=== PATIENT | male | born 1970 | race Caucasian/White ===

== ENCOUNTER 2016-10-23 21:23 | Inpatient (IN) | payer OTHER ==
[2016-10-23] MEDS ORDERED: ACETAMINOPHEN TAB 500 MG TAB PO STA (23:09)
[2016-10-23] MEDS ORDERED: ONDANSETRON 4 MG/2 ML VIAL IVP STA (23:09)
[2016-10-23] MEDS ORDERED: HYDROmorphone 1 MG/ML 1 ML SYRINGE IVP STA (23:10)
--- NOTE | 2016-10-23 23:15 | ED ---
General Adult HPI - General Chief complaint: GI Bleed Stated complaint: Abd Pain/Bleeding Time Seen by Provider: 10/23/16 22:51 Source: patient, RN notes reviewed Mode of arrival: wheelchair Limitations: no limitations - History of Present Illness Initial comments: Patient is a 45-year-old male presents to the emergency room for evaluation. Patient states he has a history of ulcerative colitis. Patient states he has been experiencing rectal bleeding for the past 6 weeks since his last colonoscopy. Patient states about 2 weeks ago he was at [facility] experiencing shortness of breath. Patient states his d-dimer was positive and they performed a CT. Patient states he was told it was pneumonia. Patient states he has been taking Augmentin. Patient states been having increased rectal bleeding so his physician switched him from Augmentin to azithromycin today. Patient states he has not taken his azithromycin yet. Patient states he went to take a nap after his doctor's appointment and woke up this evening feeling even worse. Patient states he is having increasing shortness of breath. Patient is having increasing abdominal pain on his left upper quadrant and left lower quadrant. Patient states he feels weak and does not feel himself. Patient states he's been feeling feverish but denies taking any Tylenol or Motrin for his symptoms. Patient states he's been very nauseous. - Related Data Home Medications Medication Instructions Recorded Confirmed Dicyclomine [Bentyl] 10 mg PO BID 03/30/14 10/24/16 Mesalamine [Delzicol] 800 mg PO TID 03/30/14 10/24/16 Pregabalin [Lyrica] 150 mg PO BID 03/30/14 10/24/16 Prochlorperazine [Compazine] 10 mg PO BID 03/30/14 10/24/16 hydrOXYzine HCL 25 mg PO BID 03/30/14 10/24/16 buPROPion [Wellbutrin] 150 mg PO BID 06/21/16 10/24/16 Humira (Unknown Dose) 1 dose SQ DIRECTED 07/17/16 10/24/16 Multivitamins, Thera [Multivitamin] 1 tab PO DAILY 07/17/16 10/24/16 Ondansetron [Zofran] 4 mg PO Q12HR PRN 07/17/16 10/24/16 Allergies Allergy/AdvReac Type Severity Reaction Status Date / Time No Known Allergies Allergy Verified 07/17/16 14:15 Review of Systems ROS Statement: Those systems with pertinent positive or pertinent negative responses have been documented in the HPI. ROS Other: All systems not noted in ROS Statement are negative. Past Medical History Past Medical History: Asthma, Chest Pain / Angina, GERD/Reflux, Liver Disease Additional Past Medical History / Comment(s): Hx ulcerative colitis. Hx of "fatty liver". Hx of pleurisy and pneumonia. Chest pain related to "stress". Denies prior hx of MRSA. History of Any Multi-Drug Resistant Organisms: MRSA Date of last positivie culture/infection: 05/19/2007 MDRO Source:: wound on torso, No further reported issues on 06/21/16. Past Surgical History: Back Surgery, Heart Catheterization Additional Past Surgical History / Comment(s): Hx recent "clear heart cath", back surgery x2;multiple colonoscopies. Past Anesthesia/Blood Transfusion Reactions: No Reported Reaction Past Psychological History: Anxiety, Depression Additional Psychological History / Comment(s): Told "stress" was cause of chest pain last month. Smoking Status: Former smoker Past Alcohol Use History: None Reported Additional Past Alcohol Use History / Comment(s): Smoked 1 ppd, started smoking 1995.Quit 2004. Past Drug Use History: None Reported - Past Family History Mother Family Medical History: No Reported History Father Family Medical History: Cancer General Exam - General Exam Comments Initial Comments: laying in exam room Limitations: no limitations General appearance: alert Head exam: Present: atraumatic, normocephalic, normal inspection Eye exam: Present: normal appearance ENT exam: Present: normal exam Neck exam: Present: normal inspection Respiratory exam: Present: decreased breath sounds Cardiovascular Exam: Present: normal rhythm, tachycardia, normal heart sounds GI/Abdominal exam: Present: soft, tenderness (left upper quadrant, left lower quadrant). Absent: distended Rectal exam: Present: normal rectal tone, heme (+) stool Extremities exam: Present: normal inspection Back exam: Present: normal inspection Neurological exam: Present: alert, oriented X3, CN II-XII intact, normal gait Psychiatric exam: Present: normal affect, normal mood Skin exam: Present: warm, dry, intact, normal color. Absent: rash Course Vital Signs 10/23/16 10/23/16 10/23/16 21:49 22:35 23:33 Temperature 101.7 F H 98.9 F Pulse Rate 102 H 102 H Respiratory 18 14 20 Rate Blood Pressure 137/82 111/73 O2 Sat by Pulse 93 L 94 L Oximetry 10/24/16 10/24/16 01:09 02:43 Temperature 98.4 F 98.2 F Pulse Rate 89 78 Respiratory 20 20 Rate Blood Pressure 120/80 116/72 O2 Sat by Pulse 96 98 Oximetry Medical Decision Making - Medical Decision Making patient is a 45-year-old male presents emergency room for evaluation shortness of breath, abdominal pain and rectal bleeding. Patient has had a history of ulcerative colitis. Fecal occult was positive. D-dimer was elevated. Chest CTA : Confluent areas of opacity in the right lung which may present masses along with spiculated superior segment left lower lobe mass with central cavitation. Neoplastic etiology is not excluded. CT abdomen/pelvis: Findings compatible with colitis. He "felt cold mural thickening of some small bowel segments versus incomplete distention. Correlate for enteritis. Patient started on Rocephin and Flagyl. Results discussed with patient. Patient will be admitted for further evaluation. Patient to consult with pulmonology and GI. Case discussed with Dr. Meade who will discuss case with Dr. Newman. - Lab Data Result diagrams: 10/23/16 23:30 10/23/16 23:30 Lab Results 10/23/16 10/23/16 10/23/16 Range/Units 23:10 23:30 23:30 WBC 9.1 (3.8-10.6) k/uL RBC 4.71 (4.30-5.90) m/uL Hgb 12.9 L (13.0-17.5) gm/dL Hct 39.2 (39.0-53.0) % MCV 83.2 (80.0-100.0) fL MCH 27.5 (25.0-35.0) pg MCHC 33.0 (31.0-37.0) g/dL RDW 13.5 (11.5-15.5) % Plt Count 452 H (150-450) k/uL Neutrophils % 77 % Lymphocytes % 11 % Monocytes % 6 % Eosinophils % 3 % Basophils % 1 % Neutrophils # 7.0 (1.3-7.7) k/uL Lymphocytes # 1.0 (1.0-4.8) k/uL Monocytes # 0.6 (0-1.0) k/uL Eosinophils # 0.3 (0-0.7) k/uL Basophils # 0.1 (0-0.2) k/uL PT (9.0-12.0) sec INR (<1.1) APTT (22.0-30.0) sec D-Dimer (<0.60) mg/L FEU Sodium (137-145) mmol/L Potassium (3.5-5.1) mmol/L Chloride (98-107) mmol/L Carbon Dioxide (22-30) mmol/L Anion Gap mmol/L BUN (9-20) mg/dL Creatinine (0.66-1.25) mg/dL Est GFR (MDRD) Af Amer (>60 ml/min/1.73 sqM) Est GFR (MDRD) Non-Af (>60 ml/min/1.73 sqM) Glucose (74-99) mg/dL Plasma Lactic Acid Tl (0.7-2.0) mmol/L Calcium (8.4-10.2) mg/dL Total Bilirubin (0.2-1.3) mg/dL AST (17-59) U/L ALT (21-72) U/L Alkaline Phosphatase (38-126) U/L Total Creatine Kinase 23 L (55-170) U/L CK-MB (CK-2) <0.2 (0.0-2.4) ng/mL CK-MB (CK-2) Rel Index Troponin I <0.012 (0.000-0.034) ng/mL Total Protein (6.3-8.2) g/dL Albumin (3.5-5.0) g/dL Urine Color Urine Appearance (Clear) Urine pH (5.0-8.0) Ur Specific [place] (1.001-1.035) Urine Protein (Negative) Urine Glucose (UA) (Negative) Urine Ketones (Negative) Urine Blood (Negative) Urine Nitrite (Negative) Urine Bilirubin (Negative) Urine Urobilinogen (<2.0) mg/dL Ur Leukocyte Esterase (Negative) Urine RBC (0-5) /hpf Urine Mucus (None) /hpf Stool Occult Blood Positive (Negative) 06/07/17 06/07/17 06/07/17 Range/Units 23:30 23:30 23:30 WBC (3.8-10.6) k/uL RBC (4.30-5.90) m/uL Hgb (13.0-17.5) gm/dL Hct (39.0-53.0) % MCV (80.0-100.0) fL MCH (25.0-35.0) pg MCHC (31.0-37.0) g/dL RDW (11.5-15.5) % Plt Count (150-450) k/uL Neutrophils % % Lymphocytes % % Monocytes % % Eosinophils % % Basophils % % Neutrophils # (1.3-7.7) k/uL Lymphocytes # (1.0-4.8) k/uL Monocytes # (0-1.0) k/uL Eosinophils # (0-0.7) k/uL Basophils # (0-0.2) k/uL PT 11.2 (9.0-12.0) sec INR 1.1 (<1.1) APTT 26.0 (22.0-30.0) sec D-Dimer 1.59 H (<0.60) mg/L FEU Sodium 137 (137-145) mmol/L Potassium 4.0 (3.5-5.1) mmol/L Chloride 102 (98-107) mmol/L Carbon Dioxide 24 (22-30) mmol/L Anion Gap 11 mmol/L BUN 12 (9-20) mg/dL Creatinine 0.78 (0.66-1.25) mg/dL Est GFR (MDRD) Af Amer >60 (>60 ml/min/1.73 sqM) Est GFR (MDRD) Non-Af >60 (>60 ml/min/1.73 sqM) Glucose 135 H (74-99) mg/dL Plasma Lactic Acid Tl 0.8 (0.7-2.0) mmol/L Calcium 9.3 (8.4-10.2) mg/dL Total Bilirubin 0.9 (0.2-1.3) mg/dL AST 13 L (17-59) U/L ALT 26 (21-72) U/L Alkaline Phosphatase 149 H (38-126) U/L Total Creatine Kinase (55-170) U/L CK-MB (CK-2) (0.0-2.4) ng/mL CK-MB (CK-2) Rel Index Troponin I (0.000-0.034) ng/mL Total Protein 7.9 (6.3-8.2) g/dL Albumin 3.9 (3.5-5.0) g/dL Urine Color Urine Appearance (Clear) Urine pH (5.0-8.0) Ur Specific [place] (1.001-1.035) Urine Protein (Negative) Urine Glucose (UA) (Negative) Urine Ketones (Negative) Urine Blood (Negative) Urine Nitrite (Negative) Urine Bilirubin (Negative) Urine Urobilinogen (<2.0) mg/dL Ur Leukocyte Esterase (Negative) Urine RBC (0-5) /hpf Urine Mucus (None) /hpf Stool Occult Blood (Negative) 10/24/16 Range/Units 01:05 WBC (3.8-10.6) k/uL RBC (4.30-5.90) m/uL Hgb (13.0-17.5) gm/dL Hct (39.0-53.0) % MCV (80.0-100.0) fL MCH (25.0-35.0) pg MCHC (31.0-37.0) g/dL RDW (11.5-15.5) % Plt Count (150-450) k/uL Neutrophils % % Lymphocytes % % Monocytes % % Eosinophils % % Basophils % % Neutrophils # (1.3-7.7) k/uL Lymphocytes # (1.0-4.8) k/uL Monocytes # (0-1.0) k/uL Eosinophils # (0-0.7) k/uL Basophils # (0-0.2) k/uL PT (9.0-12.0) sec INR (<1.1) APTT (22.0-30.0) sec D-Dimer (<0.60) mg/L FEU Sodium (137-145) mmol/L Potassium (3.5-5.1) mmol/L Chloride (98-107) mmol/L Carbon Dioxide (22-30) mmol/L Anion Gap mmol/L BUN (9-20) mg/dL Creatinine (0.66-1.25) mg/dL Est GFR (MDRD) Af Amer (>60 ml/min/1.73 sqM) Est GFR (MDRD) Non-Af (>60 ml/min/1.73 sqM) Glucose (74-99) mg/dL Plasma Lactic Acid Tl (0.7-2.0) mmol/L Calcium (8.4-10.2) mg/dL Total Bilirubin (0.2-1.3) mg/dL AST (17-59) U/L ALT (21-72) U/L Alkaline Phosphatase (38-126) U/L Total Creatine Kinase (55-170) U/L CK-MB (CK-2) (0.0-2.4) ng/mL CK-MB (CK-2) Rel Index Troponin I (0.000-0.034) ng/mL Total Protein (6.3-8.2) g/dL Albumin (3.5-5.0) g/dL Urine Color Yellow Urine Appearance Clear (Clear) Urine pH 5.5 (5.0-8.0) Ur Specific [place] 1.029 (1.001-1.035) Urine Protein 1+ H (Negative) Urine Glucose (UA) Negative (Negative) Urine Ketones Negative (Negative) Urine Blood Negative (Negative) Urine Nitrite Negative (Negative) Urine Bilirubin Negative (Negative) Urine Urobilinogen <2.0 (<2.0) mg/dL Ur Leukocyte Esterase Negative (Negative) Urine RBC 1 (0-5) /hpf Urine Mucus Many H (None) /hpf Stool Occult Blood (Negative) - Radiology Data Radiology results: report reviewed, image reviewed Disposition Clinical Impression: Lung mass, Ulcerative colitis Disposition: ADMITTED IP TO THIS [facility] Condition: Stable Referrals: Shanthi Sloan MD [Primary Care Provider] - 1-2 days Decision Date: 10/24/16
[2016-10-23] MEDS: SODIUM CHLORIDE 0.9% 500 ML IV SCH ×2 (23:39→23:40)
[2016-10-23 23:48] LABS: Basophils # (A) 0.1 k/uL (0-0.2); Basophils % (A) 1 %; CH 28.1; CHCM 33.9; Eosinophils # (A) 0.3 k/uL (0-0.7); Eosinophils % (A) 3 %; HCT 39.2 % (39.0-53.0); HDW 3.29; HGB 12.9 gm/dL (13.0-17.5); Luc % (Auto) 2; Lymphocytes % (A) 11 %; MCH 27.5 pg (25.0-35.0); MCV 83.2 fL (80.0-100.0); Mean Platelet Volume 6.2; Monocytes # (A) 0.6 k/uL (0-1.0); Monocytes % (A) 6 %; Neutrophils % (A) 77 %; RBC 4.71 m/uL (4.30-5.90); RDW 13.5 % (11.5-15.5); WBC 9.1 k/uL (3.8-10.6); WBC (Perox) 8.81
[2016-10-24 00:06] LABS: ALT 26 U/L (21-72); AST 13 U/L (17-59); Alkaline Phosphatase 149 U/L (38-126); Anion Gap 11 mmol/L; Blood Urea Nitrogen 12 mg/dL (9-20); Calcium 9.3 mg/dL (8.4-10.2); Carbon Dioxide 24 mmol/L (22-30); Chloride 102 mmol/L (98-107); Glucose 135 mg/dL (74-99); Non-African American GFR(MDRD) >60 (>60 ml/min/1.73 sqM); Sodium 137 mmol/L (137-145); Total Bilirubin 0.9 mg/dL (0.2-1.3); Total Protein 7.9 g/dL (6.3-8.2)
[2016-10-24 00:08] LABS: Creatine Kinase 23 U/L (55-170)
[2016-10-24 00:12] LABS: INR 1.1 (<1.1); Prothrombin Time 11.2 sec (9.0-12.0)
[2016-10-24 00:20] LABS: Creatine Kinase MB <0.2 ng/mL (0.0-2.4); Troponin I <0.012 ng/mL (0.000-0.034)
--- NOTE | 2016-10-24 00:31 | XR ---
EXAM: XR Acute Abdomen Series W/ Cxr CLINICAL HISTORY: Reason: Pain TECHNIQUE: X-ray acute abdomen series w/ cxr. COMPARISON: No relevant prior studies available. FINDINGS: Flanks clipped. There are some dilated small bowel loops. There is still colonic gas and stool seen predominantly on the right. There is a paucity of small bowel gas overall. Dilated fluid-filled small bowel segments not excluded. No subdiaphragmatic free air is seen. Small portion of the left hemidiaphragm is clipped on the upright view. Pleural and parenchymal opacities at the right lung base with lung opacities extending to the right midlung zone. Some of this may represent scarring though right pleural effusion is not excluded. Lung opacity may represent atelectasis and/or scar with a component of infiltrate at the right lung base not excluded. Suspect atelectatic changes at the left lung base. IMPRESSION: Nonspecific bowel gas pattern with paucity of small bowel gas overall. There are dilated small bowel segments measuring slightly over 5 cm, for example left abdomen. May represent ileus with obstructive process not excluded. Pleural parenchymal disease on the right. See above discussion.
[2016-10-24] MEDS ORDERED: RX INFO: IV CONTRAST WAS GIVEN 1 EACH MISC MISCELLANE PRN (00:55)
[2016-10-24] MEDS: metroNIDAZOLE-NS PMX 500 MG in SALINE 1 100ML.BAG IVPB STA ×2 (01:43→02:41)
[2016-10-24 01:58] LABS: Appearance,Urine Clear (Clear); Bilirubin,Urine Negative (Negative); Glucose,Urine (UA) Negative (Negative); Ketones,Urine Negative (Negative); Leukocyte Esterase,Urine Negative (Negative); Mucus,Urine Many /hpf; Nitrite,Urine Negative (Negative); PH, Urine 5.5 (5.0-8.0); Particle Count 6190; Protein,Urine 1+ (Negative); RBC,Urine 1 /hpf (0-5); Specific Gravity,Urine 1.029 (1.001-1.035); UA Billing (MACRO vs. MICRO) MICRO; Urobilinogen,Urine <2.0 mg/dL (<2.0)
--- NOTE | 2016-10-24 02:18 | CT ---
EXAM: CT Angiography Chest With Intravenous Contrast CLINICAL HISTORY: Reason: Pain TECHNIQUE: TOTAL DLP: 6596.00 mGy-cm for both CTA chest and CT abdomen and pelvis. This CT exam was performed using one or more of the following dose reduction techniques: automated exposure control, adjustment of the mA and/or kV according to patient size, and/or use of iterative reconstruction technique. MIP reconstructed images were created and reviewed. Coronal and sagittal reformatted images were created and reviewed. COMPARISON: No prior CT FINDINGS: Contrast bolus within the pulmonary arteries is suboptimal. Do not feel this exam is sufficient to exclude PE. No large central/ saddle embolus. No aortic dissection. Suspect combination of small pleural effusion and pleural thickening on the right. Adenopathy, example mediastinal stations. Books Binder example, subcarinal node measuring about 14 mm short axis. Small hiatal hernia. Airspace opacities on the right. Some of this is atelectasis with volume loss on the right with elevation of the right hemidiaphragm. A component of infiltrate is not excluded. There is a confluent area of the lung opacity in the right middle lobe without air bronchograms. Indeterminate. May represent mass. Additional areas of possible mass in the right lower lobe. There are small calcified and nodules, for example left lower lobe. Irregular mass in the superior segment of left lower lobe with central cavitation measuring about 2.4 cm on axials. Osseous degenerative changes. IMPRESSION: Contrast bolus within the pulmonary arteries is suboptimal. Do not feel this exam is sufficient to exclude PE. Suspect combination of small pleural effusion and pleural thickening on the right. Atelectasis and/or infiltrate on the right. Confluent areas of opacity in the right lung which may represent masses along with spiculated superior segment left lower lobe mass with central cavitation. Neoplastic etiology is not excluded. Recommend follow-up. Adenopathy and other findings, as above.
--- NOTE | 2016-10-24 02:26 | CT ---
EXAM: CT Abdomen and Pelvis With Intravenous Contrast CLINICAL HISTORY: Reason: Pain TECHNIQUE: Axial computed tomography images of the abdomen and pelvis with intravenous contrast. TOTAL DLP: 6596.[address] chest and CT abdomen and pelvis. This CT exam was performed using one or more of the following dose reduction techniques: automated exposure control, adjustment of the mA and/or kV according to patient size, and/or use of iterative reconstruction technique. COMPARISON: No prior CT. FINDINGS: CT chest findings reported separately. There is mural thickening of the colon with pericolonic infiltration compatible with colitis. Colon is underdistended limiting evaluation for wall thickening. Suspect long segment of colitis with involvement of at least portions of ascending colon through portions of the descending colon. More extensive colonic involvement is not excluded. There is also fatty infiltration of the colon wall suggesting remote episodes of inflammation. Small pericolonic nodes. Nodes do not appear enlarged though are more numerous than normally expected. No evidence for appendicitis. Splenomegaly. Liver also prominent in size with possible steatosis. Low- density renal lesions too small to characterize. Equivocal mural thickening of some small bowel segments versus incomplete distention. Correlate for enteritis. Osseous degenerative changes. Transitional lumbosacral vertebra. IMPRESSION: Findings compatible with colitis. Equivocal mural thickening of some small bowel segments versus incomplete distention. Correlate for enteritis. Additional findings, as discussed above.
[2016-10-24] MEDS ORDERED: ACETAMINOPHEN TAB 325 MG TAB PO PRN (02:39)
[2016-10-24] MEDS ORDERED: NALOXONE 0.4 MG/ML 1 ML VIAL IV PRN (02:39)
[2016-10-24] MEDS: SODIUM CHLORIDE 0.9% 1,000 ML IV SCH ×2 (02:46→13:54)
[2016-10-24] MEDS: HYDROmorphone 1 MG/ML 1 ML SYRINGE IV PRN ×5 (03:10→21:19)
[2016-10-24] MEDS: ONDANSETRON 4 MG/2 ML VIAL IVP PRN ×2 (05:36→13:41)
[2016-10-24 06:57] LABS: Glucose,Whole Blood 121 mg/dL (75-99)
[2016-10-24 07:40] LABS: Basophils % (A) 0 %; CH 27.7; CHCM 32.8; Eosinophils # (A) 0.2 k/uL (0-0.7); Eosinophils % (A) 3 %; HCT 36.1 % (39.0-53.0); HDW 3.24; HGB 11.7 gm/dL (13.0-17.5); Luc # (Auto) 0.16; Luc % (Auto) 2; Lymphocytes # (A) 0.7 k/uL (1.0-4.8); Lymphocytes % (A) 8 %; MCH 27.5 pg (25.0-35.0); MCHC 32.4 g/dL (31.0-37.0); Mean Platelet Volume 6.1; Monocytes # (A) 0.5 k/uL (0-1.0); Monocytes % (A) 5 %; Neutrophils # (A) 7.6 k/uL (1.3-7.7); Neutrophils % (A) 83 %; RBC 4.25 m/uL (4.30-5.90); RDW 13.4 % (11.5-15.5); WBC 9.2 k/uL (3.8-10.6); WBC (Perox) 9.64
[2016-10-24 07:55] LABS: ALT 29 U/L (21-72); AST 9 U/L (17-59); Alkaline Phosphatase 136 U/L (38-126); Anion Gap 9 mmol/L; Blood Urea Nitrogen 12 mg/dL (9-20); Calcium 8.6 mg/dL (8.4-10.2); Carbon Dioxide 28 mmol/L (22-30); Chloride 102 mmol/L (98-107); Glucose 137 mg/dL (74-99); Non-African American GFR(MDRD) >60 (>60 ml/min/1.73 sqM); Potassium 4.1 mmol/L (3.5-5.1); Sodium 139 mmol/L (137-145); Total Bilirubin 0.8 mg/dL (0.2-1.3)
[2016-10-24] MEDS: IPRATROPIUM-ALBUTEROL 3 ML NEB INHALATION PRN (09:09)
[2016-10-24] MEDS: IPRATROPIUM-ALBUTEROL 3 ML NEB INHALATION SCH ×3 (12:05→19:52)
[2016-10-24] MEDS ORDERED: IV VANCOMYCIN PER PHARMACY 1 EACH MISC MISCELLANE PRN (12:05)
[2016-10-24 12:06] LABS: Glucose,Whole Blood 139 mg/dL (75-99)
[2016-10-24] MEDS ORDERED: HUMIRA SQ SCH (12:15)
[2016-10-24] MEDS ORDERED: VANCOMYCIN 2,500 MG in SODIUM CHLORIDE 0.9% 500 ML IVPB ONE (13:00)
--- NOTE | 2016-10-24 13:21 | P.CONS ---
History of Present Illness - Reason for Consult Consult date: 10/24/16 Ulcerative colitis Requesting physician: Nicolas Newman - History of Present Illness 45-year-old male with a history of ulcerative colitis diagnosed around 13 years ago presents with rectal bleeding for the last 3 months since his last colonoscopy July in [place]. Recent admission at [facility] 2 weeks ago for shortness of breath with elevated d-dimer. Patient was told he had pneumonia. Receiving Augmentin prior to admission. White count 9.1. Hemoglobin 12.9. Platelet 452. INR 1.1. D-dimer 1.5. Stool Hemoccult positive. T-max 101.7. Medications include Asacol 800 mg 3 times a day, Bentyl, and Humira. CT chest abdomen and pelvis reported confluent areas of opacity in the right lung which may represent masses along with spiculated superior segment and the left lower lobe mass with central cavitation. Adenopathy present. Neoplastic etiology cannot be excluded. Mural thickening of the colon with pericolonic infiltration compatible with colitis. Long segment of colitis involving at least portions of ascending colon through portions of the descending colon. Equivocal mural thickening of small bowel segments versus incomplete distention possible enteritis. In addition to the above mentioned symptoms he has dveloped left foot swelling with a quarter sized nondraining circular red sore just below the 5th metatarsal dorsal aspect of foot. Review of Systems Constitutional: Denies fever, chills, sweats, weight gain, or loss. HEENT: Negative for migraines, blurred vision or loss, earaches, drainage, tinnitus, oral mucosal lesions, dysphagia, or odynophagia. Cardiac: Negative for chest pain, arrhythmias, or palpitation. Respiratory: History of pleurisy. Recent pneumonia. History of asthma. Gastrointestinal: See HPI for pertinent findings. Genitourinary: Negative for hematuria, urgency, frequency, polyuria, dysuria, or penile discharge. Musculoskeletal: Fibromyalgia. Negative for muscle aches, swelling, arthritis, and arthralgias. Neurologic: Negative for stroke or TIA. Endocrine: Diabetes mellitus. Negative for thyroid problems. Skin: Negative for rash or itching. Psychiatric: Anxiety. Depression. 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 History of Any Multi-Drug Resistant Organisms: MRSA Year Discovered:: 05/19/2007 MDRO Source:: wound on torso Past Surgical History: Back Surgery, Heart Catheterization Additional Past Surgical History / Comment(s): Hx recent "clear heart cath", back surgery x2;multiple colonoscopies, EGD, deviated septum repair. Past Anesthesia/Blood Transfusion Reactions: No Reported Reaction Past Psychological History: Anxiety, Depression Additional Psychological History / Comment(s): Pt states he takes wellbutrin which helps with his depression. Pt lives with his mother and sister and his 2 children ages 16 and 17. He is independent. Smoking Status: Former smoker Past Alcohol Use History: None Reported Additional Past Alcohol Use History / Comment(s): Smoked 1 ppd, started smoking 1995.Quit 2004. Past Drug Use History: None Reported - Past Family History Mother Family Medical History: Diabetes Mellitus Additional Family Medical History / Comment(s): Mother is blind due to diabetic retinopathy. She is 78yrs old. Father Family Medical History: Cancer Additional Family Medical History / Comment(s): Father of prostate cancer with mets to liver at the age of 81 yrs. Medications and Allergies Home Medications Medication Instructions Recorded Confirmed Type Mesalamine [Delzicol] 800 mg PO TID 03/30/14 10/24/16 History Pregabalin [Lyrica] 150 mg PO BID 03/30/14 10/24/16 History Prochlorperazine [Compazine] 10 mg PO BID PRN 03/30/14 10/24/16 History hydrOXYzine HCL 25 mg PO BID 03/30/14 10/24/16 History buPROPion [Wellbutrin] 150 mg PO BID 06/21/16 10/24/16 History Humira (Unknown Dose) 1 dose SQ DIRECTED 07/17/16 10/24/16 History Azithromycin [Zithromax Z-pack] See Taper PO DIRECTED 10/24/16 10/24/16 History Cholecalciferol [Vitamin D3] 5,000 unit PO DAILY 10/24/16 10/24/16 History Dicyclomine [Bentyl] 20 mg PO QID 10/24/16 10/24/16 History L.acidoph,Paracasei, B.lactis 1 cap PO DAILY 10/24/16 10/24/16 History [Probiotic] Milk Thistle 150 mg PO HS 10/24/16 10/24/16 History Ondansetron HCl [Zofran] 8 mg PO BID PRN 10/24/16 10/24/16 History Ranitidine HCl [Zantac] 150 mg PO BID 10/24/16 10/24/16 History metFORMIN HCL [Glucophage] 500 mg PO BID 10/24/16 10/24/16 History Allergies Allergy/AdvReac Type Severity Reaction Status Date / Time No Known Allergies Allergy Verified 10/24/16 09:00 Physical Exam Vitals: Vital Signs Temp Pulse Pulse Resp BP BP Pulse Ox 10/24/16 09:10 82 10/24/16 06:28 98.7 F 95 18 133/77 94 L 10/24/16 06:15 98.7 F 72 20 120/81 96 10/24/16 04:48 97.8 F 85 20 117/60 97 10/24/16 02:43 98.2 F 78 20 116/72 98 10/24/16 01:09 98.4 F 89 20 120/80 96 10/23/16 23:33 98.9 F 102 H 20 111/73 94 L 10/23/16 22:35 14 10/23/16 21:49 101.7 F H 102 H 18 137/82 93 L Intake and Output 10/23/16 10/24/16 10/24/16 22:59 06:59 14:59 Other: Weight 140.614 kg General appearance: The patient is alert, oriented, in no acute distress. HET: Head is normocephalic and atraumatic. Pupils are equal and reactive. Oropharynx is clear without lesions. Neck: Supple without lymphadenopathy. Trachea midline. Heart: S1 S2. Regular rate and rhythm. Lungs: No crackles or wheezes are heard. Abdomen: Soft, mild tenderness left side of abdomen, nondistended with bowel sounds. No peritoneal signs. No palpable organomegaly or masses. Extremities: Left foot erythema warmth with quarter size unopened area dorsal aspect of left foot below fifth metatarsal. Neurological: No focal deficits. Strength and sensation are grossly intact. Results CBC & Chem 7: 10/24/16 07:10 10/24/16 07:10 Labs: Abnormal Lab Results - Last 24 Hours (Table) 10/23/16 10/23/16 10/23/16 Range/Units 23:30 23:30 23:30 RBC (4.30-5.90) m/uL Hgb 12.9 L (13.0-17.5) gm/dL Hct (39.0-53.0) % Plt Count 452 H (150-450) k/uL Lymphocytes # (1.0-4.8) k/uL D-Dimer (<0.60) mg/L FEU Glucose 135 H (74-99) mg/dL POC Glucose (mg/dL) (75-99) mg/dL AST 13 L (17-59) U/L Alkaline Phosphatase 149 H (38-126) U/L Total Creatine Kinase 23 L (55-170) U/L Albumin (3.5-5.0) g/dL Urine Protein (Negative) Urine Mucus (None) /hpf 10/23/16 10/24/16 10/24/16 Range/Units 23:30 01:05 06:44 RBC (4.30-5.90) m/uL Hgb (13.0-17.5) gm/dL Hct (39.0-53.0) % Plt Count (150-450) k/uL Lymphocytes # (1.0-4.8) k/uL D-Dimer 1.59 H (<0.60) mg/L FEU Glucose (74-99) mg/dL POC Glucose (mg/dL) 121 H (75-99) mg/dL AST (17-59) U/L Alkaline Phosphatase (38-126) U/L Total Creatine Kinase (55-170) U/L Albumin (3.5-5.0) g/dL Urine Protein 1+ H (Negative) Urine Mucus Many H (None) /hpf 10/24/16 10/24/16 Range/Units 07:10 07:10 RBC 4.25 L (4.30-5.90) m/uL Hgb 11.7 L (13.0-17.5) gm/dL Hct 36.1 L (39.0-53.0) % Plt Count (150-450) k/uL Lymphocytes # 0.7 L (1.0-4.8) k/uL D-Dimer (<0.60) mg/L FEU Glucose 137 H (74-99) mg/dL POC Glucose (mg/dL) (75-99) mg/dL AST 9 L (17-59) U/L Alkaline Phosphatase 136 H (38-126) U/L Total Creatine Kinase (55-170) U/L Albumin 3.4 L (3.5-5.0) g/dL Urine Protein (Negative) Urine Mucus (None) /hpf Assessment and Plan (1) Ulcerative colitis Narrative/Plan: exacerbation of moderate to severe ulcerative colitis Status: Acute (2) Cellulitis of left foot Narrative/Plan: Suspect erythema nodosum with erythema warmth and swelling. Status: Acute (3) GI bleed Narrative/Plan: Component of acute blood loss anemia Status: Acute Plan: 1. Sed rate CRP. 2. IV Solu-Medrol 60 mg every 6 hours. 3. Delzicol formulary equivalent balsalazide 2.25 g 3 times a day. Hold Humira. 4. Recommend infectious disease consultation for left foot evaluation. 5. Stool studies including Clostridium difficile testing. 6. Monitor CBC. Thank you for this kind referral and the opportunity to participate in the care of your patient. This consultation was discussed with Dr. Brandt. The impression and plan of care have been directed as dictated.
[2016-10-24] MEDS: INSULIN LISPRO (humaLOG) 300 UNIT/3 ML VIAL SQ SCH ×3 (13:38→21:45)
[2016-10-24] MEDS: methylPREDNISolone SOD SUCCI 125 MG/2 ML VIAL IV SCH ×3 (13:44→21:21)
[2016-10-24] MEDS: LACTOBACILLUS ACIDOPH & BULGAR 1 EACH PACKET PO SCH (13:45)
[2016-10-24] MEDS: DICYCLOMINE 20 MG TAB PO SCH ×3 (13:45→21:23)
[2016-10-24 15:14] VITALS: BMI 42.0
[2016-10-24] MEDS ORDERED: MESALAMINE 800 MG PO SCH (16:00)
[2016-10-24] MEDS: BALSALAZIDE DISODIUM 750 MG CAPSULE PO SCH ×2 (16:40→21:22)
[2016-10-24 16:47] LABS: Glucose,Whole Blood 213 mg/dL (75-99)
[2016-10-24] MEDS: PIPERACILLIN-TAZOBACTAM 3.375 GM in DEXTROSE/WATER 1 50ML.BAG IVPB SCH (17:02)
--- NOTE | 2016-10-24 20:19 | CONS ---
DATE OF CONSULTATION: 10/24/2016. REASON FOR CONSULTATION: Lung mass pneumonia, shortness of breath, chest pain and tightness. HISTORY OF PRESENT ILLNESS: Mr. Gennaro Downing is a 45-year-old morbidly obese male. He is very well known to me. This patient in fact seen, off in the office about 10 days ago for an abnormal CT scan which was performed at [facility]. He does have a history of ulcerative colitis with prior history of dense consolidation in the lung back in 2013 or 15. At that time, patient was monitored and observe on steroids and antibiotics with resolution of the densities. This patient came back into the office, later part of last month with pleuritic chest pain bilaterally. CT scan performed in [facility] reveals dense bilateral densities with a masslike appearance. Patient was treated with antibiotics and recommended to follow up due to severe chest pain as well as development of foot pain, patient came into the hospital. He had nodular lesion in the foot which is extremely tender. However, skin is intact though. Past medical history is significant for: Chronic persistent asthma, history of gastroesophageal reflux disease, ulcerative colitis, fatty liver, history of prior pneumonia, and chest pain. PAST SURGICAL HISTORY: Significant for spine surgery, cardiac cath and angiogram. ALLERGIES: No known drug allergy. Medications at home include: 1. Bentyl 10 mg p.o. 2 times a day. 2. Also on Mesalamine 800 mg 3 times a day. 3. ( ) 150 mg 2 times a day. 4. Compazine 10 mg p.o. 2 times a day. 5. Hydroxyzine 25 mg b.i.d. 6. Wellbutrin is 150 mg p.o. 2 times a day. 7. Humira one dose subcu. 8. Multivitamins. 9. Zofran. ALLERGIES: No known drug allergies. Of note that during office visit, the patient was recommended tapering steroids and antibiotics. Of note that he did not take steroids. As he was concerned about the hyperglycemia. Review of the data also revealed that patient has a history of ulcerative colitis diagnosed about 13 years ago, history of intermittent bleeding with the last colonoscopy performed earlier this in July. The patient has received Augmentin. Current medications while in the hospital include: 1. DuoNeb unit dose 4 times a day call. 2. ( ) 2.25-3 times a day. 3. Wellbutrin 150, 2 times a day. 4. Vitamin D. 5. Bentyl. 6. Pepcid. 7. Dilaudid. 8. Sliding scale insulin. 9. Humalog. 10. Levaquin 750 mg daily. 11. Solu-Medrol 60 mg q.6 hourly. 12. Zosyn 3.375 q.6 hourly. 13. Vancomycin 2 grams. FAMILY HISTORY AND SOCIAL HISTORY: Otherwise unremarkable and noncontributory. On examination, blood pressure 155/82, respiratory rate 18, pulse 98, temperature 98, saturation 97%. HEENT: Atraumatic, normocephalic. Pharynx is clear. Narrow pharyngeal opening is present. NECK: Supple without lymphadenopathy, jugular venous distention or carotid bruit. LUNGS: Bilateral good air entry is present without any significant rales, rhonchi, or rub. HEART: Regular rate and rhythm. S1 and S2 audible. ABDOMEN: Soft. No rebound or rigidity. EXTREMITIES: +1 peripheral pulses. NEUROLOGICAL EXAMINATION: Otherwise, awake and alert. No focal neurological deficits. LABS: Reviewed. Medications reviewed. White cell count 9200. EXTREMITIES: Revealed left dorsal foot has quarter size erythematous tender lesion with surrounding swelling and edema. Pulses are intact though. Laboratory data white cell count 9200, hemoglobin and hematocrit 11 and 36, platelet count 403,000. Chemistry within normal limits. Glucose is 137. C-reactive protein 156. Alkaline phosphatase is 136. Urinalysis is unremarkable. C. difficile is negative. The CT scan of the abdomen and pelvis and chest was reviewed. There is no filling defect is present. No large segmental embolism was seen, a small pleural effusion and pleural thickening on the right side is seen, mediastinal lymph nodes in the subcarinal area has been seen, right upper lobe opacity with elevated hemidiaphragm is seen. Additional masslike lesion in the right lower lobe is noted. Irregular mass in the left upper lobe with central cavitation is seen. CT scan of the abdomen and pelvis, reviewed as well, revealed colitis-like changes. IMPRESSION: 1. Bilateral dense infiltrates and masses given the history of ulcerative colitis, some nodular lesion in the left foot, likely organizing pneumonia and necrotizing pneumonia. 2. Nodular lesion in the left foot on the dorsal aspect, likely related to inflammatory process neoplasm is less likely. 3. Advanced ulcerative colitis. Plan and recommendation: Continue steroids, antibiotics and breathing treatments. Will monitor and observe clinical course closely. Will compared CT scan with the prior CT scan done at [facility]. For now we will observe on steroids and antibiotics. The patient will probably require bronchoscopy and lung biopsy, we will tentatively schedule for early next week after 3 or 4 days once inflammatory response is better under control. Further recommendations pending. Plan of care as per clinical response of the patient.
--- NOTE | 2016-10-24 20:42 | HP ---
DATE OF ADMISSION: 10/24/2016 CHIEF COMPLAINT: Abdominal pain, diarrhea, GI bleed as well as lung mass and reddish lesions on the left dorsum of the foot. HISTORY OF PRESENT ILLNESS: This 45-year-old gentleman with a past history of ulcerative colitis, history of chest pain, angina, history of diabetes mellitus, fibromyalgia, GERD, GI bleed, pneumonia, back surgery, cardiac catheterization, anxiety, depression, being followed by Dr. Sloan in the outpatient setting, was also seeing Dr. Brandt. The patient also saw Dr. Hayes regarding a right lung mass, initially thought to be malignancy but subsequently turned out to be a BOOP-like reaction, which resolved completely. It was thought to be related to ulcerative colitis. Currently the patient is complaining of flareup of the ulcerative colitis with complaints of abdominal pain, diarrhea and rectal bleeding. Patient went to [facility] and subsequently referred to [facility]. Patient was admitted for further evaluation and treatment. While in the ER, the patient underwent CT of the abdomen and pelvis, which showed features of long segment of colitis and equivocal mural thickening in the small bowels. The patient also had right lung opacity, and the possibility of mass lesion versus pleural effusion was also noted. Patient admitted for further evaluation and treatment. There is no history of any fever, rigor, or chills. No history of any headache, loss of consciousness, seizures at this time. PAST MEDICAL HISTORY: 1. History of ulcerative colitis. 2. History of diabetes mellitus. 3. History of fibromyalgia. 4. GERD. 5. GI bleed. 6. Asthma. 7. History of anxiety, depression. HOME MEDICATIONS: 1. Compazine 10 mg b.i.d. p.r.n. 2. Zofran 8 mg b.i.d. p.r.n. 3. Zithromax taper. 4. Glucophage 500 mg p.o. b.i.d. 5. Hydroxyzine 25 mg p.o. b.i.d. 6. Wellbutrin 150 mg p.o. b.i.d. 7. Zantac 150 mg p.o. b.i.d. 8. Lyrica 150 mg b.i.d. 9. Milk thistle 150 mg at bedtime. 10. Delzicol 800 mg p.o. t.i.d. 11. Probiotic 1 p.o. daily. 12. Humira 1 dose subcutaneously p.r.n. 13. Bentyl 20 mg p.o. q.i.d. 14. Vitamin D3 5000 daily. ALLERGIES: NONE. FAMILY HISTORY: History of cancer and prostate cancer in the family. SOCIAL HISTORY: Previous history of smoking. No currently smoking or alcohol intake. REVIEW OF SYSTEMS: ENT: No diminishing hearing. No diminished vision. CARDIOVASCULAR SYSTEM: No angina, palpitations. RESPIRATORY SYSTEM: No cough, hemoptysis. As mentioned earlier. GI: As mentioned earlier. : No dysuria, retention. NERVOUS SYSTEM: No numbness or weakness. ALLERGY/IMMUNOLOGY: No asthma, hayfever. MUSCULOSKELETAL: As mentioned earlier. HEMATOLOGY/ONCOLOGY: As mentioned earlier. ENDOCRINE: As mentioned earlier. CONSTITUTIONAL: As mentioned earlier. DERMATOLOGY: Negative. RHEUMATOLOGY: Negative. PSYCHIATRY: As mentioned earlier. PHYSICAL EXAMINATION: Alert and oriented x3. Pulse 98, blood pressure 151/82, respiration 18, temperature 97.5, pulse ox 96% on 2 L. HEENT: Conjunctivae normal. Oral mucosa moist. NECK: No jugular venous distention. No carotid bruit. No lymph node enlargement. CARDIOVASCULAR SYSTEM: S1, S2 muffled. No S3. No S4. RESPIRATORY: Breath sounds diminished at the bases. A few scattered rhonchi and crackles. ABDOMEN: Soft, obese. Mild diffuse tenderness in the left lower quadrant present. No guarding. No rigidity. No mass palpable. LEGS: Minimal edema. Significant erythema and tenderness on the dorsum of the foot also present. NERVOUS SYSTEM: Higher functions as mentioned earlier. Moves all 4 limbs. No focal motor or sensory deficit. LYMPHATICS: No lymph node palpable in neck, axillae or groin. SKIN: No ulcer, rash, bleeding. LABS: WBC 9.3, hemoglobin 11.7. C-reactive protein 156.4. ASSESSMENT: 1. Acute ulcerative colitis, acute exacerbation. 2. Left leg swelling and pain, possible erythema noted, some acute. 3. Right lung mass and possible pneumonia. Rule out BOOP-like reaction. May be related to ulcerative colitis. 4. Anemia, normocytic; anemia of chronic disease. 5. Obesity with body mass index of 42. 6. Diabetes mellitus, type 2. 7. History of asthma, chronic, intermittent. 8. History of fibromyalgia. 9. History of gastroesophageal reflux disease. 10. History of gastrointestinal bleed. 11. History of pneumonia and previous BOOP-like reaction, which subsided completely. 12. History of degenerative joint disease. 13. History of methicillin-resistant Staphylococcus aureus. 14. History of cardiac catheterization with normal coronaries. 15. Anxiety, depression not otherwise specified. 16. Remote history of nicotine dependence. 17. FULL CODE. RECOMMENDATIONS AND DISCUSSION: In this 45-year-old gentleman who presented with multiple complex medical issues, we will monitor the patient closely, continue the current medications, continue symptomatic treatment. As mentioned earlier, the patient had multiple complex issues, including ulcerative colitis exacerbation associated with lung lesions as well as skin lesion. I would recommend high-dose IV steroid, which has also been recommended by Gastroenterology. Discussed with Dr. Hayes. Previously Dr. Hayes has evaluated the previous mass and thought it to be non-malignant in nature. I would recommend empiric antibiotics at this time. Continue to monitor. Continue the rest of the medications, bronchodilators, DVT prophylaxis. Symptomatic treatment. Prognosis guarded because of multiple complex medical issues. Further recommendations to follow. See orders for further details. A copy of this dictation is being forwarded to Dr. Sloan, who is the primary physician.
[2016-10-24 20:47] LABS: Hemoglobin A1C 6.2 % (4.2-6.1)
[2016-10-24] MEDS: LEVOFLOXACIN 750MG-D5W PMX 750 MG in DEXTROSE/WATER 1 150ML.BAG IVPB SCH (21:21)
[2016-10-24] MEDS: VANCOMYCIN 2,000 MG in SODIUM CHLORIDE 0.9% 500 ML IVPB SCH (21:21)
[2016-10-24] MEDS: FAMOTIDINE 20 MG TAB PO SCH (21:22)
[2016-10-24] MEDS: buPROPion 75 MG TAB PO SCH (21:22)
[2016-10-24] MEDS: metFORMIN 500 MG TAB PO SCH (21:22)
[2016-10-24] MEDS: HEPARIN SODIUM,PORCINE 5,000 UNIT/ML 1 ML VIAL SQ SCH (21:23)
[2016-10-24] MEDS: PREGABALIN 75 MG CAP PO SCH (21:37)
[2016-10-24 21:53] LABS: Glucose,Whole Blood 317 mg/dL (75-99)
[2016-10-25] MEDS: SODIUM CHLORIDE 0.9% 1,000 ML IV SCH ×3 (01:13→21:37)
[2016-10-25] MEDS: PIPERACILLIN-TAZOBACTAM 3.375 GM in DEXTROSE/WATER 1 50ML.BAG IVPB SCH ×3 (02:36→17:39)
[2016-10-25] MEDS: HYDROmorphone 1 MG/ML 1 ML SYRINGE IV PRN ×4 (02:37→21:58)
[2016-10-25] MEDS: methylPREDNISolone SOD SUCCI 125 MG/2 ML VIAL IV SCH (05:55)
[2016-10-25] MEDS: VANCOMYCIN 2,000 MG in SODIUM CHLORIDE 0.9% 500 ML IVPB SCH ×3 (05:55→22:00)
[2016-10-25 07:13] LABS: Glucose,Whole Blood 167 mg/dL (75-99)
[2016-10-25] MEDS: IPRATROPIUM-ALBUTEROL 3 ML NEB INHALATION SCH ×4 (07:23→19:16)
[2016-10-25] MEDS: INSULIN LISPRO (humaLOG) 300 UNIT/3 ML VIAL SQ SCH ×4 (07:52→21:55)
[2016-10-25] MEDS: ONDANSETRON 4 MG/2 ML VIAL IVP PRN (09:19)
[2016-10-25] MEDS: HEPARIN SODIUM,PORCINE 5,000 UNIT/ML 1 ML VIAL SQ SCH ×2 (09:19→21:38)
[2016-10-25] MEDS: BALSALAZIDE DISODIUM 750 MG CAPSULE PO SCH ×3 (09:53→21:38)
[2016-10-25] MEDS: DICYCLOMINE 20 MG TAB PO SCH ×4 (09:53→21:38)
[2016-10-25] MEDS: buPROPion 75 MG TAB PO SCH ×2 (09:53→21:38)
[2016-10-25] MEDS: FAMOTIDINE 20 MG TAB PO SCH ×2 (09:53→21:38)
[2016-10-25] MEDS: metFORMIN 500 MG TAB PO SCH ×2 (09:53→21:38)
[2016-10-25] MEDS: PREGABALIN 75 MG CAP PO SCH ×2 (09:54→21:38)
--- NOTE | 2016-10-25 10:48 | P.PN ---
Subjective Principal diagnosis: Ulcerative colitis GI bleed 45-year-old male with a history of ulcerative colitis colonoscopy July 2016 presents with shortness of breath with recent diagnosis of pneumonia, left foot swelling with new wound development, and rectal bleeding. Patient started on IV steroids yesterday with good response. One bowel movement in 24 hours nonbloody. C. diff negative. Afebrile. Wound to left foot suspected to be erythema nodosum is improving. Sed rate CRP were elevated. Evaluated by pulmonology possible bronchoscopy in the next 3-4 days. Objective - Vital Signs Vital signs: Vital Signs Temp 97.9 F 10/25/16 07:12 Pulse 82 10/25/16 07:34 Resp 16 10/25/16 07:12 BP 129/75 10/25/16 07:12 Pulse Ox 92 L 10/25/16 07:12 Intake & Output 10/24/16 10/25/16 10/25/16 18:59 06:59 18:59 Intake Total 2200 Balance 2200 Weight 140.614 kg Intake: Intake, IV Titration 2200 Amount Levofloxacin 750Mg-D5w 150 Pmx 750 mg In Dextrose/ Water 1 150ml.bag @ 100 mls/hr IVPB Q24H [facility] Rx#: [id number] Piperacillin-Tazobactam 3 550 .375 gm In Dextrose/Water 1 50ml.bag @ 12.5 mls/hr IVPB Q8HR [facility] Rx#: [id number] Sodium Chloride 0.9% 1, 500 000 ml @ 100 mls/hr IV . Q10H [facility] Rx#:[id number] Vancomycin 2,000 mg In 1000 Sodium Chloride 0.9% 500 ml @ 167 mls/hr IVPB Q8H [facility] Rx#:[id number] Oral 0 Other: Voiding Method Toilet # Voids 3 3 - Exam General appearance: The patient is alert, oriented, in no acute distress. HET: Head is normocephalic and atraumatic. Pupils are equal and reactive. Oropharynx is clear without lesions. Neck: Supple without lymphadenopathy. Trachea midline. Heart: S1 S2. Regular rate and rhythm. Lungs: No crackles or wheezes are heard. Abdomen: Soft, mild tenderness left side of abdomen, nondistended with bowel sounds. No peritoneal signs. No palpable organomegaly or masses. Extremities: Left foot with less noticeable erythema warmth with quarter size unopened area dorsal aspect of left foot below fifth metatarsal. Neurological: No focal deficits. Strength and sensation are grossly intact. - Labs CBC & Chem 7: 10/24/16 07:10 10/24/16 07:10 Labs: Abnormal Lab Results - Last 24 Hours (Table) 10/24/16 10/24/16 10/24/16 Range/Units 07:10 07:10 07:10 ESR 93 H (0-15) mm/hr POC Glucose (mg/dL) (75-99) mg/dL Hemoglobin A1c 6.2 H (4.2-6.1) % C-Reactive Protein 156.4 H (<10.0) mg/L 10/24/16 10/24/16 10/24/16 Range/Units 12:04 16:43 21:43 ESR (0-15) mm/hr POC Glucose (mg/dL) 139 H 213 H 317 H (75-99) mg/dL Hemoglobin A1c (4.2-6.1) % C-Reactive Protein (<10.0) mg/L 10/25/16 Range/Units 07:08 ESR (0-15) mm/hr POC Glucose (mg/dL) 167 H (75-99) mg/dL Hemoglobin A1c (4.2-6.1) % C-Reactive Protein (<10.0) mg/L Microbiology - Last 24 Hours (Table) 10/24/16 12:20 Stool for WBCs - Final Stool 10/23/16 23:30 Blood Culture - Preliminary Blood No Growth after 24 hours 10/24/16 12:20 Stool Culture - Preliminary Stool 10/24/16 01:05 Urine Culture - Preliminary Urine,Voided Assessment and Plan (1) Ulcerative colitis Narrative/Plan: exacerbation of moderate to severe ulcerative colitis Status: Acute (2) Cellulitis of left foot Narrative/Plan: Suspect erythema nodosum with erythema warmth and swelling. Status: Acute (3) GI bleed Narrative/Plan: Component of acute blood loss anemia Status: Acute Plan: 1. Continue with IV steroids/balsalazide will taper steroids over the weekend. ID and pulmonology consultation appreciated. 2. Continue GI prophylaxis. Supportive measures. Diet as tolerated. 3. Hold Humira for now. Continue the IV antibiotics. Assessment and plan of care discussed with Dr. Brandt
[2016-10-25 11:27] LABS: Glucose,Whole Blood 196 mg/dL (75-99)
[2016-10-25] MEDS: LACTOBACILLUS ACIDOPH & BULGAR 1 EACH PACKET PO SCH (11:51)
[2016-10-25] MEDS: CHOLECALCIFEROL 1,000 UNIT TAB PO SCH (11:51)
[2016-10-25] MEDS ORDERED: GLYCOPYRROLATE 0.2 MG/ML 2 ML VIAL ONE (13:51)
[2016-10-25] MEDS ORDERED: MIDAZOLAM 2 MG/2 ML VIAL ONE (13:51)
[2016-10-25] MEDS ORDERED: PROPOFOL 10 MG/ML 20 ML VIAL IV ONE (13:51)
[2016-10-25] MEDS ORDERED: LIDOCAINE 1% INJ 10MG/ML (20 ML MDV) ONE (13:51)
[2016-10-25] MEDS ORDERED: IV FLUID CONTINUATION 1,000 ML IV ONE (13:54)
[2016-10-25] MEDS ORDERED: LIDOCAINE 2% INJ 20 MG/ML INTRATRACH ONE (14:03)
[2016-10-25] MEDS ORDERED: LIDOCAINE 2%-EPI 1:100,000 20 ML VIAL SQ ONE (14:05)
--- NOTE | 2016-10-25 14:42 | XR ---
EXAMINATION TYPE: XR chest 1V portable DATE OF EXAM: 10/25/2016 COMPARISON: CT chest 10/24/2016 HISTORY: Status post bronchoscopy TECHNIQUE: Single frontal view of the chest is obtained. FINDINGS: Pleural parenchymal changes are again noted within the lungs. There is no evident pneumoth orax. Cardiomediastinal silhouette is not significantly changed, there is elevation of the right selvin diaphragm. Basilar atelectatic changes are again noted. Cavitary lesion in the left lower lobe in the retrocardiac location not well seen. IMPRESSION: No evident complication status post bronchoscopy.
--- NOTE | 2016-10-25 14:44 | FL ---
EXAMINATION TYPE: FL bronchoscopy DATE OF EXAM: 10/25/2016 COMPARISON: CT angiogram chest 10/24/2016 HISTORY: Right lower lobe lung biopsy Fluoroscopy support supplied to the referring clinician. See dictated report from pulmonary, Myron dorman es 57 seconds fluoroscopy time supplied, intraoperative C-arm image documents the procedure
[2016-10-25 16:22] LABS: Glucose,Whole Blood 190 mg/dL (75-99)
--- NOTE | 2016-10-25 16:30 | PN ---
DATE OF SERVICE: 10/25/2016 Mr. Gennaro Downing is a 45-year-old male who is seen, evaluated and examined on the third floor. This patient is still has shortness of breath, cough and congestion. He is undergoing breathing treatments. Pain in the foot is slightly better. Because of ulcerative colitis with a component of exacerbation, does feel bloating and discomfort. Right-sided and left-sided thoracic wall pain and pleuritic pain are still present; however, better under control with medications now. His last set of vitals includes blood pressure 129/75, respiratory rate 16, pulse 81, temperature 97.9, saturation 92% on 3 L oxygen. HEENT EXAMINATION: Otherwise unremarkable. Narrow pharyngeal opening. NECK: Supple without lymphadenopathy. Neck veins are prominent. No bruit is present. No significant jugular venous distention. LUNGS: Bilateral inspiratory and expiratory coarse bronchial breath sounds are present, more so on the right side compared to the left side. HEART: Regular rate, rhythm, S1, S2 audible. ABDOMEN: Distended but soft. Hypoactive bowel sounds. No rebound or rigidity. EXTREMITIES: Plus one peripheral pulses. Left dorsum of the foot erythematous lesion and nodular lesion slightly more ( ) now; the intensity of redness has improved and relatively less tender now. The laboratory data from today are reviewed. Glucose is 167. Culture results and reports are reviewed. The blood culture is no growth. Urine culture and stool culture both are pending. Stool for WBC is negative. C difficile is negative as well. Current medications are reviewed and include: 1. Tylenol as needed. 2. Unit-dose DuoNeb 4 times a day and as needed. 3. Colazal 2.25 three times a day. 4. Bupropion 150 b.i.d. 5. Dicyclomine. 6. Pepcid. 7. Heparin. 8. Dilaudid. 9. Humalog. 10. Levaquin. 11. Metformin. 12. Solu-Medrol 60 q.6 hourly. 13. Zofran. 14. Lyrica. 15. Tazobactam. 16. Vancomycin. IMPRESSION: 1. Severe degree of pleuritic chest pain and painful respiration related to bilateral pneumonia, which is infectious versus non-infectious; may very well need long-term steroid therapy. Would plan to proceed with bronchoscopy and transbronchial lung biopsy, as discussed with the patient, later on today. 2. Pneumonia with necrotizing lesion on the left side with dense consolidation on the right side; may very well be associated with ulcerative colitis. Plan as above. Continue empiric antibiotics for now. 3. Painful lesion in the dorsum of the foot with a differential diagnosis of erythema nodosum versus methicillin-resistant Staphylococcus aureus infection. ID Service on consult. Patient empirically on antibiotics. Also on steroids. Plan is to continue. 4. Ulcerative colitis with component of exacerbation. PLAN AND RECOMMENDATIONS: As above. Continue supportive care. Would lower the Solu-Medrol to 40 q.8. Will follow.
[2016-10-25 20:23] LABS: Glucose,Whole Blood 248 mg/dL (75-99)
[2016-10-25] MEDS: methylPREDNISolone SOD SUCCI 40 MG/ML 1 ML VIAL IV SCH (21:54)
--- NOTE | 2016-10-25 22:16 | PN ---
DATE OF SERVICE: 10/25/2016 This 45-year-old gentleman who was admitted with acute ulcerative colitis, acute exacerbation, also had erythema nodosum on the left foot as well as significant lung lesions. Patient previously had BOOP-like lesions also. The patient is followed by Dr. Hayes as well as Gastroenterology. The patient is being closely monitored. He has intravenous steroids. No chest pain. No palpitation. Past medical history reviewed. REVIEW OF SYSTEMS: CARDIOVASCULAR SYSTEM: No angina, palpitations. RESPIRATORY SYSTEM: No cough, hemoptysis. GI: No nausea, vomiting. : No dysuria, retention. NERVOUS SYSTEM: No numbness or weakness. ALLERGY/IMMUNOLOGY: No asthma, hayfever. MUSCULOSKELETAL: As mentioned earlier. HEMATOLOGY/ONCOLOGY: No history of anemia. ENDOCRINE: As mentioned earlier. PHYSICAL EXAMINATION: Patient is alert and oriented x3. Pulse is 81, blood pressure 120/75, respiration 16, temperature 97.8, pulse ox 93% on 3 L. HEENT: Conjunctivae normal. NECK: No jugular venous distention. CARDIOVASCULAR SYSTEM: S1, S2 muffled. RESPIRATORY SYSTEM: Breath sounds diminished at the bases. Scattered rhonchi. No crackles. ABDOMEN: Soft, non-tender. No mass palpable. LEGS: No edema. No swelling. NERVOUS SYSTEM: No focal deficit. LABS: WBC 9.8, hemoglobin 11.7. Glucose 317 and 190. CRP is 156. Albumin 3.4. C difficile negative. ASSESSMENT: 1. Acute ulcerative colitis, acute exacerbation. 2. Left leg swelling and pain, possibly acute erythema nodosum. 3. 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 4. Anemia, normocytic; anemia of chronic disease. 5. Obesity with a body mass index of 42. 6. Diabetes mellitus, type 2. 7. History of asthma, chronic, intermittent. 8. History of fibromyalgia. 9. History of gastroesophageal reflux disease. 10. History of gastrointestinal bleed. 11. 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 12. History of degenerative joint disease. 13. History of methicillin-resistant Staphylococcus aureus. 14. History of cardiac catheterization and normal coronaries. 15. History of anxiety, depression not otherwise specified. 16. Remote history of nicotine dependence. 17. FULL CODE. RECOMMENDATIONS AND DISCUSSION: I recommend to continue with the current medications, continue with symptomatic treatment, bronchodilators. Continue with empiric antibiotics. Also continue with steroids. Monitor blood sugars closely. Dr. Hayes's notes appreciated. Guarded prognosis. Further recommendations to follow.
--- NOTE | 2016-10-25 23:21 | PCN ---
DATE OF PROCEDURE: 10/25/2016 PROCEDURE PERFORMED : 1. Bronchoscopy. 2. BAL of the left upper lobe and left lower lobe and right lower lobe. 3. Transbronchial biopsy under fluoroscopy of the right lower lobe mass. INDICATIONS: Necrotizing pneumonia versus neoplasm versus cryptogenic organizing pneumonia. OPERATIVE DETAIL: Patient was prepared and draped in the usual fashion. Tip of the scope was passed through the right nares. The vocal cords were normal structure and function. The tip of the scope was passed beyond the vocal cords into the trachea. Diffuse right femur edema was noted bilaterally. Left upper lobe, lingula, left lower lobe were inspected and BAL was performed from the left upper and lower lobe followed by BAL on the right side. Right upper lobe, middle lobe and lower lobe subsegments were inspected. Tip of the scope was wedged on the right lower lobe after lavage. Then multiple transbronchial lung biopsies were performed under fluoroscopic guidance. Prior to the biopsy, epi with lidocaine was given as well. After obtaining multiple biopsy, patient tolerated the procedure well. No complication noted except transient intermittent desaturation. Patient's chest x-ray is pending. The patient tolerated the procedure very well. No complication noted.
[2016-10-26] MEDS: LEVOFLOXACIN 750MG-D5W PMX 750 MG in DEXTROSE/WATER 1 150ML.BAG IVPB SCH (01:03)
[2016-10-26] MEDS: PIPERACILLIN-TAZOBACTAM 3.375 GM in DEXTROSE/WATER 1 50ML.BAG IVPB SCH ×3 (02:34→17:22)
[2016-10-26] MEDS ORDERED: VANCOMYCIN TROUGH DUE 1 EACH MISC MISCELLANE ONE (03:00)
[2016-10-26 03:14] LABS: Anion Gap 7 mmol/L; Blood Urea Nitrogen 12 mg/dL (9-20); Calcium 8.7 mg/dL (8.4-10.2); Carbon Dioxide 26 mmol/L (22-30); Chloride 106 mmol/L (98-107); Glucose 151 mg/dL (74-99); Non-African American GFR(MDRD) >60 (>60 ml/min/1.73 sqM); Potassium 3.9 mmol/L (3.5-5.1); Sodium 139 mmol/L (137-145)
[2016-10-26] MEDS: SODIUM CHLORIDE 0.9% 1,000 ML IV SCH ×3 (06:30→20:48)
[2016-10-26] MEDS: VANCOMYCIN 2,000 MG in SODIUM CHLORIDE 0.9% 500 ML IVPB SCH (06:45)
[2016-10-26] MEDS: ONDANSETRON 4 MG/2 ML VIAL IVP PRN (06:51)
[2016-10-26] MEDS: HYDROmorphone 1 MG/ML 1 ML SYRINGE IV PRN ×3 (06:52→20:46)
[2016-10-26 06:55] LABS: Glucose,Whole Blood 156 mg/dL (75-99)
--- NOTE | 2016-10-26 08:10 | CONS ---
DATE OF CONSULTATION: 10/25/2016 REASON FOR CONSULTATION: Fever and ( ) his left foot. HISTORY OF PRESENT ILLNESS: The patient is a 45-year-old male with a past medical history significant for ulcerative colitis presenting to the ER at [facility] on 10/25/16 with chief complaints of persistent rectal bleeding after his last colonoscopy was done about 6 weeks ago. Apparently, the patient has been complaining right-sided pleuritic chest pain and did have a cough but not bringing up any significant amount of sputum and no hemoptysis. The patient has been complaining of pain on the right side is mostly sharp, 5 to 6 out of 10 and no radiation. Patient also has been complaining of left-sided abdominal pain with more bleeding per rectum, but denied significant diarrhea though. The patient has some nausea but no vomiting. The patient said that a few weeks ago, the patient twisted his at left foot while he was trying to hold his balance and has developed painful swelling and minimal redness there. ( ) the pain to be dull, 3 to 4 out of 10, and no radiation. There is no skin breakdown. No drainage. With these symptoms, the patient presented to [facility] ER and has been evaluated by multiple consultants. The patient did have a CT abdomen and pelvis suggestive of colitis and possible enteritis. CT of the chest was suboptimal for PE however does show evidence of right sided pleural effusion with some atelectasis and possible pneumonia. Patient subsequently has been treated with broad spectrum antibiotic therapy and has been evaluated by pulmonary with a plan for bronchoscopy. ID was consulted for further recommendations regarding antibiotic therapy and evaluation of his left foot. REVIEW OF SYSTEMS: CONSTITUTIONAL: Positive for weakness and a fever that ( ) resolved. EYES: No complaint. ENT: No complaint. RESPIRATORY: As per HPI. CARDIOVASCULAR: No complaint. GENITOURINARY: No complaint. GASTROINTESTINAL: Per HPI. MUSCULOSKELETAL: As per HPI. INTEGUMENT: As per HPI. PSYCHOLOGIC: No complaint. ENDOCRINE: No complaint. NEUROLOGIC: No complaint. Past medical history significant for ulcerative colitis and asthma, gastroesophageal reflux disease, MRSA infection on the wound of the ( ). Past surgical history significant for heart catheterization, back surgery, colonoscopy. SOCIAL HISTORY: Quit smoking back in 1995, denies any drinking or drug use. FAMILY HISTORY: No pertinent findings were noticed. ALLERGIES: No known drug allergies. MEDICATIONS: Include the patient is currently on: 1. Tylenol. 2. DuoNeb. 3. ( ). 4. Wellbutrin. 5. Vitamin D3. 6. Bentyl. 7. Pepcid. 8. Heparin. 9. Dilaudid. 10. Humalog. 11. Lactinex. 12. Levofloxacin. 13. Narcan. 14. Piptazobactam. 15. Lyrica. 16. Vancomycin. On examination, blood pressure is 120/75, the pulse of 81, temperature 97.9, he is 92% on 3 L nasal cannula. He did have a fever of 101.7 on presentation that has resolved. General description is a middle-aged male up in the chair in no distress. No tachypnea or accessory muscles of respiration use. HEENT shows slight pallor. There is no scleral icterus. Oral mucous membranes moist. NECK: Trachea central. There is no thyromegaly. LUNGS: Unlabored breathing with decreased breath sounds at the right base. No wheeze. CARDIOVASCULAR: HEART: S1, S2. Regular rate and rhythm. ABDOMEN: Soft, slightly distended, minimally tender on the left side. No guarding or rigidity. No organomegaly. EXTREMITIES: No edema of feet. Examination of left foot on the dorsal aspect did have a slight erythematous lesion, which is ( ) significantly warm to touch or any fluctuation or induration. NEUROLOGICAL: The patient is awake, alert and oriented times three. Mood and affect normal. LABS: Hemoglobin 11.7, white count 9.2. BUN of 12 with creatinine 0.95. Electrolytes have been normal. Liver enzymes are normal. Stool for C. difficile was negative. Blood cultures so far negative. DIAGNOSTIC IMPRESSION AND PLAN: Patient admitted to hospital with a fever. The patient did have significant gastrointestinal symptoms with bleeding per rectum ( ) underlying ulcerative colitis. Also ( ) on the right side with question of pneumonia and ulcerative colitis in patient with likely ( ) of his fever. Patient did have some pain to the left foot over the dorsum that did show erythematous rash with a question of possible erythema ( ) to be likely differential ( ) or an abscess. ( ) bronchoscopy ( ) cultures that should guide therapy. We will continue patient on current broad spectrum antibiotics in the form of Vanco and Zosyn while waiting for the cultures to finalize. Depending upon the clinical response and cultures will determine the discharge antibiotic. Thank you for this consultation, we will follow this patient along with you.
[2016-10-26] MEDS: IPRATROPIUM-ALBUTEROL 3 ML NEB INHALATION SCH ×4 (08:28→20:16)
[2016-10-26] MEDS: BALSALAZIDE DISODIUM 750 MG CAPSULE PO SCH ×3 (10:23→20:46)
[2016-10-26] MEDS: DICYCLOMINE 20 MG TAB PO SCH ×4 (10:23→20:47)
[2016-10-26] MEDS: methylPREDNISolone SOD SUCCI 40 MG/ML 1 ML VIAL IV SCH ×2 (10:23→20:48)
[2016-10-26] MEDS: metFORMIN 500 MG TAB PO SCH ×2 (10:23→20:48)
[2016-10-26] MEDS: buPROPion 75 MG TAB PO SCH ×2 (10:23→20:47)
[2016-10-26] MEDS: FAMOTIDINE 20 MG TAB PO SCH ×2 (10:23→20:48)
[2016-10-26] MEDS: INSULIN LISPRO (humaLOG) 300 UNIT/3 ML VIAL SQ SCH ×4 (10:24→20:49)
[2016-10-26] MEDS: HEPARIN SODIUM,PORCINE 5,000 UNIT/ML 1 ML VIAL SQ SCH ×2 (10:24→20:48)
[2016-10-26] MEDS: PREGABALIN 75 MG CAP PO SCH ×2 (10:35→20:51)
[2016-10-26 11:37] LABS: Glucose,Whole Blood 145 mg/dL (75-99)
--- NOTE | 2016-10-26 16:22 | PN ---
DATE OF SERVICE: 10/26/2016 Mr. Downing is seen, evaluated, examined. He is still short of breath, has soreness in the chest. His loose stool/diarrhea has improved, though. He had one liquid bowel movement earlier today; none yesterday. But of note that patient has been n.p.o. He is status post bronchoscopy and transbronchial lung biopsy of right lower lobe lung mass and washing and lavage of the right lower lobe as well as the left upper and lower lobes. Patient still has cough and congestion. Sputum is minimized now. Last set of vitals includes blood pressure 100/60, respiratory rate 16, pulse 83, temperature 98, saturation of 95% to 96% on 4 L oxygen. HEENT EXAMINATION: Otherwise unremarkable. NECK: Supple. LUNGS: Good air entry bilaterally. HEART: Regular rate, rhythm. ABDOMEN: Soft. No rebound or rigidity. EXTREMITIES: Plus one peripheral pulses. NEUROLOGICAL EXAMINATION: Otherwise awake and alert. Left foot infection appears to be stable ( ) area of erythema, edema is more ( ) now on dorsum of the foot. The surrounding erythema has improved. Some tenderness is still present, though. Culture results and reports are reviewed. IMPRESSION: 1. Bilateral pneumonia with necrotizing pneumonia in the left upper lobe and dense consolidation in the right lower lobe, status post bronchoscopy and transbronchial lung biopsy. 2. Advanced ulcerative colitis. 3. Chest pain, shortness of breath. 4. Nodular infiltrate on the dorsum of the left foot, likely erythema nodosum related to ulcerative colitis. Will monitor and observe. Will continue broad-spectrum antibiotics along with IV steroids. Continue supportive care. Will follow.
[2016-10-26] MEDS: CHOLECALCIFEROL 1,000 UNIT TAB PO SCH (17:12)
[2016-10-26] MEDS: LACTOBACILLUS ACIDOPH & BULGAR 1 EACH PACKET PO SCH (17:12)
[2016-10-26 17:30] LABS: Glucose,Whole Blood 160 mg/dL (75-99)
[2016-10-26] MEDS ORDERED: VANCOMYCIN 2,250 MG in SODIUM CHLORIDE 0.9% 500 ML IVPB SCH (18:00)
--- NOTE | 2016-10-26 18:55 | PN ---
DATE OF SERVICE: October 26/2017 Patient is a 45-year-old pleasant white male admitted to the hospital with exacerbation of Crohn's ulcerative colitis and bilateral pneumonia for which Dr. Hayes is following the patient closely. He underwent bronchoscopy with lavage done yesterday and cytology is still pending at the time of this dictation. In the meantime, he is on broad-spectrum antibiotics for possible bilateral pneumonia. He does have long-standing history of ulcerative colitis and follows with Dr. Forrester on an outpatient basis. He was on Remicade for several years, but developed infusion reactions about 6 months ago and hence it was discontinued and started on Humira every 2 weeks. He was admitted to the hospital with exacerbation of ulcerative colitis with diarrhea and bleeding and was started on IV Solu-Medrol 60 mg every 6 hours, presently at 60 mg q.12 hours, doing much better. He had 2 bowel movements today. No blood or mucus in the stool. No abdominal pain. Overall, he is feeling much better. On physical examination, blood pressure 118/88, pulse rate 90, temperature 97. HEENT: Unremarkable. Conjunctivae pink. Sclerae anicteric. Oral cavity, no lesions. NECK: No JVD or lymph node enlargement. CHEST: Clear to auscultation. HEART: Regular rate and rhythm. ABDOMEN: Soft. Bowel sounds are positive. No organomegaly. EXTREMITIES: No pedal edema. SKIN: No rashes. NEURO: Alert and oriented x3. No focal deficits. Labs from today: Basic metabolic panel is within normal limits. IMPRESSION: 1. Exacerbation of ulcerative colitis on Solu-Medrol 60 mg q.12 hours, doing much better. Bleeding and diarrhea are gradually improving. 2. Bilateral pneumonia for which he is on broad-spectrum antibiotics, status post a bronchoscopy with lavage done yesterday by Dr. Hayes. Results are still pending. RECOMMENDATIONS: 1. Advance diet as tolerated. 2. Await results from bronchoscopy. 3. Today will continue him on the Solu-Medrol 60 mg q.12 and if he continues to do well tomorrow, I will change it to prednisone 40 mg daily. 4. Continue with Colazal/Delzicol at the present time and will follow him closely during his hospital stay. Thank you for this consultation.
[2016-10-26 20:48] LABS: Glucose,Whole Blood 210 mg/dL (75-99)
--- NOTE | 2016-10-26 21:03 | PN ---
DATE OF SERVICE: 10/26/2016 This 45-year-old gentleman who was admitted with acute ulcerative colitis and multiple complications is being closely monitored. No chest pain. No palpitations. No fever. On exam, alert and oriented times three. Pulse 100. Blood pressure 135/78. Respiratory rate 16. Temperature 97.7. Pulse ox 91% on room air. HEENT: Conjunctivae normal. NECK: No jugular venous distention. CARDIOVASCULAR: S1, S2 muffled. RESPIRATORY: Breath sounds diminished at the bases. No rhonchi. No crackles. ABDOMEN: Soft. Mild diffuse discomfort. No mass palpable. Nervous system: No focal deficits. LABS: WBC 9.5, Hemoglobin 111.7, glucose 145. ASSESSMENT: 1. Acute abdominal pain and acute ulcerative colitis, acute exacerbation. 2. Left leg swelling and pain, possible acute erythema. 3. Right lung mass and possible pneumonia, possibly- bronchiolitis obliterans with organizing pneumonia like reaction, maybe later ulcerative colitis. 4. Anemia, normocytic anemia of chronic disease. 5. Obesity body mass index 42. 6. Diabetes mellitus type 2. 7. History of asthma chronic intermittent. 8. History of fibromyalgia. 9. History of gastroesophageal reflux disease. 10. History of gastrointestinal bleed. 11. History of pneumonia and bronchiolitis obliterans with organizing pneumonia like reaction subsided completely previously. 12. History of degenerative joint disease. 13. History of methicillin-resistant Staphylococcus aureus. 14. History of cardiac catheterization and normal coronaries. 15. History of anxiety, depression not otherwise specified. 16. Remote history of nicotine dependence. 17. FULL CODE. RECOMMENDATIONS AND DISCUSSION: Recommend to continue current medications, continue symptomatic treatment, continue with tapering dose of steroids. Otherwise, closely follow with gastroenterology. Infectious disease input appreciated. Guarded prognosis. Further recommendations to follow. MTDD
[2016-10-26] MEDS: ZOLPIDEM 10 MG TAB PO PRN (23:49)
[2016-10-27] MEDS: LEVOFLOXACIN 750MG-D5W PMX 750 MG in DEXTROSE/WATER 1 150ML.BAG IVPB SCH ×2 (01:24→22:00)
[2016-10-27 01:50] VITALS: RESP 16
[2016-10-27] MEDS: PIPERACILLIN-TAZOBACTAM 3.375 GM in DEXTROSE/WATER 1 50ML.BAG IVPB SCH ×3 (03:17→17:31)
[2016-10-27 06:52] LABS: Glucose,Whole Blood 164 mg/dL (75-99)
[2016-10-27 07:19] LABS: Basophils % (A) 0 %; CH 27.7; CHCM 32.6; Eosinophils % (A) 0 %; HCT 31.6 % (39.0-53.0); HDW 3.35; HGB 10.1 gm/dL (13.0-17.5); Hypochromasia Slight; Luc # (Auto) 0.08; Luc % (Auto) 2; Lymphocytes # (A) 0.5 k/uL (1.0-4.8); Lymphocytes % (A) 11 %; MCH 27.4 pg (25.0-35.0); MCHC 32.1 g/dL (31.0-37.0); MCV 85.4 fL (80.0-100.0); Mean Platelet Volume 6.5; Monocytes # (A) 0.3 k/uL (0-1.0); Monocytes % (A) 7 %; Neutrophils # (A) 3.7 k/uL (1.3-7.7); Neutrophils % (A) 80 %; RDW 13.8 % (11.5-15.5); WBC 4.6 k/uL (3.8-10.6); WBC (Perox) 5.13
[2016-10-27 07:39] LABS: Anion Gap 8 mmol/L; Blood Urea Nitrogen 10 mg/dL (9-20); Calcium 8.5 mg/dL (8.4-10.2); Carbon Dioxide 27 mmol/L (22-30); Chloride 107 mmol/L (98-107); Glucose 156 mg/dL (74-99); Non-African American GFR(MDRD) >60 (>60 ml/min/1.73 sqM); Potassium 4.1 mmol/L (3.5-5.1); Sodium 142 mmol/L (137-145)
[2016-10-27] MEDS: PREGABALIN 75 MG CAP PO SCH ×2 (08:34→21:23)
[2016-10-27] MEDS: methylPREDNISolone SOD SUCCI 40 MG/ML 1 ML VIAL IV SCH ×2 (08:34→21:57)
[2016-10-27] MEDS: INSULIN LISPRO (humaLOG) 300 UNIT/3 ML VIAL SQ SCH ×4 (08:35→21:27)
[2016-10-27] MEDS: HEPARIN SODIUM,PORCINE 5,000 UNIT/ML 1 ML VIAL SQ SCH ×2 (08:35→21:25)
[2016-10-27] MEDS: BALSALAZIDE DISODIUM 750 MG CAPSULE PO SCH ×3 (08:36→22:04)
[2016-10-27] MEDS: buPROPion 75 MG TAB PO SCH ×2 (08:36→21:23)
[2016-10-27] MEDS: DICYCLOMINE 20 MG TAB PO SCH ×4 (08:36→22:04)
[2016-10-27] MEDS: FAMOTIDINE 20 MG TAB PO SCH ×2 (08:36→21:23)
[2016-10-27] MEDS: metFORMIN 500 MG TAB PO SCH ×2 (08:37→21:23)
[2016-10-27] MEDS: HYDROmorphone 1 MG/ML 1 ML SYRINGE IV PRN (08:37)
[2016-10-27] MEDS: IPRATROPIUM-ALBUTEROL 3 ML NEB INHALATION SCH ×4 (08:51→20:21)
[2016-10-27] MEDS ORDERED: VANCOMYCIN 2,250 MG in SODIUM CHLORIDE 0.9% 500 ML IVPB SCH ×2 (10:00→12:00)
--- NOTE | 2016-10-27 10:45 | US ---
EXAMINATION TYPE: US venous doppler duplex LE DATE OF EXAM: 10/27/2016 10:32 AM COMPARISON: NONE CLINICAL HISTORY: dvt. Left foot edema, area of redness left foot. Elevated D-Dimer SIDE PERFORMED: Bilateral TECHNIQUE: The lower extremity deep venous system is examined utilizing real time linear array sonog beverly with graded compression, doppler sonography and color-flow sonography. VESSELS IMAGED: External Iliac Vein (EIV) Common Femoral Vein Deep Femoral Vein Greater Saphenous Vein * Femoral Vein Popliteal Vein Small Saphenous Vein * Proximal Calf Veins (* superficial vessels) Right Leg: NO evidence of DVT, anechoic area right popliteal fossa = 6.3 x 1.4 x 3.6cm, probable Tali er's cyst Left Leg: No evidence of DVT. Scanned left foot within area of redness, soft tissue edema noted, flu id collection = 1.5cm Grayscale, color doppler, spectral doppler imaging performed of the deep veins of the lower extremiti es. There is normal flow, compressibility, vascular waveforms bilaterally. IMPRESSION: No evidence of acute DVT in either lower extremity. There is moderate-sized right-sided p opliteal cyst. There is moderate subcutaneous edema in the left foot at area of redness that is sligh tly more focal without thick wall suggesting soft tissue infection or cellulitis.
[2016-10-27] MEDS: IPRATROPIUM-ALBUTEROL 3 ML NEB INHALATION PRN (10:49)
--- NOTE | 2016-10-27 11:00 | PN ---
DATE OF SERVICE: 10/26/2016 Reason for follow-up: 1. Pneumonia. Consider ( ). 2. Left foot ( ) of cellulitis. INTERVAL HISTORY: The patient is afebrile. Has been breathing more comfortably. The right lower third digit has improved. Denies significant abdominal pain. Did have some loose stools though. The left foot ulcer, which has decrease in swelling, redness and no drainage. On examination, blood pressure is 134/78 with a pulse of 88, temperature 96.7. He is 91% on room air. General description is a middle-age male up in the bed in no distress. RESPIRATORY SYSTEM: Unlabored breathing. Coarse breath sounds at the bases. No wheeze. HEART: S1, S2 regular rate and rhythm. Abdomen soft, no drainage. Left foot ( ) the area of ( ) slightly decreased. No fluctuation or drainage. ABDOMEN: Soft. No tenderness. LABS: BUN of 23, creatinine 0.80. BAL culture, currently pending. DIAGNOSTIC IMPRESSION AND PLAN: Patient admitted to hospital with sepsis with significant ( ) chest pain, with component of pneumonia ( ) the patient. The patient is status post bronch. We are waiting for those cultures to finalize. Continue current broad spectrum antibiotics in the form of Vanco and Zosyn ( ) on the basis of the culture report as far as the left foot abnormalities, clinical improvement with ( ) erythema and ( ) without any active cellulitis, though has shown overall improvement. Continue supportive care.
[2016-10-27 11:10] LABS: Glucose,Whole Blood 145 mg/dL (75-99)
[2016-10-27] MEDS: VANCOMYCIN 2,250 MG in SODIUM CHLORIDE 0.9% 500 ML IVPB SCH ×2 (11:48→23:36)
[2016-10-27] MEDS: LACTOBACILLUS ACIDOPH & BULGAR 1 EACH PACKET PO SCH (11:48)
[2016-10-27] MEDS: CHOLECALCIFEROL 1,000 UNIT TAB PO SCH (11:48)
--- NOTE | 2016-10-27 12:50 | XR ---
EXAMINATION TYPE: XR chest 1V portable DATE OF EXAM: 10/27/2016 COMPARISON: 10/25/2016 HISTORY: Cough TECHNIQUE: Single frontal view of the chest is obtained. FINDINGS: There is some atelectasis at the right lung base with elevated right diaphragm. There is n o gross heart failure. Heart appears enlarged. IMPRESSION: Right lower lobe atelectasis that is similar to last exam. No heart failure.
--- NOTE | 2016-10-27 14:28 | PN ---
Gennaro Downing is seen, evaluated, examined in follow-up, from respiratory standpoint he still has issues associated with chest tightness and pain on the right side, but severity is definitely better. He is breathing relatively more comfortably and still has soreness, he still has intermittent loose stool but severity of diarrhea has improved. He has cough, congestion but is nonproductive and dry now. The patient's dorsum of the left foot is erythematous, nodular changes are not much change from baseline. However, patient is now complaining of pain in the left calf which is a new problem noted today. The erythema, redness of the nodular lesion on the left foot is not much change. Surrounding has been improved. But, however, foot appears slightly more swollen, so has the calf as well. The last set of vitals include blood pressure is 126/81, respiratory rate 16, pulse 74, temperature 98, saturation 96% on 2 liters oxygen. HEENT EXAMINATION: Otherwise unremarkable. NECK: Supple without any lymphadenopathy, jugular venous distention or carotid bruit. LUNGS: Bilateral good air entry is present without significant rales, rhonchi, or rub. HEART: Regular rate and rhythm. S1 and S2 audible. ABDOMEN: Soft. No rebound or rigidity. EXTREMITIES: +1 peripheral pulses. Some calf tenderness present, especially on the left side. The nodular lesion in the dorsum of the left foot is not much changed. It is of irregular configuration with tenderness and some erythema, warm to touch. The surrounding area appears to be less inflamed though. Medications reviewed and include: 1. DuoNeb unit dose updraft 4 times a day. 2. Lebron is 2.25 grams 3 times a day. 3. Wellbutrin 150 mg p.o. 2 times a day. 4. Vitamin D3 5000 units once daily. 5. Bentyl 4 times a day. 6. Pepcid 20 mg p.o. 2 times a day. 7. Heparin 5000 units subcu q.12. 8. Dilaudid for pain control. 9. Also on lactobacillus. 10. Levaquin 750. 11. Glucophage 500, 2 times a day. 12. Solu-Medrol is 40 q.12. 13. Narcan. 14. Also on Zofran. 15. Zosyn is 3.375 q.6 hourly. 16. IV fluid normal saline 100 mL an hour. 17. Vancomycin is 2.25 grams scheduled dose, pharmacy adjusting the dose accordingly. The laboratory data reviewed. White cell count is 4600, hemoglobin 10 and hematocrit 31, platelet count of 341,000. Sodium is 142, potassium 4.1. BUN and creatinine 10 and 0.8. Last chest x-ray performed 10/25/16 reviewed. Dense consolidation in the right lower lobe as well as left upper lobe. IMPRESSION: 1. Bilateral pneumonia infectious versus noninfectious. 2. Left upper lobe cavitary lesion. 3. Advanced ulcerative colitis. 4. Nodular lesion in the left foot on the dorsal aspect. 5. Calf tenderness and pain. 6. Chest pain and shortness of breath, history of smoking and nicotine use. Plan and recommendation: Continue antibiotics, supportive care Would check duplex ultrasound of both lower extremities. Will put patient on DVT prophylaxis as well. Will maintain patient on DVT prophylaxis and peptic ulcer disease prophylaxis. Will follow clinical course closely. Further recommendations pending. Continue 40 mg Solu-Medrol at this point in time. Follow.
[2016-10-27] MEDS: HYDROcodone/APAP 7.5-325MG 1 EACH TAB PO PRN ×2 (14:57→21:23)
[2016-10-27 17:03] LABS: Glucose,Whole Blood 180 mg/dL (75-99)
[2016-10-27 21:01] LABS: Glucose,Whole Blood 146 mg/dL (75-99)
[2016-10-27] MEDS: SODIUM CHLORIDE 0.9% 1,000 ML IV SCH ×2 (21:17→21:22)
[2016-10-27] MEDS: ZOLPIDEM 10 MG TAB PO PRN (23:40)
[2016-10-28] MEDS: PIPERACILLIN-TAZOBACTAM 3.375 GM in DEXTROSE/WATER 1 50ML.BAG IVPB SCH ×3 (02:44→16:31)
[2016-10-28] MEDS: ONDANSETRON 4 MG/2 ML VIAL IVP PRN (05:25)
[2016-10-28] MEDS: HYDROcodone/APAP 7.5-325MG 1 EACH TAB PO PRN ×2 (05:29→11:59)
--- NOTE | 2016-10-28 07:01 | XR ---
EXAMINATION TYPE: XR chest 2V DATE OF EXAM: 10/28/2016 COMPARISON: 10/27/2016 TECHNIQUE: PA and lateral views submitted. HISTORY: Cough, pneumonia FINDINGS: Right lower lobe infiltrate noted. Left lung clear. No pneumothorax or overt congestion. Heart size s table. IMPRESSION: 1. Right lower lobe infiltrate.
[2016-10-28 07:07] LABS: Glucose,Whole Blood 135 mg/dL (75-99)
[2016-10-28 07:23] VITALS: BP 115/76; TEMP 98.4
[2016-10-28 07:29] LABS: Basophils % (A) 0 %; CH 27.5; CHCM 32.8; Eosinophils % (A) 0 %; HCT 34.6 % (39.0-53.0); HDW 3.35; HGB 11.5 gm/dL (13.0-17.5); Hypochromasia Slight; Luc # (Auto) 0.13; Luc % (Auto) 2; Lymphocytes # (A) 0.9 k/uL (1.0-4.8); Lymphocytes % (A) 12 %; MCH 28.1 pg (25.0-35.0); MCHC 33.2 g/dL (31.0-37.0); MCV 84.5 fL (80.0-100.0); Mean Platelet Volume 6.8; Monocytes # (A) 0.5 k/uL (0-1.0); Monocytes % (A) 7 %; Neutrophils # (A) 6.2 k/uL (1.3-7.7); Neutrophils % (A) 80 %; RDW 13.9 % (11.5-15.5); WBC 7.7 k/uL (3.8-10.6); WBC (Perox) 7.99
[2016-10-28 07:41] LABS: Anion Gap 11 mmol/L; Blood Urea Nitrogen 10 mg/dL (9-20); Calcium 8.7 mg/dL (8.4-10.2); Carbon Dioxide 28 mmol/L (22-30); Chloride 105 mmol/L (98-107); Glucose 140 mg/dL (74-99); Non-African American GFR(MDRD) >60 (>60 ml/min/1.73 sqM); Potassium 3.6 mmol/L (3.5-5.1); Sodium 144 mmol/L (137-145)
[2016-10-28] MEDS: INSULIN LISPRO (humaLOG) 300 UNIT/3 ML VIAL SQ SCH ×2 (07:56→11:44)
[2016-10-28] MEDS: buPROPion 75 MG TAB PO SCH (07:57)
[2016-10-28] MEDS: DICYCLOMINE 20 MG TAB PO SCH ×2 (07:57→13:05)
[2016-10-28] MEDS: FAMOTIDINE 20 MG TAB PO SCH (07:57)
[2016-10-28] MEDS: metFORMIN 500 MG TAB PO SCH (07:57)
[2016-10-28] MEDS: BALSALAZIDE DISODIUM 750 MG CAPSULE PO SCH ×2 (07:57→16:26)
[2016-10-28] MEDS: HEPARIN SODIUM,PORCINE 5,000 UNIT/ML 1 ML VIAL SQ SCH (07:58)
[2016-10-28] MEDS: SODIUM CHLORIDE 0.9% 1,000 ML IV SCH (08:02)
[2016-10-28] MEDS: IPRATROPIUM-ALBUTEROL 3 ML NEB INHALATION SCH ×3 (08:03→15:59)
[2016-10-28] MEDS: PREGABALIN 75 MG CAP PO SCH (08:50)
[2016-10-28] MEDS ORDERED: predniSONE 20 MG TAB PO SCH (09:00)
--- NOTE | 2016-10-28 09:25 | PN ---
DATE OF SERVICE: 10/27/2016 This 45-year-old gentleman who was admitted with acute abdominal pain, ulcerative colitis acute exacerbation, has been closely monitored. No chest pain, no palpitations. No fever. On exam, alert and oriented x3. Pulse 90, blood pressure 120/60, respirations 16, temperature 97.6, pulse ox 93% on room air. HEENT: Conjunctivae normal. NECK: No jugular venous distention. CARDIOVASCULAR: S1 and S2, muffled. RESPIRATORY: Breath sounds diminished at the bases. A few scattered rhonchi and crackles. ABDOMEN: Soft, nontender. No mass palpable. LEGS: No edema, no swelling. NERVOUS SYSTEM: Higher function as mentioned. Moves all four limbs. No focal motor deficits. LYMPHATIC: No lymphadenopathy in the neck, axillae or groin. SKIN: No ulcer, rash or bleeding. LABS: WBC 4.3, hemoglobin 10.6. Accu-Cheks noted. ASSESSMENT: 1. Acute abdominal pain, acute ulcerative colitis acute exacerbation. 2. Left leg swelling and possible acute erythema nodosum. 3. Right lung mass and possible pneumonia, possibly BOOP-like reaction may be related to ulcerative colitis. 4. Anemia, normocytic anemia of chronic disease. 5. Obesity, body mass index of 42. 6. Diabetes mellitus type 2. 7. History of asthma, chronic, intermittent. 8. History of fibromyalgia. 9. History of gastroesophageal reflux disease. 10. History of gastrointestinal bleed. 11. 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 12. History of degenerative joint disease. 13. History of methicillin-resistant Staphylococcus aureus. 14. History of cardiac catheterization, normal coronaries. 15. Anxiety and depression, not otherwise specified. 16. Remote history of nicotine dependence. 17. FULL CODE. RECOMMENDATIONS AND DISCUSSION: I recommend to continue the current medications, continue monitoring and symptomatic treatment. Taper steroids and p.o. steroids per Dr. Russo. Continue to monitor. Guarded prognosis. Further recommendations to follow.
[2016-10-28] MEDS ORDERED: VANCOMYCIN TROUGH DUE 1 EACH MISC MISCELLANE ONE (11:00)
--- NOTE | 2016-10-28 11:07 | P.PN ---
Subjective This is a 45-year-old male being evaluated and examined and followed up with today on the third floor. Patient states for a respiratory standpoint he feels a lot better he no longer has any chest tightness or pain on the right side. He states he is breathing relatively more comfortable. Patient states that his diarrhea has improved he is tolerating his diet well at this time. He continues to have an intermittent cough which is nonproductive however this has decreased in frequency. Patient did complain of some left calf pain yesterday he did undergo a venous Doppler which was negative for DVT however did show a possible Bartlett's cyst. Patient's chest x-ray has been reviewed and does show a right lower lobe infiltrate. Patient states overall he is feeling better and is requesting to go home. Patient is on room air. Objective - Vital Signs Vital signs: Vital Signs Temp 98.4 F 10/28/16 07:00 Pulse 88 10/28/16 08:19 Resp 16 10/28/16 08:00 BP 115/76 10/28/16 07:00 Pulse Ox 94 L 10/28/16 08:04 Intake & Output 10/27/16 10/28/16 10/28/16 18:59 06:59 18:59 Intake Total 2380 1200 800 Balance 2380 1200 800 Weight 140.614 kg Intake: IV 1200 Sodium Chloride 0.9% 1, 1200 000 ml @ 100 mls/hr IV . Q10H [facility] Rx#:[id number] Intake, IV Titration 1350 Amount Piperacillin-Tazobactam 3 50 .375 gm In Dextrose/Water 1 50ml.bag @ 12.5 mls/hr IVPB Q8HR [facility]TEN Rx#: [id number] Sodium Chloride 0.9% 1, 800 000 ml @ 100 mls/hr IV . Q10H [facility] Rx#:[id number] Vancomycin 2,250 mg In 500 Sodium Chloride 0.9% 500 ml @ 167 mls/hr IVPB 1200 ,2200 COLTEN Rx#:[id number] Oral 1030 800 Other: Voiding Method Toilet Toilet # Voids 5 2 # Bowel Movements 2 - Exam GENERAL EXAM: Alert, active, comfortable in no apparent distress. HEAD: Normocephalic. EYES: Normal reaction of pupils, equal size. NOSE: Clear with pink turbinates. THROAT: No erythema or exudates. NECK: No masses, no JVD. CHEST: No chest wall deformity. LUNGS: Equal air entry with no crackles, wheeze, rhonchi or dullness. CVS: S1 and S2 normal with no audible mumurs, regular rhythm. ABDOMEN: No hepatosplenomegaly, normal bowel sounds, no guarding or rigidity. EXTREMITIES: +1 bilateral lower extremity edema noted, pedal pulses palpable. Left foot unchanged. SKIN: No rashes CENTRAL NERVOUS SYSTEM: No focal deficits, tone is normal in all 4 extremities. - Labs CBC & Chem 7: 10/28/16 07:12 10/28/16 07:12 Labs: Abnormal Lab Results - Last 24 Hours (Table) 10/27/16 10/27/16 10/27/16 Range/Units 11:05 17:01 20:59 RBC (4.30-5.90) m/uL Hgb (13.0-17.5) gm/dL Hct (39.0-53.0) % Lymphocytes # (1.0-4.8) k/uL Glucose (74-99) mg/dL POC Glucose (mg/dL) 145 H 180 H 146 H (75-99) mg/dL 10/28/16 10/28/16 10/28/16 Range/Units 06:56 07:12 07:12 RBC 4.10 L (4.30-5.90) m/uL Hgb 11.5 L (13.0-17.5) gm/dL Hct 34.6 L (39.0-53.0) % Lymphocytes # 0.9 L (1.0-4.8) k/uL Glucose 140 H (74-99) mg/dL POC Glucose (mg/dL) 135 H (75-99) mg/dL Microbiology - Last 24 Hours (Table) 10/23/16 23:30 Blood Culture - Preliminary Blood No Growth after 96 hours 10/25/16 14:20 Gram Stain - Final Bronchial Washings - Left Bronchial Washings Culture - Final Assessment and Plan Plan: Assessment Bilateral pneumonia, infectious versus noninfectious Left upper lobe cavitary lesion Advanced ulcerative colitis Nodular lesion in the left foot on the dorsal aspect Chest pain and shortness of breath improved Nicotine dependence Plan Patient could be discharged home in the near future from pulmonary standpoint. Medications have been reviewed and will be continued as ordered. Continue with pulmonary hygiene, coughing and deep breathing exercises, and supportive care. Continue with steroids. Supplemental oxygen to maintain oxygen saturations of 92% or better. Continue nebulizer treatments. GI and DVT prophylaxis. Patient does have a GI and infectious disease on consult as well. We will continue to monitor labs/results and adjust treatment as necessary. Further recommendations pending. I performed an examination of the patient and discussed their management with the nurse practitioner. I have reviewed the nurse practitioner's note and agree with the documented findings and plan of care.
[2016-10-28 11:30] LABS: Glucose,Whole Blood 124 mg/dL (75-99)
[2016-10-28 11:42] VITALS: PULSE 92
[2016-10-28] MEDS: CHOLECALCIFEROL 1,000 UNIT TAB PO SCH (11:55)
[2016-10-28] MEDS: LACTOBACILLUS ACIDOPH & BULGAR 1 EACH PACKET PO SCH (11:58)
--- NOTE | 2016-10-28 12:45 | PN ---
DATE OF SERVICE: 10/27/2016 Reason for follow up is pneumonia and left foot possible ( ) cellulitis. INTERVAL HISTORY: The patient is afebrile. He has been breathing comfortably. He did have some cough. Still has some pain. No significant worsening abdominal pain. Patient did say he walked around more in the hallway and ( ) notice some more swelling and redness in that foot area. On examination, blood pressure 122/78 with a pulse of 80. Temperature is 97.9. He is 93% on room air. General description is an middle aged male lying in bed in no distress. RESPIRATORY SYSTEM: Unlabored breathing. Decreased at the bases. HEART: S1, S2. Regular rate and rhythm. ABDOMEN: Soft. No tenderness. Left foot with very minimal erythema, slightly tender to touch. LABS: Hemoglobin is 7.1, white count 4.6 with a BUN of 10, creatinine 0.8. Bronch cultures so far negative. DIAGNOSTIC IMPRESSION AND PLAN: Patient with admitted to hospital with sepsis with nausea, vomiting and ( ) chest pain with questionable aspiration pneumonia ( ) patient. Patient currently covered with vancomycin and Rocephin, will transition to oral, possible Avelox as no organism has been grown, as well as left foot abnormality, clinically not behaving as cellulitis. Cultures possibly ( ) with no worsening. Continue to monitor closely.
[2016-10-28] MEDS: VANCOMYCIN 2,250 MG in SODIUM CHLORIDE 0.9% 500 ML IVPB SCH (12:55)
[2016-10-28] MEDS ORDERED: PNEUMOCOCCAL VACC-PNEUMOVAX 23 25 MCG/0.5 ML VIAL IM ONE (15:00)
--- NOTE | 2016-10-28 15:36 | PN ---
DATE OF SERVICE: 10/28/2016 REQUESTING PHYSICIAN: Dr. Lopez Patient is a 45-year-old pleasant white male admitted to the hospital with bilateral pneumonia for which he underwent bronchoscopy and results are still pending. In the meantime, he also had exacerbation of ulcerative colitis. He was started on IV Solu-Medrol and presently on 40 mg q.12 hours. He is doing extremely well. Had 2 bowel movements today, soft in consistency, no blood in the stool. He denies any abdominal pain. On physical examination, he appears comfortable in no apparent distress. Vitals as are stable. Blood pressure is 100/82, pulse 86 per minute and afebrile. HEENT examination unremarkable. Conjunctivae pink. Sclerae anicteric. Oral cavity, no lesions. NECK: No JVD or lymph node enlargement. Chest was clear to auscultation. HEART: Regular rate and rhythm. Abdomen is soft. Bowel sounds are positive. No organomegaly. EXTREMITIES: No pedal edema. SKIN: No rashes. NEURO: Alert and oriented x3. No focal deficits. No labs available from today. IMPRESSION: 1. Exacerbation of ulcerative colitis. Presently on IV Solu-Medrol 40 mg q.12 hours and doing extremely well. 2. Bilateral pneumonia, which is presently on antibiotics followed by Dr. Hayes and Dr. Meade. He is doing much better, status post bronchoscopy. Results are still pending. RECOMMENDATIONS: 1. DC IV Solu-Medrol. 2. Start on oral prednisone 40 mg daily and he was advised to taper it by 5 mg every week. 3. He will follow up with Dr. Brandt in two days. 4. Continue to hold off on Humira until the results of bronchoscopy are available. 5. Thank you for this consultation.
[2016-10-28 16:22] LABS: Glucose,Whole Blood 195 mg/dL (75-99)
[2016-10-28] MEDS ORDERED: LEVOFLOXACIN 750 MG TAB PO SCH (21:00)
--- NOTE | 2016-10-28 22:26 | PN ---
DATE OF SERVICE: 10/28/2016 Reason for follow-up: Right lower lobe pneumonia. INTERVAL HISTORY: The patient is afebrile. He was seen on rounds this morning. He has been breathing more comfortably. Right lower chest pain has improved. No worsening abdominal pain ( ) or any worsening pain in the right foot area. On examination, blood pressure 115/76, pulse of 72, temperature 98.4. He is 94% on room air. General description is a middle-age male up in the bed in no distress. RESPIRATORY SYSTEM: Unlabored breathing. Decreased breath sounds at the base. HEART: S1, S2. Regular rate and rhythm. ABDOMEN: Soft. No tenderness. LABS: Hemoglobin 11.5, white count 7.7, BUN of 10, creatinine 0.94. BAL cultures so far negative. DIAGNOSTIC IMPRESSION AND PLAN: Patient with right lower lobe pneumonia status post bronchoscopy negative for any resistant pathogen. Antibiotic can be switched to Avelox ( ) daily, for another 7 to 10 days to finish course of therapy. Continue supportive care.
--- NOTE | 2016-10-29 10:29 | DS ---
DATE OF ADMISSION: 10/24/2016 DATE OF DISCHARGE: 10/28/2016 DATE OF SERVICE: 10/28/2016 FINAL DIAGNOSES: 1. Acute abdominal pain, acute ulcerative colitis acute exacerbation. 2. Acute left leg swelling and possible acute erythema nodosum. 3. Right lung mass and possible pneumonia, gram negative, possibly BOOP-like reaction may be related to ulcerative colitis. 4. Anemia, normocytic anemia of chronic disease. 5. Obesity, body mass index of 42. 6. Diabetes mellitus type 2. 7. History of asthma, chronic, intermittent. 8. History of fibromyalgia. 9. History of gastroesophageal reflux disease. 10. History of gastrointestinal bleed. 11. 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 12. History of degenerative joint disease. 13. History of methicillin-resistant Staphylococcus aureus. 14. History of cardiac catheterization, normal coronary arteries. 15. History of anxiety, depression, not otherwise specified. 16. Remote history of nicotine dependence. 17. FULL CODE. DISCHARGE DISPOSITION: The patient will be discharged in a stable condition with guarded prognosis. HISTORY OF PRESENT ILLNESS: This 45-year-old gentleman with a past medical history of multiple medical problems was admitted with acute abdominal pain, acute ulcerative colitis acute exacerbation. The patient was treated symptomatically. Patient was given antibiotics and steroids. Seen by Gastroenterology and Pulmonology, improved significantly. On exam, vitals are stable. CARDIOVASCULAR: As mentioned earlier. RESPIRATORY: A few rhonchi. ABDOMEN: Soft. NERVOUS SYSTEM: No focal deficits. DISCHARGE ADVICE: 1. Diet is soft as tolerated. 2. Follow up with Dr. Sloan in 2 to 3 days. 3. Follow up with Dr. Hayes as advised. 4. Follow up with Dr. Ciera Russo advised. Medications are: 1. Wellbutrin 150 mg p.o. b.i.d. 2. Vitamin D3, 5000 daily. 3. Bentyl 20 mg q.i.d. 4. Humira as before. 5. [place] 7.5 q.6 p.r.n. 6. Hydroxyzine 25 mg p.o. b.i.d. 7. Probiotic 1 p.o. daily. 8. Mesalamine 800 mg p.o. t.i.d. 9. Glucophage 500 mg p.o. b.i.d. 10. Milk Thistle 150 mg q.h.s. 11. Zofran 8 mg b.i.d. p.r.n. 12. Protonix 40 mg p.o. daily. 13. Prednisone taper that will be 40 mg daily and 5 mg taper per Gastroenterology slowly. 14. Lyrica 150 mg p.o. b.i.d. 15. Compazine 10 mg daily p.r.n. 16. Ambien 10 mg q.h.s. p.r.n. CBC, BMP with Dr. Sloan. Accu-Cheks a.c. and at bedtime and results to Dr. Sloan and adjust the diabetes treatment. Total time taken is 35 minutes.
[2016-10-30 08:08] LABS: Mis test requested (Non-blood) Pneumocystis DFA
== END 2016-10-28 17:55 | disposition home or self-care (01) | DRG 987 ==
LOC: EC 21:23 → 4MS4W 10-24 04:25 → 3SUR 10-24 05:36
PROVIDERS: ADMIT Hospitalist; ATTEND Hospitalist
PROC: 0B9F8ZX Drainage of Right Lower Lung Lobe, Via Natural or Artificial Opening Endoscopic, Diagnostic (ICD-10-PCS; 2016-10-25)
PROC: 0BBF8ZX Excision of Right Lower Lung Lobe, Via Natural or Artificial Opening Endoscopic, Diagnostic (ICD-10-PCS; 2016-10-25)
PROC: 0B9J8ZX Drainage of Left Lower Lung Lobe, Via Natural or Artificial Opening Endoscopic, Diagnostic (ICD-10-PCS; principal; 2016-10-25 08:35)
PROC: 0B9G8ZX Drainage of Left Upper Lung Lobe, Via Natural or Artificial Opening Endoscopic, Diagnostic (ICD-10-PCS; 2016-10-25 08:35)
DX: K51.911 Ulcerative colitis, unspecified with rectal bleeding (principal); J15.6 Pneumonia due to other Gram-negative bacteria; D62 Acute posthemorrhagic anemia; J98.11 Atelectasis; E66.01 Morbid (severe) obesity due to excess calories; L52 Erythema nodosum; E11.621 Type 2 diabetes mellitus with foot ulcer; K76.0 Fatty (change of) liver, not elsewhere classified; D63.8 Anemia in other chronic diseases classified elsewhere; F17.200 Nicotine dependence, unspecified, uncomplicated; F32.9 Major depressive disorder, single episode, unspecified; F41.9 Anxiety disorder, unspecified; K21.9 Gastro-esophageal reflux disease without esophagitis; L97.529 Non-pressure chronic ulcer of other part of left foot with unspecified severity; M79.7 Fibromyalgia; J45.20 Mild intermittent asthma, uncomplicated; M51.26 Other intervertebral disc displacement, lumbar region; M71.22 Synovial cyst of popliteal space [Baker], left knee; M47.9 Spondylosis, unspecified; M15.9 Polyosteoarthritis, unspecified; G56.01 Carpal tunnel syndrome, right upper limb; Z79.84 Long term (current) use of oral hypoglycemic drugs; Z68.41 Body mass index [BMI] 40.0-44.9, adult; Z79.899 Other long term (current) drug therapy; Z86.14 Personal history of Methicillin resistant Staphylococcus aureus infection; Z87.01 Personal history of pneumonia (recurrent)
CPT/HCPCS: 31624; 31628; 36415; 71010; 71020; 71275; 74022; 74177; 80048; 80053; 80202; 81001; 82272; 82550; 82553; 83036; 83605; 84484; 85025; 85379; 85610; 85652; 85730; 86140; 87040; 87045; 87046; 87070; 87077; 87086; 87102; 87116; 87186; 87205; 87206; 87252; 87299; 87324; 87496; 87498; 87502; 87529; 87541; 87798; 88108; 88305; 89055; 90732; 93005; 93970; 94640; 94760; 96361; 96365; 96367; 96375; 96376; 99285

== ENCOUNTER 2017-03-16 23:21 | Inpatient (IN) | payer OTHER ==
[2017-03-17] MEDS ORDERED: VANCOMYCIN IV PER PHARMACY 1 EACH MISC MISCELLANE PRN (00:06)
[2017-03-17] MEDS ORDERED: VANCOMYCIN 2,000 MG in SODIUM CHLORIDE 0.9% 500 ML IVPB STA (00:19)
--- NOTE | 2017-03-17 00:19 | ED ---
Skin/Abscess/FB HPI - General Chief complaint: Skin/Abscess/Foreign Body Stated complaint: abscess on left leg & arm Time Seen by Provider: 03/16/17 23:29 Source: patient, family Mode of arrival: ambulatory Limitations: no limitations - History of Present Illness Initial comments: This patient is a 46-year-old man who presents to be evaluated for left lower extremity ulcer. The patient states that this also has been going on for number of weeks. He has been seeing his doctor and also was referred to Dr. Rios. Patient states that despite using antibiotics, he has finished a total of 4 courses and started on his fifth, and using silver impregnated dressings, the also appears to be worsening. Patient states she has felt hot at times but has not measured a definite fever. He denies chest pain, dyspnea, palpitations , or other systemic symptoms. He does state that he has previous history of MRSA. MD complaint: abscess/boil, discoloration -: week(s) Tetanus Up to Date: yes Location: LLE Consistency: constant Improves with: none Worsens with: none - Related Data Home Medications Medication Instructions Recorded Confirmed Mesalamine [Delzicol] 800 mg PO TID 03/30/14 03/16/17 Pregabalin [Lyrica] 150 mg PO BID 03/30/14 03/16/17 Prochlorperazine [Compazine] 10 mg PO BID PRN 03/30/14 03/16/17 hydrOXYzine HCL 25 mg PO BID 03/30/14 03/16/17 buPROPion [Wellbutrin] 150 mg PO BID 06/21/16 03/16/17 Humira (Unknown Dose) 1 dose SQ DIRECTED 07/17/16 03/16/17 Cholecalciferol [Vitamin D3] 5,000 unit PO DAILY 10/24/16 03/16/17 Dicyclomine [Bentyl] 20 mg PO QID 10/24/16 03/16/17 L.acidoph,Paracasei, B.lactis 1 cap PO DAILY 10/24/16 03/16/17 [Probiotic] Milk Thistle 150 mg PO HS 10/24/16 03/16/17 Ondansetron HCl [Zofran] 8 mg PO BID PRN 10/24/16 03/16/17 metFORMIN HCL [Glucophage] 500 mg PO BID 10/24/16 03/16/17 Zolpidem [Ambien] 10 mg PO HS PRN 10/26/16 03/16/17 Dicloxacillin Sodium [Dynapen] 250 mg PO Q6H 03/16/17 03/16/17 Previous Rx's Medication Instructions Recorded HYDROcodone/APAP 7.5-325MG [[place] 1 each PO Q6H PRN #20 tab 10/28/16 7.5-325] Pantoprazole Sodium [Protonix] 40 mg PO DAILY #30 tablet. 10/28/16 predniSONE 40 mg PO DAILY #30 tab 10/28/16 Allergies Allergy/AdvReac Type Severity Reaction Status Date / Time No Known Allergies Allergy Verified 03/16/17 23:27 Review of Systems ROS Statement: Those systems with pertinent positive or pertinent negative responses have been documented in the HPI. ROS Other: All systems not noted in ROS Statement are negative. Constitutional: Denies: fever, chills Respiratory: Denies: cough, dyspnea Cardiovascular: Denies: chest pain, palpitations, syncope Gastrointestinal: Denies: abdominal pain, nausea, vomiting Skin: Reports: as per HPI, lesions Neurological: Denies: headache, weakness, numbness Past Medical History Past Medical History: Asthma, Chest Pain / Angina, Diabetes Mellitus, Fibromyalgia, GERD/Reflux, GI Bleed, Pneumonia Additional Past Medical History / Comment(s): Ulcerative colitis, recent pneumonia 2 1/2 weeks ago with pleurisy, past pne with pleurisy, R/L lung masses being followed, NIDDM type II, lumbar herniated disc, arthritis back bilateral hips, knees and shoulders, 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 History of Any Multi-Drug Resistant Organisms: MRSA Date of last positivie culture/infection: 05/19/2007 MDRO Source:: wound on torso Past Surgical History: Back Surgery, Heart Catheterization Additional Past Surgical History / Comment(s): Hx recent "clear heart cath", back surgery x2;multiple colonoscopies, EGD, deviated septum repair. Past Anesthesia/Blood Transfusion Reactions: No Reported Reaction Past Psychological History: Anxiety, Depression Smoking Status: Former smoker Past Alcohol Use History: None Reported Past Drug Use History: None Reported - Past Family History Mother Family Medical History: Diabetes Mellitus Additional Family Medical History / Comment(s): Mother is blind due to diabetic retinopathy. She is 78yrs old. Father Family Medical History: Cancer Additional Family Medical History / Comment(s): Father of prostate cancer with mets to liver at the age of 81 yrs. General Exam Limitations: no limitations General appearance: alert, in no apparent distress Head exam: Present: atraumatic, normocephalic Neck exam: Present: normal inspection Respiratory exam: Present: normal lung sounds bilaterally. Absent: respiratory distress, wheezes, rales, rhonchi, stridor Cardiovascular Exam: Present: regular rate, normal rhythm, normal heart sounds. Absent: systolic murmur, diastolic murmur, rubs, gallop GI/Abdominal exam: Present: soft. Absent: tenderness, guarding, rebound Extremities exam: Present: tenderness, normal capillary refill, other (Patient has an approximately 1.5 cm ulcer to the pretibial area of the left lower extremity, with approximately 8 x 10cm area of warmth, erythema, and induration surrounding.). Absent: pedal edema Neurological exam: Present: alert. Absent: motor sensory deficit Skin exam: Present: warm, dry, normal color, other (CV extremity exam). Absent : rash Course Vital Signs 03/16/17 03/17/17 23:25 00:53 Temperature 97.2 F L Pulse Rate 94 84 Respiratory 18 18 Rate Blood Pressure 142/88 116/60 O2 Sat by Pulse 96 Oximetry Medical Decision Making - Lab Data Result diagrams: 03/17/17 00:21 03/17/17 00:21 Lab Results 03/17/17 03/17/17 Range/Units 00:21 00:21 WBC 8.2 (3.8-10.6) k/uL RBC 4.64 (4.30-5.90) m/uL Hgb 12.1 L (13.0-17.5) gm/dL Hct 37.4 L (39.0-53.0) % MCV 80.7 D (80.0-100.0) fL MCH 26.2 (25.0-35.0) pg MCHC 32.4 (31.0-37.0) g/dL RDW 14.1 (11.5-15.5) % Plt Count 354 (150-450) k/uL Neutrophils % 75 % Lymphocytes % 15 % Monocytes % 7 % Eosinophils % 2 % Basophils % 0 % Neutrophils # 6.1 (1.3-7.7) k/uL Lymphocytes # 1.2 (1.0-4.8) k/uL Monocytes # 0.6 (0-1.0) k/uL Eosinophils # 0.2 (0-0.7) k/uL Basophils # 0.0 (0-0.2) k/uL Sodium 140 (137-145) mmol/L Potassium 3.6 (3.5-5.1) mmol/L Chloride 105 (98-107) mmol/L Carbon Dioxide 23 (22-30) mmol/L Anion Gap 12 mmol/L BUN 10 (9-20) mg/dL Creatinine 0.90 (0.66-1.25) mg/dL Est GFR (MDRD) Af Amer >60 (>60 ml/min/1.73 sqM) Est GFR (MDRD) Non-Af >60 (>60 ml/min/1.73 sqM) Glucose 172 H (74-99) mg/dL Calcium 9.4 (8.4-10.2) mg/dL Total Bilirubin 0.4 (0.2-1.3) mg/dL AST 13 L (17-59) U/L ALT 32 (21-72) U/L Alkaline Phosphatase 106 (38-126) U/L Total Protein 7.0 (6.3-8.2) g/dL Albumin 3.9 (3.5-5.0) g/dL Disposition Clinical Impression: Cellulitis, Leg ulcer, left Disposition: ADMITTED IP TO THIS HOSP Condition: Fair Referrals: Shanthi Sloan MD [Primary Care Provider] - 1-2 days
[2017-03-17 00:43] LABS: Basophils % (A) 0 %; CH 26.2; CHCM 32.7; Eosinophils # (A) 0.2 k/uL (0-0.7); Eosinophils % (A) 2 %; HCT 37.4 % (39.0-53.0); HDW 2.92; HGB 12.1 gm/dL (13.0-17.5); Luc # (Auto) 0.12; Luc % (Auto) 1; Lymphocytes # (A) 1.2 k/uL (1.0-4.8); Lymphocytes % (A) 15 %; MCH 26.2 pg (25.0-35.0); MCHC 32.4 g/dL (31.0-37.0); Mean Platelet Volume 6.9; Monocytes # (A) 0.6 k/uL (0-1.0); Monocytes % (A) 7 %; Neutrophils # (A) 6.1 k/uL (1.3-7.7); Neutrophils % (A) 75 %; RBC 4.64 m/uL (4.30-5.90); RDW 14.1 % (11.5-15.5); WBC 8.2 k/uL (3.8-10.6); WBC (Perox) 8.17
[2017-03-17 00:46] LABS: ALT 32 U/L (21-72); AST 13 U/L (17-59); Alkaline Phosphatase 106 U/L (38-126); Anion Gap 12 mmol/L; Blood Urea Nitrogen 10 mg/dL (9-20); Calcium 9.4 mg/dL (8.4-10.2); Carbon Dioxide 23 mmol/L (22-30); Chloride 105 mmol/L (98-107); Glucose 172 mg/dL (74-99); Non-African American GFR(MDRD) >60 (>60 ml/min/1.73 sqM); Potassium 3.6 mmol/L (3.5-5.1); Sodium 140 mmol/L (137-145); Total Bilirubin 0.4 mg/dL (0.2-1.3)
[2017-03-17 00:50] LABS: MCV 80.7 fL (80.0-100.0)
[2017-03-17] MEDS ORDERED: ONDANSETRON 4 MG/2 ML VIAL IVP STA (01:41)
[2017-03-17] MEDS ORDERED: HYDROcodone/APAP 7.5-325MG 1 EACH TAB PO ONE (01:41)
[2017-03-17] MEDS ORDERED: NALOXONE 0.4 MG/ML 1 ML VIAL IV PRN (01:43)
[2017-03-17] MEDS ORDERED: ZOLPIDEM 10 MG TAB PO PRN (01:49)
[2017-03-17] MEDS ORDERED: PROCHLORPERAZINE 10 MG TAB PO PRN (01:49)
[2017-03-17] MEDS: SODIUM CHLORIDE 0.9% 1,000 ML IV SCH (02:07)
[2017-03-17 02:40] VITALS: BMI 43.4
[2017-03-17 07:10] LABS: Glucose,Whole Blood 123 mg/dL (75-99)
[2017-03-17] MEDS: INSULIN LISPRO (humaLOG) 300 UNIT/3 ML VIAL SQ SCH ×4 (07:29→21:00)
[2017-03-17] MEDS: VANCOMYCIN 2,000 MG in SODIUM CHLORIDE 0.9% 500 ML IVPB SCH ×2 (07:54→17:27)
[2017-03-17] MEDS: HEPARIN SODIUM,PORCINE 5,000 UNIT/ML 1 ML VIAL SQ SCH ×3 (07:55→23:48)
[2017-03-17] MEDS: HYDROcodone/APAP 7.5-325MG 1 EACH TAB PO PRN ×3 (07:55→23:08)
[2017-03-17] MEDS: DICYCLOMINE 20 MG TAB PO SCH ×4 (07:55→23:09)
[2017-03-17] MEDS: metFORMIN 500 MG TAB PO SCH ×2 (07:55→21:15)
[2017-03-17] MEDS: LACTOBACILLUS ACIDOPH & BULGAR 1 EACH PACKET PO SCH (07:55)
[2017-03-17] MEDS: hydrOXYzine HCL 25 MG TAB PO SCH ×2 (07:56→21:15)
[2017-03-17] MEDS: buPROPion 75 MG TAB PO SCH ×2 (07:56→21:14)
[2017-03-17] MEDS: CHOLECALCIFEROL 1,000 UNIT TAB PO SCH (07:56)
[2017-03-17] MEDS: BALSALAZIDE DISODIUM 750 MG CAPSULE PO SCH ×3 (07:56→21:15)
[2017-03-17] MEDS: FAMOTIDINE 20 MG TAB PO SCH ×2 (07:56→21:16)
[2017-03-17] MEDS: ONDANSETRON ODT 4 MG TAB PO PRN ×2 (08:12→21:15)
[2017-03-17] MEDS: PREGABALIN 75 MG CAP PO SCH ×2 (08:12→21:14)
[2017-03-17 11:28] LABS: Glucose,Whole Blood 138 mg/dL (75-99)
--- NOTE | 2017-03-17 12:33 | P.CON ---
Consult Note - . Consult date: 03/17/17 Assessment/Plan:: thank you very much for asking me to see Mr. Downing. He is well-known to me from recent contact for I&D's of several different abscesses. He had incision and drainage of an abscess on the left arm a few months ago next been healing very slowly. He also had I&D of an abscess in the left leg about the month ago with very slow healing. He has a history of MRSA infections. He also has developed an area for erythema on the right lower leg. He presented to the emergency room last night with increasing pain in the left lower extremity. Has been using the dressings prescribed by Dr. Meade on an outpatient basis. He states that the redness around it has increased. Is able to ambulate though with some difficulty because of pain. If no fever or chills. Patient is diabetic on insulin. Also has a history of inflammatory bowel disease for which he takes prednisone. All of this contributes towards the infectious process and poor healing. Past history social history family history well-documented on multiple recent admissions. Medications as listed. Blood sugars have been running high recently attributed to him being on prednisone. ALLERGIES none known. On examination patient is well-built well-nourished somewhat overweight at the 145 kg with a BMI 1.43. He is in no acute distress. Temperature is normal. Vitals are good. Extremities reveal the an I&D site on the left lateral upper arm with a few punctate openings but no big wound. No drainage of any purulent material. The is slightly erythematous with mild cellulitis. No lymphadenopathy. 5 has a localized area of erythema probably about 3-4 cm in diameter on the right [place] but no drainable abscess at this time. Slightly indurated. No fluctuance and no definite the abscess noted here. On the left side he has a open wound about 2.3 cm in diameter. There is some necrotic tissue at the lower end of it. Gross pus identified. It is a [place] of cellulitis around it. He states he was able to get a Q-tip that undermined the wound superiorly. However no definite abscess cavity noted at this time. Has good pedal pulses. Gianna impression multiple abscesses with the frequent the abscesses with underlying diabetes mellitus and prednisone therapy. History of inflammatory bowel disease. Multiple medical issues as listed. Recommendation would recommend IV antibiotics since he has basically failed outpatient multiple by mouth antibiotic courses. Debridement of the left lower extremity wound was accomplished today by myself. Don't think there is any underlying deep-seated abscess at this time needs to be drained all opened up for any further. Will continue to observe and determine if he needs any further debridement. We'll follow with you. Continued management of his diabetes mellitus and agree on pulling off his prednisone for now.
--- NOTE | 2017-03-17 12:36 | P.OP ---
Preoperative Diagnosis: diabetic ulcer left leg. Postoperative Diagnosis: same Procedure(s) Performed: debridement amount of foreskin and subcutaneous tissue ulcer left leg Anesthesia: none Estimated Blood Loss (ml): 0 Pathology: none sent Condition: stable Disposition: no change Indications for Procedure: patient has a poorly healing diabetic ulcer left leg status post I&D several weeks ago. Has a area of the necrotic tissue in the base on the lower inferior aspect of the wound covering an area for about 1 cm in diameter. Debridement of this was recommended. No evidence of any other abscess noted in this area at this time. Operative Findings: as above Description of Procedure: the area was prepped with Betadine. It is quite sensitive. Were able to debride the necrotic tissue in the base on the inferior aspect with good hemostasis. dressing was applied. Patient tolerated procedure well. Mostly this superficial skin and subcutaneous tissue was debrided.
[2017-03-17] MEDS ORDERED: PANTOPRAZOLE 40 MG TABLET PO SCH (15:15)
[2017-03-17] MEDS: methylPREDNISolone SOD SUCCI 125 MG/2 ML VIAL IV SCH ×2 (16:47→23:48)
[2017-03-17 17:30] LABS: Glucose,Whole Blood 115 mg/dL (75-99)
--- NOTE | 2017-03-17 17:31 | HP ---
HISTORY AND PHYSICAL DATE OF SERVICE: 03/17/2017. CHIEF COMPLAINT: Abscess of multiple sites including the right hanson, left hanson and as well as left elbow. HISTORY OF PRESENT ILLNESS: This 46-year-old gentleman with a past medical history of multiple medical problems including ulcerative colitis, history of BOOP like reaction, history of asthma, fibromyalgia, and GI bleed, being followed by Dr. Sloan in the outpatient setting was complaining of multiple skin lesions. The patient initially had a skin lesion in the left upper and subsequently patient had left hanson and right hanson and patient also in outpatient setting. Because of lack of improvement the patient came to [facility] and was admitted for further evaluation and treatment. There is no history of fever, rigors. No history of headache, loss of consciousness or seizures. The stool culture showed Aeromonas otherwise, the local cultures did not show any acute abnormality. There is no history of fever, rigors. PAST MEDICAL HISTORY: History of asthma, diabetes, fibromyalgia, GERD, GI bleed. MEDICATIONS PRIOR TO ADMISSION: Include home medications are: 1. Glucophage 500 mg p.o. b.i.d. 2. Hydroxyzine 25 mg p.o. b.i.d. 4. Ambien 10 mg q.h.s. 5. Zantac 150 mg p.o. b.i.d. 6. Compazine 10 mg p.o. b.i.d. 7. Lyrica 150 mg p.o. b.i.d. 8. Protonix 40 mg b.i.d. 9. Zofran 8 mg b.i.d. p.r.n. 10.Milk thistle 150 mg p.o. q.h.s. 11.Delzicol 800 mg p.o. t.i.d. 12.Probiotic 1 capsule daily. 13.Bentyl 10 mg p.o. q.i.d. 14.Dynapen 250 mg q.6h. 15.Vitamin D3 5000 daily. ALLERGIES: None. FAMILY HISTORY: Cancer and prostate cancer in father. SOCIAL HISTORY: No history of smoking, no history of alcohol intake. REVIEW OF SYSTEMS: ENT: No diminished hearing or vision. CARDIOVASCULAR: No angina or palpitations. RESPIRATION: No cough. GI: No nausea. : No dysuria. NERVOUS SYSTEM: No numbness or weakness. ALLERGY/IMMUNOLOGY: No asthma. MUSCULOSKELETAL: As mentioned earlier. HEMATOLOGY/ONCOLOGY: No anemia. ENDOCRINE: No history of diabetes or hypothyroidism. CONSTITUTIONAL: As mentioned earlier. DERMATOLOGY: As mentioned. RHEUMATOLOGY: Negative. PSYCHIATRY: As mentioned earlier. PHYSICAL EXAMINATION: Alert and oriented x3. Pulse 76, blood pressure 120/79, respirations 16, temperature is 97.7, pulse ox 94% on room air. HEENT: Conjunctivae normal. Oral mucosa moist. NECK: No jugular venous distention. No lymph node enlargement. CARDIOVASCULAR: S1, S2. RESPIRATORY: Breath sounds diminished in the bases. A few scattered rhonchi. No crackles. ABDOMEN: Soft, nontender. No mass palpable. LEGS: Minimal edema bilateral, significant skin lesion of tunneled out skin lesion of the left hanson with some erythema, tenderness and right leg also present. NERVOUS SYSTEM: Higher functions as mentioned earlier. Moves all four limbs. No focal motor deficits. LYMPHATICS: No lymphadenopathy in the neck, axillae or groin. SKIN: The two lesions as mentioned earlier. Moderate erythema and tenderness in the right hanson and as well as erythema, tenderness and ulcerations in the left elbow also present. JOINTS: No active deforming arthropathy. LABS: WBC 8.1, hemoglobin 12.1. ASSESSMENT: 1. Diffuse skin lesions, possible cellulitis with abscess, rule out pyoderma gangrenosum. 2. History of ulcerative colitis. 3. 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 4. History of erythema nodosum. 5. Obesity. 6. Diabetes mellitus type 2. 7. Fibromyalgia. 8. Gastroesophageal reflux disease. 9. History of GI bleed. 10.History of MRSA. 11.History of anxiety and depression. RECOMMENDATIONS AND DISCUSSION: This 46-year-old gentleman who presented with multiple complex medical issues, we will monitor the patient closely. Continue the current management and symptomatic treatment. Otherwise at this time I recommend continue with broad-spectrum IV antibiotics and follow closely with Dr. Meade. Local wound treatment. Dr. Raymundo has already seen the patient and performed debridement for skin and subcutaneous ulcer of the left leg. Once again, the prognosis guarded. Further recommendations to follow. I would also recommend cultures as well. Resume the rest of medications. Further recommendations to follow. MMODL / IJN: [id number] / GIANCARLO
[2017-03-17] MEDS: PANTOPRAZOLE 40 MG TABLET PO SCH (17:38)
[2017-03-17 20:06] LABS: Glucose,Whole Blood 122 mg/dL (75-99)
--- NOTE | 2017-03-17 21:40 | CONS ---
CONSULTATION DATE OF SERVICE: March 17, 2017. REASON FOR CONSULTATION: Left leg wound and cellulitis. HISTORY OF PRESENT ILLNESS: The patient is a 46-year-old, male, who has been dealing with a wound to his left leg that started as a blister that has been leading to a pustule that was debrided by Dr. Raymundo in the outpatient setting. Culture at that time shows MSSA and the patient was treated with oral dicloxacillin. The patient was evaluated at the [facility] [place] last week where the patient did have purulent material coming out through the wound which was re-cultured. However, those cultures are negative. The patient now coming to the [facility] ER with chief complaints of worsening pain to the left leg area. Pain described as throbbing almost 6 to 7/10. No radiation. He is still having some drainage from the wound and some surrounding erythema. The patient denies any high-grade fever and chills. Subsequent to that the patient was admitted to hospital, started on vancomycin and ID was consulted for further recommendation regarding antibiotic therapy. REVIEW OF SYSTEMS: CONSTITUTIONAL: Positive for weakness but no high-grade fever. Eyes no complaint. ENT no complaint. Respiratory no complaint. Cardiovascular no complaint. Genitourinary: No complaint. Gastrointestinal: No complaint. Musculoskeletal as per HPI. Integumentary as per HPI. PSYCHOLOGICAL: No complaint. Endocrine no complaint. Neurological no complaint. PAST MEDICAL HISTORY: Significant for ulcerative colitis, asthma, diabetes mellitus, fibromyalgia, gastroesophageal reflux disease, pneumonia and BOOP and previous history of MRSA infection from wound on the torso. PAST SURGICAL HISTORY: Heart catheterization, back surgery and colonoscopy. EGD, deviated septum repair, left leg wound and debridement. SOCIAL HISTORY: Remote history of smoking. No drinking or drug use. FAMILY HISTORY: Mother with history of diabetes and diabetic retinopathy. Father with history of prostate cancer. ALLERGIES: No known drug allergies. MEDICATION: Medications include the patient is currently on: 1. [place]. 2. Wellbutrin. 3. Vitamin D3. 4. Bentyl. 5. Pepcid. 6. Heparin. 7. Hydroxyzine. 8. Humalog. 9. Lactinex. 10.Glucophage. 11.Zofran. 12.Protonix. 13.Lyrica. 14.Compazine. 15.Vancomycin. 16.Ambien. EXAMINATION: Blood pressure is 125/78 with a pulse of 68, temperature 97.1. He is 95% on room air. General description is a middle-aged male lying in bed in no distress. No tachypnea or accessory muscle for respiration use. HEENT: Shows slight pallor. No scleral icterus. Oral mucosa membranes dry. Neck trachea central. No thyromegaly. Lungs unlabored breathing. Clear to auscultation anteriorly. No wheeze or crackle. Heart S1, S2. Regular rate and rhythm. ABDOMEN: Soft, no tenderness. No guarding or rigidity. Extremities: The left leg he did have a wound ulcerated with some necrotic tissue on pressure on the lower end of the wound. Purulent material came out again. There is some surrounding redness. No foul smell. The wound on the left forearm not as worse as the leg and no induration or any fluctuation. Neurological patient is awake, alert, oriented times three. Mood and affect normal. LABS: Hemoglobin is 12.1, white count of 8.2, BUN of 10, creatinine 0.90. Electrolytes have been normal. Liver enzymes are normal. CRP was 30.4. C diff is negative. DIAGNOSTIC IMPRESSION AND PLAN: Patient with a non-healing wound to the left leg with previous evidence of infection with Methicillin-sensitive Staphylococcus aureus. However, the patient despite being on adequate therapy for underlying Methicillin-sensitive Staphylococcus aureus infection is showing worsening. The patient did have a history of ulcerative colitis with question of possible collagen vascular disease or inflammatory skin condition and ulceration not excluded. PLAN: 1. General surgery evaluation for debridement of the wound as well as biopsy to make sure there is no evidence of any inflammatory skin condition such as pyoderma. 2. Vancomycin pharmacy to dose target of 15 and steroids to be started per admitting team. 3. Depending upon his clinical response as well as culture, will adjust medications further if needed. Thank you for this consultation. Will follow this patient along with you. MMODL / IJN: [id number] / MTDValentin
[2017-03-18] MEDS: VANCOMYCIN 2,000 MG in SODIUM CHLORIDE 0.9% 500 ML IVPB SCH ×3 (02:12→21:06)
[2017-03-18] MEDS: methylPREDNISolone SOD SUCCI 125 MG/2 ML VIAL IV SCH ×3 (05:48→20:00)
[2017-03-18] MEDS: SODIUM CHLORIDE 0.9% 1,000 ML IV SCH (05:50)
[2017-03-18 07:15] LABS: Glucose,Whole Blood 179 mg/dL (75-99)
[2017-03-18] MEDS: INSULIN LISPRO (humaLOG) 300 UNIT/3 ML VIAL SQ SCH ×4 (07:31→21:54)
[2017-03-18] MEDS ORDERED: VANCOMYCIN TROUGH DUE 1 EACH MISC MISCELLANE ONE (08:00)
[2017-03-18 08:24] LABS: Basophils % (A) 0 %; CH 26.2; CHCM 31.1; Eosinophils % (A) 0 %; HDW 2.85; HGB 12.7 gm/dL (13.0-17.5); Hypochromasia Slight; Luc # (Auto) 0.05; Luc % (Auto) 1; Lymphocytes # (A) 0.4 k/uL (1.0-4.8); Lymphocytes % (A) 6 %; MCH 26.2 pg (25.0-35.0); MCV 84.5 fL (80.0-100.0); Monocytes # (A) 0.1 k/uL (0-1.0); Monocytes % (A) 2 %; Neutrophils # (A) 6.4 k/uL (1.3-7.7); Neutrophils % (A) 91 %; RBC 4.85 m/uL (4.30-5.90); WBC 7.1 k/uL (3.8-10.6); WBC (Perox) 7.64
[2017-03-18 08:31] LABS: Anion Gap 12 mmol/L; Blood Urea Nitrogen 6 mg/dL (9-20); Calcium 9.2 mg/dL (8.4-10.2); Carbon Dioxide 23 mmol/L (22-30); Chloride 105 mmol/L (98-107); Glucose 189 mg/dL (74-99); Non-African American GFR(MDRD) >60 (>60 ml/min/1.73 sqM); Potassium 4.6 mmol/L (3.5-5.1); Sodium 140 mmol/L (137-145)
[2017-03-18] MEDS: PANTOPRAZOLE 40 MG TABLET PO SCH ×2 (10:02→17:34)
[2017-03-18] MEDS: HEPARIN SODIUM,PORCINE 5,000 UNIT/ML 1 ML VIAL SQ SCH ×2 (10:04→17:34)
[2017-03-18] MEDS: BALSALAZIDE DISODIUM 750 MG CAPSULE PO SCH ×3 (10:05→22:46)
[2017-03-18] MEDS: buPROPion 75 MG TAB PO SCH ×2 (10:07→21:06)
[2017-03-18] MEDS: CHOLECALCIFEROL 1,000 UNIT TAB PO SCH (10:08)
[2017-03-18] MEDS: DICYCLOMINE 20 MG TAB PO SCH ×4 (10:10→22:46)
[2017-03-18] MEDS: FAMOTIDINE 20 MG TAB PO SCH (10:11)
[2017-03-18] MEDS: hydrOXYzine HCL 25 MG TAB PO SCH ×2 (10:12→21:07)
[2017-03-18] MEDS: LACTOBACILLUS ACIDOPH & BULGAR 1 EACH PACKET PO SCH (10:15)
[2017-03-18] MEDS: PREGABALIN 75 MG CAP PO SCH ×2 (10:16→21:06)
[2017-03-18] MEDS: metFORMIN 500 MG TAB PO SCH ×2 (10:16→21:06)
[2017-03-18] MEDS: HYDROcodone/APAP 7.5-325MG 1 EACH TAB PO PRN ×3 (10:49→21:16)
[2017-03-18] MEDS: ONDANSETRON ODT 4 MG TAB PO PRN (11:23)
[2017-03-18 12:11] LABS: Glucose,Whole Blood 268 mg/dL (75-99)
--- NOTE | 2017-03-18 16:28 | PN ---
PROGRESS NOTE DATE OF SERVICE: 03/18/2017 This is a 46-year-old gentleman admitted with multiple skin lesions and possibly abscess and possibly pyoderma gangrenosum is being closely monitored. Empiric steroids has been initiated. Dr. Meade and surgery are on consult at this time. Antibiotic coverage with vancomycin has been continued for possible MRSA and steroids have been initiated. PAST MEDICAL HISTORY: Reviewed. REVIEW OF SYSTEMS: CARDIOVASCULAR: No angina. RESPIRATORY: As mentioned earlier. GI: As mentioned earlier. : No dysuria. NERVOUS SYSTEM: No numbness or weakness. CURRENT MEDICATIONS: Reviewed and include: 1. [place] 7.5 q.6h p.r.n. 3. Wellbutrin 150 mg b.i.d. 4. Vitamin D3 5000. 5. Bentyl 20 mg q.i.d. 6. Heparin 5000 subcu b.i.d. 7. Atarax 25 mg daily. 8. Lactinex 1 mg daily. 9. Glucophage 500 mg b.i.d. 10.Solu-Medrol 60 IV q.6h. 11.Narcan. 12.Protonix. 13.Lyrica. 14.Compazine. 15.Vancomycin. PHYSICAL EXAM: Patient is alert, oriented x3. Pulse 64, blood pressure 130/72, respirations 16, temperature 97.8, pulse ox 94% on room air. HEENT: Conjunctivae normal. Oral mucosa moist. NECK: No jugular venous distention. No carotid bruit. No lymph node enlargement. CARDIOVASCULAR: S1, S2. RESPIRATORY: Breath sounds diminished in the bases. A few scattered rhonchi. No crackles. ABDOMEN: Soft, nontender. No mass palpable. Obese. LEGS: Significant ulceration the left hanson and erythema nodosum on the right hanson is improving. SKIN: As mentioned. LYMPHATICS: No lymphadenopathy in the neck, axillae or groin. LABS: CBC noted. Otherwise ESR is 39. ASSESSMENT: 1. Diffuse skin lesions, possible cellulitis with abscess or pyoderma gangrenosum. 2. History of ulcerative colitis. 3. History of right lung mass, pneumonia, possible BOOP-like reaction also. 4. Ulcerative colitis. 5. History of erythema nodosum. 6. Obesity. 7. Diabetes mellitus type 2. 8. Fibromyalgia. 9. Gastroesophageal reflux disease. 10.History of gastrointestinal bleed. 11.History of Methicillin-resistant Staphylococcus aureus. 12.History of anxiety, depression. RECOMMENDATIONS AND DISCUSSION: I recommend to continue current management and continue broad spectrum IV antibiotics. Continue steroids. Monitor closely. Prognosis guarded because of multiple complex medical issues. Steroids insulin may be used to get the blood sugars controlled. I would also recommend insulin drip also. Further recommendations to follow. Prognosis guarded. MMODL / IJN: [id number] / MTDD
--- NOTE | 2017-03-18 16:39 | CT ---
EXAMINATION TYPE: CT brain wo con DATE OF EXAM: 03/18/2017 COMPARISON: NONE HISTORY: Difficulty with speech and headache CT DLP: 1108.4 mGycm. Automated Exposure Control for Dose Reduction was Utilized. Helical acquisitio n through the brain TECHNIQUE: CT scan of the head is performed without contrast. FINDINGS: There is no acute intracranial hemorrhage, mass effect, or midline shift identified. The ventricles and sulci are within normal limits in size. The globes are intact and the visualized sin uses are clear. IMPRESSION: No acute intracranial hemorrhage, mass effect, or midline shift is seen. Consider brain MRI for increased sensitivity.
[2017-03-18 17:11] LABS: Glucose,Whole Blood 183 mg/dL (75-99)
[2017-03-18 19:50] LABS: Glucose,Whole Blood 261 mg/dL (75-99)
--- NOTE | 2017-03-18 20:50 | PN ---
PROGRESS NOTE DATE OF SERVICE: 03/18/2017. REASON FOR FOLLOWUP: Left leg wound and cellulitis and left arm cellulitis. INTERVAL HISTORY: The patient is afebrile. The patient mentioned the pain has slightly improved compared to yesterday. The patient denies any chest pain or shortness of breath. No abdominal pain or any diarrhea. EXAMINATION: Blood pressure 117/70 with a pulse of 77, temperature 98.3. He is 94% on room air. GENERAL DESCRIPTION: A middle-aged male, lying in bed in no distress. RESPIRATORY SYSTEM: Unlabored breathing. Clear to auscultation anteriorly. HEART: S1, S2. Regular rate and rhythm. ABDOMEN: Soft. No tenderness. Left leg wound is currently dressed. No obvious drainage on the dressing. LABS: Hemoglobin is 12.7, white count 7.9 with a BUN of 6, creatinine 0.80. Cultures obtained yesterday so far pending. Blood culture negative. DIAGNOSTIC IMPRESSION AND PLAN: Patient with left lower extremity wound and cellulitis. Currently continue the patient on vancomycin. Concern for possible related to his ulcerative colitis. He has been started on steroid and did have some improvement symptomatically. We will continue local wound care as ordered and antibiotics and evaluate the wound tomorrow. Continue supportive care. MMODL / IJN: [id number] /
[2017-03-19] MEDS: methylPREDNISolone SOD SUCCI 125 MG/2 ML VIAL IV SCH ×4 (00:11→18:51)
[2017-03-19] MEDS: HEPARIN SODIUM,PORCINE 5,000 UNIT/ML 1 ML VIAL SQ SCH ×3 (00:12→16:01)
[2017-03-19] MEDS: SODIUM CHLORIDE 0.9% 1,000 ML IV SCH (04:18)
[2017-03-19 07:32] LABS: Glucose,Whole Blood 227 mg/dL (75-99)
[2017-03-19] MEDS: INSULIN LISPRO (humaLOG) 300 UNIT/3 ML VIAL SQ SCH ×4 (07:42→20:57)
[2017-03-19] MEDS: PANTOPRAZOLE 40 MG TABLET PO SCH ×2 (07:45→17:48)
[2017-03-19] MEDS ORDERED: LIDOCAINE 1%/EPI 1:200,000 MPF 10 ML VIAL SQ STA (08:51)
[2017-03-19] MEDS ORDERED: MORPHINE SULFATE 10 MG/ML SYRINGE IVP STA (09:30)
--- NOTE | 2017-03-19 09:34 | P.OP ---
Date of Procedure: 03/19/17 Preoperative Diagnosis: Nonhealing left lower extremity wound Postoperative Diagnosis: Nonhealing left lower extremity wound Procedure(s) Performed: Biopsy of wound Anesthesia: local Surgeon: Travis Scott Estimated Blood Loss (ml): 1 Pathology: other (Nonhealing wound biopsy of left lower extremity) Condition: stable Disposition: floor Indications for Procedure: This is a 46-year-old male that has a chronic nonhealing ulcer of his left lower extremity 5 months. He has been on multiple courses of antibiotics and steroids with no success. He has had a recent debridement. He does have a history of ulcerative colitis and biopsies to be performed to rule out any concomitant disease process. Operative Findings: Left lower extremity nonhealing wound, biopsied Description of Procedure: Left lower extremity was prepped and draped. Local anesthetic was given. A 15 blade scalpel was used to biopsy the ulcer edge. Pressure was applied for hemostasis. Specimen was sent to pathology. The patient tolerated the procedure well.
[2017-03-19] MEDS: BALSALAZIDE DISODIUM 750 MG CAPSULE PO SCH ×3 (09:39→20:56)
[2017-03-19] MEDS: buPROPion 75 MG TAB PO SCH ×2 (09:39→19:53)
[2017-03-19] MEDS: DICYCLOMINE 20 MG TAB PO SCH ×4 (09:40→20:57)
[2017-03-19] MEDS: LACTOBACILLUS ACIDOPH & BULGAR 1 EACH PACKET PO SCH (09:40)
[2017-03-19] MEDS: CHOLECALCIFEROL 1,000 UNIT TAB PO SCH (09:40)
[2017-03-19] MEDS: hydrOXYzine HCL 25 MG TAB PO SCH ×2 (09:40→19:53)
[2017-03-19] MEDS: metFORMIN 500 MG TAB PO SCH ×2 (09:41→19:53)
[2017-03-19] MEDS: PREGABALIN 75 MG CAP PO SCH ×2 (09:46→19:52)
[2017-03-19] MEDS: VANCOMYCIN 2,000 MG in SODIUM CHLORIDE 0.9% 500 ML IVPB SCH ×2 (09:46→19:54)
[2017-03-19 11:52] LABS: Glucose,Whole Blood 280 mg/dL (75-99)
--- NOTE | 2017-03-19 14:03 | PN ---
PROGRESS NOTE DATE OF SERVICE: 03/19/2017 This 46-year-old gentleman who was admitted with diffuse skin lesions with possible cellulitis and abscess with pyoderma gangrenosum on IV high-dose IV steroids, no chest pain. No palpitations. No fever. EXAM: Alert, and oriented x3. Pulse is 69, blood pressure 110/72, respirations 16, temperature 97.8, pulse ox 91% on room air HEENT: Conjunctivae normal. Neck: No jugular venous distention. Cardiovascular: S1, S2. Respiratory: Breath sounds diminished in the bases. A few scattered rhonchi and crackles. Abdomen is soft, nontender. Legs are no edema. No swelling. Central nervous system: No focal deficits. LABS: WBC 7, hemoglobin 12.7. Accu-Cheks are noted. ASSESSMENT: 1. Diffuse skin lesions, possible cellulitis with abscess or pyoderma gangrenosum. 2. History of ulcerative colitis. 3. 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 4. Erythema nodosum history. 5. Obesity. 6. Diabetes type 2. 7. Fibromyalgia. 8. Gastroesophageal reflux disease. 9. History of gastrointestinal bleed. 10.History of Methicillin-resistant Staphylococcus aureus. 11.History of anxiety, depression. RECOMMENDATION AND DISCUSSION: Recommend to continue current medications, management and symptomatic treatment. Continue the IV steroids. Skin lesions appears to be responding. Biopsy has been done. Otherwise I would also recommend a small dose of Lantus and continue the scale also. Prognosis guarded. Further recommendations to follow. MMODL / IJN: [id number] /
[2017-03-19] MEDS: HYDROcodone/APAP 7.5-325MG 1 EACH TAB PO PRN (16:26)
[2017-03-19 17:33] LABS: Glucose,Whole Blood 260 mg/dL (75-99)
[2017-03-19 20:06] LABS: Glucose,Whole Blood 289 mg/dL (75-99)
[2017-03-19] MEDS: INSULIN GLARGINE 100 UNIT/ML 10 ML VIAL SQ SCH ×2 (20:54→22:15)
--- NOTE | 2017-03-19 22:04 | PN ---
PROGRESS NOTE DATE OF SERVICE: 03/19/2017. REASON FOR FOLLOWUP: Right leg and forearm wound infection and cellulitis. INTERVAL HISTORY: The patient is afebrile. He is status post biopsy of the right foot and left leg wound. The patient tolerated the procedure. Overall swelling and redness has improved. The patient denies any chest pain, shortness of breath or cough. No abdominal pain or any diarrhea. EXAMINATION: Blood pressure 125/70 with a pulse of 88, temperature 97.8. He is 94% on room air. GENERAL DESCRIPTION: A middle-aged male lying in bed in no distress. RESPIRATORY SYSTEM: Unlabored breathing. Clear to auscultation anteriorly. HEART: S1, S2. Regular rate and rhythm. ABDOMEN: Soft. No tenderness. Left leg wound is currently dressed and no obvious drainage on the dressing. LABS: Hemoglobin is 12.7, white count is 7.1. BUN of 6, creatinine 0.80. Culture so far negative. DIAGNOSTIC IMPRESSION AND PLAN: Patient with left leg nonhealing wound with a question of possible inflammatory ulcer related to his ulcerative colitis with secondary infection. Previous culture has been methicillin-sensitive Staphylococcus aureus. The patient at this time will continue with vancomycin along with steroids. Biopsy has been done. Will follow the results. Continue supportive care. MMODL / IJN: [id number] /
[2017-03-19] MEDS: ALPRAZolam 0.5 MG TAB PO PRN (22:18)
[2017-03-20] MEDS: HEPARIN SODIUM,PORCINE 5,000 UNIT/ML 1 ML VIAL SQ SCH ×4 (01:00→23:19)
[2017-03-20] MEDS: methylPREDNISolone SOD SUCCI 125 MG/2 ML VIAL IV SCH ×5 (01:00→23:19)
[2017-03-20] MEDS: SODIUM CHLORIDE 0.9% 1,000 ML IV SCH (05:40)
[2017-03-20 06:53] LABS: Glucose,Whole Blood 261 mg/dL (75-99)
[2017-03-20] MEDS: INSULIN LISPRO (humaLOG) 300 UNIT/3 ML VIAL SQ SCH ×4 (07:40→21:32)
[2017-03-20] MEDS: PANTOPRAZOLE 40 MG TABLET PO SCH ×2 (07:41→16:12)
[2017-03-20] MEDS: LACTOBACILLUS ACIDOPH & BULGAR 1 EACH PACKET PO SCH (07:42)
[2017-03-20] MEDS: CHOLECALCIFEROL 1,000 UNIT TAB PO SCH (07:42)
[2017-03-20] MEDS: metFORMIN 500 MG TAB PO SCH ×2 (07:42→21:31)
[2017-03-20] MEDS: hydrOXYzine HCL 25 MG TAB PO SCH ×2 (07:43→21:31)
[2017-03-20] MEDS: buPROPion 75 MG TAB PO SCH ×2 (07:44→21:31)
[2017-03-20] MEDS: DICYCLOMINE 20 MG TAB PO SCH ×4 (07:44→21:31)
[2017-03-20] MEDS: BALSALAZIDE DISODIUM 750 MG CAPSULE PO SCH ×3 (07:45→21:30)
[2017-03-20] MEDS: HYDROcodone/APAP 7.5-325MG 1 EACH TAB PO PRN ×3 (07:54→23:19)
[2017-03-20] MEDS: PREGABALIN 75 MG CAP PO SCH ×2 (07:55→22:28)
[2017-03-20] MEDS ORDERED: VANCOMYCIN TROUGH DUE 1 EACH MISC MISCELLANE ONE (08:00)
[2017-03-20 08:42] LABS: Anion Gap 10 mmol/L; Blood Urea Nitrogen 12 mg/dL (9-20); Calcium 9.2 mg/dL (8.4-10.2); Carbon Dioxide 25 mmol/L (22-30); Chloride 104 mmol/L (98-107); Glucose 286 mg/dL (74-99); Non-African American GFR(MDRD) >60 (>60 ml/min/1.73 sqM); Potassium 4.3 mmol/L (3.5-5.1); Sodium 139 mmol/L (137-145)
[2017-03-20] MEDS: VANCOMYCIN 2,000 MG in SODIUM CHLORIDE 0.9% 500 ML IVPB SCH ×2 (10:55→21:30)
[2017-03-20 11:36] LABS: Glucose,Whole Blood 274 mg/dL (75-99)
--- NOTE | 2017-03-20 15:14 | PN ---
PROGRESS NOTE DATE OF SERVICE: 03/20/2017. REASON FOR FOLLOWUP: Left leg wound and cellulitis. INTERVAL HISTORY: The patient is afebrile. Pain to the left leg is currently improved. Denies any chest pain, shortness of breath or cough. No abdominal pain or diarrhea. EXAMINATION: Blood pressure 107/61 with a pulse of 51, temperature 97.7. He is 94% on room air. General description is a middle-aged male lying in bed in no distress. RESPIRATORY SYSTEM: Unlabored breathing. Clear to auscultation anteriorly. HEART: S1, S2. Regular rate and rhythm. ABDOMEN: Soft, no tenderness. LEFT LEG: Swelling and redness have improved. Culture has been done and so far negative. Biopsy is pending. DIAGNOSTIC IMPRESSION AND PLAN: Patient with chronic nonhealing wound to the left leg with question of possible inflammatory skin ulcer from his underlying ulcerative colitis. So far culture has been negative. He is currently on vancomycin. Continue local wound care with Aquacel Silver packing. Waiting for the biopsy to finalize. MMODL / IJN: [id number] /
--- NOTE | 2017-03-20 16:17 | CDI ---
In responding to this query, please exercise your independent professional judgment. The [facility] Coding Staff and Clinical Documentation Specialists appreciate your assistance in clarifying documentation, maintaining compliance with coding guidelines, accurately documenting patients condition and capturing severity of illness. The fact that a question is asked does not imply that any particular answer is desired or expected. Communication forms are a method of clarifying documentation and are not made part of the Legal Health Record. Thank you in advance for your clarification. Last Revision, March 2015 Gm Rojas [address] [facility] [place] [address] Documentation Clarification Form Date: 03/20/2017 4:06:00 PM From: Yenni Young Admit Date: 03/17/2017 1:49:00 AM Patient Name: Gennaro Downing Visit Number: [id number] Discharge Date: Dr. Uriel Raymundo Operative note, a debridement was performed on superficial skin and subcutaneous tissue. History/Risk Factors: Diabetic ulcer left leg Clinical Indicators: Present with nonhealing diabetic ulcer, with narcotic tissue in the lower inferior aspect of the wound covering an area about 1 cm in diameter. Treatment: Debridement Five elements required for accurate and compliant documentation of a debridement : 1. Technique used (e.g., excisional, excised, cutting, etc.) 2. Instrument(s) used (e.g., scalpel, curette, etc.) 3. Nature of the tissue removed (e.g., necrotic, devitalized tissues, non- viable tissue, etc.) 4. Appearance and size of the wound (e.g., down to fresh bleeding tissue, 7cm x 10cm, etc.) 5. Depth of the debridement* (e.g., skin, subcutaneous tissue, fascia, muscle , bone, etc.) In order to capture the severity of condition and code the appropriate procedure could you please document the following: Excisional debridement (the removal of necrotic, devitalized tissue or slough by means of cutting away of tissue) Non-excisional debridement (the removal of necrotic, devitalized tissue or slough by means of flushing, brushing, or washing. (Irrigation) Other; with explanation for clinical findings Unable to determine (no explanation for clinical findings) Please document as an addendum to your operative report in order to capture severity of illness and risk of mortality. Include clinical findings that support your diagnosis. FYI: Press F11 to launch patient chart. GIANCARLO
[2017-03-20 17:02] LABS: Glucose,Whole Blood 263 mg/dL (75-99)
--- NOTE | 2017-03-20 17:05 | PN ---
PROGRESS NOTE DATE OF SERVICE: 03/20/2017 INTERVAL HISTORY: This 46-year-old gentleman who was admitted with diffuse skin lesions had possibly pyoderma gangrenosum with some cellulitis and the patient is on IV steroids with significant improvement. Biopsies pending at this time. Infectious Disease and Surgery are following the patient closely. No chest pain. No palpitations. No fever. PHYSICAL EXAM: Alert, oriented x 3. Pulse is 75, blood pressure 170/60, respiration 18, temperature 97.4, pulse ox 94% on room air. HEENT: Conjunctivae normal. NECK: No jugular venous distention. CARDIOVASCULAR: S1, S2. RESPIRATORY: Breath sounds diminished at the bases. No rhonchi, no crackles. ABDOMEN: Soft, nontender. LEGS: Bilateral leg cellulitis, left more than the right and ulcer also present. NERVOUS SYSTEM: No focal deficits. LABS: Accu-Cheks were 261, 286. ASSESSMENT: 1. Diffuse skin lesions, possible pyoderma gangrenosum with cellulitis. 2. History of ulcerative colitis. 3. History of right lung mass pneumonia possible BOOP-like reaction secondary to ulcerative colitis previously. 4. erythema nodosum history. 5. Obesity. 6. Diabetes type 2. 7. Fibromyalgia. 8. Gastroesophageal reflux disease. 9. History of GI bleed. 10.History of Methicillin-resistant Staphylococcus aureus. 11.History of anxiety, depression. RECOMMENDATIONS AND DISCUSSION: I recommend to continue current management, continue with symptomatic treatment. Otherwise monitor closely, monitor the blood sugars closely. The patient was started on Lantus insulin. We will increase the dose to 30. The patient might require a dose of Lantus at the time of discharge. The hemoglobin A1c is 7.9. Prognosis guarded. See orders for further details. Further recommendations to follow. MMODL / IJN: [id number] /
[2017-03-20 20:55] LABS: Glucose,Whole Blood 299 mg/dL (75-99)
[2017-03-20] MEDS ORDERED: INSULIN GLARGINE 100 UNIT/ML 10 ML VIAL SQ SCH (21:00)
[2017-03-20] MEDS: ALPRAZolam 0.5 MG TAB PO PRN (23:35)
[2017-03-21] MEDS: methylPREDNISolone SOD SUCCI 125 MG/2 ML VIAL IV SCH ×3 (06:07→17:35)
[2017-03-21] MEDS: HYDROcodone/APAP 7.5-325MG 1 EACH TAB PO PRN ×2 (06:28→15:34)
[2017-03-21 07:12] LABS: Glucose,Whole Blood 229 mg/dL (75-99)
[2017-03-21] MEDS: INSULIN LISPRO (humaLOG) 300 UNIT/3 ML VIAL SQ SCH ×4 (07:36→19:40)
[2017-03-21] MEDS: PANTOPRAZOLE 40 MG TABLET PO SCH ×2 (07:36→17:39)
[2017-03-21] MEDS: CHOLECALCIFEROL 1,000 UNIT TAB PO SCH (08:26)
[2017-03-21] MEDS: HEPARIN SODIUM,PORCINE 5,000 UNIT/ML 1 ML VIAL SQ SCH ×2 (08:27→15:34)
[2017-03-21] MEDS: DICYCLOMINE 20 MG TAB PO SCH ×3 (08:27→17:40)
[2017-03-21] MEDS: metFORMIN 500 MG TAB PO SCH (08:27)
[2017-03-21] MEDS: hydrOXYzine HCL 25 MG TAB PO SCH (08:27)
[2017-03-21] MEDS: buPROPion 75 MG TAB PO SCH (08:27)
[2017-03-21] MEDS: BALSALAZIDE DISODIUM 750 MG CAPSULE PO SCH ×2 (08:27→15:33)
[2017-03-21] MEDS: LACTOBACILLUS ACIDOPH & BULGAR 1 EACH PACKET PO SCH (08:27)
[2017-03-21] MEDS: PREGABALIN 75 MG CAP PO SCH (08:27)
[2017-03-21 08:36] VITALS: RESP 16
[2017-03-21 12:11] LABS: Glucose,Whole Blood 302 mg/dL (75-99)
[2017-03-21] MEDS: VANCOMYCIN 2,000 MG in SODIUM CHLORIDE 0.9% 500 ML IVPB SCH (12:51)
[2017-03-21] MEDS ORDERED: INSULIN LISPRO (humaLOG) 300 UNIT/3 ML VIAL SQ ONE (13:22)
--- NOTE | 2017-03-21 13:45 | P.DS ---
Providers Date of admission: 03/17/17 01:49 Expected date of discharge: 03/21/17 Attending physician: Nicolas Woodard Consults: 03/17/17 01:46 Consult Physician Routine Consulting Provider: Aster Meade Consult Reason/Comments: diabetic leg ulcer, your patient Do you want consulting provider notified?: Yes 03/17/17 10:21 Consult Physician Routine Consulting Provider: Uriel Raymundo Consult Reason/Comments: wound debridement Do you want consulting provider notified?: Yes Primary care physician: Shanthi Sloan [facility] Course: Final Diagnoses: 1. Diffuse skin lesions, chronic nonhealing wound of left leg with probable inflammatory skin ulcer from underlying ulcerative colitis, cultures negative 2. History of ulcerative colitis 3. 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 Erythema nodosum history 5. Morbid Obesity, BMI 43.4 6. Diabetes mellitus type 2, uncontrolled, steroid-induced, hemoglobin A1c 7.9 7. Fibromyalgia 8. Gastroesophageal reflux disease 9. History of GI bleed 10. History of MRSA 11. History of anxiety and depression Hospital course: This is a 46-year-old gentleman admitted with diffuse skin lesions, possibly pyoderma gangrenosum, chronic nonhealing left leg wound and cellulitis and multiple other medical issues. Evaluated by infectious disease and surgery. Status post debridement, biopsy pending. Cultures currently remain negative. Maintained on IV antibiotics, IV steroids with significant clinical improvement. Cleared by all consults for discharge. Patient to follow up with Dr. Meade at [facility] wound care center next week. Patient is being discharged home in a stable condition with guarded prognosis. Microbiology 03/17/17 00:21 Blood Blood Culture - Preliminary No Growth after 96 hours 03/19/17 11:28 Leg - Left Gram Stain - Preliminary 03/19/17 11:28 Leg - Left Tissue Culture - Preliminary 03/17/17 00:21 Leg - Left Gram Stain - Final 03/17/17 00:21 Leg - Left Wound Culture - Final The impression and plan of care has been dictated as directed. : I performed a history and examination of this patient, discussed the same with the dictator. I agree with the dictator's note ,documented as a scribe. Any additional findings or plans will be noted. Patient Condition at Discharge: Stable Plan - Discharge Summary New Discharge Prescriptions: New predniSONE 10 mg PO DIRECTED #50 tab Sulfamethox-Tmp 800-160Mg [Bactrim DS 800-160 mg] 1 tab PO Q12HR #20 tab HYDROcodone/APAP 7.5-325MG [[place] 7.5-325] 1 each PO Q6H PRN #20 tab PRN Reason: Moderate Pain Insulin Glargine [Lantus] 35 unit SQ HS #1 vial INSULIN LISPRO (HumaLOG) [humaLOG] 0 unit SQ ACHS #1 vial Continue Mesalamine [Delzicol] 800 mg PO TID hydrOXYzine HCL 25 mg PO BID Prochlorperazine [Compazine] 10 mg PO BID PRN PRN Reason: Nausea Pregabalin [Lyrica] 150 mg PO BID metFORMIN HCL [Glucophage] 500 mg PO BID Ondansetron HCl [Zofran] 8 mg PO BID PRN PRN Reason: Nausea Milk Thistle 150 mg PO HS L.acidoph,Paracasei, B.lactis [Probiotic] 1 cap PO DAILY Dicyclomine [Bentyl] 20 mg PO QID Cholecalciferol [Vitamin D3] 5,000 unit PO DAILY Zolpidem [Ambien] 10 mg PO HS PRN PRN Reason: Insomnia Adalimumab [Humira Pen] 1 dose SQ DIRECTED buPROPion SR [Wellbutrin SR] 150 mg PO BID Pantoprazole Sodium [Protonix] 40 mg PO BID Ranitidine HCl [Zantac] 150 mg PO BID Discontinued Dicloxacillin Sodium [Dynapen] 250 mg PO Q6H Discharge Medication List Mesalamine [Delzicol] 800 mg PO TID 03/30/14 [History] Pregabalin [Lyrica] 150 mg PO BID 03/30/14 [History] Prochlorperazine [Compazine] 10 mg PO BID PRN 03/30/14 [History] hydrOXYzine HCL 25 mg PO BID 03/30/14 [History] Cholecalciferol [Vitamin D3] 5,000 unit PO DAILY 10/24/16 [History] Dicyclomine [Bentyl] 20 mg PO QID 10/24/16 [History] L.acidoph,Paracasei, B.lactis [Probiotic] 1 cap PO DAILY 10/24/16 [History] Milk Thistle 150 mg PO HS 10/24/16 [History] Ondansetron HCl [Zofran] 8 mg PO BID PRN 10/24/16 [History] metFORMIN HCL [Glucophage] 500 mg PO BID 10/24/16 [History] Zolpidem [Ambien] 10 mg PO HS PRN 10/26/16 [History] Adalimumab [Humira Pen] 1 dose SQ DIRECTED 03/17/17 [History] Pantoprazole Sodium [Protonix] 40 mg PO BID 03/17/17 [History] Ranitidine HCl [Zantac] 150 mg PO BID 03/17/17 [History] buPROPion SR [Wellbutrin SR] 150 mg PO BID 03/17/17 [History] HYDROcodone/APAP 7.5-325MG [[place] 7.5-325] 1 each PO Q6H PRN #20 tab 03/21/17 [ Rx] INSULIN LISPRO (HumaLOG) [humaLOG] 0 unit SQ ACHS #1 vial 03/21/17 [Rx] Insulin Glargine [Lantus] 35 unit SQ HS #1 vial 03/21/17 [Rx] Sulfamethox-Tmp 800-160Mg [Bactrim DS 800-160 mg] 1 tab PO Q12HR #20 tab [Rx] predniSONE 10 mg PO DIRECTED #50 tab 03/21/17 [Rx] Follow up Appointment(s)/Referral(s): Shanthi Sloan MD [Primary Care Provider] - 3 Days Aster Meade MD [STAFF PHYSICIAN] - 1 Week (at [facility] Wound care center, please schedule prior to dc) Uriel Raymundo MD [STAFF PHYSICIAN] - As Needed Ambulatory/Diagnostic Orders: Complete Blood Count w/diff [LAB.AMB] Time Frame: 3 Days, Location: Determined By Patient Activity/Diet/Wound Care/Special Instructions: Diet: consist. carb, maintain log, Take to F/U with PCP, for further rec. Wound care as per ID Activity: limited TIll F/U Ensure patient has glucometer and diabetic supplies
[2017-03-21 13:56] LABS: Glucose,Whole Blood 316 mg/dL (75-99)
[2017-03-21 15:02] LABS: Glucose,Whole Blood 292 mg/dL (75-99)
--- NOTE | 2017-03-21 15:48 | PN ---
PROGRESS NOTE DATE OF SERVICE: 03/21/2017. REASON FOR FOLLOWUP: Left leg wound and cellulitis. INTERVAL HISTORY: The patient is afebrile, has been breathing comfortably. Denies any chest pain or shortness of breath. No cough. Pain to the left leg is currently improved. PHYSICAL EXAMINATION: Blood pressure was 109/55 with a pulse of 51, temperature 97, he is 94% on room air. General description is a middle-aged male lying in bed in no distress. Respiratory system unlabored breathing clear to auscultation anteriorly. Heart S1, S2. Regular rate and rhythm. ABDOMEN: Soft. Left leg swelling and redness has improved. No drainage. LABS: White count 7.1. Culture has been negative. DIAGNOSTIC IMPRESSION AND PLAN: Patient with left leg cellulitis and wound, also could be inflammatory ulcerative colitis as the patient did show improvement on the steroid, which should be continued and tapered off. As for the antibiotic, he will be switched over to Bactrim DS 1 twice a day for another 10 days. Aquacel silver packing of the wound and follow up in the wound care center next week. MMODL / IJN: [id number] /
[2017-03-21 16:35] VITALS: BP 116/71; PULSE 55; TEMP 97.2
[2017-03-21 17:11] LABS: Glucose,Whole Blood 214 mg/dL (75-99)
[2017-03-21] MEDS: SODIUM CHLORIDE 0.9% 1,000 ML IV SCH (19:39)
[2017-03-21 19:42] LABS: Glucose,Whole Blood 200 mg/dL (75-99)
[2017-03-21] MEDS ORDERED: INSULIN GLARGINE 100 UNIT/ML 10 ML VIAL SQ SCH (21:00)
== END 2017-03-21 19:40 | disposition home or self-care (01) | DRG 383 ==
LOC: EC 23:21 → 5MS5E 03-17 01:49
PROVIDERS: ADMIT Hospitalist; ATTEND Hospitalist
PROC: 0JBP0ZZ Excision of Left Lower Leg Subcutaneous Tissue and Fascia, Open Approach (ICD-10-PCS; principal; 2017-03-17)
PROC: 0HBLXZX Excision of Left Lower Leg Skin, External Approach, Diagnostic (ICD-10-PCS; 2017-03-19)
DX: L88 Pyoderma gangrenosum (principal); J84.89 Other specified interstitial pulmonary diseases; E11.622 Type 2 diabetes mellitus with other skin ulcer; E11.65 Type 2 diabetes mellitus with hyperglycemia; K51.90 Ulcerative colitis, unspecified, without complications; L97.821 Non-pressure chronic ulcer of other part of left lower leg limited to breakdown of skin; Z68.41 Body mass index [BMI] 40.0-44.9, adult; E66.01 Morbid (severe) obesity due to excess calories; L02.416 Cutaneous abscess of left lower limb; L52 Erythema nodosum; L02.414 Cutaneous abscess of left upper limb; L02.415 Cutaneous abscess of right lower limb; L03.115 Cellulitis of right lower limb; L03.116 Cellulitis of left lower limb; B95.61 Methicillin susceptible Staphylococcus aureus infection as the cause of diseases classified elsewhere; L03.114 Cellulitis of left upper limb; M79.7 Fibromyalgia; J45.909 Unspecified asthma, uncomplicated; T38.0X5A Adverse effect of glucocorticoids and synthetic analogues, initial encounter; F32.9 Major depressive disorder, single episode, unspecified; F41.9 Anxiety disorder, unspecified; M16.0 Bilateral primary osteoarthritis of hip; M47.9 Spondylosis, unspecified; M17.0 Bilateral primary osteoarthritis of knee; M19.012 Primary osteoarthritis, left shoulder; M19.011 Primary osteoarthritis, right shoulder; M51.26 Other intervertebral disc displacement, lumbar region; K21.9 Gastro-esophageal reflux disease without esophagitis; Z79.84 Long term (current) use of oral hypoglycemic drugs; Z79.1 Long term (current) use of non-steroidal anti-inflammatories (NSAID); Z79.899 Other long term (current) drug therapy; Z86.14 Personal history of Methicillin resistant Staphylococcus aureus infection; Z87.891 Personal history of nicotine dependence; Z87.01 Personal history of pneumonia (recurrent)
CPT/HCPCS: 36415; 70450; 80048; 80053; 80202; 83036; 85025; 85652; 86140; 87040; 87070; 87205; 87324; 96365; 96375; 99284

== ENCOUNTER → 2017-10-27 | Outpatient (CLI) | payer MEDICARE, OTHER ==
--- NOTE | 2017-10-27 15:37 | XR ---
EXAMINATION TYPE: XR chest 2V DATE OF EXAM: 10/27/2017 COMPARISON: 10/28/2016 INDICATION: COPD TECHNIQUE: Frontal and lateral views of the chest are obtained. FINDINGS: The heart size is normal. The pulmonary vasculature is normal. The lungs are clear. There is elevation of the right diaphragm is chronic. IMPRESSION: 1. No acute pulmonary process.
== END | disposition home or self-care (01) ==
LOC: RADXRYALE 15:10
PROVIDERS: ATTEND Internal Medicine Sleep Medicine
DX: J44.9 Chronic obstructive pulmonary disease, unspecified (principal)
CPT/HCPCS: 71046

== ENCOUNTER 2017-11-22 16:49 | Inpatient (IN) | payer MEDICARE, OTHER ==
[2017-11-22] MEDS ORDERED: SODIUM CHLORIDE 0.9% 1,000 ML IV STA (17:13)
[2017-11-22] MEDS ORDERED: SODIUM CHLORIDE 0.9% 500 ML IV STA (17:13)
[2017-11-22] MEDS ORDERED: MORPHINE SULFATE 2 MG/ML SYRINGE IV STA (17:13)
[2017-11-22] MEDS ORDERED: methylPREDNISolone SOD SUCCI 125 MG/2 ML VIAL IV STA (17:17)
--- NOTE | 2017-11-22 17:21 | ED ---
General Adult HPI - General Chief complaint: GI Bleed Stated complaint: Rectal Bleeding, ABd Pain Time Seen by Provider: 11/22/17 17:03 Source: patient, RN notes reviewed, old records reviewed Mode of arrival: ambulatory Limitations: no limitations - History of Present Illness Initial comments: 46-year-old male history of ulcerative colitis presents with worsening abdominal pain and rectal bleeding. Patient states he states that he has had intermittent abdominal pain which is worsened over the past 2 days. This is predominantly left-sided. He's had some nausea and several episodes of vomiting. Is also had subjective fever and chills. He is currently on any steroids and Asacol. Patient states he was scheduled for colonoscopy due to some increasing in his symptoms however this was prior to his rectal bleeding. - Related Data Home Medications Medication Instructions Recorded Confirmed Mesalamine [Delzicol] 800 mg PO TID 03/30/14 11/22/17 Prochlorperazine [Compazine] 10 mg PO BID 03/30/14 11/22/17 hydrOXYzine HCL 25 mg PO BID 03/30/14 11/22/17 Cholecalciferol [Vitamin D3] 5,000 unit PO DAILY 10/24/16 11/22/17 Dicyclomine [Bentyl] 20 mg PO QID 10/24/16 11/22/17 L.acidoph,Paracasei, B.lactis 1 cap PO DAILY 10/24/16 11/22/17 [Probiotic] Milk Thistle 150 mg PO HS 10/24/16 11/22/17 Ondansetron HCl [Zofran] 8 mg PO BID 10/24/16 11/22/17 metFORMIN HCL [Glucophage] 500 mg PO BID 10/24/16 11/22/17 Zolpidem [Ambien] 10 mg PO HS PRN 10/26/16 11/22/17 Adalimumab [Humira Pen] 40 mg SQ Q14D 03/17/17 11/22/17 Pantoprazole Sodium [Protonix] 80 mg PO HS 03/17/17 11/22/17 buPROPion SR [Wellbutrin SR] 150 mg PO BID 03/17/17 11/22/17 HYDROcodone/APAP 7.5-325MG [[place] 1 tab PO BID 11/22/17 11/22/17 7.5-325] INSULIN LISPRO (HumaLOG) [humaLOG] See Protocol SQ ACHS 11/22/17 11/22/17 predniSONE 10 mg PO QAM 11/22/17 11/22/17 predniSONE 20 mg PO HS 11/22/17 11/22/17 Allergies Allergy/AdvReac Type Severity Reaction Status Date / Time No Known Allergies Allergy Verified 11/22/17 17:22 Review of Systems ROS Statement: Those systems with pertinent positive or pertinent negative responses have been documented in the HPI. ROS Other: All systems not noted in ROS Statement are negative. 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 History of Any Multi-Drug Resistant Organisms: MRSA Date of last positivie culture/infection: 05/19/2007 MDRO Source:: wound on torso Past Surgical History: Back Surgery, Heart Catheterization Additional Past Surgical History / Comment(s): Hx recent "clear heart cath", back surgery x2;multiple colonoscopies, EGD, deviated septum repair. Past Anesthesia/Blood Transfusion Reactions: No Reported Reaction Past Psychological History: Anxiety, Depression Smoking Status: Former smoker Past Alcohol Use History: None Reported Past Drug Use History: None Reported - Past Family History Mother Family Medical History: Diabetes Mellitus Additional Family Medical History / Comment(s): Mother is blind due to diabetic retinopathy. She is 78yrs old. Father Family Medical History: Cancer Additional Family Medical History / Comment(s): Father of prostate cancer with mets to liver at the age of 81 yrs. General Exam Limitations: no limitations General appearance: alert, in no apparent distress Head exam: Present: atraumatic, normocephalic Eye exam: Present: normal appearance, PERRL, EOMI ENT exam: Present: normal exam Neck exam: Present: normal inspection. Absent: tenderness, meningismus Respiratory exam: Present: normal lung sounds bilaterally. Absent: respiratory distress, wheezes Cardiovascular Exam: Present: normal rhythm, tachycardia GI/Abdominal exam: Present: soft. Absent: distended, tenderness, guarding Extremities exam: Present: normal inspection, normal capillary refill. Absent: pedal edema Neurological exam: Present: alert, oriented X3 Psychiatric exam: Present: normal affect, normal mood Skin exam: Present: warm, dry, intact. Absent: cyanosis, diaphoretic Course Vital Signs 11/22/17 16:58 Temperature 98.1 F Pulse Rate 119 H Respiratory 20 Rate Blood Pressure 115/68 O2 Sat by Pulse 96 Oximetry Medical Decision Making - Medical Decision Making 46 yo male presenting with generalized abdominal pain and rectal bleeding. Patient states this is consistent with previous ulcers colitis flareups. He does have some mild generalized tenderness. Laboratory studies reveal normal white blood cell count, stable hemoglobin. X-rays obtained, negative for obstruction or free air. Patient will be admitted for IV steroids, and symptomatic treatment. - Lab Data Result diagrams: 11/22/17 17:35 11/22/17 17:35 Lab Results 11/22/17 11/22/17 11/22/17 Range/Units 17:35 17:35 17:35 WBC 9.7 (3.8-10.6) k/uL RBC 5.14 (4.30-5.90) m/uL Hgb 12.6 L (13.0-17.5) gm/dL Hct 38.9 L (39.0-53.0) % MCV 75.6 L (80.0-100.0) fL MCH 24.6 L (25.0-35.0) pg MCHC 32.5 (31.0-37.0) g/dL RDW 14.7 (11.5-15.5) % Plt Count 395 (150-450) k/uL Neutrophils % 69 % Lymphocytes % 14 % Monocytes % 11 % Eosinophils % 3 % Basophils % 0 % Neutrophils # 6.7 (1.3-7.7) k/uL Lymphocytes # 1.3 (1.0-4.8) k/uL Monocytes # 1.1 H (0-1.0) k/uL Eosinophils # 0.3 (0-0.7) k/uL Basophils # 0.0 (0-0.2) k/uL Microcytosis Slight PT (9.0-12.0) sec INR (<1.2) APTT (22.0-30.0) sec Sodium 137 (137-145) mmol/L Potassium 4.1 (3.5-5.1) mmol/L Chloride 99 (98-107) mmol/L Carbon Dioxide 25 (22-30) mmol/L Anion Gap 13 mmol/L BUN 21 H (9-20) mg/dL Creatinine 0.90 (0.66-1.25) mg/dL Est GFR (CKD-EPI)AfAm >90 (>60 ml/min/1.73 sqM) Est GFR (CKD-EPI)NonAf >90 (>60 ml/min/1.73 sqM) Glucose 123 H (74-99) mg/dL Plasma Lactic Acid Tl 1.0 (0.7-2.0) mmol/L Calcium 9.5 (8.4-10.2) mg/dL Total Bilirubin 0.5 (0.2-1.3) mg/dL AST 14 L (17-59) U/L ALT 31 (21-72) U/L Alkaline Phosphatase 130 H (38-126) U/L Total Protein 7.1 (6.3-8.2) g/dL Albumin 4.1 (3.5-5.0) g/dL Amylase 51 (30-110) U/L Lipase 41 (23-300) U/L 11/22/17 Range/Units 17:35 WBC (3.8-10.6) k/uL RBC (4.30-5.90) m/uL Hgb (13.0-17.5) gm/dL Hct (39.0-53.0) % MCV (80.0-100.0) fL MCH (25.0-35.0) pg MCHC (31.0-37.0) g/dL RDW (11.5-15.5) % Plt Count (150-450) k/uL Neutrophils % % Lymphocytes % % Monocytes % % Eosinophils % % Basophils % % Neutrophils # (1.3-7.7) k/uL Lymphocytes # (1.0-4.8) k/uL Monocytes # (0-1.0) k/uL Eosinophils # (0-0.7) k/uL Basophils # (0-0.2) k/uL Microcytosis PT 10.1 (9.0-12.0) sec INR 1.0 (<1.2) APTT 22.7 (22.0-30.0) sec Sodium (137-145) mmol/L Potassium (3.5-5.1) mmol/L Chloride (98-107) mmol/L Carbon Dioxide (22-30) mmol/L Anion Gap mmol/L BUN (9-20) mg/dL Creatinine (0.66-1.25) mg/dL Est GFR (CKD-EPI)AfAm (>60 ml/min/1.73 sqM) Est GFR (CKD-EPI)NonAf (>60 ml/min/1.73 sqM) Glucose (74-99) mg/dL Plasma Lactic Acid Tl (0.7-2.0) mmol/L Calcium (8.4-10.2) mg/dL Total Bilirubin (0.2-1.3) mg/dL AST (17-59) U/L ALT (21-72) U/L Alkaline Phosphatase (38-126) U/L Total Protein (6.3-8.2) g/dL Albumin (3.5-5.0) g/dL Amylase (30-110) U/L Lipase (23-300) U/L Disposition Clinical Impression: Ulcerative colitis, GI bleed Disposition: ADMITTED IP TO THIS [facility] Condition: Stable Is patient prescribed a controlled substance at d/c from ED?: No Referrals: Shanthi Sloan MD [Primary Care Provider] - 1-2 days Decision to Admit Reason: Admit from EC Decision Date: 11/22/17 Decision Time: 19:19
[2017-11-22 17:48] LABS: Basophils % (A) 0 %; Eosinophils # (A) 0.3 k/uL (0-0.7); Eosinophils % (A) 3 %; HCT 38.9 % (39.0-53.0); HGB 12.6 gm/dL (13.0-17.5); Lymphocytes # (A) 1.3 k/uL (1.0-4.8); Lymphocytes % (A) 14 %; MCH 24.6 pg (25.0-35.0); MCHC 32.5 g/dL (31.0-37.0); MCV 75.6 fL (80.0-100.0); Mean Platelet Volume 6.4; Microcytosis Slight; Monocytes # (A) 1.1 k/uL (0-1.0); Monocytes % (A) 11 %; Neutrophils # (A) 6.7 k/uL (1.3-7.7); Neutrophils % (A) 69 %; Platelet Count 395 k/uL (150-450); RBC 5.14 m/uL (4.30-5.90); RDW 14.7 % (11.5-15.5); WBC 9.7 k/uL (3.8-10.6)
[2017-11-22 17:57] LABS: ALT 31 U/L (21-72); AST 14 U/L (17-59); Albumin 4.1 g/dL (3.5-5.0); Alkaline Phosphatase 130 U/L (38-126); Amylase 51 U/L (30-110); Anion Gap 13 mmol/L; Blood Urea Nitrogen 21 mg/dL (9-20); Calcium 9.5 mg/dL (8.4-10.2); Carbon Dioxide 25 mmol/L (22-30); Chloride 99 mmol/L (98-107); Glucose 123 mg/dL (74-99); Lipase 41 U/L (23-300); Partial Thromboplastin Time 22.7 sec (22.0-30.0); Potassium 4.1 mmol/L (3.5-5.1); Prothrombin Time 10.1 sec (9.0-12.0); Sodium 137 mmol/L (137-145); Total Bilirubin 0.5 mg/dL (0.2-1.3); Total Protein 7.1 g/dL (6.3-8.2)
--- NOTE | 2017-11-22 18:13 | XR ---
EXAMINATION TYPE: XR KUB DATE OF EXAM: 11/22/2017 6:08 PM CLINICAL HISTORY: Abdominal pain with history of ulcerative colitis. TECHNIQUE: Single upright image of the abdomen is obtained. COMPARISON: None. FINDINGS: Scattered gas is seen in non-distended small bowel loops. Gas and fecal material is seen in non-distended colon. There is no visceromegaly, pneumoperitoneum, or abnormal calcification apprecia anjana. The lung bases are clear and the osseous structures are intact. Small left cam deformity is seen of the femoral head neck junction. IMPRESSION: Nonobstructive bowel gas pattern.
[2017-11-22] MEDS ORDERED: hydrALAZINE HCL 20 MG/ML 1 ML VIAL IVP STA (18:15)
[2017-11-22] MEDS ORDERED: NALOXONE 0.4 MG/ML 1 ML VIAL IV PRN (18:33)
[2017-11-22] MEDS ORDERED: MORPHINE SULFATE 4 MG/ML SYRINGE IV PRN (18:33)
[2017-11-22 20:28] LABS: Glucose,Whole Blood 154 mg/dL (75-99)
[2017-11-22] MEDS: ONDANSETRON 4 MG/2 ML VIAL IVP PRN (22:41)
[2017-11-22] MEDS: MORPHINE SULFATE 2 MG/ML SYRINGE IV PRN (22:42)
[2017-11-22] MEDS: methylPREDNISolone SOD SUCCI 125 MG/2 ML VIAL IV SCH (22:43)
[2017-11-22 22:52] LABS: Appearance,Urine Clear (Clear); Bilirubin,Urine Negative (Negative); Blood,Urine Negative (Negative); Color,Urine Yellow; Glucose,Urine (UA) Negative (Negative); Hyaline Casts,Urine 2 /lpf (0-2); Ketones,Urine 1+ (Negative); Leukocyte Esterase,Urine Negative (Negative); Mucus,Urine Many /hpf; Nitrite,Urine Negative (Negative); PH, Urine 5.5 (5.0-8.0); Protein,Urine 1+ (Negative); RBC,Urine 1 /hpf (0-5); Specific Gravity,Urine 1.027 (1.001-1.035); Urobilinogen,Urine <2.0 mg/dL (<2.0); WBC,Urine 1 /hpf (0-5)
[2017-11-23 00:25] LABS: Glucose,Whole Blood 259 mg/dL (75-99)
[2017-11-23] MEDS: INSULIN ASPART 100 UNIT/ML 1 ML 10 ML VIAL SQ SCH ×4 (01:33→17:43)
[2017-11-23 01:57] VITALS: BMI 42.0
[2017-11-23] MEDS: MORPHINE SULFATE 2 MG/ML SYRINGE IV PRN ×5 (03:40→23:35)
[2017-11-23 05:46] LABS: Glucose,Whole Blood 194 mg/dL (75-99)
[2017-11-23] MEDS: ONDANSETRON 4 MG/2 ML VIAL IVP PRN ×2 (09:08→20:50)
[2017-11-23] MEDS: PANTOPRAZOLE 40 MG/10 ML VIAL IV SCH (09:15)
[2017-11-23] MEDS: methylPREDNISolone SOD SUCCI 125 MG/2 ML VIAL IV SCH ×2 (09:15→20:19)
[2017-11-23 11:50] LABS: Glucose,Whole Blood 200 mg/dL (75-99)
--- NOTE | 2017-11-23 11:53 | P.HPIM ---
History of Present Illness H&P Date: 11/23/17 Chief Complaint: Abdominal pain and rectal bleeding Mr. Downing is a 46-year-old male with a past medical history of ulcerative colitis, diabetes mellitus , asthma, fibromyalgia, GERD coming into the hospital with a chief complaint of left-sided abdominal pain which has been going on for the past 4 days. Patient states that he has ulcerative colitis for the past 10 years. Left-sided abdominal pain started 4 days back that gradually worsened in severity. He also had bleeding from his rectum initially it was a small quantity of blood mixed with the stool that gradually turned brownish and eventually he could see more blood than stool. He follows with GI Dr. Marion and is currently on a tapering dose of prednisone. Patient denies having any fevers, chills or rigors. No recent antibiotic use. Patient denies having any chest pain, cough, difficulty in breathing or palpitations. No dysuria or hematuria. Patient complains of some left-sided back pain that started yesterday. No radiation. No aggravating or relieving factors it is a dull aching pain on the left side of the back. Patient had a fall 3 days back when he tripped over his dog in the dark and he fell on his right leg and he has a small bruise on the hanson of the right leg. He denies having any pain or open injuries. Review of Systems REVIEW OF SYSTEMS: PSYCH: No anxiety or depression NEURO: No complaints of weakness, speech abnormalities, loss of consciousness VASCULAR: No lower extremity swelling HEMATOLOGIC: No history of easy bleeding and bruising . No recent infections . RESPIRATORY: No cough, No SOB, No chest discomfort. INTEGUMENT: no rashes OPHTHALMOLOGIC: No blurry vision and no eye discharge : No dysuria or hematuria CARDIAC: No chest pain , shortness of breath , paroxysmal nocturnal dyspnea MUSCULOSKELETAL : No Aches or pains in the joints or muscles. GI: As per HPI Past Medical History Past Medical History: Asthma, Chest Pain / Angina, Diabetes Mellitus, Fibromyalgia, GERD/Reflux, GI Bleed, Pneumonia Additional Past Medical History / Comment(s): Ulcerative colitis, recent pneumonia 2 1/2 weeks ago with pleurisy, past pne with pleurisy, R/L lung masses being followed, NIDDM type II, lumbar herniated disc, arthritis back bilateral hips, knees and shoulders, 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 History of Any Multi-Drug Resistant Organisms: MRSA Date of last positivie culture/infection: 05/19/2007 MDRO Source:: wound on torso Past Surgical History: Back Surgery, Heart Catheterization Additional Past Surgical History / Comment(s): Hx recent "clear heart cath", back surgery x2;multiple colonoscopies, EGD, deviated septum repair. Past Anesthesia/Blood Transfusion Reactions: No Reported Reaction Past Psychological History: Anxiety, Depression Additional Psychological History / Comment(s): Pt states he takes wellbutrin which helps with his depression. Pt lives with his mother and sister and his 2 children ages 16 and 17. He is independent. Smoking Status: Former smoker Past Alcohol Use History: None Reported Additional Past Alcohol Use History / Comment(s): Smoked 1 ppd, started smoking 1995.Quit 2004. Past Drug Use History: None Reported - Past Family History Mother Family Medical History: Diabetes Mellitus Additional Family Medical History / Comment(s): Mother is blind due to diabetic retinopathy. She is 78yrs old. Father Family Medical History: Cancer Additional Family Medical History / Comment(s): Father of prostate cancer with mets to liver at the age of 81 yrs. Medications and Allergies Home Medications Medication Instructions Recorded Confirmed Type Mesalamine [Delzicol] 800 mg PO TID 03/30/14 11/22/17 History Prochlorperazine [Compazine] 10 mg PO BID 03/30/14 11/22/17 History hydrOXYzine HCL 25 mg PO BID 03/30/14 11/22/17 History Cholecalciferol [Vitamin D3] 5,000 unit PO DAILY 10/24/16 11/22/17 History Dicyclomine [Bentyl] 20 mg PO QID 10/24/16 11/22/17 History L.acidoph,Paracasei, B.lactis 1 cap PO DAILY 10/24/16 11/22/17 History [Probiotic] Milk Thistle 150 mg PO HS 10/24/16 11/22/17 History Ondansetron HCl [Zofran] 8 mg PO BID 10/24/16 11/22/17 History metFORMIN HCL [Glucophage] 500 mg PO BID 10/24/16 11/22/17 History Zolpidem [Ambien] 10 mg PO HS PRN 10/26/16 11/22/17 History Adalimumab [Humira Pen] 40 mg SQ Q14D 03/17/17 11/22/17 History Pantoprazole Sodium [Protonix] 80 mg PO HS 03/17/17 11/22/17 History buPROPion SR [Wellbutrin SR] 150 mg PO BID 03/17/17 11/22/17 History HYDROcodone/APAP 7.5-325MG [[place] 1 tab PO BID 11/22/17 11/22/17 History 7.5-325] INSULIN LISPRO (HumaLOG) [humaLOG] See Protocol SQ ACHS 11/22/17 11/22/17 History Lisinopril [Zestril] 10 mg PO DAILY 11/22/17 11/22/17 History predniSONE 10 mg PO QAM 11/22/17 11/22/17 History predniSONE 20 mg PO HS 11/22/17 11/22/17 History Allergies Allergy/AdvReac Type Severity Reaction Status Date / Time No Known Allergies Allergy Verified 11/22/17 17:22 Physical Exam Vitals: Vital Signs Temp Pulse Pulse Resp BP BP Pulse Ox 11/23/17 05:00 97.5 F L 89 16 117/60 92 L 11/22/17 23:00 97.3 F L 105 H 16 133/75 92 L 11/22/17 19:17 98.9 F 103 H 20 134/65 96 11/22/17 18:51 109 H 20 127/78 96 11/22/17 16:58 98.1 F 119 H 20 115/68 96 Intake and Output 11/22/17 11/23/17 11/23/17 22:59 06:59 14:59 Intake Total 800 Balance 800 Intake: Intake, IV Titration 800 Amount Sodium Chloride 0.9% 1, 800 000 ml @ 100 mls/hr IV . Q10H STA Rx#:[id number] Other: Voiding Method Toilet # Voids 2 2 # Bowel Movements 1 1 Weight 140.614 kg GENERAL EXAM GEN. APPEARANCE: Obese, alert, in no apparent distress HEAD EXAM: atraumatic, normocephalic, normal inspection EYE EXAM: No pallor no icterus ENT EXAM: normal exam, mucous membranes moist NECK EXAM: normal inspection. No lymphadenopathy or thyromegaly RESPIRATORY EXAM: normal lung sounds bilaterally. Absent: respiratory distress , wheezes, rales, rhonchi, stridor CARDIOVASCULAR EXAM: regular rate, normal rhythm, normal heart sounds. Absent : systolic murmur, diastolic murmur, rubs, gallop, clicks GI/ABDOMINAL EXAM: soft, normal bowel sounds. Absent: distended, tenderness, guarding, rebound, rigid EXTREMITIES EXAM: No edema, peripheral pulses felt; patient has a small bruise on the right hanson with surrounding ecchymosis. NEUROLOGICAL EXAM: alert, oriented X3, no focal neurological deficits PSYCHIATRIC EXAM: normal affect, normal mood SKIN EXAM: warm, dry, intact, normal color. Absent: rash Results CBC & Chem 7: 11/22/17 17:35 11/22/17 17:35 Labs: Abnormal Lab Results - Last 24 Hours (Table) 11/22/17 11/22/17 11/22/17 Range/Units 17:35 17:35 20:26 Hgb 12.6 L (13.0-17.5) gm/dL Hct 38.9 L (39.0-53.0) % MCV 75.6 L (80.0-100.0) fL MCH 24.6 L (25.0-35.0) pg Monocytes # 1.1 H (0-1.0) k/uL BUN 21 H (9-20) mg/dL Glucose 123 H (74-99) mg/dL POC Glucose (mg/dL) 154 H (75-99) mg/dL AST 14 L (17-59) U/L Alkaline Phosphatase 130 H (38-126) U/L Urine Protein (Negative) Urine Ketones (Negative) Urine Mucus (None) /hpf 11/22/17 11/23/17 11/23/17 Range/Units 21:55 00:24 05:45 Hgb (13.0-17.5) gm/dL Hct (39.0-53.0) % MCV (80.0-100.0) fL MCH (25.0-35.0) pg Monocytes # (0-1.0) k/uL BUN (9-20) mg/dL Glucose (74-99) mg/dL POC Glucose (mg/dL) 259 H 194 H (75-99) mg/dL AST (17-59) U/L Alkaline Phosphatase (38-126) U/L Urine Protein 1+ H (Negative) Urine Ketones 1+ H (Negative) Urine Mucus Many H (None) /hpf Thrombosis Risk Factor Assmnt - Choose All That Apply Each Factor Represents 1 point: Age 41-60 years, Obesity (BMI >25) Thrombosis Risk Factor Assessment Total Risk Factor Score: 2 Thrombosis Risk Factor Assessment Level: Low Risk Assessment and Plan Assessment: ASSESSMENT Acute exacerbation of ulcerative colitis Type 2 diabetes mellitus GERD Asthma History of anxiety and depression Morbid obesity with BMI of 42 Ecchymosis of the right hanson Plan: Patient has acute exacerbation of ulcerative colitis as he was on a tapering dose of steroids and currently he takes only 5 mg of prednisone. C. diff has been negative. Patient has been started on IV steroids and pain medications, currently he is asymptomatic. Patient had one bowel movement since last night. We'll continue with sliding scale of insulin for his diabetes. GI Dr. Brandt on board following the patient. Further recommendations to follow depending on the progress of the patient.
[2017-11-23 13:28] LABS: Appearance,Urine Clear (Clear); Bilirubin,Urine Negative (Negative); Blood,Urine Negative (Negative); Color,Urine Yellow; Glucose,Urine (UA) 4+ (Negative); Leukocyte Esterase,Urine Negative (Negative); Mucus,Urine Few /hpf; Nitrite,Urine Negative (Negative); PH, Urine 5.5 (5.0-8.0); Protein,Urine 1+ (Negative); RBC,Urine <1 /hpf (0-5); Specific Gravity,Urine 1.027 (1.001-1.035); Squamous Epithelial Cell,Urine <1 /hpf (0-4); Urobilinogen,Urine <2.0 mg/dL (<2.0); WBC,Urine <1 /hpf (0-5)
[2017-11-23 13:31] LABS: Ketones,Urine 2+ (Negative)
[2017-11-23] MEDS: SODIUM CHLORIDE 0.9% 1,000 ML IV SCH (14:34)
[2017-11-23 17:32] LABS: Glucose,Whole Blood 250 mg/dL (75-99)
[2017-11-23 19:59] LABS: Glucose,Whole Blood 255 mg/dL (75-99)
[2017-11-24 00:33] LABS: Glucose,Whole Blood 223 mg/dL (75-99)
[2017-11-24] MEDS: INSULIN ASPART 100 UNIT/ML 1 ML 10 ML VIAL SQ SCH ×4 (00:35→18:10)
[2017-11-24] MEDS: ZOLPIDEM 10 MG TAB PO PRN (00:35)
[2017-11-24] MEDS: ONDANSETRON 4 MG/2 ML VIAL IVP PRN ×3 (02:10→16:37)
[2017-11-24] MEDS: SODIUM CHLORIDE 0.9% 1,000 ML IV SCH ×3 (05:03→16:00)
[2017-11-24 06:15] LABS: Glucose,Whole Blood 199 mg/dL (75-99)
[2017-11-24 08:09] LABS: Basophils % (A) 0 %; Eosinophils % (A) 0 %; HCT 33.4 % (39.0-53.0); HGB 10.7 gm/dL (13.0-17.5); Hypochromasia Slight; Lymphocytes # (A) 0.6 k/uL (1.0-4.8); Lymphocytes % (A) 9 %; MCH 24.6 pg (25.0-35.0); MCHC 31.9 g/dL (31.0-37.0); MCV 77.1 fL (80.0-100.0); Mean Platelet Volume 5.9; Monocytes # (A) 0.5 k/uL (0-1.0); Monocytes % (A) 9 %; Neutrophils # (A) 4.8 k/uL (1.3-7.7); Neutrophils % (A) 80 %; Platelet Count 324 k/uL (150-450); RBC 4.34 m/uL (4.30-5.90); RDW 14.4 % (11.5-15.5); WBC 6.1 k/uL (3.8-10.6)
[2017-11-24 08:23] LABS: Anion Gap 10 mmol/L; Blood Urea Nitrogen 16 mg/dL (9-20); Calcium 8.9 mg/dL (8.4-10.2); Carbon Dioxide 28 mmol/L (22-30); Chloride 101 mmol/L (98-107); Glucose 170 mg/dL (74-99); Potassium 4.4 mmol/L (3.5-5.1); Sodium 139 mmol/L (137-145)
[2017-11-24] MEDS: MORPHINE SULFATE 2 MG/ML SYRINGE IV PRN ×4 (08:23→21:11)
[2017-11-24] MEDS: methylPREDNISolone SOD SUCCI 125 MG/2 ML VIAL IV SCH ×2 (08:29→21:10)
[2017-11-24] MEDS: PANTOPRAZOLE 40 MG/10 ML VIAL IV SCH (08:30)
--- NOTE | 2017-11-24 09:52 | P.CONS ---
History of Present Illness - Reason for Consult Consult date: 11/23/17 Ulcerative Colitis. - History of Present Illness The patient is a 46-year-old male with history of ulcerative colitis maintained on home area 40 mg subcu every other week as well as mesalamine with worsening abdominal pains and bleeding. The patient was scheduled for outpatient colonoscopy later this week at [facility] part of the evaluation of the activity and extent of his disease and for guiding his therapy. Because of worsening of his symptoms he presented to the emergency room and was admitted for further management. The patient has history of diabetes mellitus, asthma, fibromyalgia and gastroesophageal reflux disease. He was diagnosed more than 10 years ago.. He denied fever, chills or any nausea, vomiting or hematemesis. Has aphthous ulcers. Various musculoskeletal complaints. 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 Review of Systems Constitutional: Denied fever, chills or unintentional weight loss Neurologic: No headaches, double vision or other sensory or motor changes Cardiopulmonary: No chest pains, shortness of breath or palpitations Gastrointestinal: See present illness above Genitourinary: No hematuria, dysuria or frequency Musculoskeletal:No joint swelling or pain Skin: No rashes Hematologic: No bleeding tendency Psychiatric: No anxiety or depression Past Medical History Past Medical History: Asthma, Chest Pain / Angina, Diabetes Mellitus, Fibromyalgia, GERD/Reflux, GI Bleed, Pneumonia Additional Past Medical History / Comment(s): Ulcerative colitis, recent pneumonia 2 1/2 weeks ago with pleurisy, past pne with pleurisy, R/L lung masses being followed, NIDDM type II, lumbar herniated disc, arthritis back bilateral hips, knees and shoulders, 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 History of Any Multi-Drug Resistant Organisms: MRSA Year Discovered:: 05/19/2007 MDRO Source:: wound on torso Past Surgical History: Back Surgery, Heart Catheterization Additional Past Surgical History / Comment(s): Hx recent "clear heart cath", back surgery x2;multiple colonoscopies, EGD, deviated septum repair. Past Anesthesia/Blood Transfusion Reactions: No Reported Reaction Past Psychological History: Anxiety, Depression Additional Psychological History / Comment(s): Pt states he takes wellbutrin which helps with his depression. Pt lives with his mother and sister and his 2 children ages 16 and 17. He is independent. Smoking Status: Former smoker Past Alcohol Use History: None Reported Additional Past Alcohol Use History / Comment(s): Smoked 1 ppd, started smoking 1995.Quit 2004. Past Drug Use History: None Reported - Past Family History Mother Family Medical History: Diabetes Mellitus Additional Family Medical History / Comment(s): Mother is blind due to diabetic retinopathy. She is 78yrs old. Father Family Medical History: Cancer Additional Family Medical History / Comment(s): Father of prostate cancer with mets to liver at the age of 81 yrs. Medications and Allergies Home Medications Medication Instructions Recorded Confirmed Type Mesalamine [Delzicol] 800 mg PO TID 03/30/14 11/22/17 History Prochlorperazine [Compazine] 10 mg PO BID 03/30/14 11/22/17 History hydrOXYzine HCL 25 mg PO BID 03/30/14 11/22/17 History Cholecalciferol [Vitamin D3] 5,000 unit PO DAILY 10/24/16 11/22/17 History Dicyclomine [Bentyl] 20 mg PO QID 10/24/16 11/22/17 History L.acidoph,Paracasei, B.lactis 1 cap PO DAILY 10/24/16 11/22/17 History [Probiotic] Milk Thistle 150 mg PO HS 10/24/16 11/22/17 History Ondansetron HCl [Zofran] 8 mg PO BID 10/24/16 11/22/17 History metFORMIN HCL [Glucophage] 500 mg PO BID 10/24/16 11/22/17 History Zolpidem [Ambien] 10 mg PO HS PRN 10/26/16 11/22/17 History Adalimumab [Humira Pen] 40 mg SQ Q14D 03/17/17 11/22/17 History Pantoprazole Sodium [Protonix] 80 mg PO HS 03/17/17 11/22/17 History buPROPion SR [Wellbutrin SR] 150 mg PO BID 03/17/17 11/22/17 History HYDROcodone/APAP 7.5-325MG [Dousman 1 tab PO BID 11/22/17 11/22/17 History 7.5-325] INSULIN LISPRO (HumaLOG) [humaLOG] See Protocol SQ ACHS 11/22/17 11/22/17 History Lisinopril [Zestril] 10 mg PO DAILY 11/22/17 11/22/17 History predniSONE 10 mg PO QAM 11/22/17 11/22/17 History predniSONE 20 mg PO HS 11/22/17 11/22/17 History Allergies Allergy/AdvReac Type Severity Reaction Status Date / Time No Known Allergies Allergy Verified 11/22/17 17:22 Physical Exam Vitals: Vital Signs Temp Pulse Pulse Resp BP BP Pulse Ox 11/23/17 05:00 97.5 F L 89 16 117/60 92 L 11/22/17 23:00 97.3 F L 105 H 16 133/75 92 L 11/22/17 19:17 98.9 F 103 H 20 134/65 96 11/22/17 18:51 109 H 20 127/78 96 11/22/17 16:58 98.1 F 119 H 20 115/68 96 Intake and Output 11/22/17 11/23/17 11/23/17 22:59 06:59 14:59 Intake Total 800 Balance 800 Intake: Intake, IV Titration 800 Amount Sodium Chloride 0.9% 1, 800 000 ml @ 100 mls/hr IV . Q10H STA Rx#:[id number] Other: Voiding Method Toilet # Voids 2 2 # Bowel Movements 1 1 Weight 140.614 kg General: Appears stated age, very pleasant in no acute distress Head and neck: Normocephalic and atraumatic, conjunctivae pink and sclerae not icteric, mucous membranes moist and pink. No masses in the neck or tracheal shifts Lungs: Clear to auscultation with no dullness to percussion Heart: Regular, no abnormal sounds, murmurs, gallops or friction Abdomen: Soft, no masses or organomegalies. No tenderness. Bowel sounds present Extremities: No clubbing, cyanosis or edema Neurologic: Alert and oriented 3. Cranial nerves grossly intact. No gross sensory or motor abnormalities Results CBC & Chem 7: 11/24/17 07:30 11/24/17 07:30 Labs: Abnormal Lab Results - Last 24 Hours (Table) 11/22/17 11/22/17 11/22/17 Range/Units 17:35 17:35 20:26 Hgb 12.6 L (13.0-17.5) gm/dL Hct 38.9 L (39.0-53.0) % MCV 75.6 L (80.0-100.0) fL MCH 24.6 L (25.0-35.0) pg Monocytes # 1.1 H (0-1.0) k/uL BUN 21 H (9-20) mg/dL Glucose 123 H (74-99) mg/dL POC Glucose (mg/dL) 154 H (75-99) mg/dL AST 14 L (17-59) U/L Alkaline Phosphatase 130 H (38-126) U/L Urine Protein (Negative) Urine Ketones (Negative) Urine Mucus (None) /hpf 11/22/17 11/23/17 11/23/17 Range/Units 21:55 00:24 05:45 Hgb (13.0-17.5) gm/dL Hct (39.0-53.0) % MCV (80.0-100.0) fL MCH (25.0-35.0) pg Monocytes # (0-1.0) k/uL BUN (9-20) mg/dL Glucose (74-99) mg/dL POC Glucose (mg/dL) 259 H 194 H (75-99) mg/dL AST (17-59) U/L Alkaline Phosphatase (38-126) U/L Urine Protein 1+ H (Negative) Urine Ketones 1+ H (Negative) Urine Mucus Many H (None) /hpf Assessment and Plan Assessment: 46-year-old male with a picture of exacerbation of ulcerative colitis. The patient is on Biologics for steroid-dependent disease. I believe he had some blood workup as an outpatient to determine if he needs to increase the dose of his biologic or its frequency or to change to a different biologic. Plan: Agree with your current management. The patient does not want to take any by mouth at this time and feels that she needs to rest his polyp for another day or 2. Will continue with IV steroids and consider starting liquid diet in the next 24-48 hours based on his course. Colonoscopy would be planned to guide his therapy.
[2017-11-24 11:49] LABS: Glucose,Whole Blood 212 mg/dL (75-99)
--- NOTE | 2017-11-24 14:04 | P.PN ---
<Jailyn Bustillos - Last Filed: 11/24/17 13:55> Subjective Progress Note Date: 11/24/17 Progress note being dictated for Dr. Quick Chief Complaint: Abdominal pain and rectal bleeding Interval history: Mr. Downing is a 46-year-old male with a past medical history of ulcerative colitis, diabetes mellitus , asthma, fibromyalgia, GERD coming into the hospital with a chief complaint of left-sided abdominal pain which has been going on for the past 4 days. Patient states that he has ulcerative colitis for the past 10 years. Left-sided abdominal pain started 4 days back that gradually worsened in severity. He also had bleeding from his rectum initially it was a small quantity of blood mixed with the stool that gradually turned brownish and eventually he could see more blood than stool. He follows with GI Dr. Marion and is currently on a tapering dose of prednisone. Patient denies having any fevers, chills or rigors. No recent antibiotic use. Patient denies having any chest pain, cough, difficulty in breathing or palpitations. No dysuria or hematuria. Patient complains of some left-sided back pain that started yesterday. No radiation. No aggravating or relieving factors it is a dull aching pain on the left side of the back. Patient had a fall 3 days back when he tripped over his dog in the dark and he fell on his right leg and he has a small bruise on the hanson of the right leg. He denies having any pain or open injuries. Review of Systems REVIEW OF SYSTEMS: PSYCH: No anxiety or depression NEURO: No complaints of weakness, speech abnormalities, loss of consciousness VASCULAR: No lower extremity swelling HEMATOLOGIC: No history of easy bleeding and bruising . No recent infections . RESPIRATORY: No cough, No SOB, No chest discomfort. INTEGUMENT: no rashes OPHTHALMOLOGIC: No blurry vision and no eye discharge : No dysuria or hematuria CARDIAC: No chest pain , shortness of breath , paroxysmal nocturnal dyspnea MUSCULOSKELETAL : No Aches or pains in the joints or muscles. GI: As per HPI 11/24/2017 negative for C. difficile colitis. Maintained on systemic steroids. Reports mucoid stools last night. Increased left lower quadrant pain earlier this morning, subsided. Tolerating clear liquids with no nausea vomiting. Objective - Vital Signs Vital signs: Vital Signs Temp 97.8 F 11/24/17 05:00 Pulse 73 07/09/18 05:00 Resp 16 11/24/17 05:00 BP 97/50 11/24/17 05:00 Pulse Ox 99 11/24/17 05:00 Intake & Output 11/23/17 11/24/17 11/24/17 18:59 06:59 18:59 Intake Total 750 1590 Balance 750 1590 Intake: IV 1000 Sodium Chloride 0.9% 1, 1000 000 ml @ 125 mls/hr IV . Q8H COLTEN Rx#:[id number] Intake, IV Titration 750 Amount Sodium Chloride 0.9% 1, 750 000 ml @ 100 mls/hr IV . Q10H STA Rx#:[id number] Oral 590 Other: Voiding Method Toilet Toilet Toilet # Voids 2 - Exam GEN. APPEARANCE: Obese, alert, in no apparent distress HEAD EXAM: atraumatic, normocephalic, normal inspection EYE EXAM: No pallor no icterus ENT EXAM: normal exam, mucous membranes moist NECK EXAM: normal inspection. No lymphadenopathy or thyromegaly RESPIRATORY EXAM: normal lung sounds bilaterally. Absent: respiratory distress , wheezes, rales, rhonchi, stridor CARDIOVASCULAR EXAM: regular rate, normal rhythm, normal heart sounds. Absent : systolic murmur, diastolic murmur, rubs, gallop, clicks GI/ABDOMINAL EXAM: soft, normal bowel sounds. Absent: distended, tenderness, guarding, rebound, rigid EXTREMITIES EXAM: No edema, peripheral pulses felt; patient has a small bruise on the right hanson with surrounding ecchymosis. NEUROLOGICAL EXAM: alert, oriented X3, no focal neurological deficits PSYCHIATRIC EXAM: normal affect, normal mood SKIN EXAM: warm, dry, intact, normal color. Absent: rash - Labs CBC & Chem 7: 11/24/17 07:30 11/24/17 07:30 Labs: Abnormal Lab Results - Last 24 Hours (Table) 11/23/17 11/23/17 11/24/17 Range/Units 17:08 19:57 00:32 Hgb (13.0-17.5) gm/dL Hct (39.0-53.0) % MCV (80.0-100.0) fL MCH (25.0-35.0) pg Lymphocytes # (1.0-4.8) k/uL Glucose (74-99) mg/dL POC Glucose (mg/dL) 250 H 255 H 223 H (75-99) mg/dL 11/24/17 11/24/17 11/24/17 Range/Units 06:13 07:30 07:30 Hgb 10.7 L (13.0-17.5) gm/dL Hct 33.4 L (39.0-53.0) % MCV 77.1 L (80.0-100.0) fL MCH 24.6 L (25.0-35.0) pg Lymphocytes # 0.6 L (1.0-4.8) k/uL Glucose 170 H (74-99) mg/dL POC Glucose (mg/dL) 199 H (75-99) mg/dL 11/24/17 Range/Units 11:48 Hgb (13.0-17.5) gm/dL Hct (39.0-53.0) % MCV (80.0-100.0) fL MCH (25.0-35.0) pg Lymphocytes # (1.0-4.8) k/uL Glucose (74-99) mg/dL POC Glucose (mg/dL) 212 H (75-99) mg/dL Assessment and Plan Assessment: Acute exacerbation of ulcerative colitis Type 2 diabetes mellitus GERD Asthma History of anxiety and depression Morbid obesity with BMI of 42 Ecchymosis of the right hanson Plan: Continue on current medication regime ,monitoring and symptomatic treatment. Maintain IV steroids Patient has been started on IV steroids, clear liquids. Diet advancement as per GI. Further recommendations to follow depending on the progress of the patient. The impression and plan of care has been dictated as directed. : I performed a history and examination of this patient, discussed the same with the dictator. I agree with the dictator's note ,documented as a scribe. Any additional findings or plans will be noted. <Alexa Quick - Last Filed: 11/24/17 15:12> Objective - Vital Signs Vital signs: Vital Signs Temp 97.8 F 11/24/17 05:00 Pulse 73 11/24/17 05:00 Resp 16 11/24/17 05:00 BP 97/50 11/24/17 05:00 Pulse Ox 99 11/24/17 05:00 Intake & Output 11/23/17 11/24/1718 18:59 06:59 18:59 Intake Total 750 1590 Balance 750 1590 Intake: IV 1000 Sodium Chloride 0.9% 1, 1000 000 ml @ 125 mls/hr IV . Q8H COLTEN Rx#:[id number] Intake, IV Titration 750 Amount Sodium Chloride 0.9% 1, 750 000 ml @ 100 mls/hr IV . Q10H STA Rx#:[id number] Oral 590 Other: Voiding Method Toilet Toilet Toilet # Voids 2 - Labs CBC & Chem 7: 11/24/17 07:30 11/24/17 07:30 Labs: Abnormal Lab Results - Last 24 Hours (Table) 11/23/17 11/23/17 11/24/17 Range/Units 17:08 19:57 00:32 Hgb (13.0-17.5) gm/dL Hct (39.0-53.0) % MCV (80.0-100.0) fL MCH (25.0-35.0) pg Lymphocytes # (1.0-4.8) k/uL Glucose (74-99) mg/dL POC Glucose (mg/dL) 250 H 255 H 223 H (75-99) mg/dL 11/24/17 11/24/17 11/24/17 Range/Units 06:13 07:30 07:30 Hgb 10.7 L (13.0-17.5) gm/dL Hct 33.4 L (39.0-53.0) % MCV 77.1 L (80.0-100.0) fL MCH 24.6 L (25.0-35.0) pg Lymphocytes # 0.6 L (1.0-4.8) k/uL Glucose 170 H (74-99) mg/dL POC Glucose (mg/dL) 199 H (75-99) mg/dL 11/24/17 Range/Units 11:48 Hgb (13.0-17.5) gm/dL Hct (39.0-53.0) % MCV (80.0-100.0) fL MCH (25.0-35.0) pg Lymphocytes # (1.0-4.8) k/uL Glucose (74-99) mg/dL POC Glucose (mg/dL) 212 H (75-99) mg/dL Assessment and Plan Assessment: I performed a history and examination of this patient, discussed the same with the dictator. I agree with the dictator's note ,documented as a scribe. Any additional findings or plans will be noted. Alexa Quick
[2017-11-24 17:11] LABS: Glucose,Whole Blood 236 mg/dL (75-99)
[2017-11-25] MEDS: ZOLPIDEM 10 MG TAB PO PRN (00:05)
[2017-11-25 00:07] LABS: Glucose,Whole Blood 197 mg/dL (75-99)
[2017-11-25] MEDS: INSULIN ASPART 100 UNIT/ML 1 ML 10 ML VIAL SQ SCH ×4 (00:09→17:35)
[2017-11-25] MEDS: SODIUM CHLORIDE 0.9% 1,000 ML IV SCH ×3 (06:18→13:05)
[2017-11-25] MEDS: ONDANSETRON 4 MG/2 ML VIAL IVP PRN ×2 (06:20→13:08)
[2017-11-25] MEDS: MORPHINE SULFATE 2 MG/ML SYRINGE IV PRN ×2 (06:20→13:08)
[2017-11-25 06:23] LABS: Glucose,Whole Blood 233 mg/dL (75-99)
[2017-11-25] MEDS: PANTOPRAZOLE 40 MG/10 ML VIAL IV SCH (09:06)
[2017-11-25] MEDS: methylPREDNISolone SOD SUCCI 125 MG/2 ML VIAL IV SCH ×2 (09:06→20:04)
[2017-11-25 09:21] LABS: Basophils % (A) 0 %; Eosinophils % (A) 0 %; HCT 33.8 % (39.0-53.0); HGB 10.4 gm/dL (13.0-17.5); Hypochromasia Slight; Lymphocytes # (A) 0.5 k/uL (1.0-4.8); Lymphocytes % (A) 8 %; MCH 23.9 pg (25.0-35.0); MCHC 30.7 g/dL (31.0-37.0); MCV 77.8 fL (80.0-100.0); Mean Platelet Volume 6.6; Monocytes # (A) 0.5 k/uL (0-1.0); Monocytes % (A) 7 %; Neutrophils # (A) 5.2 k/uL (1.3-7.7); Neutrophils % (A) 83 %; Platelet Count 273 k/uL (150-450); RBC 4.34 m/uL (4.30-5.90); RDW 14.3 % (11.5-15.5); WBC 6.3 k/uL (3.8-10.6)
--- NOTE | 2017-11-25 09:30 | P.PN ---
Subjective Progress Note Date: 11/25/17 Principal diagnosis: Feels better. Fewer nonbloody bowel movements. Afebrile. Hemoglobin 10.4. Requesting diet advancement. Objective - Vital Signs Vital signs: Vital Signs Temp 97.3 F L 11/25/17 07:27 Pulse 63 11/25/17 07:27 Resp 16 11/25/17 07:27 BP 112/77 11/25/17 07:27 Pulse Ox 93 L 11/25/17 07:27 Intake & Output 11/24/17 11/25/17 11/25/17 18:59 06:59 18:59 Other: Voiding Method Toilet Toilet # Voids 2 1 # Bowel Movements 4 - Exam General appearance: The patient is alert, oriented, in no acute distress. HET: Head is normocephalic and atraumatic. Pupils are equal and reactive. Oropharynx is clear without lesions. Neck: Supple without lymphadenopathy. Trachea midline. Heart: S1 S2. Regular rate and rhythm. Lungs: No crackles or wheezes are heard. Abdomen: Soft, nontender, nondistended with bowel sounds. No peritoneal signs. No palpable organomegaly or masses. Extremities: Normal skin color and turgor. No cyanosis, rash, ulceration, clubbing, or edema. Radial and pedal pulses are 2/4 bilaterally. Neurological: No focal deficits. Strength and sensation are grossly intact. - Labs CBC & Chem 7: 11/25/17 08:51 11/25/17 08:51 Labs: Abnormal Lab Results - Last 24 Hours (Table) 11/24/17 11/24/17 11/25/17 Range/Units 11:48 17:09 00:06 Hgb (13.0-17.5) gm/dL Hct (39.0-53.0) % MCV (80.0-100.0) fL MCH (25.0-35.0) pg MCHC (31.0-37.0) g/dL Lymphocytes # (1.0-4.8) k/uL POC Glucose (mg/dL) 212 H 236 H 197 H (75-99) mg/dL 11/25/17 11/25/17 Range/Units 06:22 08:51 Hgb 10.4 L (13.0-17.5) gm/dL Hct 33.8 L (39.0-53.0) % MCV 77.8 L (80.0-100.0) fL MCH 23.9 L (25.0-35.0) pg MCHC 30.7 L (31.0-37.0) g/dL Lymphocytes # 0.5 L (1.0-4.8) k/uL POC Glucose (mg/dL) 233 H (75-99) mg/dL Assessment and Plan (1) Exacerbation of ulcerative colitis with rectal bleeding Narrative/Plan: Steroid-dependent Current Visit: Yes Status: Acute Code(s): K51.911 - ULCERATIVE COLITIS, UNSPECIFIED WITH RECTAL BLEEDING SNOMED Code(s): 294869512 Plan: 1. Will obtain serum adalimumab antibody and trough level to evaluate biological therapy. CRP in a.m. Patient was advised to bring in his home dose of Humira we'll administer 40 mg tomorrow. Discontinue IV steroids after 2100 dose tonight and start prednisone 40 mg daily tomorrow. Advance diet if tolerated anticipate discharge in next 1-2 days. Outpatient colonoscopy was discussed and rescheduled for December [address] [facility]. Assessment and plan a care discussed with Dr. rBandt
[2017-11-25 09:40] LABS: Anion Gap 14 mmol/L; Blood Urea Nitrogen 17 mg/dL (9-20); Calcium 8.8 mg/dL (8.4-10.2); Carbon Dioxide 24 mmol/L (22-30); Chloride 98 mmol/L (98-107); Glucose 315 mg/dL (74-99); Potassium 4.4 mmol/L (3.5-5.1); Sodium 136 mmol/L (137-145)
[2017-11-25 11:58] LABS: Glucose,Whole Blood 201 mg/dL (75-99)
--- NOTE | 2017-11-25 14:51 | P.PN ---
Subjective Progress Note Date: 11/25/17 Progress note being dictated for Dr. Woodard Chief Complaint: Abdominal pain and rectal bleeding Interval history: Mr. Downing is a 46-year-old male with a past medical history of ulcerative colitis, diabetes mellitus , asthma, fibromyalgia, GERD coming into the hospital with a chief complaint of left-sided abdominal pain which has been going on for the past 4 days. Patient states that he has ulcerative colitis for the past 10 years. Left-sided abdominal pain started 4 days back that gradually worsened in severity. He also had bleeding from his rectum initially it was a small quantity of blood mixed with the stool that gradually turned brownish and eventually he could see more blood than stool. He follows with GI Dr. Marion and is currently on a tapering dose of prednisone. Patient denies having any fevers, chills or rigors. No recent antibiotic use. Patient denies having any chest pain, cough, difficulty in breathing or palpitations. No dysuria or hematuria. Patient complains of some left-sided back pain that started yesterday. No radiation. No aggravating or relieving factors it is a dull aching pain on the left side of the back. Patient had a fall 3 days back when he tripped over his dog in the dark and he fell on his right leg and he has a small bruise on the ahnson of the right leg. He denies having any pain or open injuries. Review of Systems REVIEW OF SYSTEMS: PSYCH: No anxiety or depression NEURO: No complaints of weakness, speech abnormalities, loss of consciousness VASCULAR: No lower extremity swelling HEMATOLOGIC: No history of easy bleeding and bruising . No recent infections . RESPIRATORY: No cough, No SOB, No chest discomfort. INTEGUMENT: no rashes OPHTHALMOLOGIC: No blurry vision and no eye discharge : No dysuria or hematuria CARDIAC: No chest pain , shortness of breath , paroxysmal nocturnal dyspnea MUSCULOSKELETAL : No Aches or pains in the joints or muscles. GI: As per HPI 11/24/2017 negative for C. difficile colitis. Maintained on systemic steroids. Reports mucoid stools last night. Increased left lower quadrant pain earlier this morning, subsided. Tolerating clear liquids with no nausea vomiting. 11/25/2017 . Less diarrhea last [id number], with none reported this morning. Hemoglobin 10.4. Denies abdominal pain. Diet advanced to consistent carb, low fiber, consumed 100% with no nausea or vomiting. Patient had prior episode of nausea this morning before diet advancement, received Zofran, subsided.IV steroids converted to oral as per GI. Denies chest pain, palpitations or increased shortness of breath. Objective - Vital Signs Vital signs: Vital Signs Temp 97.3 F L 11/25/17 07:27 Pulse 63 11/25/17 07:27 Resp 16 11/25/17 07:27 BP 112/77 11/25/17 07:27 Pulse Ox 93 L 11/25/17 07:27 Intake & Output 11/24/17 11/25/17 11/25/17 18:59 06:59 18:59 Other: Voiding Method Toilet Toilet Toilet # Voids 2 1 # Bowel Movements 4 - Exam GEN. APPEARANCE: Obese, alert, in no apparent distress HEAD EXAM: atraumatic, normocephalic, normal inspection EYE EXAM: No pallor no icterus ENT EXAM: normal exam, mucous membranes moist NECK EXAM: normal inspection. No lymphadenopathy or thyromegaly RESPIRATORY EXAM: normal lung sounds bilaterally. Absent: respiratory distress , wheezes, rales, rhonchi, stridor CARDIOVASCULAR EXAM: regular rate, normal rhythm, normal heart sounds. Absent : systolic murmur, diastolic murmur, rubs, gallop, clicks GI/ABDOMINAL EXAM: soft, normal bowel sounds. Absent: distended, tenderness, guarding, rebound, rigid EXTREMITIES EXAM: No edema, peripheral pulses felt; patient has a small bruise on the right hanson with surrounding ecchymosis. NEUROLOGICAL EXAM: alert, oriented X3, no focal neurological deficits PSYCHIATRIC EXAM: normal affect, normal mood SKIN EXAM: warm, dry, intact, normal color. Absent: rash - Labs CBC & Chem 7: 11/25/17 08:51 11/25/17 08:51 Labs: Abnormal Lab Results - Last 24 Hours (Table) 11/24/17 11/25/17 11/25/17 Range/Units 17:09 00:06 06:22 Hgb (13.0-17.5) gm/dL Hct (39.0-53.0) % MCV (80.0-100.0) fL MCH (25.0-35.0) pg MCHC (31.0-37.0) g/dL Lymphocytes # (1.0-4.8) k/uL Sodium (137-145) mmol/L Glucose (74-99) mg/dL POC Glucose (mg/dL) 236 H 197 H 233 H (75-99) mg/dL 11/25/17 11/25/17 11/25/17 Range/Units 08:51 08:51 11:56 Hgb 10.4 L (13.0-17.5) gm/dL Hct 33.8 L (39.0-53.0) % MCV 77.8 L (80.0-100.0) fL MCH 23.9 L (25.0-35.0) pg MCHC 30.7 L (31.0-37.0) g/dL Lymphocytes # 0.5 L (1.0-4.8) k/uL Sodium 136 L (137-145) mmol/L Glucose 315 H (74-99) mg/dL POC Glucose (mg/dL) 201 H (75-99) mg/dL Assessment and Plan Assessment: Acute exacerbation of ulcerative colitis Type 2 diabetes mellitus GERD Asthma History of anxiety and depression Morbid obesity with BMI of 42 Ecchymosis of the right hanson Plan: Continue on current medication regime ,monitoring and symptomatic treatment. Increase ambulation in hallway with assistance, every shift. Up in chair every meal. Steroids haven't converted to oral, diet advanced, per GI. Morphine discontinued. Discharge planning in progress for tomorrow. The impression and plan of care has been dictated as directed. : I performed a history and examination of this patient, discussed the same with the dictator. I agree with the dictator's note ,documented as a scribe. Any additional findings or plans will be noted.
[2017-11-25 16:30] LABS: Glucose,Whole Blood 320 mg/dL (75-99)
[2017-11-25] MEDS: HYDROcodone/APAP 7.5-325MG 1 EACH TAB PO PRN (18:01)
[2017-11-25 19:01] LABS: Glucose,Whole Blood 367 mg/dL (75-99)
[2017-11-26] MEDS ORDERED: ZOLPIDEM 10 MG TAB ONE (00:30)
[2017-11-26] MEDS ORDERED: ONDANSETRON 4 MG/2 ML VIAL ONE (00:30)
[2017-11-26] MEDS ORDERED: INSULIN ASPART 100 UNIT/ML 1 ML 10 ML VIAL SQ ONE (00:30)
[2017-11-26 01:17] LABS: Glucose,Whole Blood 255 mg/dL (75-99)
[2017-11-26] MEDS: INSULIN ASPART 100 UNIT/ML 1 ML 10 ML VIAL SQ SCH ×3 (05:22→12:19)
[2017-11-26] MEDS: HYDROcodone/APAP 7.5-325MG 1 EACH TAB PO PRN (05:43)
[2017-11-26] MEDS: SODIUM CHLORIDE 0.9% 1,000 ML IV SCH ×2 (05:44→07:24)
[2017-11-26 05:51] LABS: Glucose,Whole Blood 221 mg/dL (75-99)
[2017-11-26 06:11] VITALS: BP 104/55; PULSE 65; RESP 20; TEMP 97.7
[2017-11-26] MEDS ORDERED: PANTOPRAZOLE 40 MG TABLET PO SCH (07:30)
[2017-11-26 07:44] LABS: Basophils % (A) 0 %; Eosinophils % (A) 0 %; HCT 31.5 % (39.0-53.0); HGB 9.9 gm/dL (13.0-17.5); Lymphocytes # (A) 0.4 k/uL (1.0-4.8); Lymphocytes % (A) 8 %; MCH 24.1 pg (25.0-35.0); MCHC 31.5 g/dL (31.0-37.0); MCV 76.4 fL (80.0-100.0); Mean Platelet Volume 6.6; Microcytosis Slight; Monocytes # (A) 0.5 k/uL (0-1.0); Monocytes % (A) 9 %; Neutrophils # (A) 4.4 k/uL (1.3-7.7); Neutrophils % (A) 81 %; Platelet Count 258 k/uL (150-450); RBC 4.12 m/uL (4.30-5.90); RDW 14.4 % (11.5-15.5); WBC 5.4 k/uL (3.8-10.6)
[2017-11-26 07:58] LABS: Anion Gap 7 mmol/L; Blood Urea Nitrogen 18 mg/dL (9-20); Calcium 8.4 mg/dL (8.4-10.2); Carbon Dioxide 29 mmol/L (22-30); Chloride 103 mmol/L (98-107); Glucose 182 mg/dL (74-99); Potassium 4.3 mmol/L (3.5-5.1); Sodium 139 mmol/L (137-145)
--- NOTE | 2017-11-26 08:15 | P.PN ---
Subjective Progress Note Date: 11/26/17 Principal diagnosis: Feels better. Tolerating diet. Anticipating discharged today. Afebrile. Hemoglobin 9.9. White count 5.4. Objective - Vital Signs Vital signs: Vital Signs Temp 97.7 F 11/26/17 06:11 Pulse 65 11/26/17 06:11 Resp 20 11/26/17 06:11 BP 104/55 11/26/17 06:11 Pulse Ox 93 L 11/26/17 06:11 Intake & Output 11/25/17 11/26/17 11/26/17 18:59 06:59 18:59 Intake Total 1000 375 Balance 1000 375 Intake: IV 1000 375 Sodium Chloride 0.9% 1, 1000 375 000 ml @ 125 mls/hr IV . Q8H [facility] Rx#:[id number] Other: Voiding Method Toilet Toilet Toilet # Voids 2 1 # Bowel Movements 2 1 - Exam General appearance: The patient is alert, oriented, in no acute distress. HET: Head is normocephalic and atraumatic. Pupils are equal and reactive. Oropharynx is clear without lesions. Neck: Supple without lymphadenopathy. Trachea midline. Heart: S1 S2. Regular rate and rhythm. Lungs: No crackles or wheezes are heard. Abdomen: Soft, nontender, nondistended with bowel sounds. No peritoneal signs. No palpable organomegaly or masses. Extremities: Normal skin color and turgor. No cyanosis, rash, ulceration, clubbing, or edema. Radial and pedal pulses are 2/4 bilaterally. Neurological: No focal deficits. Strength and sensation are grossly intact. - Labs CBC & Chem 7: 11/26/17 07:07 11/26/17 07:07 Labs: Abnormal Lab Results - Last 24 Hours (Table) 11/25/17 11/25/17 11/25/17 Range/Units 08:51 08:51 11:56 RBC (4.30-5.90) m/uL Hgb 10.4 L (13.0-17.5) gm/dL Hct 33.8 L (39.0-53.0) % MCV 77.8 L (80.0-100.0) fL MCH 23.9 L (25.0-35.0) pg MCHC 30.7 L (31.0-37.0) g/dL Lymphocytes # 0.5 L (1.0-4.8) k/uL Sodium 136 L (137-145) mmol/L Glucose 315 H (74-99) mg/dL POC Glucose (mg/dL) 201 H (75-99) mg/dL 11/25/17 11/25/17 11/26/17 Range/Units 16:28 19:00 00:10 RBC (4.30-5.90) m/uL Hgb (13.0-17.5) gm/dL Hct (39.0-53.0) % MCV (80.0-100.0) fL MCH (25.0-35.0) pg MCHC (31.0-37.0) g/dL Lymphocytes # (1.0-4.8) k/uL Sodium (137-145) mmol/L Glucose (74-99) mg/dL POC Glucose (mg/dL) 320 H 367 H 255 H (75-99) mg/dL 11/26/17 11/26/17 11/26/17 Range/Units 05:39 07:07 07:07 RBC 4.12 L (4.30-5.90) m/uL Hgb 9.9 L (13.0-17.5) gm/dL Hct 31.5 L (39.0-53.0) % MCV 76.4 L (80.0-100.0) fL MCH 24.1 L (25.0-35.0) pg MCHC (31.0-37.0) g/dL Lymphocytes # 0.4 L (1.0-4.8) k/uL Sodium (137-145) mmol/L Glucose 182 H (74-99) mg/dL POC Glucose (mg/dL) 221 H (75-99) mg/dL Assessment and Plan (1) Exacerbation of ulcerative colitis with rectal bleeding Narrative/Plan: Steroid-dependent Current Visit: Yes Status: Acute Code(s): K51.911 - ULCERATIVE COLITIS, UNSPECIFIED WITH RECTAL BLEEDING SNOMED Code(s): 621172353 Plan: 1. Agreeable for discharge. Continue with Bentyl 10 mg 4 times daily. Resume home dose adalimumab and mesalamine today. Prednisone 40 mg taper starting today prescription provided. GI follow-up December 31 colonoscopy scheduled December 26 at [facility]. Assessment and plan a care discussed with Dr. Brandt
[2017-11-26] MEDS ORDERED: ADALIMUMAB 80 MG/1.6 ML KIT SQ ONE (09:00)
[2017-11-26] MEDS ORDERED: predniSONE 20 MG TAB PO SCH (09:00)
[2017-11-26] MEDS ORDERED: LACTOBACILLUS ACIDOPH & BULGAR 1 EACH PACKET PO SCH (09:00)
[2017-11-26] MEDS: ONDANSETRON 4 MG/2 ML VIAL IVP PRN (10:02)
[2017-11-26] MEDS: DICYCLOMINE 10 MG CAP PO SCH ×2 (10:02→12:19)
[2017-11-26 11:59] LABS: Glucose,Whole Blood 239 mg/dL (75-99)
[2017-11-26 14:08] LABS: C Reactive Protein 17.2 mg/L (<10.0)
--- NOTE | 2017-11-26 16:17 | P.DS ---
Providers Date of admission: 11/22/17 18:33 Expected date of discharge: 11/26/17 Attending physician: Giovani Woodard Consults: Dr. Brandt, GI Primary care physician: Shanthi Sloan Hospital Course: Final Diagnoses: Acute exacerbation of ulcerative colitis with rectal bleeding Type 2 diabetes mellitus GERD Asthma History of anxiety and depression Morbid obesity with BMI of 42 Hospital course:Mr. Downing is a 46-year-old male with a past medical history of ulcerative colitis, diabetes mellitus , asthma, fibromyalgia, GERD coming into the hospital with a chief complaint of left-sided abdominal pain which has been going on for the past 4 days. Patient states that he has ulcerative colitis for the past 10 years. Left-sided abdominal pain started 4 days back that gradually worsened in severity. He also had bleeding from his rectum initially it was a small quantity of blood mixed with the stool that gradually turned brownish and eventually he could see more blood than stool. He follows with GI Dr. Marion and is currently on a tapering dose of prednisone. Patient denies having any fevers, chills or rigors. No recent antibiotic use. Patient denies having any chest pain, cough, difficulty in breathing or palpitations. No dysuria or hematuria. Patient complains of some left-sided back pain that started yesterday. No radiation. No aggravating or relieving factors it is a dull aching pain on the left side of the back. Patient had a fall 3 days back when he tripped over his dog in the dark and he fell on his right leg and he has a small bruise on the hanson of the right leg. He denies having any pain or open injuries. Tested negative for C. difficile colitis. Evaluated by GI. Maintained on systemic steroids,converted to oral. Significant clinical improvement. Cleared for discharge by GI. Outpatient colonoscopy, December 26.Patient is being discharged home in stable condition with guarded prognosis. Exam GEN. APPEARANCE: alert and oriented 3, no acute distress RESPIRATORY EXAM: normal lung sounds bilaterally. Absent: respiratory distress , wheezes, rales, rhonchi, stridor CARDIOVASCULAR EXAM: regular rate, normal rhythm, normal heart sounds. Absent : systolic murmur, diastolic murmur, rubs, gallop, clicks GI/ABDOMINAL EXAM: soft, normal bowel sounds. Absent: distended, tenderness, guarding, rebound, rigid NEUROLOGICAL EXAM: alert, oriented X3, no focal neurological deficits The impression and plan of care has been dictated as directed. : I performed a history and examination of this patient, discussed the same with the dictator. I agree with the dictator's note ,documented as a scribe. Any additional findings or plans will be noted. Time taken: 35 minutes Patient Condition at Discharge: Stable Plan - Discharge Summary New Discharge Prescriptions: New predniSONE 10 mg PO DIRECTED #123 tab Ferrous Sulfate [Feosol] 325 mg PO DAILY #30 tab Continue Mesalamine [Delzicol] 800 mg PO TID hydrOXYzine HCL 25 mg PO BID Prochlorperazine [Compazine] 10 mg PO BID metFORMIN HCL [Glucophage] 500 mg PO BID Ondansetron HCl [Zofran] 8 mg PO BID Milk Thistle 150 mg PO HS L.acidoph,Paracasei, B.lactis [Probiotic] 1 cap PO DAILY Dicyclomine [Bentyl] 20 mg PO QID Cholecalciferol [Vitamin D3] 5,000 unit PO DAILY Zolpidem [Ambien] 10 mg PO HS PRN PRN Reason: Insomnia Adalimumab [Humira Pen] 40 mg SQ Q14D buPROPion SR [Wellbutrin SR] 150 mg PO BID Pantoprazole Sodium [Protonix] 80 mg PO HS HYDROcodone/APAP 7.5-325MG [[place] 7.5-325] 1 tab PO BID INSULIN LISPRO (HumaLOG) [humaLOG] See Protocol SQ ACHS Discontinued predniSONE 20 mg PO HS predniSONE 10 mg PO QAM Lisinopril [Zestril] 10 mg PO DAILY Discharge Medication List Mesalamine [Delzicol] 800 mg PO TID 03/30/14 [History] Prochlorperazine [Compazine] 10 mg PO BID 03/30/14 [History] hydrOXYzine HCL 25 mg PO BID 03/30/14 [History] Cholecalciferol [Vitamin D3] 5,000 unit PO DAILY 10/24/16 [History] Dicyclomine [Bentyl] 20 mg PO QID 10/24/16 [History] L.acidoph,Paracasei, B.lactis [Probiotic] 1 cap PO DAILY 10/24/16 [History] Milk Thistle 150 mg PO HS 10/24/16 [History] Ondansetron HCl [Zofran] 8 mg PO BID 10/24/16 [History] metFORMIN HCL [Glucophage] 500 mg PO BID 10/24/16 [History] Zolpidem [Ambien] 10 mg PO HS PRN 10/26/16 [History] Adalimumab [Humira Pen] 40 mg SQ Q14D 03/17/17 [History] Pantoprazole Sodium [Protonix] 80 mg PO HS 03/17/17 [History] buPROPion SR [Wellbutrin SR] 150 mg PO BID 03/17/17 [History] HYDROcodone/APAP 7.5-325MG [[place] 7.5-325] 1 tab PO BID 11/22/17 [History] INSULIN LISPRO (HumaLOG) [humaLOG] See Protocol SQ ACHS 11/22/17 [History] Ferrous Sulfate [Feosol] 325 mg PO DAILY #30 tab 11/26/17 [Rx] predniSONE 10 mg PO DIRECTED #123 tab 11/26/17 [Rx] Follow up Appointment(s)/Referral(s): Shanthi Sloan MD [Primary Care Provider] - 12/02/17 2:00 pm Uzma Montaño PAC [REFERRING] - 12/31/17 1:00 pm ([facility]) Ambulatory/Diagnostic Orders: Complete Blood Count w/diff [LAB.AMB] Time Frame: 3 Days, Location: None Selected Patient Instructions/Handouts: Iron Supplements (By mouth), Prednisone (By mouth), Low Fiber Diet (DC), Meal Planning with Diabetes Exchanges (DC), Ulcerative Colitis (DC) Activity/Diet/Wound Care/Special Instructions: Colonoscopy December [address] Brandt at [facility] Lisinopril on hold until follow up with PCP. r/t borderline hypotension. ( Discuss with Dr. Sloan at follow-up appt). Diet: Diabetic diet/Low fiber Activity as tolerated. Monitor blood sugars 4 times daily prior to meals. Insulin per sliding scale. ( Keep a log of blood sugar levels). Discharge Disposition: HOME SELF-CARE
== END 2017-11-26 14:25 | disposition home or self-care (01) | DRG 386 ==
LOC: EC 16:49 → 5MS5E 18:33
PROVIDERS: ADMIT Internal Medicine; ATTEND Internal Medicine
DX: K51.911 Ulcerative colitis, unspecified with rectal bleeding (principal); Z68.41 Body mass index [BMI] 40.0-44.9, adult; E11.9 Type 2 diabetes mellitus without complications; E66.01 Morbid (severe) obesity due to excess calories; F32.9 Major depressive disorder, single episode, unspecified; F41.9 Anxiety disorder, unspecified; J45.909 Unspecified asthma, uncomplicated; K21.9 Gastro-esophageal reflux disease without esophagitis; K12.0 Recurrent oral aphthae; M79.7 Fibromyalgia; S80.11XA Contusion of right lower leg, initial encounter; W01.0XXA Fall on same level from slipping, tripping and stumbling without subsequent striking against object, initial encounter; Y93.K1 Activity, walking an animal; Z87.891 Personal history of nicotine dependence; Z87.01 Personal history of pneumonia (recurrent); Z83.3 Family history of diabetes mellitus; Z80.42 Family history of malignant neoplasm of prostate; Z79.899 Other long term (current) drug therapy; Z79.52 Long term (current) use of systemic steroids; Z79.4 Long term (current) use of insulin
CPT/HCPCS: 36415; 74018; 80048; 80053; 81001; 82150; 83605; 83690; 85025; 85610; 85730; 86140; 87324; 96361; 96374; 96375; 99285

== ENCOUNTER 2017-12-31 06:14 | Emergency (ER) | payer MEDICARE, OTHER ==
[2017-12-31 06:20] VITALS: RESP 18
[2017-12-31 07:00] LABS: Anisocytosis Slight; Basophils % (A) 0 %; Eosinophils # (A) 0.1 k/uL (0-0.7); Eosinophils % (A) 1 %; HCT 37.7 % (39.0-53.0); HGB 12.3 gm/dL (13.0-17.5); Lymphocytes # (A) 0.7 k/uL (1.0-4.8); Lymphocytes % (A) 9 %; MCH 24.7 pg (25.0-35.0); MCHC 32.5 g/dL (31.0-37.0); MCV 75.8 fL (80.0-100.0); Mean Platelet Volume 6.5; Microcytosis Slight; Monocytes # (A) 0.4 k/uL (0-1.0); Monocytes % (A) 5 %; Neutrophils # (A) 6.8 k/uL (1.3-7.7); Neutrophils % (A) 84 %; Platelet Count 369 k/uL (150-450); RBC 4.97 m/uL (4.30-5.90); WBC 8.2 k/uL (3.8-10.6)
[2017-12-31 07:12] LABS: ALT 23 U/L (21-72); AST 19 U/L (17-59); Albumin 3.9 g/dL (3.5-5.0); Alkaline Phosphatase 102 U/L (38-126); Amylase 56 U/L (30-110); Anion Gap 10 mmol/L; Blood Urea Nitrogen 15 mg/dL (9-20); Calcium 9.3 mg/dL (8.4-10.2); Carbon Dioxide 25 mmol/L (22-30); Chloride 103 mmol/L (98-107); Glucose 187 mg/dL (74-99); Lipase 90 U/L (23-300); Potassium 4.5 mmol/L (3.5-5.1); Sodium 138 mmol/L (137-145); Total Bilirubin 0.4 mg/dL (0.2-1.3); Total Protein 6.7 g/dL (6.3-8.2)
--- NOTE | 2017-12-31 07:16 | XR ---
EXAMINATION TYPE: XR KUB DATE OF EXAM: 12/31/2017 7:02 AM CLINICAL HISTORY: History of ulcerative colitis with abdominal pain TECHNIQUE: Two Upright KUB images of the abdomen are obtained. COMPARISON: Abdominal x-ray November 22, 2017. CT abdomen and pelvis October 24, 2016. FINDINGS: Scattered gas is seen in non-distended stomach and small bowel loops. Gas and fecal materia l is seen in non-distended colon. There is no visceromegaly, pneumoperitoneum, or abnormal calcificat ion appreciated. The lung bases are clear. There is mild to moderate spurring and joint space loss in both hips. IMPRESSION: Overall nonobstructive bowel gas pattern.
[2017-12-31] MEDS ORDERED: HYDROmorphone 1 MG/ML 1 ML SYRINGE IVP STA (07:52)
[2017-12-31] MEDS ORDERED: ONDANSETRON 4 MG/2 ML VIAL IVP STA (08:04)
[2017-12-31] MEDS ORDERED: ACETAMINOPHEN IV (For NPO) 1,000 MG in SALINE 1 100ML.BAG IVPB STA (08:06)
--- NOTE | 2017-12-31 08:07 | ED ---
General Adult HPI - General Chief complaint: Abdominal Pain Stated complaint: ABD PAIN Time Seen by Provider: 12/31/17 07:52 Source: patient, EMS, RN notes reviewed Mode of arrival: EMS Limitations: no limitations - History of Present Illness Initial comments: Patient is a pleasant 47-year-old male presenting to the emergency Department with abdominal discomfort. Patient does frequently get problems related to ulcerative colitis. Patient did have colonoscopy done 5 days ago. Patient has had some mild discomfort since that time however discomfort became severe in the middle the night. Discomfort remains severe. Patient has had some nausea without vomiting. Patient has had some loose stools. No fevers. Discomfort is mostly left upper abdomen. - Related Data Home Medications Medication Instructions Recorded Confirmed Mesalamine [Delzicol] 800 mg PO TID 03/30/14 11/22/17 Prochlorperazine [Compazine] 10 mg PO BID 03/30/14 11/22/17 hydrOXYzine HCL 25 mg PO BID 03/30/14 11/22/17 Cholecalciferol [Vitamin D3] 5,000 unit PO DAILY 10/24/16 11/22/17 Dicyclomine [Bentyl] 20 mg PO QID 10/24/16 11/22/17 L.acidoph,Paracasei, B.lactis 1 cap PO DAILY 10/24/16 11/22/17 [Probiotic] Milk Thistle 150 mg PO HS 10/24/16 11/22/17 Ondansetron HCl [Zofran] 8 mg PO BID 10/24/16 11/22/17 metFORMIN HCL [Glucophage] 500 mg PO BID 10/24/16 11/22/17 Zolpidem [Ambien] 10 mg PO HS PRN 10/26/16 11/22/17 Adalimumab [Humira Pen] 40 mg SQ Q14D 03/17/17 11/22/17 Pantoprazole Sodium [Protonix] 80 mg PO HS 03/17/17 11/22/17 buPROPion SR [Wellbutrin SR] 150 mg PO BID 03/17/17 11/22/17 HYDROcodone/APAP 7.5-325MG [[place] 1 tab PO BID 11/22/17 11/22/17 7.5-325] INSULIN LISPRO (HumaLOG) [humaLOG] See Protocol SQ ACHS 11/22/17 11/22/17 Previous Rx's Medication Instructions Recorded Ferrous Sulfate [Feosol] 325 mg PO DAILY #30 tab 11/26/17 predniSONE 10 mg PO DIRECTED #123 tab 11/26/17 Allergies Allergy/AdvReac Type Severity Reaction Status Date / Time No Known Allergies Allergy Verified 12/31/17 06:20 Review of Systems ROS Statement: Those systems with pertinent positive or pertinent negative responses have been documented in the HPI. ROS Other: All systems not noted in ROS Statement are negative. Constitutional: Denies: fever Eyes: Denies: eye pain ENT: Denies: ear pain Respiratory: Denies: cough Cardiovascular: Denies: chest pain Endocrine: Denies: fatigue Gastrointestinal: Reports: as per HPI, abdominal pain, nausea. 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 History of Any Multi-Drug Resistant Organisms: MRSA Date of last positivie culture/infection: 05/19/2007 MDRO Source:: wound on torso Past Surgical History: Back Surgery, Heart Catheterization Additional Past Surgical History / Comment(s): Hx recent "clear heart cath", back surgery x2;multiple colonoscopies, EGD, deviated septum repair. Past Anesthesia/Blood Transfusion Reactions: No Reported Reaction Past Psychological History: Anxiety, Depression Smoking Status: Former smoker Past Alcohol Use History: None Reported Past Drug Use History: None Reported - Past Family History Mother Family Medical History: Diabetes Mellitus Additional Family Medical History / Comment(s): Mother is blind due to diabetic retinopathy. She is 78yrs old. Father Family Medical History: Cancer Additional Family Medical History / Comment(s): Father of prostate cancer with mets to liver at the age of 81 yrs. General Exam Limitations: no limitations General appearance: alert, in no apparent distress Head exam: Present: atraumatic Eye exam: Present: normal appearance, PERRL ENT exam: Present: normal oropharynx Neck exam: Present: normal inspection Respiratory exam: Present: normal lung sounds bilaterally Cardiovascular Exam: Present: regular rate, normal rhythm Expanded Peripheral pulses: 2+: Posterior Tibialis (R), Posterior Tibialis (L) GI/Abdominal exam: Present: soft, tenderness (Mild tenderness left abdomen), normal bowel sounds. Absent: distended, guarding, rebound, rigid, pulsatile mass Extremities exam: Present: normal inspection Neurological exam: Present: alert Psychiatric exam: Present: normal affect, normal mood Skin exam: Present: normal color Course Vital Signs 12/31/17 12/31/17 12/31/17 06:15 06:50 08:51 Temperature 100.1 F H Pulse Rate 94 88 85 Respiratory 18 18 18 Rate Blood Pressure 165/80 139/78 157/87 O2 Sat by Pulse 96 96 93 L Oximetry Medical Decision Making - Medical Decision Making Patient reevaluated and resting comfortably. Symptoms improved with medication. Patient updated on results. Patient is comfortable with discharge. Patient and family updated on need for follow-up, and need to return if symptoms worsen. - Lab Data Result diagrams: 12/31/17 06:49 12/31/17 06:49 Lab Results 12/31/17 12/31/17 Range/Units 06:49 06:49 WBC 8.2 (3.8-10.6) k/uL RBC 4.97 (4.30-5.90) m/uL Hgb 12.3 L (13.0-17.5) gm/dL Hct 37.7 L (39.0-53.0) % MCV 75.8 L (80.0-100.0) fL MCH 24.7 L (25.0-35.0) pg MCHC 32.5 (31.0-37.0) g/dL RDW 16.0 H (11.5-15.5) % Plt Count 369 (150-450) k/uL Neutrophils % 84 % Lymphocytes % 9 % Monocytes % 5 % Eosinophils % 1 % Basophils % 0 % Neutrophils # 6.8 (1.3-7.7) k/uL Lymphocytes # 0.7 L (1.0-4.8) k/uL Monocytes # 0.4 (0-1.0) k/uL Eosinophils # 0.1 (0-0.7) k/uL Basophils # 0.0 (0-0.2) k/uL Anisocytosis Slight Microcytosis Slight Sodium 138 (137-145) mmol/L Potassium 4.5 (3.5-5.1) mmol/L Chloride 103 (98-107) mmol/L Carbon Dioxide 25 (22-30) mmol/L Anion Gap 10 mmol/L BUN 15 (9-20) mg/dL Creatinine 0.89 (0.66-1.25) mg/dL Est GFR (CKD-EPI)AfAm >90 (>60 ml/min/1.73 sqM) Est GFR (CKD-EPI)NonAf >90 (>60 ml/min/1.73 sqM) Glucose 187 H (74-99) mg/dL Calcium 9.3 (8.4-10.2) mg/dL Total Bilirubin 0.4 (0.2-1.3) mg/dL AST 19 (17-59) U/L ALT 23 (21-72) U/L Alkaline Phosphatase 102 (38-126) U/L Total Protein 6.7 (6.3-8.2) g/dL Albumin 3.9 (3.5-5.0) g/dL Amylase 56 (30-110) U/L Lipase 90 (23-300) U/L - Radiology Data Radiology results: report reviewed (Computed tomography scan of the abdomen pelvis shows no acute process.), image reviewed (KUB shows nonobstructive bowel pattern.) Disposition Clinical Impression: Abdominal pain Disposition: HOME SELF-CARE Condition: Stable Instructions: Abdominal Pain (ED) Additional Instructions: Please follow-up with primary care physician in the next day or 2 for recheck. Please also follow-up with Dr. Marion in the next day or 2 for recheck. Return for fever, increased pain, vomiting, worsening symptoms or other concerns. Is patient prescribed a controlled substance at d/c from ED?: No Referrals: Shanthi Sloan MD [Primary Care Provider] - 1-2 days Primitivo Brandt MD [STAFF PHYSICIAN] - 1-2 days Time of Disposition: 11:37
--- NOTE | 2017-12-31 11:13 | CT ---
EXAMINATION TYPE: CT abdomen pelvis w con DATE OF EXAM: 12/31/2017 COMPARISON: 10/24/2016 INDICATION: Abdominal pain and bloating DLP: 4410.2 mGycm, Automated exposure control for dose reduction was used. CONTRAST: 100 mL of Isovue 300. Study performed without Oral Contrast TECHNIQUE: Axial images were obtained from above the diaphragm to the pubic rami in the axial plane a t 5 mm thick sections. Reconstructed images are reviewed on the computer in the coronal plane. FINDINGS: No free air within the abdomen is evident. No suspicious fluid collections or inflammatory changes adjacent to the colon. There is some fecal debris noted within the colon. No distended small bowel loops are evident. Limited CT sections are obtained the lung bases. Some mild subsegmental atelectasis is likely presen t.. CT ABDOMEN: Liver: Normal Spleen: Normal Pancreas: Normal Adrenal glands: The adrenal glands are normal. Gallbladder: Normal Kidneys: No masses are evident. No hydronephrosis is present. There is a 1.8 cm pole left renal cys t. Delayed images were obtained through the kidneys, which remain unremarkable. Aorta: Vascular calcification is within the aorta. Inferior vena cava: Normal. CT PELVIS: Loops of bowel within the abdomen and pelvis are normal. Study is without oral contrast limiting bowel evaluation. Appendix: Normal as visualized. Urinary bladder: Normal. Genitourinary structures: Prostate is unremarkable. Osseous structures: No suspicious lytic or sclerotic lesions. IMPRESSIONS: 1. No suspicious acute changes to account for patient discomfort.
[2017-12-31 13:03] VITALS: BP 132/68; PULSE 89; TEMP 97.9
== END 2017-12-31 13:03 | disposition home or self-care (01) ==
LOC: EC 06:14
DX: R10.12 Left upper quadrant pain (principal); R11.0 Nausea; E11.9 Type 2 diabetes mellitus without complications; M79.7 Fibromyalgia; K21.9 Gastro-esophageal reflux disease without esophagitis; M16.0 Bilateral primary osteoarthritis of hip; M17.0 Bilateral primary osteoarthritis of knee; M19.012 Primary osteoarthritis, left shoulder; M19.011 Primary osteoarthritis, right shoulder; M46.90 Unspecified inflammatory spondylopathy, site unspecified; F41.9 Anxiety disorder, unspecified; F32.9 Major depressive disorder, single episode, unspecified; Z87.891 Personal history of nicotine dependence; Z87.19 Personal history of other diseases of the digestive system; Z86.14 Personal history of Methicillin resistant Staphylococcus aureus infection; Z95.818 Presence of other cardiac implants and grafts; Z79.891 Long term (current) use of opiate analgesic; Z79.4 Long term (current) use of insulin; Z79.899 Other long term (current) drug therapy; Z98.890 Other specified postprocedural states
CPT/HCPCS: 36415; 74018; 74177; 80053; 82150; 83690; 85025; 96365; 96366; 96375; 99285

== ENCOUNTER 2018-02-04 16:03 | Inpatient (IN) | payer MEDICARE, OTHER ==
[2018-02-04 17:58] LABS: Basophils # (A) 0.1 k/uL (0-0.2); Basophils % (A) 1 %; Eosinophils # (A) 0.4 k/uL (0-0.7); Eosinophils % (A) 5 %; HCT 35.7 % (39.0-53.0); HGB 12.1 gm/dL (13.0-17.5); Lymphocytes # (A) 0.9 k/uL (1.0-4.8); Lymphocytes % (A) 13 %; MCH 25.8 pg (25.0-35.0); MCHC 33.8 g/dL (31.0-37.0); MCV 76.3 fL (80.0-100.0); Mean Platelet Volume 6.6; Microcytosis Slight; Monocytes # (A) 0.5 k/uL (0-1.0); Monocytes % (A) 7 %; Neutrophils % (A) 70 %; Platelet Count 406 k/uL (150-450); RBC 4.67 m/uL (4.30-5.90); RDW 15.3 % (11.5-15.5); WBC 7.2 k/uL (3.8-10.6)
[2018-02-04 18:09] LABS: ALT 24 U/L (21-72); AST 16 U/L (17-59); Albumin 4.1 g/dL (3.5-5.0); Alkaline Phosphatase 118 U/L (38-126); Anion Gap 12 mmol/L; Blood Urea Nitrogen 9 mg/dL (9-20); Calcium 9.6 mg/dL (8.4-10.2); Carbon Dioxide 24 mmol/L (22-30); Chloride 103 mmol/L (98-107); Glucose 123 mg/dL (74-99); Potassium 4.3 mmol/L (3.5-5.1); Sodium 139 mmol/L (137-145); Total Bilirubin 0.3 mg/dL (0.2-1.3); Total Protein 7.3 g/dL (6.3-8.2)
[2018-02-04] MEDS ORDERED: HYDROcodone/APAP 5-325MG 1 EACH TAB PO PRN (19:22)
[2018-02-04] MEDS ORDERED: NALOXONE 0.4 MG/ML 1 ML VIAL IV PRN (19:22)
--- NOTE | 2018-02-04 19:22 | ED ---
Skin/Abscess/FB HPI - General Chief complaint: Skin/Abscess/Foreign Body Stated complaint: abscess on left side Time Seen by Provider: 02/04/18 18:42 Source: patient, RN notes reviewed Mode of arrival: ambulatory Limitations: no limitations - History of Present Illness Initial comments: 47-year-old male presents emergency department for left sided chest wall abscess. Patient states he's HAD a bump there but states since last Friday he' s had increasing redness, pain and swelling. Patient saw his GI physician today who sent emergency Department for admission IV antibiotics. Patient states that there is extremely painful. Patient states he has had these in the past in which she turned necrotic tissue. Patient states that his surgeon is Dr. Raymundo. Patient states that there is very tender with palpation denies any shortness of breath, fever or chills. - Related Data Home Medications Medication Instructions Recorded Confirmed Mesalamine [Delzicol] 800 mg PO TID 03/30/14 02/04/18 Prochlorperazine [Compazine] 10 mg PO BID 03/30/14 02/04/18 hydrOXYzine HCL 25 mg PO BID 03/30/14 02/04/18 Cholecalciferol [Vitamin D3] 5,000 unit PO DAILY 10/24/16 02/04/18 Dicyclomine [Bentyl] 20 mg PO QID 10/24/16 02/04/18 Milk Thistle 150 mg PO DAILY 10/24/16 02/04/18 Ondansetron HCl [Zofran] 8 mg PO BID 10/24/16 02/04/18 metFORMIN HCL [Glucophage] 500 mg PO AC-BID 10/24/16 02/04/18 Zolpidem [Ambien] 10 mg PO HS 10/26/16 02/04/18 Adalimumab [Humira Pen] 40 mg SQ Q14D 03/17/17 02/04/18 buPROPion SR [Wellbutrin SR] 150 mg PO BID 03/17/17 02/04/18 HYDROcodone/APAP 7.5-325MG [[place] 1 tab PO BID PRN 11/22/17 02/04/18 7.5-325] INSULIN LISPRO (HumaLOG) [humaLOG] See Protocol SQ AC-BID 11/22/17 02/04/18 Curcumin 500 mg PO BID 02/04/18 02/04/18 Pantoprazole Sodium [Protonix] 40 mg PO DAILY 02/04/18 02/04/18 Sulfamethox-Tmp 800-160Mg [Bactrim 1 tab PO BID 02/04/18 02/04/18 DS 800-160 mg] Allergies Allergy/AdvReac Type Severity Reaction Status Date / Time No Known Allergies Allergy Verified 02/04/18 18:54 Review of Systems ROS Statement: Those systems with pertinent positive or pertinent negative responses have been documented in the HPI. ROS Other: All systems not noted in ROS Statement are negative. 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 History of Any Multi-Drug Resistant Organisms: MRSA Date of last positivie culture/infection: 05/19/2007 MDRO Source:: wound on torso Past Surgical History: Back Surgery, Heart Catheterization Additional Past Surgical History / Comment(s): Hx recent "clear heart cath", back surgery x2;multiple colonoscopies, EGD, deviated septum repair. Past Anesthesia/Blood Transfusion Reactions: No Reported Reaction Past Psychological History: Anxiety, Depression Smoking Status: Former smoker Past Alcohol Use History: None Reported Past Drug Use History: None Reported - Past Family History Mother Family Medical History: Diabetes Mellitus Additional Family Medical History / Comment(s): Mother is blind due to diabetic retinopathy. She is 78yrs old. Father Family Medical History: Cancer Additional Family Medical History / Comment(s): Father of prostate cancer with mets to liver at the age of 81 yrs. General Exam Limitations: no limitations General appearance: alert, in no apparent distress Respiratory exam: Present: normal lung sounds bilaterally. Absent: respiratory distress, wheezes, rales, rhonchi, stridor Cardiovascular Exam: Present: regular rate, normal rhythm, normal heart sounds. Absent: systolic murmur, diastolic murmur, rubs, gallop, clicks Skin exam: Present: warm, dry, intact, normal color, other (Left lateral chest there is approximately an area of 8 cm of erythema with a centralized abscess approximately 3 cm that is severely tender palpation). Absent: rash Course Vital Signs 02/04/18 16:36 Temperature 98.6 F Pulse Rate 88 Respiratory 20 Rate Blood Pressure 120/77 O2 Sat by Pulse 99 Oximetry Medical Decision Making - Lab Data Result diagrams: 02/04/18 17:41 02/04/18 17:41 Lab Results 02/04/18 02/04/18 02/04/18 Range/Units 17:41 17:41 17:41 WBC 7.2 (3.8-10.6) k/uL RBC 4.67 (4.30-5.90) m/uL Hgb 12.1 L (13.0-17.5) gm/dL Hct 35.7 L (39.0-53.0) % MCV 76.3 L (80.0-100.0) fL MCH 25.8 (25.0-35.0) pg MCHC 33.8 (31.0-37.0) g/dL RDW 15.3 (11.5-15.5) % Plt Count 406 (150-450) k/uL Neutrophils % 70 % Lymphocytes % 13 % Monocytes % 7 % Eosinophils % 5 % Basophils % 1 % Neutrophils # 5.0 (1.3-7.7) k/uL Lymphocytes # 0.9 L (1.0-4.8) k/uL Monocytes # 0.5 (0-1.0) k/uL Eosinophils # 0.4 (0-0.7) k/uL Basophils # 0.1 (0-0.2) k/uL Microcytosis Slight Sodium 139 (137-145) mmol/L Potassium 4.3 (3.5-5.1) mmol/L Chloride 103 (98-107) mmol/L Carbon Dioxide 24 (22-30) mmol/L Anion Gap 12 mmol/L BUN 9 (9-20) mg/dL Creatinine 0.84 (0.66-1.25) mg/dL Est GFR (CKD-EPI)AfAm >90 (>60 ml/min/1.73 sqM) Est GFR (CKD-EPI)NonAf >90 (>60 ml/min/1.73 sqM) Glucose 123 H (74-99) mg/dL Plasma Lactic Acid Tl 0.9 (0.7-2.0) mmol/L Calcium 9.6 (8.4-10.2) mg/dL Total Bilirubin 0.3 (0.2-1.3) mg/dL AST 16 L (17-59) U/L ALT 24 (21-72) U/L Alkaline Phosphatase 118 (38-126) U/L Total Protein 7.3 (6.3-8.2) g/dL Albumin 4.1 (3.5-5.0) g/dL Disposition Clinical Impression: Chest wall abscess, Pyoderma gangrenosum Disposition: ADMITTED IP TO THIS [facility] Condition: Stable Referrals: Shanthi Sloan MD [Primary Care Provider] - 1-2 days
[2018-02-04] MEDS ORDERED: PIPERACILLIN-TAZOBACTAM 3.375 GM in DEXTROSE/WATER 1 50ML.BAG IVPB STA (19:25)
[2018-02-04] MEDS ORDERED: VANCOMYCIN IV PER PHARMACY 1 EACH MISC MISCELLANE PRN (19:26)
[2018-02-04] MEDS ORDERED: VANCOMYCIN 2,500 MG in SODIUM CHLORIDE 0.9% 500 ML IVPB STA (19:32)
[2018-02-04] MEDS ORDERED: ACETAMINOPHEN TAB 325 MG TAB PO PRN (20:55)
[2018-02-04] MEDS ORDERED: ACETAMINOPHEN TAB 325 MG TAB PO STA (20:55)
[2018-02-04] MEDS ORDERED: HYDROmorphone 1 MG/ML 1 ML SYRINGE IM PRN (21:38)
[2018-02-04] MEDS ORDERED: metFORMIN 500 MG TAB PO STA (21:40)
[2018-02-04] MEDS ORDERED: ONDANSETRON ODT 8 MG TAB.RAPDIS PO PRN (21:45)
[2018-02-04] MEDS ORDERED: PROCHLORPERAZINE 10 MG TAB PO SCH (21:45)
[2018-02-04] MEDS ORDERED: CURCUMIN PO SCH (21:45)
[2018-02-04] MEDS: HYDROmorphone 1 MG/ML 1 ML SYRINGE IVP PRN (22:06)
[2018-02-04 22:21] LABS: Glucose,Whole Blood 130 mg/dL (75-99)
[2018-02-04 22:37] VITALS: BMI 42.7
[2018-02-04] MEDS: buPROPion SR 150 MG TABLET.ER PO SCH (22:42)
[2018-02-04] MEDS: hydrOXYzine HCL 25 MG TAB PO SCH (22:43)
[2018-02-04] MEDS: DICYCLOMINE 20 MG TAB PO SCH (22:43)
[2018-02-04] MEDS: BALSALAZIDE DISODIUM 750 MG CAPSULE PO SCH (22:49)
[2018-02-04] MEDS: ZOLPIDEM 10 MG TAB PO PRN (23:50)
[2018-02-05] MEDS: DEXTROSE 5%-0.45% NACL 1,000 ML IV SCH ×2 (01:36→16:34)
[2018-02-05] MEDS: PIPERACILLIN-TAZOBACTAM 3.375 GM in DEXTROSE/WATER 1 50ML.BAG IVPB SCH ×4 (01:36→23:48)
[2018-02-05 01:52] LABS: Glucose,Whole Blood 135 mg/dL (75-99)
[2018-02-05] MEDS: HYDROcodone/APAP 7.5-325MG 1 EACH TAB PO PRN ×4 (02:07→20:47)
[2018-02-05] MEDS: HYDROmorphone 1 MG/ML 1 ML SYRINGE IVP PRN ×2 (04:13→11:26)
[2018-02-05] MEDS: VANCOMYCIN 2,500 MG in SODIUM CHLORIDE 0.9% 500 ML IVPB SCH ×2 (05:32→17:22)
[2018-02-05 07:17] LABS: Glucose,Whole Blood 138 mg/dL (75-99)
[2018-02-05 07:19] LABS: Basophils # (A) 0.1 k/uL (0-0.2); Basophils % (A) 1 %; Eosinophils # (A) 0.4 k/uL (0-0.7); Eosinophils % (A) 5 %; HCT 34.5 % (39.0-53.0); HGB 11.1 gm/dL (13.0-17.5); Hypochromasia Slight; Lymphocytes % (A) 14 %; MCH 25.2 pg (25.0-35.0); MCHC 32.1 g/dL (31.0-37.0); MCV 78.4 fL (80.0-100.0); Mean Platelet Volume 6.2; Monocytes # (A) 0.6 k/uL (0-1.0); Monocytes % (A) 9 %; Neutrophils # (A) 4.5 k/uL (1.3-7.7); Neutrophils % (A) 67 %; Platelet Count 338 k/uL (150-450); RBC 4.41 m/uL (4.30-5.90); WBC 6.7 k/uL (3.8-10.6)
[2018-02-05 07:28] LABS: INR 1.1 (<1.2); Prothrombin Time 10.5 sec (9.0-12.0)
[2018-02-05 07:37] LABS: Anion Gap 10 mmol/L; Blood Urea Nitrogen 9 mg/dL (9-20); Calcium 8.8 mg/dL (8.4-10.2); Carbon Dioxide 24 mmol/L (22-30); Chloride 105 mmol/L (98-107); Glucose 123 mg/dL (74-99); Potassium 4.1 mmol/L (3.5-5.1); Sodium 139 mmol/L (137-145)
[2018-02-05] MEDS: INSULIN ASPART 100 UNIT/ML 1 ML 10 ML VIAL SQ SCH ×4 (08:09→20:47)
[2018-02-05] MEDS: buPROPion SR 150 MG TABLET.ER PO SCH ×2 (08:10→20:47)
[2018-02-05] MEDS: DICYCLOMINE 20 MG TAB PO SCH ×4 (08:10→21:35)
[2018-02-05] MEDS: BALSALAZIDE DISODIUM 750 MG CAPSULE PO SCH ×3 (08:11→21:35)
[2018-02-05] MEDS: hydrOXYzine HCL 25 MG TAB PO SCH ×2 (08:11→20:47)
[2018-02-05] MEDS ORDERED: LIDOCAINE 1% INJ 10MG/ML (20 ML MDV) SQ STA (08:55)
--- NOTE | 2018-02-05 08:56 | P.CON ---
Consult Note - . Consult date: 02/05/18 Assessment/Plan:: Thank you for asking me to see Mr. Downing who is well known to me. He is a 47- year-old diabetic overweight male who has a history of multiple abscesses drained in the past. He developed a swelling in the left lateral chest wall just below the axilla about almost 2 weeks ago. Has been taking Bactrim the last 4-5 days without significant improvement. He had an appointment to see me in the office today but the sore his last acid changer no definite chills. and was recommended admission. It's quite large and painful now. Past history ALLERGIES social history well-documented. No known ALLERGIES. On examination he is well-built well-nourished overweight in no acute distress. Temperature is 90.9. Vitals are stable. He has a large abscess about 5-6 cm in diameter in the left lateral chest wall with a lot of erythema. The a few enlarged lymph nodes in the axilla. Impression abscess left lateral chest wall. Diabetes mellitus. multiple medical issues. Recommendation incision and drainage. We will were ordering packing changes. Pulmonary surgical standpoint he can be discharged in the next day or 2 and we' ll follow-up with him in the office. Appropriate antibiotic therapy once the culture results are available.
--- NOTE | 2018-02-05 09:14 | P.OP ---
Date of Procedure: 02/05/18 Preoperative Diagnosis: Abscess left lateral chest wall Postoperative Diagnosis: Same Procedure(s) Performed: Incision and drainage of large abscess left lateral chest wall Anesthesia: local Surgeon: Uriel Raymundo Estimated Blood Loss (ml): 1 Pathology: other (Aerobic and anaerobic cultures) Condition: stable Disposition: floor Indications for Procedure: The patient is a 47-year-old white male with a history of recurrent abscesses and a history of inflammatory bowel disease diabetes mellitus and pyoderma gangrenosum. Developed a painful lump in the left lateral chest wall now were given developing into an abscess quite large about 5 cm in diameter with erythema in the left axillary lymphadenopathy. Incision and drainage was recommended and informed consent was obtained. Operative Findings: Large abscess left lateral chest wall Description of Procedure: With the patient the in the slight the right lateral position the area was prepped with DuraPrep and draped local anesthetic lidocaine 1% was infiltrated into the overlying skin and subcutaneous tissues. A 4 cm incision was made with immediate drainage of a large amount of purulent material. Not particularly foul-smelling. She is being obtained. The wound was then cleaned out with a Q-tip and packed with half-inch iodoform gauze. Dressings were applied. All counts were correct. Blood loss was negligible.
[2018-02-05 11:50] LABS: Hemoglobin A1C 8.2 % (4.0-6.0)
[2018-02-05 12:09] LABS: Glucose,Whole Blood 128 mg/dL (75-99)
[2018-02-05] MEDS: ONDANSETRON 4 MG/2 ML VIAL IVP PRN ×2 (13:31→18:32)
--- NOTE | 2018-02-05 16:19 | P.HPIM ---
History of Present Illness 70-year-old gentleman came in with left sided chest wall abscess for which patient underwent incision and drainage. Patient does have history of ulcerative colitis history of pyoderma gangrenosum in the past patient has some my left leg heel ulcers. At this time his lesion in the left chest area started as pyoderma gangrenosum which led to get infected which need to be drained which was drained and patient won't cultures were obtained and patient was started on IV antibiotics Zosyn and vancomycin infectious disease evaluated the patient. Patient was on Bactrim which was prescribed by Dr. Sloan PCP as an outpatient which he is using. Patient denied any fevers chills at home. Patient basically came in because of pain and tenderness in the left side of the chest. Review of Systems REVIEW OF SYSTEMS: CONSTITUTIONAL: No fever, no malaise, no fatigue. HEENT: No recent visual problems or hearing problems. Denied any sore throat. CARDIOVASCULAR: No chest pain, orthopnea, PND, no palpitations, no syncope. PULMONARY: No shortness of breath, no cough, no hemoptysis. GASTROINTESTINAL: No diarrhea, no nausea, no vomiting, no abdominal pain. Normoactive bowel sounds. NEUROLOGICAL: No headaches, no weakness, no numbness. HEMATOLOGICAL: Denies any bleeding or petechiae. GENITOURINARY: Denies any burning micturition, frequency, or urgency. MUSCULOSKELETAL/RHEUMATOLOGICAL: Denies any joint pain, swelling, or any muscle pain. ENDOCRINE: Denies any polyuria or polydipsia. The rest of the 14-point review of systems is negative. 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 History of Any Multi-Drug Resistant Organisms: MRSA Date of last positivie culture/infection: 05/19/2007 MDRO Source:: wound on torso Past Surgical History: Back Surgery, Heart Catheterization Additional Past Surgical History / Comment(s): Hx recent "clear heart cath", back surgery x2;multiple colonoscopies, EGD, deviated septum repair. Past Anesthesia/Blood Transfusion Reactions: No Reported Reaction Past Psychological History: Anxiety, Depression Additional Psychological History / Comment(s): Pt states he takes wellbutrin which helps with his depression. Pt lives with his mother and sister and his 2 children ages 16 and 17. He is independent. Smoking Status: Former smoker Past Alcohol Use History: None Reported Additional Past Alcohol Use History / Comment(s): Smoked 1 ppd, started smoking 1995.Quit 2004. Past Drug Use History: None Reported - Past Family History Mother Family Medical History: Diabetes Mellitus Additional Family Medical History / Comment(s): Mother is blind due to diabetic retinopathy. She is 78yrs old. Father Family Medical History: Cancer, CVA/TIA Additional Family Medical History / Comment(s): Father of prostate cancer with mets to liver at the age of 81 yrs. Medications and Allergies Home Medications Medication Instructions Recorded Confirmed Type Mesalamine [Delzicol] 800 mg PO TID 03/30/14 02/04/18 History Prochlorperazine [Compazine] 10 mg PO BID 03/30/14 02/04/18 History hydrOXYzine HCL 25 mg PO BID 03/30/14 02/04/18 History Cholecalciferol [Vitamin D3] 5,000 unit PO DAILY 10/24/16 02/04/18 History Dicyclomine [Bentyl] 20 mg PO QID 10/24/16 02/04/18 History Milk Thistle 150 mg PO DAILY 10/24/16 02/04/18 History Ondansetron HCl [Zofran] 8 mg PO BID 10/24/16 02/04/18 History metFORMIN HCL [Glucophage] 500 mg PO AC-BID 10/24/16 02/04/18 History Zolpidem [Ambien] 10 mg PO HS 10/26/16 02/04/18 History Adalimumab [Humira Pen] 40 mg SQ Q14D 03/17/17 02/04/18 History buPROPion SR [Wellbutrin SR] 150 mg PO BID 03/17/17 02/04/18 History HYDROcodone/APAP 7.5-325MG [[place] 1 tab PO BID PRN 11/22/17 02/04/18 History 7.5-325] INSULIN LISPRO (HumaLOG) [humaLOG] See Protocol SQ AC-BID 11/22/17 02/04/18 History Curcumin 500 mg PO BID 02/04/18 02/04/18 History Pantoprazole Sodium [Protonix] 40 mg PO DAILY 02/04/18 02/04/18 History Sulfamethox-Tmp 800-160Mg [Bactrim 1 tab PO BID 02/04/18 02/04/18 History DS 800-160 mg] Allergies Allergy/AdvReac Type Severity Reaction Status Date / Time No Known Allergies Allergy Verified 02/04/18 18:54 Physical Exam Vitals: Vital Signs Temp Pulse Pulse Resp BP BP Pulse Ox 02/05/18 08:42 98.8 F 96 16 126/78 94 L 02/05/18 01:51 99.2 F 99 16 117/56 93 L 02/04/18 22:24 98.8 F 97 18 133/60 97 02/04/18 21:06 98.7 F 97 18 133/93 97 02/04/18 20:55 101.3 F H 98 18 136/72 96 02/04/18 16:36 98.6 F 88 20 120/77 99 Intake and Output 02/05/18 02/05/18 02/05/18 06:59 14:59 22:59 Intake Total 925 180 Balance 925 180 Intake: Intake, IV Titration 925 Amount Dextrose 5%-0.45% NaCl 1, 375 000 ml @ 75 mls/hr IV . [id number] [facility] Rx#:[id number] Piperacillin-Tazobactam 3 50 .375 gm In Dextrose/Water 1 50ml.bag @ 12.5 mls/hr IVPB Q8HR [facility] Rx#: [id number] Vancomycin 2,500 mg In 500 Sodium Chloride 0.9% 500 ml @ 167 mls/hr IVPB Q12H [facility] Rx#:[id number] Oral 180 Other: # Voids 3 3 PHYSICAL EXAMINATION: GENERAL: The patient is alert and oriented x3, not in any acute distress. Well developed, well nourished. HEENT: Pupils are round and equally reacting to light. EOMI. No scleral icterus. No conjunctival pallor. Normocephalic, atraumatic. No pharyngeal erythema. No thyromegaly. CARDIOVASCULAR: S1 and S2 present. No murmurs, rubs, or gallops. PULMONARY: Chest is clear to auscultation, no wheezing or crackles. ABDOMEN: Soft, nontender, nondistended, normoactive bowel sounds. No palpable organomegaly. MUSCULOSKELETAL: No joint swelling or deformity. EXTREMITIES: No cyanosis, clubbing, or pedal edema. NEUROLOGICAL: Gross neurological examination did not reveal any focal deficits. SKIN: Left the chest wall abscess is status post drainage and packed. He is some healed the pyoderma gangrenosum lesions from the past Results CBC & Chem 7: 02/05/18 06:23 02/05/18 06:23 Labs: Abnormal Lab Results - Last 24 Hours (Table) 02/04/18 02/04/18 02/04/18 Range/Units 17:41 17:41 22:19 Hgb 12.1 L (13.0-17.5) gm/dL Hct 35.7 L (39.0-53.0) % MCV 76.3 L (80.0-100.0) fL Lymphocytes # 0.9 L (1.0-4.8) k/uL Glucose 123 H (74-99) mg/dL POC Glucose (mg/dL) 130 H (75-99) mg/dL Hemoglobin A1c (4.0-6.0) % AST 16 L (17-59) U/L 02/05/18 02/05/18 02/05/18 Range/Units 01:47 06:23 06:23 Hgb 11.1 L (13.0-17.5) gm/dL Hct 34.5 L (39.0-53.0) % MCV 78.4 L (80.0-100.0) fL Lymphocytes # (1.0-4.8) k/uL Glucose 123 H (74-99) mg/dL POC Glucose (mg/dL) 135 H (75-99) mg/dL Hemoglobin A1c (4.0-6.0) % AST (17-59) U/L 02/05/18 02/05/18 02/05/18 Range/Units 06:23 07:16 12:08 Hgb (13.0-17.5) gm/dL Hct (39.0-53.0) % MCV (80.0-100.0) fL Lymphocytes # (1.0-4.8) k/uL Glucose (74-99) mg/dL POC Glucose (mg/dL) 138 H 128 H (75-99) mg/dL Hemoglobin A1c 8.2 H (4.0-6.0) % AST (17-59) U/L Thrombosis Risk Factor Assmnt - Choose All That Apply Each Factor Represents 1 point: Age 41-60 years, Hx of IBD, Obesity (BMI >25), Varicose veins Each Risk Factor Represents 3 Points: Family history of DVT/PE Thrombosis Risk Factor Assessment Total Risk Factor Score: 7 Thrombosis Risk Factor Assessment Level: High Risk Assessment and Plan Plan: -Left chest wall abscess: Status post status post incision and drainage. Patient is on broad-spectrum antibiotics will be awaiting wound cultures. Patient is on Zosyn and vancomycin -Pyoderma gangrenosum which is now infected. -Type 2 diabetes mellitus, patient will be resumed on his home regimen titrate insulin depending and blood sugars here -Fibromyalgia -Asthma without any acute exacerbation -Gastroesophageal reflux disease -Ulcerative colitis: Patient will be resumed and continued on his immunosuppressive therapy and symptomatic treatment for his diarrhea.
[2018-02-05 17:20] LABS: Glucose,Whole Blood 181 mg/dL (75-99)
[2018-02-05 20:16] LABS: Glucose,Whole Blood 159 mg/dL (75-99)
[2018-02-05] MEDS ORDERED: PANTOPRAZOLE 40 MG TABLET PO STA (20:23)
--- NOTE | 2018-02-05 23:34 | CONS ---
CONSULTATION DATE OF SERVICE: 02/05/2018 REASON FOR CONSULTATION: Left chest wall abscess and cellulitis. HISTORY OF PRESENT ILLNESS: The patient is a 47-year-old male with a past medical history significant for ulcerative colitis and also history of pyoderma gangrenosum with a non-healing wound to the left leg that is currently healed up. Apparently the patient did develop a small bump in his left lower chest area that has been going on for more than a week now. The area continued to become swollen and red and painful, pain described as throbbing, almost 7 to 8 out of 10, and no radiation. The patient said that he tried to get in to see his PCP on Friday, who advised the patient to follow up with Dr. Raymundo for drainage of the same. The patient had a follow-up visit with his compound filler, who saw him yesterday and advised the patient to be admitted to the hospital for drainage and IV antibiotic therapy. The patient subsequently has been admitted to the hospital. He was evaluated by Dr. Raymundo this morning and he is status post drainage of the large abscess on the left lateral chest wall. The patient tolerated the procedure. Culture was obtained and is currently pending. The patient has been started on broad-spectrum antibiotics in the form of vancomycin and Zosyn, which the patient is currently tolerating. Infectious Disease was consulted for further recommendation regarding antibiotic therapy. The patient did mention that he did have a fever at home, and on arrival in the ER the patient did have a fever of 101.3. The white count was not significantly elevated. The patient did have some component of tachycardia. REVIEW OF SYSTEMS: CONSTITUTIONAL: Positive for fever along with weakness. EYES: No complaint. ENT: No complaint. RESPIRATORY: No complaint. CARDIOVASCULAR: No complaint. GENITOURINARY: No complaint. GASTROINTESTINAL: No complaint. MUSCULOSKELETAL: No complaint. INTEGUMENTARY: As per HPI. PSYCHOLOGICAL: No complaint. ENDOCRINE: No complaint. NEUROLOGICAL: No complaint. PAST MEDICAL HISTORY: 1. Ulcerative colitis. 2. Non-healing wounds to the legs which were thought to related to pyoderma seem to have healed currently. 3. History of pneumonia. 4. Type 2 diabetes mellitus. 5. Lumbar herniated disc. 6. Carpal tunnel syndrome. 7. Rectal bleeds. 8. Previous history of MRSA infection. PAST SURGICAL HISTORY: 1. Heart catheterization. 2. Back surgery. 3. Colonoscopy. 4. EGD. PAST PSYCHOLOGICAL HISTORY: 1. Anxiety. 2. Depression. SOCIAL HISTORY: Remote history of smoking. No drinking or drug use. FAMILY HISTORY: Mother with history of diabetes and diabetic retinopathy. Father with history of prostate cancer with metastases to the liver. ALLERGIES: NO KNOWN DRUG ALLERGIES. CURRENT MEDICATIONS: 1. Tylenol. 2. [place]. 3. Colazal. 4. Wellbutrin SR. 5. Bentyl. 6. Dilaudid. 7. Atarax. 8. NovoLog. 9. Vancomycin, Pharmacy to dose. 10.Narcan. 11.Zofran. 12.Protonix. 13.Zosyn. 14.Ambien. PHYSICAL EXAMINATION: Blood pressure 113/67 with a pulse of 95, temperature 99, T-max 101.3. He is 95% on room air. General description is a middle-aged male up in the bed in no distress. No tachypnea or accessory muscle of respiration use. HEENT examination shows pallor. No scleral icterus. Oral mucosa membrane is dry. No pharyngeal erythema or thrush. NECK: Trachea is central. No thyromegaly. LUNGS: Unlabored breathing with decreased breath sounds at the bases. No wheeze or crackle. HEART: S1, S2. Regular rate and rhythm. ABDOMEN: Soft. No tenderness. EXTREMITIES: No edema of feet. EXAMINATION OF LEFT CHEST WALL AREA: He did have a wound, currently packed, with minimal surrounding redness. Some blood-stained drainage on the dressing, not foul- smelling. Neurologically patient is awake, alert, oriented x3. Mood and affect normal. LABS: Hemoglobin is 11.1, white count 6.7, BUN of 9, creatinine 0.94. Electrolytes have been normal. Blood cultures so far are pending. The wound culture is currently pending. DIAGNOSTIC IMPRESSION AND PLAN: Patient with left lower chest wall abscess and cellulitis in a patient who does have previous history of methicillin-resistant Staphylococcus aeruginosa infection. Also with underlying ulcerative colitis. Concern is likely about an abscess of skin and soft tissue related and more likely secondary to MRSA, status post drainage. PLAN: 1. Vancomycin, Pharmacy to dose, target of 15 while watching his kidney function closely. Continue with Zosyn 3.375 grams q.8. 2. Gentle IV fluid. 3. Depending upon his clinical response as well as cultures, will adjust the medication further if needed. Thank you for this consultation. Will follow this patient along with you. MMODL / IJN: [id number] /
[2018-02-06] MEDS: HYDROcodone/APAP 7.5-325MG 1 EACH TAB PO PRN ×3 (02:17→19:53)
[2018-02-06] MEDS: ONDANSETRON 4 MG/2 ML VIAL IVP PRN ×4 (02:21→18:34)
[2018-02-06] MEDS ORDERED: VANCOMYCIN TROUGH DUE 1 EACH MISC MISCELLANE ONE (05:00)
[2018-02-06] MEDS: DEXTROSE 5%-0.45% NACL 1,000 ML IV SCH ×2 (05:03→15:17)
[2018-02-06 05:31] LABS: HCT 33.5 % (39.0-53.0); HGB 10.6 gm/dL (13.0-17.5); Hypochromasia Slight; MCH 24.9 pg (25.0-35.0); MCHC 31.8 g/dL (31.0-37.0); MCV 78.4 fL (80.0-100.0); Mean Platelet Volume 6.5; Platelet Count 325 k/uL (150-450); RBC 4.27 m/uL (4.30-5.90); RDW 15.3 % (11.5-15.5); WBC 5.1 k/uL (3.8-10.6)
[2018-02-06 05:45] LABS: ALT 21 U/L (21-72); AST 13 U/L (17-59); Albumin 3.4 g/dL (3.5-5.0); Alkaline Phosphatase 100 U/L (38-126); Anion Gap 8 mmol/L; Blood Urea Nitrogen 6 mg/dL (9-20); Calcium 8.8 mg/dL (8.4-10.2); Carbon Dioxide 27 mmol/L (22-30); Chloride 104 mmol/L (98-107); Glucose 127 mg/dL (74-99); Potassium 4.4 mmol/L (3.5-5.1); Sodium 139 mmol/L (137-145); Total Bilirubin 0.3 mg/dL (0.2-1.3); Total Protein 6.3 g/dL (6.3-8.2)
[2018-02-06] MEDS: VANCOMYCIN 2,500 MG in SODIUM CHLORIDE 0.9% 500 ML IVPB SCH ×2 (07:01→17:12)
[2018-02-06 07:16] LABS: Glucose,Whole Blood 151 mg/dL (75-99)
[2018-02-06] MEDS: PIPERACILLIN-TAZOBACTAM 3.375 GM in DEXTROSE/WATER 1 50ML.BAG IVPB SCH ×3 (08:23→23:37)
[2018-02-06] MEDS: PANTOPRAZOLE 40 MG TABLET PO SCH (08:23)
[2018-02-06] MEDS: BALSALAZIDE DISODIUM 750 MG CAPSULE PO SCH ×3 (08:24→21:33)
[2018-02-06] MEDS: INSULIN ASPART 100 UNIT/ML 1 ML 10 ML VIAL SQ SCH ×4 (08:24→21:33)
[2018-02-06] MEDS: buPROPion SR 150 MG TABLET.ER PO SCH ×2 (08:25→21:33)
[2018-02-06] MEDS: hydrOXYzine HCL 25 MG TAB PO SCH ×2 (08:25→21:33)
[2018-02-06] MEDS: DICYCLOMINE 20 MG TAB PO SCH ×4 (08:25→21:33)
[2018-02-06] MEDS: HYDROmorphone 1 MG/ML 1 ML SYRINGE IVP PRN ×2 (10:00→13:08)
[2018-02-06 12:50] LABS: Glucose,Whole Blood 158 mg/dL (75-99)
--- NOTE | 2018-02-06 13:54 | P.PN ---
Subjective 70-year-old with history of pyoderma gangrenosum is admitted for left chest wall abscess status post incision and drainage no significant drainage from the eye in the area. Patient has a staph aureus on the wound cultures probably Zosyn can be discontinued infectious disease is following the patient. Patient is still complaining of significant amount of pain in that area. Constitutional: Denied any fatigue denied any fever. Cardio vascular: denied any chest pain, palpitations Gastrointestinal denied any nausea vomiting Pulmonary: Denied any shortness of breath cough Neurologic denied any new focal deficits Objective - Vital Signs Vital signs: Vital Signs Temp 98.3 F 02/06/18 07:06 Pulse 80 02/06/18 07:06 Resp 17 02/06/18 07:07 BP 109/59 02/06/18 07:06 Pulse Ox 93 L 02/06/18 07:06 Intake & Output 02/05/18 02/06/18 02/06/18 18:59 06:59 18:59 Intake Total 602 1250 222 Balance 602 1250 222 Intake: Intake, IV Titration 1250 Amount Dextrose 5%-0.45% NaCl 1, 1200 000 ml @ 75 mls/hr IV . [id number] [facility] Rx#:[id number] Piperacillin-Tazobactam 3 50 .375 gm In Dextrose/Water 1 50ml.bag @ 12.5 mls/hr IVPB Q8HR [facility] Rx#: [id number] Oral 602 222 Other: Voiding Method Toilet Toilet # Voids 3 3 1 - Exam PHYSICAL EXAMINATION: GENERAL: The patient is alert and oriented x3, not in any acute distress. Well developed, well nourished. HEENT: Pupils are round and equally reacting to light. EOMI. No scleral icterus. No conjunctival pallor. Normocephalic, atraumatic. No pharyngeal erythema. No thyromegaly. CARDIOVASCULAR: S1 and S2 present. No murmurs, rubs, or gallops. PULMONARY: Chest is clear to auscultation, no wheezing or crackles. ABDOMEN: Soft, nontender, nondistended, normoactive bowel sounds. No palpable organomegaly. MUSCULOSKELETAL: No joint swelling or deformity. EXTREMITIES: No cyanosis, clubbing, or pedal edema. NEUROLOGICAL: Gross neurological examination did not reveal any focal deficits. SKIN: Left the chest wall abscess is status post drainage and packed. He is some healed the pyoderma gangrenosum lesions from the past - Labs CBC & Chem 7: 02/06/18 04:58 02/06/18 04:58 Labs: Abnormal Lab Results - Last 24 Hours (Table) 02/05/18 02/05/18 02/06/18 Range/Units 17:19 20:15 04:58 RBC (4.30-5.90) m/uL Hgb (13.0-17.5) gm/dL Hct (39.0-53.0) % MCV (80.0-100.0) fL MCH (25.0-35.0) pg BUN 6 L (9-20) mg/dL Glucose 127 H (74-99) mg/dL POC Glucose (mg/dL) 181 H 159 H (75-99) mg/dL AST 13 L (17-59) U/L Albumin 3.4 L (3.5-5.0) g/dL 02/06/18 02/06/18 02/06/18 Range/Units 04:58 07:09 12:49 RBC 4.27 L (4.30-5.90) m/uL Hgb 10.6 L (13.0-17.5) gm/dL Hct 33.5 L (39.0-53.0) % MCV 78.4 L (80.0-100.0) fL MCH 24.9 L (25.0-35.0) pg BUN (9-20) mg/dL Glucose (74-99) mg/dL POC Glucose (mg/dL) 151 H 158 H (75-99) mg/dL AST (17-59) U/L Albumin (3.5-5.0) g/dL Microbiology - Last 24 Hours (Table) 02/05/18 09:15 Gram Stain - Preliminary Chest Wound Culture - Preliminary Presumptive Staph aureus 02/04/18 17:41 Blood Culture - Preliminary Blood No Growth after 24 hours 02/05/18 09:15 Anaerobic Culture - Preliminary Chest Assessment and Plan Plan: -Left chest wall abscess: Status post status post incision and drainage. Patient is on broad-spectrum antibiotics will be awaiting wound cultures. Patient is on Zosyn and vancomycin. Patient has staph aureus and on the in the wound cultures -Pyoderma gangrenosum which is now infected. -Type 2 diabetes mellitus, patient will be resumed on his home regimen titrate insulin depending and blood sugars here -Fibromyalgia -Asthma without any acute exacerbation -Gastroesophageal reflux disease -Ulcerative colitis: Patient will be resumed and continued on his immunosuppressive therapy and symptomatic treatment for his diarrhea.
--- NOTE | 2018-02-06 15:46 | PN ---
PROGRESS NOTE DATE OF SERVICE: 02/06/2018. REASON FOR FOLLOWUP: Left lower chest wall abscess. INTERVAL HISTORY: The patient is currently afebrile. He is breathing comfortably. Pain to the left lower chest wall currently controlled with pain medication. Denies having any chest pain, shortness of breath or cough. No abdominal pain, no diarrhea. EXAMINATION: Blood pressure is 109/59 with a pulse of 80, temperature 98.3, T-max 99.7. He is 93% on room air. General description is a middle aged male up in the bed in no distress. RESPIRATORY SYSTEM: Unlabored breathing. Clear to auscultation anteriorly. HEART: S1, S2. Regular rate and rhythm. ABDOMEN: Soft, no tenderness. Left lower chest wall area swelling and induration have decreased. No drainage. LABS: Hemoglobin is 10.5, WBC 5.9, BUN of 6, creatinine 1.0. Wound culture with presumptive MRSA, Staph aureus. DIAGNOSTIC IMPRESSION AND PLAN: Patient with left lower chest wall abscess status post drainage. Culture showing Staph aureus, sensitivities pending. Patient currently on vancomycin. Will continue adjusting further on the basis of the culture and clinical response. Continue supportive care. MMODL / IJN: [id number] /
[2018-02-06 16:59] LABS: Glucose,Whole Blood 154 mg/dL (75-99)
[2018-02-06 21:06] LABS: Glucose,Whole Blood 193 mg/dL (75-99)
[2018-02-07] MEDS: DEXTROSE 5%-0.45% NACL 1,000 ML IV SCH (04:09)
[2018-02-07 04:19] LABS: Glucose,Whole Blood 127 mg/dL (75-99)
[2018-02-07] MEDS: VANCOMYCIN 2,500 MG in SODIUM CHLORIDE 0.9% 500 ML IVPB SCH (05:43)
[2018-02-07 06:48] LABS: Glucose,Whole Blood 170 mg/dL (75-99)
[2018-02-07 07:46] LABS: Calcium 8.4 mg/dL (8.4-10.2)
[2018-02-07] MEDS: HYDROcodone/APAP 7.5-325MG 1 EACH TAB PO PRN ×2 (08:13→21:51)
[2018-02-07] MEDS: ONDANSETRON 4 MG/2 ML VIAL IVP PRN ×3 (08:13→18:18)
[2018-02-07] MEDS: INSULIN ASPART 100 UNIT/ML 1 ML 10 ML VIAL SQ SCH ×4 (08:14→20:46)
[2018-02-07] MEDS: PIPERACILLIN-TAZOBACTAM 3.375 GM in DEXTROSE/WATER 1 50ML.BAG IVPB SCH ×2 (08:14→15:14)
[2018-02-07] MEDS: PANTOPRAZOLE 40 MG TABLET PO SCH (08:14)
[2018-02-07] MEDS: DICYCLOMINE 20 MG TAB PO SCH ×4 (08:15→21:44)
[2018-02-07] MEDS: BALSALAZIDE DISODIUM 750 MG CAPSULE PO SCH ×3 (08:15→21:44)
[2018-02-07] MEDS: buPROPion SR 150 MG TABLET.ER PO SCH ×2 (08:15→21:44)
[2018-02-07] MEDS: hydrOXYzine HCL 25 MG TAB PO SCH ×2 (08:16→21:44)
[2018-02-07] MEDS ORDERED: VANCOMYCIN IV PER PHARMACY 1 EACH MISC MISCELLANE PRN (10:53)
[2018-02-07 11:38] LABS: Glucose,Whole Blood 131 mg/dL (75-99)
--- NOTE | 2018-02-07 11:57 | P.PN ---
Subjective 70-year-old with history of pyoderma gangrenosum is admitted for left chest wall abscess status post incision and drainage no significant drainage from the eye in the area. Patient has a staph aureus on the wound cultures probably Zosyn can be discontinued infectious disease is following the patient. Patient is still complaining of significant amount of pain in that area. 02/07/2018 Plan lesion of wound cultures are still pending patient pain is better today Constitutional: Denied any fatigue denied any fever. Cardio vascular: denied any chest pain, palpitations Gastrointestinal denied any nausea vomiting Pulmonary: Denied any shortness of breath cough Neurologic denied any new focal deficits Objective - Vital Signs Vital signs: Vital Signs Temp 99.0 F 02/07/18 08:08 Pulse 83 02/07/18 08:08 Resp 17 02/07/18 08:24 BP 115/61 02/07/18 08:08 Pulse Ox 93 L 02/07/18 08:08 Intake & Output 02/06/18 02/07/18 02/07/18 18:59 06:59 18:59 Intake Total 222 1850 472 Balance 222 1850 472 Intake: Intake, IV Titration 1850 Amount Dextrose 5%-0.45% NaCl 1, 1300 000 ml @ 75 mls/hr IV . [id number] [facility] Rx#:[id number] Piperacillin-Tazobactam 3 50 .375 gm In Dextrose/Water 1 50ml.bag @ 12.5 mls/hr IVPB Q8HR [facility] Rx#: [id number] Vancomycin 2,500 mg In 500 Sodium Chloride 0.9% 500 ml @ 167 mls/hr IVPB Q12H [facility] Rx#:[id number] Oral 222 472 Other: Voiding Method Toilet # Voids 1 3 1 # Bowel Movements 0 - Exam PHYSICAL EXAMINATION: GENERAL: The patient is alert and oriented x3, not in any acute distress. Well developed, well nourished. HEENT: Pupils are round and equally reacting to light. EOMI. No scleral icterus. No conjunctival pallor. Normocephalic, atraumatic. No pharyngeal erythema. No thyromegaly. CARDIOVASCULAR: S1 and S2 present. No murmurs, rubs, or gallops. PULMONARY: Chest is clear to auscultation, no wheezing or crackles. ABDOMEN: Soft, nontender, nondistended, normoactive bowel sounds. No palpable organomegaly. MUSCULOSKELETAL: No joint swelling or deformity. EXTREMITIES: No cyanosis, clubbing, or pedal edema. NEUROLOGICAL: Gross neurological examination did not reveal any focal deficits. SKIN: Left the chest wall abscess is status post drainage and packed. He is some healed the pyoderma gangrenosum lesions from the past - Labs CBC & Chem 7: 02/06/18 04:58 02/07/18 07:13 Labs: Abnormal Lab Results - Last 24 Hours (Table) 02/06/18 02/06/18 02/06/18 Range/Units 12:49 16:56 21:05 BUN (9-20) mg/dL Creatinine (0.66-1.25) mg/dL Glucose (74-99) mg/dL POC Glucose (mg/dL) 158 H 154 H 193 H (75-99) mg/dL 02/07/18 02/07/18 02/07/18 Range/Units 04:07 06:47 07:13 BUN 8 L (9-20) mg/dL Creatinine 2.18 H (0.66-1.25) mg/dL Glucose 147 H (74-99) mg/dL POC Glucose (mg/dL) 127 H 170 H (75-99) mg/dL 02/07/18 Range/Units 11:36 BUN (9-20) mg/dL Creatinine (0.66-1.25) mg/dL Glucose (74-99) mg/dL POC Glucose (mg/dL) 131 H (75-99) mg/dL Microbiology - Last 24 Hours (Table) 02/04/18 17:41 Blood Culture - Preliminary Blood No Growth after 48 hours 02/05/18 09:15 Gram Stain - Preliminary Chest Wound Culture - Preliminary Presumptive Staph aureus Assessment and Plan Plan: -Left chest wall abscess: Status post status post incision and drainage. Patient is on broad-spectrum antibiotics will be awaiting wound cultures. Patient is on Zosyn and vancomycin. Patient has staph aureus and on the in the wound cultures. probably Zosyn can be discontinued early this dictation to infectious disease -Pyoderma gangrenosum which is now infected. -Type 2 diabetes mellitus, patient will be resumed on his home regimen titrate insulin depending and blood sugars here -Fibromyalgia -Asthma without any acute exacerbation -Gastroesophageal reflux disease -Ulcerative colitis: Patient will be resumed and continued on his immunosuppressive therapy and symptomatic treatment for his diarrhea.
[2018-02-07] MEDS ORDERED: VANCOMYCIN TROUGH DUE 1 EACH MISC MISCELLANE ONE (17:00)
[2018-02-07] MEDS: HYDROmorphone 1 MG/ML 1 ML SYRINGE IVP PRN (17:08)
[2018-02-07 17:27] LABS: Glucose,Whole Blood 127 mg/dL (75-99)
[2018-02-07 20:35] LABS: Glucose,Whole Blood 140 mg/dL (75-99)
[2018-02-07] MEDS: METOCLOPRAMIDE 5 MG/ML 2 ML VIAL IVP PRN (20:46)
[2018-02-07] MEDS: ceFAZolin IN SWFI 2 GM/20 ML SYRINGE IVP SCH (23:33)
[2018-02-08 07:14] LABS: Glucose,Whole Blood 117 mg/dL (75-99)
[2018-02-08] MEDS: ONDANSETRON 4 MG/2 ML VIAL IVP PRN ×2 (07:37→16:34)
[2018-02-08] MEDS: INSULIN ASPART 100 UNIT/ML 1 ML 10 ML VIAL SQ SCH ×4 (08:11→20:07)
[2018-02-08] MEDS: PANTOPRAZOLE 40 MG TABLET PO SCH (08:16)
[2018-02-08 08:28] LABS: HCT 33.1 % (39.0-53.0); HGB 10.1 gm/dL (13.0-17.5); Hypochromasia Moderate; MCH 24.8 pg (25.0-35.0); MCHC 30.6 g/dL (31.0-37.0); Mean Platelet Volume 6.1; Platelet Count 362 k/uL (150-450); RBC 4.09 m/uL (4.30-5.90); RDW 15.1 % (11.5-15.5); WBC 6.2 k/uL (3.8-10.6)
[2018-02-08] MEDS: ceFAZolin IN SWFI 2 GM/20 ML SYRINGE IVP SCH ×3 (08:51→23:34)
[2018-02-08 09:01] LABS: Calcium 8.5 mg/dL (8.4-10.2); Potassium 4.3 mmol/L (3.5-5.1)
[2018-02-08 09:06] LABS: Vancomycin,Random 26.8 ug/mL
[2018-02-08] MEDS: buPROPion SR 150 MG TABLET.ER PO SCH ×2 (09:29→20:07)
[2018-02-08] MEDS: BALSALAZIDE DISODIUM 750 MG CAPSULE PO SCH ×3 (09:29→22:35)
[2018-02-08] MEDS: hydrOXYzine HCL 25 MG TAB PO SCH ×2 (09:31→20:07)
[2018-02-08] MEDS: DICYCLOMINE 20 MG TAB PO SCH ×4 (09:31→22:36)
[2018-02-08] MEDS: HYDROcodone/APAP 7.5-325MG 1 EACH TAB PO PRN ×2 (09:35→20:09)
[2018-02-08 12:13] LABS: Glucose,Whole Blood 132 mg/dL (75-99)
[2018-02-08] MEDS: METOCLOPRAMIDE 5 MG/ML 2 ML VIAL IVP PRN (12:26)
--- NOTE | 2018-02-08 14:14 | P.PN ---
Subjective Progress Note Date: 02/08/18 Principal diagnosis: Left chest wall abscess 47-year-old male patient with history of pyoderma gangrenosa admitted to the hospital for left chest wall abscess; patient is status post incision and drainage; wound culture currently showing staph aureus with final culture and sensitivity report is pending; patient remains on IV antibiotics; IDs following and Levitra recommendations on final choice and duration of antibiotics Objective - Vital Signs Vital signs: Vital Signs Temp 98.1 F 02/08/18 07:14 Pulse 82 02/08/18 07:14 Resp 20 02/08/18 07:14 BP 119/71 02/08/18 07:14 Pulse Ox 93 L 02/08/18 07:14 Intake & Output 02/07/18 02/08/18 02/08/18 18:59 06:59 18:59 Intake Total 472 430 Balance 472 430 Intake: Oral 472 430 Other: # Voids 1 3 1 # Bowel Movements 4 - Exam - Constitutional General appearance: Present: average body habitus, cooperative, no acute distress - EENT Eyes: Present: anicteric sclerae, EOMI, PERRLA, normal appearance ENT: Present: hearing grossly normal, normal oropharynx Ears: bilateral: normal - Neck Neck: Present: normal ROM. Absent: lymphadenopathy, rigidity, thyromegaly Carotids: negative: bruit present Thyroid: bilateral: normal size, negative: enlarged, nodule - Respiratory Respiratory: bilateral: CTA, negative: rales, rhonchi, wheezing - Cardiovascular Rhythm: regular Heart sounds: normal: S1, S2 Abnormal Heart Sounds: Absent: systolic murmur, diastolic murmur - Gastrointestinal General gastrointestinal: Present: normal bowel sounds, soft. Absent: distended , organomegaly, tenderness - Genitourinary Genitourinary Comment(s): deferred - Integumentary Integumentary: Present: normal turgor. Absent: jaundiced, rash, ulcer - Neurologic Neurologic: Present: CNII-XII intact. Absent: focal deficits - Musculoskeletal Musculoskeletal: Present: gait normal, strength equal bilaterally - Psychiatric Psychiatric: Present: A&O x's 3, appropriate affect, intact judgment & insight - Labs CBC & Chem 7: 02/08/18 07:34 02/08/18 07:34 Labs: Abnormal Lab Results - Last 24 Hours (Table) 0902/07/18 02/08/18 Range/Units 17:26 20:33 07:12 RBC (4.30-5.90) m/uL Hgb (13.0-17.5) gm/dL Hct (39.0-53.0) % MCH (25.0-35.0) pg MCHC (31.0-37.0) g/dL Creatinine (0.66-1.25) mg/dL Glucose (74-99) mg/dL POC Glucose (mg/dL) 127 H 140 H 117 H (75-99) mg/dL 02/08/18 02/08/18 02/08/18 Range/Units 07:34 07:34 12:11 RBC 4.09 L (4.30-5.90) m/uL Hgb 10.1 L (13.0-17.5) gm/dL Hct 33.1 L (39.0-53.0) % MCH 24.8 L (25.0-35.0) pg MCHC 30.6 L (31.0-37.0) g/dL Creatinine 3.05 H (0.66-1.25) mg/dL Glucose 118 H (74-99) mg/dL POC Glucose (mg/dL) 132 H (75-99) mg/dL Microbiology - Last 24 Hours (Table) 02/04/18 17:41 Blood Culture - Preliminary Blood No Growth after 72 hours 02/05/18 09:15 Gram Stain - Final Chest Wound Culture - Final Staphylococcus aureus 02/05/18 09:15 Anaerobic Culture - Preliminary Chest Assessment and Plan Assessment: 1. Left chest wall abscess: Status post status post incision and drainage. Patient is on broad-spectrum antibiotics will be awaiting wound cultures. Patient is on Zosyn and vancomycin. Patient has staph aureus and on the in the wound cultures. probably Zosyn can be discontinued early this dictation to infectious disease 2. Pyoderma gangrenosum which is now infected. 3. Type 2 diabetes mellitus, patient will be resumed on his home regimen titrate insulin depending and blood sugars here 4. Fibromyalgia 5. Asthma without any acute exacerbation 6. Gastroesophageal reflux disease; stable on Protonix 40 mg by mouth before meals breakfast 7. Ulcerative colitis: Patient will be resumed and continued on his immunosuppressive therapy and symptomatic treatment for his diarrhea. 8. DVT prophylaxis; SCDs only CODE STATUS; full code Time with Patient: Greater than 30
[2018-02-08 17:15] LABS: Glucose,Whole Blood 112 mg/dL (75-99)
[2018-02-08] MEDS ORDERED: ALBUTEROL NEBULIZED 2.5 MG/3 ML INHALATION STA (17:36)
--- NOTE | 2018-02-08 18:00 | XR ---
EXAMINATION TYPE: XR chest 1V portable DATE OF EXAM: 02/08/2018 Comparison: 10/27/2017 Clinical History: 47-year-old male Shortness of breath Findings: Upper limits of normal in size. Large patient body habitus, leftward patient rotation, and portable t echnique results in underpenetration. Mild diffuse interstitial prominence. Prominent opacity in the left lung likely overlying soft tissue density. No significant pleural effusion seen. No definite con solidation. Impression: 1. Limited portable exam. 2. Borderline heart size. 3. Chronic appearing changes. No definite acute process.
[2018-02-08] MEDS ORDERED: ALBUTEROL NEBULIZED 2.5 MG/3 ML INHALATION PRN (19:14)
[2018-02-08 20:04] LABS: Glucose,Whole Blood 206 mg/dL (75-99)
[2018-02-08] MEDS: HEPARIN SODIUM,PORCINE 5,000 UNIT/ML 1 ML VIAL SQ SCH ×2 (20:07→23:34)
--- NOTE | 2018-02-09 00:42 | PN ---
PROGRESS NOTE DATE OF SERVICE: 02/08/2018. REASON FOR FOLLOWUP: Left lower chest wall abscess and cellulitis. INTERVAL HISTORY: The patient is afebrile, has been breathing comfortably. Denies having any chest pain, shortness of breath, or cough. The left lower chest wall erythema and redness have improved. No drainage. EXAMINATION: Blood pressure is 144/81 with a pulse of 91, temperature 98.5. He is 94% on room air. GENERAL DESCRIPTION: A middle aged male up in the bed in no distress. RESPIRATORY SYSTEM: Unlabored breathing. Clear to auscultation anteriorly. HEART: S1, S2. Regular rate and rhythm. ABDOMEN: Soft. SKIN: Left lower chest wall wound swelling and induration decreased. No drainage on the dressing. LABS: Hemoglobin is 10.1, white count 6.2, BUN of 9, creatinine 3.05. DIAGNOSTIC IMPRESSION AND PLAN: Patient with left lower chest wall abscess status post drainage, culture positive for MSSA. Patient currently on cefazolin. Unfortunately since the patient has developed a toxicity, vancomycin was discontinued yesterday. Will wait for the patient's kidney function to normalize before discharge on oral antibiotics. Continue supportive care. MMODL / IJN: [id number] /
[2018-02-09] MEDS: METOCLOPRAMIDE 5 MG/ML 2 ML VIAL IVP PRN ×2 (06:31→16:33)
[2018-02-09 07:00] LABS: Glucose,Whole Blood 106 mg/dL (75-99)
[2018-02-09] MEDS: INSULIN ASPART 100 UNIT/ML 1 ML 10 ML VIAL SQ SCH ×4 (07:14→22:07)
[2018-02-09 08:01] LABS: Basophils % (A) 1 %; Eosinophils # (A) 0.4 k/uL (0-0.7); Eosinophils % (A) 8 %; Hypochromasia Moderate; Lymphocytes # (A) 0.9 k/uL (1.0-4.8); Lymphocytes % (A) 17 %; MCH 24.7 pg (25.0-35.0); MCHC 31.4 g/dL (31.0-37.0); MCV 78.8 fL (80.0-100.0); Mean Platelet Volume 6.2; Monocytes # (A) 0.5 k/uL (0-1.0); Monocytes % (A) 9 %; Neutrophils # (A) 3.2 k/uL (1.3-7.7); Neutrophils % (A) 62 %; Platelet Count 319 k/uL (150-450); RBC 4.06 m/uL (4.30-5.90); RDW 14.6 % (11.5-15.5); WBC 5.2 k/uL (3.8-10.6)
[2018-02-09] MEDS: HEPARIN SODIUM,PORCINE 5,000 UNIT/ML 1 ML VIAL SQ SCH ×2 (08:33→15:34)
[2018-02-09] MEDS: PANTOPRAZOLE 40 MG TABLET PO SCH (08:33)
[2018-02-09] MEDS: BALSALAZIDE DISODIUM 750 MG CAPSULE PO SCH ×3 (08:34→22:04)
[2018-02-09] MEDS: buPROPion SR 150 MG TABLET.ER PO SCH ×2 (08:34→22:06)
[2018-02-09] MEDS: hydrOXYzine HCL 25 MG TAB PO SCH ×2 (08:34→22:07)
[2018-02-09] MEDS: DICYCLOMINE 20 MG TAB PO SCH ×4 (08:35→22:04)
[2018-02-09 08:38] LABS: Calcium 8.4 mg/dL (8.4-10.2)
[2018-02-09 08:42] LABS: Vancomycin,Random 19.7 ug/mL
--- NOTE | 2018-02-09 09:55 | P.NPCON ---
History of Present Illness - Reason for Consult acute renal failure - History of Present Illness Reason for consultation: Acute kidney injury History of present illness: Patient is a 47-year-old male seen in renal consultation for acute kidney injury. Patient's creatinine on admission was near 1 and is elevated at 3.14 today. Patient presented to the hospital with left chest wall abscess and cellulitis. He underwent drainage of the abscess this admission. Wound culture is positive for MSSA. Patient did receive IV vancomycin and his level was noted to be 26.8 as of yesterday. Due to worsening renal function vancomycin has been discontinued and he is now maintained on oral. Patient MrMary good urine output. Denies any hematuria or dysuria. Patient does have history of diabetes mellitus and states he was diagnosed 6 months ago. He has history of ulcers colitis and does admit to chronic vomiting and diarrhea. Patient states he had loose bowel movement this morning. He is tolerating oral intake. He denies use of NSAIDs. Prior to admission he did take Bactrim for 2 days. Denies family history of renal disease. Hemodynamically stable. Vital signs are stable. General: The patient appeared well nourished and normally developed. HEENT: Head exam is unremarkable. Neck is without jugular venous distension. LUNGS: Lungs are clear to auscultation and percussion. Breath sounds decreased. Wound dressing present. No obvious drainage noted. HEART: Rate and Rhythm are regular. First and second heart sounds normal. No murmurs, rubs or gallops. ABDOMEN: Abdominal exam reveals normal bowel sounds. Non-tender and non- distended. No evidence of peritonitis. EXTREMITITES: No clubbing, cyanosis, or edema. 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 History of Any Multi-Drug Resistant Organisms: MRSA Date of last positivie culture/infection: 05/19/2007 MDRO Source:: wound on torso Past Surgical History: Back Surgery, Heart Catheterization Additional Past Surgical History / Comment(s): Hx recent "clear heart cath", back surgery x2;multiple colonoscopies, EGD, deviated septum repair. Past Anesthesia/Blood Transfusion Reactions: No Reported Reaction Past Psychological History: Anxiety, Depression Additional Psychological History / Comment(s): Pt states he takes wellbutrin which helps with his depression. Pt lives with his mother and sister and his 2 children ages 16 and 17. He is independent. Smoking Status: Former smoker Past Alcohol Use History: None Reported Additional Past Alcohol Use History / Comment(s): Smoked 1 ppd, started smoking 1995.Quit 2004. Past Drug Use History: None Reported - Past Family History Mother Family Medical History: Diabetes Mellitus Additional Family Medical History / Comment(s): Mother is blind due to diabetic retinopathy. She is 78yrs old. Father Family Medical History: Cancer, CVA/TIA Additional Family Medical History / Comment(s): Father of prostate cancer with mets to liver at the age of 81 yrs. Medications and Allergies Home Medications Medication Instructions Recorded Confirmed Type Mesalamine [Delzicol] 800 mg PO TID 03/30/14 02/04/18 History Prochlorperazine [Compazine] 10 mg PO BID 03/30/14 02/04/18 History hydrOXYzine HCL 25 mg PO BID 03/30/14 02/04/18 History Cholecalciferol [Vitamin D3] 5,000 unit PO DAILY 10/24/16 02/04/18 History Dicyclomine [Bentyl] 20 mg PO QID 10/24/16 02/04/18 History Milk Thistle 150 mg PO DAILY 10/24/16 02/04/18 History Ondansetron HCl [Zofran] 8 mg PO BID 10/24/16 02/04/18 History metFORMIN HCL [Glucophage] 500 mg PO AC-BID 10/24/16 02/04/18 History Zolpidem [Ambien] 10 mg PO HS 10/26/16 02/04/18 History Adalimumab [Humira Pen] 40 mg SQ Q14D 03/17/17 02/04/18 History buPROPion SR [Wellbutrin SR] 150 mg PO BID 03/17/17 02/04/18 History HYDROcodone/APAP 7.5-325MG [[place] 1 tab PO BID PRN 11/22/17 02/04/18 History 7.5-325] INSULIN LISPRO (HumaLOG) [humaLOG] See Protocol SQ AC-BID 11/22/17 02/04/18 History Curcumin 500 mg PO BID 02/04/18 02/04/18 History Pantoprazole Sodium [Protonix] 40 mg PO DAILY 02/04/18 02/04/18 History Sulfamethox-Tmp 800-160Mg [Bactrim 1 tab PO BID 02/04/18 02/04/18 History DS 800-160 mg] Allergies Allergy/AdvReac Type Severity Reaction Status Date / Time No Known Allergies Allergy Verified 02/04/18 18:54 Physical Exam Vitals: Vital Signs Temp Pulse Pulse Resp BP Pulse Ox 02/09/18 07:00 98.0 F 78 16 125/79 93 L 02/09/18 03:30 18 02/09/18 02:45 99.1 F 94 16 136/76 92 L 02/08/18 20:15 98.5 F 91 18 144/81 94 L 02/08/18 17:52 88 02/08/18 17:40 83 02/08/18 17:05 85 18 140/88 02/08/18 16:28 98.5 F 88 18 113/78 95 Intake and Output 02/08/18 02/09/18 02/09/18 22:59 06:59 14:59 Intake Total 240 180 Balance 240 180 Intake: Oral 240 180 Other: # Voids 1 2 Results - Lab Results Most recent lab results Calcium 8.4 mg/dL (8.4-10.2) 02/09/18 06:23 02/09/18 06:23 02/09/18 06:23 Assessment and Plan Plan: Assessment: 1. Nonoliguric acute kidney injury secondary to ATN secondary to vancomycin toxicity. Baseline creatinine is near 1 and elevated at 3.14 today. 2. Left chest wall abscess status post drainage maintained on antibiotics. 3. Insulin-dependent diabetes mellitus. Plan: Start normal saline at 50 mL an hour. Encourage oral intake. Avoid nephrotoxins. Check urinalysis. Check renal ultrasound. Check urine eosinophils. Repeat electrolytes in the morning. Thank you for the consultation. I will continue to follow patient with you during his hospital stay.
--- NOTE | 2018-02-09 09:59 | P.PN ---
Subjective Progress Note Date: 02/09/18 Principal diagnosis: Left chest wall abscess 47-year-old male patient with history of pyoderma gangrenosa admitted to the hospital for left chest wall abscess; patient is status post incision and drainage; wound culture currently showing staph aureus with final culture and sensitivity report is pending; patient remains on IV antibiotics; IDs following and Levitra recommendations on final choice and duration of antibiotics 02/09/2018 Patient is seen and evaluated in the room at bedside; he had episode of shortness of breath last night; chest x-ray was done which was unremarkable; patient does have history of asthma and bronchodilator nebulizer treatment was prescribed which didn't improve patient's symptoms; patient's vital signs are stable this morning with a blood pressure of 125/79 SpO2 of 93% on room air Labs were reviewed with patient showing continued upward trend in creatinine which is at 3.14 this morning; patient has been on IV vancomycin for anterior chest wall abscess; vancomycin is discontinued due to renal toxicity and patient is started on 2 g IV every 8 hours per ID recommendations Consult is placed for nephrology service to see patient for acute renal failure possibly secondary to vancomycin toxicity Objective - Vital Signs Vital signs: Vital Signs Temp 98.0 F 02/09/18 07:00 Pulse 78 02/09/18 07:00 Resp 16 02/09/18 07:00 BP 125/79 02/09/18 07:00 Pulse Ox 93 L 02/09/18 07:00 Intake & Output 02/08/18 02/09/18 02/09/18 18:59 06:59 18:59 Intake Total 430 240 180 Balance 430 240 180 Intake: Oral 430 240 180 Other: # Voids 1 2 - Exam - Constitutional General appearance: Present: average body habitus, cooperative, no acute distress - EENT Eyes: Present: anicteric sclerae, EOMI, PERRLA, normal appearance ENT: Present: hearing grossly normal, normal oropharynx Ears: bilateral: normal - Neck Neck: Present: normal ROM. Absent: lymphadenopathy, rigidity, thyromegaly Carotids: negative: bruit present Thyroid: bilateral: normal size, negative: enlarged, nodule - Respiratory Respiratory: bilateral: CTA, negative: rales, rhonchi, wheezing - Cardiovascular Rhythm: regular Heart sounds: normal: S1, S2 Abnormal Heart Sounds: Absent: systolic murmur, diastolic murmur - Gastrointestinal General gastrointestinal: Present: normal bowel sounds, soft. Absent: distended , organomegaly, tenderness - Genitourinary Genitourinary Comment(s): deferred - Integumentary Integumentary: Present: normal turgor. Absent: jaundiced, rash, ulcer - Neurologic Neurologic: Present: CNII-XII intact. Absent: focal deficits - Musculoskeletal Musculoskeletal: Present: gait normal, strength equal bilaterally - Psychiatric Psychiatric: Present: A&O x's 3, appropriate affect, intact judgment & insight - Labs CBC & Chem 7: 02/09/18 06:23 02/09/18 06:23 Labs: Abnormal Lab Results - Last 24 Hours (Table) 02/08/18 02/08/18 02/08/18 Range/Units 12:11 17:04 20:02 RBC (4.30-5.90) m/uL Hgb (13.0-17.5) gm/dL Hct (39.0-53.0) % MCV (80.0-100.0) fL MCH (25.0-35.0) pg Lymphocytes # (1.0-4.8) k/uL Creatinine (0.66-1.25) mg/dL Glucose (74-99) mg/dL POC Glucose (mg/dL) 132 H 112 H 206 H (75-99) mg/dL 02/09/1818 02/09/18 Range/Units 06:23 06:23 06:58 RBC 4.06 L (4.30-5.90) m/uL Hgb 10.0 L (13.0-17.5) gm/dL Hct 32.0 L (39.0-53.0) % MCV 78.8 L (80.0-100.0) fL MCH 24.7 L (25.0-35.0) pg Lymphocytes # 0.9 L (1.0-4.8) k/uL Creatinine 3.14 H (0.66-1.25) mg/dL Glucose 107 H (74-99) mg/dL POC Glucose (mg/dL) 106 H (75-99) mg/dL Microbiology - Last 24 Hours (Table) 02/04/18 17:41 Blood Culture - Preliminary Blood No Growth after 96 hours Assessment and Plan Assessment: 1. Acute renal failure possibly secondary to vancomycin toxicity - IV vancomycin has been discontinued and has been substituted with Kefzol 2 g IV every 8 hours - Nephrology is consulted we appreciate their input in management of this patient - We will continue to monitor strict ALY's and daily weights, monitor BUN/ creatinine electrolytes - We will start patient on IV fluid hydration if nephrology service is agreeable 2. Left chest wall abscess: - Status post status post incision and drainage. Patient is on broad-spectrum antibiotics will be awaiting wound cultures. Patient was on IV vancomycin which has been discontinued secondary to renal toxicity and has been substituted with Kefzol 2 g IV every 8 hours. Patient has staph aureus and on the in the wound cultures. 2. Pyoderma gangrenosum which is now infected. 3. Type 2 diabetes mellitus, patient will be resumed on his home regimen titrate insulin depending and blood sugars here 4. Fibromyalgia 5. Asthma with mild acute exacerbation - We will start patient on bronchodilator and steroid nebulizer treatments every 6 hours and every 4 hours when necessary - We will also start on low-dose oral steroids as prednisone 40 mg twice a day - Pulmonary consult has been placed and recommendations are pending 6. Gastroesophageal reflux disease; stable on Protonix 40 mg by mouth before meals breakfast 7. Ulcerative colitis: Patient will be resumed and continued on his immunosuppressive therapy and symptomatic treatment for his diarrhea. 8. DVT prophylaxis; subcu heparin CODE STATUS; full code Time with Patient: Greater than 30
--- NOTE | 2018-02-09 11:01 | US ---
EXAMINATION TYPE: US kidneys/renal and bladder DATE OF EXAM: 02/09/2018 COMPARISON: CT abdomen and pelvis December 31, 2017 CLINICAL HISTORY: farhan. Patient states taking medicine that is known to affect kidneys. Abnormal labs . Hx of renal cyst. EXAM MEASUREMENTS: Right Kidney: 12.9 x 5.5 x 6.8 cm Left Kidney: 13.5 x 5.6 x 6.7 cm Limited exam due to patient body habitus Right Kidney: wnl Left Kidney: Upper cystic appearing lesion seen = 1.4 x 1.2 x 1.3 cm Bladder: Poorly distended, appears wnl as visualized Bilateral Jets seen There is no evidence for hydronephrosis at this point in time. No nephrolithiasis is seen. No suspi cious solid or cystic masses are identified bilaterally. The urinary bladder is poorly distended. B ilateral ureteral jets are seen. Visualized adjacent liver is heterogeneously hyperechoic system with diffuse fatty infiltration. Tech nologist hermosillo 1.3 cm simple appearing cyst laterally upper pole level left kidney which correlates w ith recent CT. IMPRESSION: Suboptimal study without hydronephrosis identified bilaterally
[2018-02-09 11:50] LABS: Glucose,Whole Blood 97 mg/dL (75-99)
[2018-02-09] MEDS: ceFAZolin IN SWFI 2 GM/20 ML SYRINGE IVP SCH ×2 (12:11→18:03)
[2018-02-09] MEDS: SODIUM CHLORIDE 0.9% 1,000 ML IV SCH (12:20)
[2018-02-09] MEDS: ONDANSETRON 4 MG/2 ML VIAL IVP PRN (12:47)
--- NOTE | 2018-02-09 13:00 | P.CNPUL ---
History of Present Illness Consult date: 02/09/18 Reason for consult: dyspnea, cough, chest pain, asthma, COPD, hypoxemia, obstructive sleep apnea Chief complaint: Chest tightness shortness of breath episode History of present illness: [id number] male well-known to me with history of CVA or COPD, patient also has a history of lung lesions thought to be related to ulcerative colitis, as well as pneumonia for which she was getting long-term follow-up this patient has been admitted to hospital in due to left axillary thoracic wall abscess which was incised were yesterday patient had an episode in which he developed some chest tightness and shortness of breath desaturated transiently has some breathing issues however improved significantly today today denies any chest pain shortness of breath denies any cough or sputum production, patient responded well with bronchodilators as well as deep breathing exercise much chest x-ray otherwise unremarkable, on specific questioning he denies any loss of consciousness or hemiparesis denies any seizure-like activity, denies any ongoing history of cough or sputum production does have mild degree or shortness of breath does have a history of mild COPD which is being monitor observe an outpatient setting with a history of the dense pneumonia and lung masses likely related to ulcerative colitis inflammatory processes resolve over. Time, does have a history of ulcerative colitis currently appears to be in remission Review of Systems All systems: negative Past Medical History Past Medical History: Asthma, Chest Pain / Angina, Diabetes Mellitus, Fibromyalgia, GERD/Reflux, GI Bleed, Pneumonia Additional Past Medical History / Comment(s): Ulcerative colitis, recent pneumonia 2 1/2 weeks ago with pleurisy, past pne with pleurisy, R/L lung masses being followed, NIDDM type II, lumbar herniated disc, arthritis back bilateral hips, knees and shoulders, 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 History of Any Multi-Drug Resistant Organisms: MRSA Date of last positivie culture/infection: 05/19/2007 MDRO Source:: wound on torso Past Surgical History: Back Surgery, Heart Catheterization Additional Past Surgical History / Comment(s): Hx recent "clear heart cath", back surgery x2;multiple colonoscopies, EGD, deviated septum repair. Past Anesthesia/Blood Transfusion Reactions: No Reported Reaction Past Psychological History: Anxiety, Depression Additional Psychological History / Comment(s): Pt states he takes wellbutrin which helps with his depression. Pt lives with his mother and sister and his 2 children ages 16 and 17. He is independent. Smoking Status: Former smoker Past Alcohol Use History: None Reported Additional Past Alcohol Use History / Comment(s): Smoked 1 ppd, started smoking 1995.Quit 2004. Past Drug Use History: None Reported - Past Family History Mother Family Medical History: Diabetes Mellitus Additional Family Medical History / Comment(s): Mother is blind due to diabetic retinopathy. She is 78yrs old. Father Family Medical History: Cancer, CVA/TIA Additional Family Medical History / Comment(s): Father of prostate cancer with mets to liver at the age of 81 yrs. Medications and Allergies Home Medications Medication Instructions Recorded Confirmed Type Mesalamine [Delzicol] 800 mg PO TID 03/30/14 02/04/18 History Prochlorperazine [Compazine] 10 mg PO BID 03/30/14 02/04/18 History hydrOXYzine HCL 25 mg PO BID 03/30/14 02/04/18 History Cholecalciferol [Vitamin D3] 5,000 unit PO DAILY 10/24/16 02/04/18 History Dicyclomine [Bentyl] 20 mg PO QID 10/24/16 02/04/18 History Milk Thistle 150 mg PO DAILY 10/24/16 02/04/18 History Ondansetron HCl [Zofran] 8 mg PO BID 10/24/16 02/04/18 History metFORMIN HCL [Glucophage] 500 mg PO AC-BID 10/24/16 02/04/18 History Zolpidem [Ambien] 10 mg PO HS 10/26/16 02/04/18 History Adalimumab [Humira Pen] 40 mg SQ Q14D 03/17/17 02/04/18 History buPROPion SR [Wellbutrin SR] 150 mg PO BID 03/17/17 02/04/18 History HYDROcodone/APAP 7.5-325MG [Telluride 1 tab PO BID PRN 11/22/17 02/04/18 History 7.5-325] INSULIN LISPRO (HumaLOG) [humaLOG] See Protocol SQ AC-BID 11/22/17 02/04/18 History Curcumin 500 mg PO BID 02/04/18 02/04/18 History Pantoprazole Sodium [Protonix] 40 mg PO DAILY 02/04/18 02/04/18 History Sulfamethox-Tmp 800-160Mg [Bactrim 1 tab PO BID 02/04/18 02/04/18 History DS 800-160 mg] Allergies Allergy/AdvReac Type Severity Reaction Status Date / Time No Known Allergies Allergy Verified 02/04/18 18:54 Physical Exam Vitals: Vital Signs Temp Pulse Pulse Resp BP Pulse Ox 02/09/18 07:00 98.0 F 78 16 125/79 93 L 02/09/18 03:30 18 02/09/18 02:45 99.1 F 94 16 136/76 92 L 02/08/18 20:15 98.5 F 91 18 144/81 94 L 02/08/18 17:52 88 02/08/18 17:40 83 02/08/18 17:05 85 18 140/88 02/08/18 16:28 98.5 F 88 18 113/78 95 Intake and Output 02/08/18 02/09/18 02/09/18 22:59 06:59 14:59 Intake Total 240 180 Balance 240 180 Intake: Oral 240 180 Other: # Voids 1 2 GENERAL: The patient is alert and oriented x3, not in any acute distress. Well developed, well nourished. HEENT: Pupils are round and equally reacting to light. EOMI. No scleral icterus. No conjunctival pallor. Normocephalic, atraumatic. No pharyngeal erythema. No thyromegaly. Neck, supple no lymph adenopathy no bruit and no jugular venous distention CARDIOVASCULAR: S1 and S2 present. No murmurs, rubs, or gallops. PULMONARY: Chest is clear to auscultation, no wheezing or crackles. ABDOMEN: Soft, nontender, nondistended, normoactive bowel sounds. No palpable organomegaly. MUSCULOSKELETAL: No joint swelling or deformity. EXTREMITIES: No cyanosis, clubbing, or pedal edema. NEUROLOGICAL: Gross neurological examination did not reveal any focal deficits. SKIN: Left the chest wall abscess is status post drainage and packed. Patient does have history of pyoderma gangrenosum lesions from the past Results - Laboratory Findings CBC and BMP: 02/09/18 06:23 02/09/18 06:23 PT/INR, D-dimer PT 10.5 sec (9.0-12.0) 02/05/18 06:23 INR 1.1 (<1.2) 02/05/18 06:23 Abnormal lab findings: Abnormal Labs 02/04/18 02/04/18 02/04/18 17:41 17:41 22:19 RBC Hgb 12.1 L Hct 35.7 L MCV 76.3 L MCH MCHC Lymphocytes # 0.9 L BUN Creatinine Glucose 123 H POC Glucose (mg/dL) 130 H Hemoglobin A1c AST 16 L Albumin 02/05/18 02/05/18 02/05/18 01:47 06:23 06:23 RBC Hgb 11.1 L Hct 34.5 L MCV 78.4 L MCH MCHC Lymphocytes # BUN Creatinine Glucose 123 H POC Glucose (mg/dL) 135 H Hemoglobin A1c AST Albumin 02/05/18 02/05/18 02/05/18 06:23 07:16 12:08 RBC Hgb Hct MCV MCH MCHC Lymphocytes # BUN Creatinine Glucose POC Glucose (mg/dL) 138 H 128 H Hemoglobin A1c 8.2 H AST Albumin 02/05/18 02/05/18 02/06/18 17:19 20:15 04:58 RBC Hgb Hct MCV MCH MCHC Lymphocytes # BUN 6 L Creatinine Glucose 127 H POC Glucose (mg/dL) 181 H 159 H Hemoglobin A1c AST 13 L Albumin 3.4 L 02/06/18 02/06/18 02/06/18 04:58 07:09 12:49 RBC 4.27 L Hgb 10.6 L Hct 33.5 L MCV 78.4 L MCH 24.9 L MCHC Lymphocytes # BUN Creatinine Glucose POC Glucose (mg/dL) 151 H 158 H Hemoglobin A1c AST Albumin 02/06/18 02/06/18 02/07/18 16:56 21:05 04:07 RBC Hgb Hct MCV MCH MCHC Lymphocytes # BUN Creatinine Glucose POC Glucose (mg/dL) 154 H 193 H 127 H Hemoglobin A1c AST Albumin 02/07/18 02/07/18 02/07/18 06:47 07:13 11:36 RBC Hgb Hct MCV MCH MCHC Lymphocytes # BUN 8 L Creatinine 2.18 H Glucose 147 H POC Glucose (mg/dL) 170 H 131 H Hemoglobin A1c AST Albumin 02/07/18 02/07/18 02/08/18 17:26 20:33 07:12 RBC Hgb Hct MCV MCH MCHC Lymphocytes # BUN Creatinine Glucose POC Glucose (mg/dL) 127 H 140 H 117 H Hemoglobin A1c AST Albumin 02/08/18 02/08/18 02/08/18 07:34 07:34 12:11 RBC 4.09 L Hgb 10.1 L Hct 33.1 L MCV MCH 24.8 L MCHC 30.6 L Lymphocytes # BUN Creatinine 3.05 H Glucose 118 H POC Glucose (mg/dL) 132 H Hemoglobin A1c AST Albumin 02/08/18 02/08/18 02/09/18 17:04 20:02 06:23 RBC Hgb Hct MCV MCH MCHC Lymphocytes # BUN Creatinine 3.14 H Glucose 107 H POC Glucose (mg/dL) 112 H 206 H Hemoglobin A1c AST Albumin 02/09/18 02/09/18 06:23 06:58 RBC 4.06 L Hgb 10.0 L Hct 32.0 L MCV 78.8 L MCH 24.7 L MCHC Lymphocytes # 0.9 L BUN Creatinine Glucose POC Glucose (mg/dL) 106 H Hemoglobin A1c AST Albumin - Diagnostic Findings Chest x-ray: report reviewed, image reviewed (No active process noted) Assessment and Plan Assessment: COPD exacerbation Cough and shortness of breath likely related to mucous plug Sleep disorder breathing and sleep apnea Advanced ulcerative colitis Uncontrolled diabetes mellitus and hyperglycemia Left thoracic wall MSSA related abscesses Plan: Bronchodilators Deep breathing exercise incentive spirometric Broad-spectrum antibiotics for MSSA cellulitis and abscess of left thoracic wall DVT and peptic ulcer disease prophylaxis Polysomnogram as outpatient Hold on steroids anticipated breathing treatment as needed as ordered should be sufficient as patient is asymptomatic Further recommendations pending plan of care as per clinical response of the patient Time with Patient: Greater than 30
[2018-02-09 13:18] LABS: Prothrombin Time 10.2 sec (9.0-12.0)
[2018-02-09 13:40] LABS: Appearance,Urine Clear (Clear); Bilirubin,Urine Negative (Negative); Blood,Urine Negative (Negative); Color,Urine Light Yellow; Glucose,Urine (UA) Negative (Negative); Ketones,Urine Negative (Negative); Leukocyte Esterase,Urine Negative (Negative); Nitrite,Urine Negative (Negative); PH, Urine 5.5 (5.0-8.0); Protein,Urine Negative (Negative); Specific Gravity,Urine 1.004 (1.001-1.035); Urobilinogen,Urine <2.0 mg/dL (<2.0)
[2018-02-09] MEDS: HYDROmorphone 1 MG/ML 1 ML SYRINGE IVP PRN ×2 (15:31→22:36)
[2018-02-09 17:00] LABS: Glucose,Whole Blood 145 mg/dL (75-99)
[2018-02-09 21:35] LABS: Glucose,Whole Blood 149 mg/dL (75-99)
[2018-02-09] MEDS: HYDROcodone/APAP 7.5-325MG 1 EACH TAB PO PRN (22:07)
[2018-02-10] MEDS: HEPARIN SODIUM,PORCINE 5,000 UNIT/ML 1 ML VIAL SQ SCH ×4 (00:11→23:42)
[2018-02-10] MEDS: ceFAZolin IN SWFI 2 GM/20 ML SYRINGE IVP SCH ×4 (00:11→23:42)
[2018-02-10] MEDS: ZOLPIDEM 10 MG TAB PO PRN ×2 (00:11→23:42)
[2018-02-10] MEDS: METOCLOPRAMIDE 5 MG/ML 2 ML VIAL IVP PRN ×2 (06:21→17:55)
[2018-02-10 06:43] LABS: Glucose,Whole Blood 118 mg/dL (75-99)
[2018-02-10 07:51] LABS: Calcium 8.6 mg/dL (8.4-10.2); Potassium 4.6 mmol/L (3.5-5.1)
[2018-02-10] MEDS: INSULIN ASPART 100 UNIT/ML 1 ML 10 ML VIAL SQ SCH ×4 (07:58→21:31)
[2018-02-10 08:03] LABS: Basophils # (A) 0.1 k/uL (0-0.2); Basophils % (A) 1 %; Eosinophils # (A) 0.6 k/uL (0-0.7); Eosinophils % (A) 9 %; HCT 35.5 % (39.0-53.0); HGB 10.8 gm/dL (13.0-17.5); Hypochromasia Marked; Lymphocytes % (A) 15 %; MCH 24.7 pg (25.0-35.0); MCHC 30.4 g/dL (31.0-37.0); MCV 81.2 fL (80.0-100.0); Mean Platelet Volume 6.4; Monocytes # (A) 0.5 k/uL (0-1.0); Monocytes % (A) 7 %; Neutrophils # (A) 4.2 k/uL (1.3-7.7); Neutrophils % (A) 64 %; Platelet Count 344 k/uL (150-450); RBC 4.37 m/uL (4.30-5.90); RDW 14.5 % (11.5-15.5); WBC 6.5 k/uL (3.8-10.6)
--- NOTE | 2018-02-10 08:33 | PN ---
PROGRESS NOTE DATE OF SERVICE: 02/09/2018 REASON FOR FOLLOWUP: Left lower abdominal wall abscess and cellulitis. INTERVAL HISTORY: The patient is currently afebrile. He is breathing comfortably. Denies having any chest pain, shortness of breath, no cough. No nausea, vomiting. No abdominal pain or any diarrhea. PHYSICAL EXAMINATION: Blood pressure is 128/86, pulse of 94, temperature 98.8. He is 93% on room air. General description is a middle-aged male, up in the bed in no distress. RESPIRATORY SYSTEM: Unlabored breathing, clear to auscultation anteriorly. HEART S1, S2. Regular rate and rhythm. ABDOMEN: Soft, no tenderness. EXTREMITIES: No edema of the feet. LABS: Hemoglobin is 10, white count 5.2, BUN of 12, creatinine 3.14. DIAGNOSTIC IMPRESSION AND PLAN: Patient with left lower chest wall abscess, status post drainage culture with positive for methicillin-sensitive Staphylococcus aureus. Patient currently on cefazolin. Unfortunately, the patient did develop toxicity from the vancomycin and did have a jump in his creatinine, currently being managed by Nephrology. Will continue to monitor the patient up closely. Keep the patient IV cefazolin with therapy with oral Keflex local wound care with Aquacel Silver packing. Continue supportive care. MMODL / IJN: [id number] /
[2018-02-10] MEDS: PANTOPRAZOLE 40 MG TABLET PO SCH (08:46)
[2018-02-10] MEDS: SODIUM CHLORIDE 0.9% 1,000 ML IV SCH (08:47)
[2018-02-10] MEDS: hydrOXYzine HCL 25 MG TAB PO SCH ×2 (08:47→21:31)
[2018-02-10] MEDS: buPROPion SR 150 MG TABLET.ER PO SCH ×2 (08:48→21:31)
[2018-02-10] MEDS: BALSALAZIDE DISODIUM 750 MG CAPSULE PO SCH ×3 (08:48→21:32)
[2018-02-10] MEDS: DICYCLOMINE 20 MG TAB PO SCH ×4 (08:49→21:32)
[2018-02-10 11:54] LABS: Glucose,Whole Blood 111 mg/dL (75-99)
--- NOTE | 2018-02-10 12:47 | P.PN ---
Subjective Patient is seen in follow-up for acute kidney injury. Baseline creatinine is 1 and elevated at 3.33 today. Currently resting in bed. Oral intake is good. Admits to good urine output. No hematuria or dysuria. He's being treated for left chest wall cellulitis. Vital signs are stable. General: The patient appeared well nourished and normally developed. HEENT: Head exam is unremarkable. Neck is without jugular venous distension. LUNGS: Lungs are clear to auscultation and percussion. Breath sounds decreased. HEART: Rate and Rhythm are regular. First and second heart sounds normal. No murmurs, rubs or gallops. ABDOMEN: Abdominal exam reveals normal bowel sounds. Non-tender and non- distended. No evidence of peritonitis. EXTREMITITES: No clubbing, cyanosis, or edema. Objective - Vital Signs Vital signs: Vital Signs Temp 98.2 F 02/10/18 07:00 Pulse 89 02/10/18 07:00 Resp 16 02/10/18 07:00 BP 114/78 02/10/18 07:00 Pulse Ox 96 02/10/18 07:00 Intake & Output 02/09/18 02/10/18 02/10/18 18:59 06:59 18:59 Intake Total 1476 450 480 Output Total 200 Balance 1276 450 480 Weight 142.882 kg Intake: Intake, IV Titration 400 450 Amount Sodium Chloride 0.9% 1, 400 450 000 ml @ 50 mls/hr IV . Q20H [facility] Rx#:[id number] Oral 1076 480 Output: Urine 200 Other: Voiding Method Toilet # Voids 2 - Labs CBC & Chem 7: 02/10/18 06:54 02/10/18 06:54 Labs: Abnormal Lab Results - Last 24 Hours (Table) 02/09/18 02/09/18 02/10/18 Range/Units 16:59 21:34 06:41 Hgb (13.0-17.5) gm/dL Hct (39.0-53.0) % MCH (25.0-35.0) pg MCHC (31.0-37.0) g/dL Creatinine (0.66-1.25) mg/dL Glucose (74-99) mg/dL POC Glucose (mg/dL) 145 H 149 H 118 H (75-99) mg/dL 02/10/18 02/10/18 02/10/18 Range/Units 06:54 06:54 11:52 Hgb 10.8 L (13.0-17.5) gm/dL Hct 35.5 L (39.0-53.0) % MCH 24.7 L (25.0-35.0) pg MCHC 30.4 L (31.0-37.0) g/dL Creatinine 3.33 H (0.66-1.25) mg/dL Glucose 110 H (74-99) mg/dL POC Glucose (mg/dL) 111 H (75-99) mg/dL Microbiology - Last 24 Hours (Table) 02/04/18 17:41 Blood Culture - Preliminary Blood No Growth after 120 hours 02/05/18 09:15 Anaerobic Culture - Final Chest Assessment and Plan Plan: Assessment: 1. Nonoliguric acute kidney injury secondary to ATN secondary to vancomycin toxicity. Baseline creatinine is near 1 and elevated at 3.33 today. Urinalysis is benign. Urine eosinophils negative. No evidence of hydronephrosis noted on renal ultrasound. 2. Left chest wall abscess status post drainage maintained on antibiotics. 3. Insulin-dependent diabetes mellitus. Plan: Maintain normal saline at 50 mL an hour. Encourage oral intake. Avoid nephrotoxins. Repeat electrolytes in the morning. I expect renal function to improve over the next 24-48 hours.
--- NOTE | 2018-02-10 13:52 | P.PN ---
Subjective Progress Note Date: 02/10/18 Principal diagnosis: Chronic intermittent asthma, COPD, severe morbid obesity, obstructive sleep apnea, left axillary abscess, uncontrolled diabetes mellitus with complications , ulcerative colitis 02/10/2018, patient seen eval examined during rounds clinically patient has been doing relatively better no more episode of shortness of breath or chest tightness has been noted patient is breathing more comfortably denies any cough or sputum production he has been on as needed bronchodilator he does have a history of snoring and apneic events he would like to be evaluated for sleep- disordered breathing and sleep apnea to be consider outpatient setting, currently patient is receiving antibiotic therapy for MSSA left axillary abscess status post I&D 47 year-old male well-known to me with history of CVA or COPD, patient also has a history of lung lesions thought to be related to ulcerative colitis, as well as pneumonia for which she was getting long-term follow-up this patient has been admitted to hospital in due to left axillary thoracic wall abscess which was incised were yesterday patient had an episode in which he developed some chest tightness and shortness of breath desaturated transiently has some breathing issues however improved significantly today today denies any chest pain shortness of breath denies any cough or sputum production, patient responded well with bronchodilators as well as deep breathing exercise much chest x-ray otherwise unremarkable, on specific questioning he denies any loss of consciousness or hemiparesis denies any seizure-like activity, denies any ongoing history of cough or sputum production does have mild degree or shortness of breath does have a history of mild COPD which is being monitor observe an outpatient setting with a history of the dense pneumonia and lung masses likely related to ulcerative colitis inflammatory processes resolve over. Time, does have a history of ulcerative colitis currently appears to be in remission Objective - Vital Signs Vital signs: Vital Signs Temp 98.2 F 02/10/18 07:00 Pulse 89 02/10/18 07:00 Resp 16 02/10/18 07:00 BP 114/78 02/10/18 07:00 Pulse Ox 96 02/10/18 07:00 Intake & Output 02/09/18 02/10/18 02/10/18 18:59 06:59 18:59 Intake Total 1476 450 960 Output Total 200 Balance 1276 450 960 Weight 142.882 kg Intake: Intake, IV Titration 400 450 Amount Sodium Chloride 0.9% 1, 400 450 000 ml @ 50 mls/hr IV . Q20H [facility] Rx#:[id number] Oral 1076 960 Output: Urine 200 Other: Voiding Method Toilet # Voids 2 - Exam GENERAL: The patient is alert and oriented x3, not in any acute distress. Well developed, well nourished. HEENT: Pupils are round and equally reacting to light. EOMI. No scleral icterus. No conjunctival pallor. Normocephalic, atraumatic. No pharyngeal erythema. No thyromegaly. Neck, supple no lymph adenopathy no bruit and no jugular venous distention CARDIOVASCULAR: S1 and S2 present. No murmurs, rubs, or gallops. PULMONARY: Chest is clear to auscultation, no wheezing or crackles. ABDOMEN: Soft, nontender, nondistended, normoactive bowel sounds. No palpable organomegaly. MUSCULOSKELETAL: No joint swelling or deformity. EXTREMITIES: No cyanosis, clubbing, or pedal edema. NEUROLOGICAL: Gross neurological examination did not reveal any focal deficits. SKIN: Left the chest wall abscess is status post drainage and packed. Patient does have history of pyoderma gangrenosum lesions from the past - Labs CBC & Chem 7: 02/10/18 06:54 02/10/18 06:54 Labs: Abnormal Lab Results - Last 24 Hours (Table) 02/09/18 02/09/18 02/10/18 Range/Units 16:59 21:34 06:41 Hgb (13.0-17.5) gm/dL Hct (39.0-53.0) % MCH (25.0-35.0) pg MCHC (31.0-37.0) g/dL Creatinine (0.66-1.25) mg/dL Glucose (74-99) mg/dL POC Glucose (mg/dL) 145 H 149 H 118 H (75-99) mg/dL 02/10/18 02/10/18 02/10/18 Range/Units 06:54 06:54 11:52 Hgb 10.8 L (13.0-17.5) gm/dL Hct 35.5 L (39.0-53.0) % MCH 24.7 L (25.0-35.0) pg MCHC 30.4 L (31.0-37.0) g/dL Creatinine 3.33 H (0.66-1.25) mg/dL Glucose 110 H (74-99) mg/dL POC Glucose (mg/dL) 111 H (75-99) mg/dL Microbiology - Last 24 Hours (Table) 02/04/18 17:41 Blood Culture - Preliminary Blood No Growth after 120 hours 02/05/18 09:15 Anaerobic Culture - Final Chest Assessment and Plan Assessment: COPD exacerbation Cough and shortness of breath likely related to mucous plug Sleep disorder breathing and sleep apnea Advanced ulcerative colitis Chronic intermittent mild asthma Uncontrolled diabetes mellitus and hyperglycemia Left thoracic wall MSSA related abscesses Plan: Bronchodilators Deep breathing exercise incentive spirometric Can be switched to narrow spectrum antibiotics for MSSA cellulitis and abscess of left thoracic wall DVT and peptic ulcer disease prophylaxis Polysomnogram as outpatient Hold on steroids anticipated breathing treatment as needed as ordered should be sufficient as patient is asymptomatic Further recommendations pending plan of care as per clinical response of the patient Time with Patient: Greater than 30
[2018-02-10] MEDS: HYDROmorphone 1 MG/ML 1 ML SYRINGE IVP PRN (16:24)
--- NOTE | 2018-02-10 17:01 | P.PN ---
Subjective Progress Note Date: 02/10/18 Progress note being dictated for Dr. Bobo Interval history:Left chest wall abscess 47-year-old male patient with history of pyoderma gangrenosa admitted to the hospital for left chest wall abscess; patient is status post incision and drainage; wound culture currently showing staph aureus with final culture and sensitivity report is pending; patient remains on IV antibiotics; IDs following and Levitra recommendations on final choice and duration of antibiotics 02/09/2018 Patient is seen and evaluated in the room at bedside; he had episode of shortness of breath last night; chest x-ray was done which was unremarkable; patient does have history of asthma and bronchodilator nebulizer treatment was prescribed which didn't improve patient's symptoms; patient's vital signs are stable this morning with a blood pressure of 125/79 SpO2 of 93% on room air Labs were reviewed with patient showing continued upward trend in creatinine which is at 3.14 this morning; patient has been on IV vancomycin for anterior chest wall abscess; vancomycin is discontinued due to renal toxicity and patient is started on 2 g IV every 8 hours per ID recommendations Consult is placed for nephrology service to see patient for acute renal failure possibly secondary to vancomycin toxicity 02/10/2018 creatinine currently 3.33. Good diet intake, no nausea vomiting or diarrhea. Good urine output. Maintained on IV antibiotics for left chest wall abscess. Afebrile, normal WBC. Maintaining O2 sats in the 90s on room air. Denies chest pain, palpitations or increasing shortness of breath. Denies lightheadedness dizziness or focal deficits. Objective - Vital Signs Vital signs: Vital Signs Temp 97.1 F L 02/10/18 15:00 Pulse 90 02/10/18 15:00 Resp 16 02/10/18 15:00 BP 123/70 02/10/18 15:00 Pulse Ox 94 L 02/10/18 15:00 Intake & Output 02/09/18 02/10/18 02/10/18 18:59 06:59 18:59 Intake Total 1476 450 960 Output Total 200 Balance 1276 450 960 Weight 142.882 kg Intake: Intake, IV Titration 400 450 Amount Sodium Chloride 0.9% 1, 400 450 000 ml @ 50 mls/hr IV . Q20H [facility] Rx#:[id number] Oral 1076 960 Output: Urine 200 Other: Voiding Method Toilet # Voids 2 1 - Exam - Constitutional General appearance: Present: average body habitus, cooperative, no acute distress - EENT Eyes: Present: anicteric sclerae, EOMI, PERRLA, normal appearance ENT: Present: hearing grossly normal, normal oropharynx Ears: bilateral: normal - Neck Neck: Present: normal ROM. Absent: lymphadenopathy, rigidity, thyromegaly Carotids: negative: bruit present Thyroid: bilateral: normal size, negative: enlarged, nodule - Respiratory Respiratory: bilateral: CTA, negative: rales, rhonchi, wheezing - Cardiovascular Rhythm: regular Heart sounds: normal: S1, S2 Abnormal Heart Sounds: Absent: systolic murmur, diastolic murmur - Gastrointestinal General gastrointestinal: Present: normal bowel sounds, soft. Absent: distended , organomegaly, tenderness - Genitourinary Genitourinary Comment(s): deferred - Integumentary Integumentary: Present: normal turgor. Absent: jaundiced, rash, ulcer - Neurologic Neurologic: Present: CNII-XII intact. Absent: focal deficits - Musculoskeletal Musculoskeletal: Present: gait normal, strength equal bilaterally - Psychiatric Psychiatric: Present: A&O x's 3, appropriate affect, intact judgment & insight Microbiology 02/04/18 17:41 Blood Blood Culture - Preliminary No Growth after 120 hours 02/05/18 09:15 Chest Anaerobic Culture - Final 02/05/18 09:15 Chest Gram Stain - Final 02/05/18 09:15 Chest Wound Culture - Final Staphylococcus aureus - Labs CBC & Chem 7: 02/10/18 06:54 02/10/18 06:54 Labs: Abnormal Lab Results - Last 24 Hours (Table) 02/09/18 02/09/18 02/10/18 Range/Units 16:59 21:34 06:41 Hgb (13.0-17.5) gm/dL Hct (39.0-53.0) % MCH (25.0-35.0) pg MCHC (31.0-37.0) g/dL Creatinine (0.66-1.25) mg/dL Glucose (74-99) mg/dL POC Glucose (mg/dL) 145 H 149 H 118 H (75-99) mg/dL 02/10/18 02/10/18 02/10/18 Range/Units 06:54 06:54 11:52 Hgb 10.8 L (13.0-17.5) gm/dL Hct 35.5 L (39.0-53.0) % MCH 24.7 L (25.0-35.0) pg MCHC 30.4 L (31.0-37.0) g/dL Creatinine 3.33 H (0.66-1.25) mg/dL Glucose 110 H (74-99) mg/dL POC Glucose (mg/dL) 111 H (75-99) mg/dL Microbiology - Last 24 Hours (Table) 02/04/18 17:41 Blood Culture - Preliminary Blood No Growth after 120 hours Assessment and Plan Assessment: 1. Acute renal failure secondary to ATN secondary to vancomycin toxicity . 2. Left chest wall abscess: - Status post status post incision and drainage. MSSA 3. Acute COPD exacerbation 4. Sleep apnea 5. Type 2 diabetes mellitus, 6. Gastroesophageal reflux disease 7. Chronic Ulcerative colitis Plan: Continue on current medication regime ,monitoring and symptomatic treatment. Close monitoring of renal function with repeat labs ordered for a.m. maintain IV antibiotics. Discharge planning in progress for tomorrow pending nephrology/pulmonary clearance. The impression and plan of care has been dictated as directed. : I performed a history and examination of this patient, discussed the same with the dictator. I agree with the dictator's note ,documented as a scribe. Any additional findings or plans will be noted.
[2018-02-10 17:02] LABS: Glucose,Whole Blood 125 mg/dL (75-99)
[2018-02-10 20:06] LABS: Glucose,Whole Blood 183 mg/dL (75-99)
[2018-02-10] MEDS: HYDROcodone/APAP 7.5-325MG 1 EACH TAB PO PRN (21:32)
--- NOTE | 2018-02-10 23:14 | PN ---
PROGRESS NOTE DATE OF SERVICE: 02/10/2018. REASON FOR FOLLOWUP: Left lower chest MSSA abscess and cellulitis. INTERVAL HISTORY: The patient is currently afebrile. He has been breathing comfortably. No chest pain, no cough, no abdominal pain, or any diarrhea. EXAMINATION: Blood pressure 119/56, pulse of 94, temperature 97.9. He is 95% on room air. General description is a middle-aged male lying in bed in no distress. Respiratory system: Unlabored breathing. Clear to auscultation anteriorly. Heart S1, S2 regular rate and rhythm. Abdomen soft. No tenderness. Extremities: No edema of the feet. LABS: Hemoglobin is 10.8, white count 6.5, BUN of 15, creatinine 3.33. DIAGNOSTIC IMPRESSION AND PLAN: Patient with MSSA left lower chest wall abscess status post drainage. Currently on cefazolin that will be continued to finish therapy with oral antibiotic. Local wound care with Aquacel Silver packing. Continue supportive care. MMODL / IJN: [id number] /
[2018-02-11] MEDS: SODIUM CHLORIDE 0.9% 1,000 ML IV SCH ×2 (06:11→06:17)
[2018-02-11] MEDS: METOCLOPRAMIDE 5 MG/ML 2 ML VIAL IVP PRN (06:17)
[2018-02-11 07:26] LABS: Glucose,Whole Blood 118 mg/dL (75-99)
[2018-02-11 07:49] VITALS: BP 104/68; PULSE 81; RESP 12; TEMP 98.4
[2018-02-11 08:35] LABS: Calcium 8.5 mg/dL (8.4-10.2); Potassium 4.5 mmol/L (3.5-5.1)
[2018-02-11] MEDS: INSULIN ASPART 100 UNIT/ML 1 ML 10 ML VIAL SQ SCH ×2 (08:49→12:56)
[2018-02-11] MEDS: ceFAZolin IN SWFI 2 GM/20 ML SYRINGE IVP SCH (08:58)
[2018-02-11] MEDS: HEPARIN SODIUM,PORCINE 5,000 UNIT/ML 1 ML VIAL SQ SCH (08:58)
[2018-02-11] MEDS: PANTOPRAZOLE 40 MG TABLET PO SCH (08:58)
[2018-02-11] MEDS: buPROPion SR 150 MG TABLET.ER PO SCH (08:59)
[2018-02-11] MEDS: BALSALAZIDE DISODIUM 750 MG CAPSULE PO SCH (08:59)
[2018-02-11] MEDS: DICYCLOMINE 20 MG TAB PO SCH ×2 (09:00→13:28)
[2018-02-11] MEDS: hydrOXYzine HCL 25 MG TAB PO SCH (09:00)
[2018-02-11] MEDS: HYDROcodone/APAP 7.5-325MG 1 EACH TAB PO PRN (09:13)
--- NOTE | 2018-02-11 11:57 | P.PN ---
Subjective Patient is seen in follow-up for acute kidney injury. Baseline creatinine is 1 and peaked at 3.33 this admission - 3.05 today. Currently resting in bed. Oral intake is good. Admits to good urine output. No hematuria or dysuria. He 's being treated for left chest wall cellulitis. Vital signs are stable. General: The patient appeared well nourished and normally developed. HEENT: Head exam is unremarkable. Neck is without jugular venous distension. LUNGS: Lungs are clear to auscultation and percussion. Breath sounds decreased. HEART: Rate and Rhythm are regular. First and second heart sounds normal. No murmurs, rubs or gallops. ABDOMEN: Abdominal exam reveals normal bowel sounds. Non-tender and non- distended. No evidence of peritonitis. EXTREMITITES: No clubbing, cyanosis, or edema. Objective - Vital Signs Vital signs: Vital Signs Temp 98.4 F 02/11/18 07:00 Pulse 81 02/11/18 07:00 Resp 12 02/11/18 07:00 BP 104/68 02/11/18 07:00 Pulse Ox 93 L 02/11/18 07:00 Intake & Output 02/10/18 02/11/18 02/11/18 18:59 06:59 18:59 Intake Total 1200 450 Balance 1200 450 Weight 142.882 kg Intake: Intake, IV Titration 450 Amount Sodium Chloride 0.9% 1, 450 000 ml @ 50 mls/hr IV . Q20H [facility] Rx#:[id number] Oral 1200 Other: Voiding Method Toilet Toilet # Voids 1 2 - Labs CBC & Chem 7: 02/10/18 06:54 02/11/18 07:56 Labs: Abnormal Lab Results - Last 24 Hours (Table) 02/10/18 02/10/18 02/11/18 Range/Units 17:00 20:01 07:25 Creatinine (0.66-1.25) mg/dL Glucose (74-99) mg/dL POC Glucose (mg/dL) 125 H 183 H 118 H (75-99) mg/dL 02/11/18 Range/Units 07:56 Creatinine 3.05 H (0.66-1.25) mg/dL Glucose 114 H (74-99) mg/dL POC Glucose (mg/dL) (75-99) mg/dL Microbiology - Last 24 Hours (Table) 02/04/18 17:41 Blood Culture - Final Blood No Growth after 144 hours Assessment and Plan Plan: Assessment: 1. Nonoliguric acute kidney injury secondary to ATN secondary to vancomycin toxicity. Baseline creatinine is near 1 and peaked at 3.33 this admission - 3.05 today. Urinalysis is benign. Urine eosinophils negative. No evidence of hydronephrosis noted on renal ultrasound. 2. Left chest wall abscess status post drainage maintained on antibiotics. 3. Insulin-dependent diabetes mellitus. Plan: Maintain normal saline at 50 mL an hour. Encourage oral intake. Avoid nephrotoxins. Repeat electrolytes in the morning. Stable to be discharged home from nephrology standpoint. Repeat basic metabolic panel in 2-3 days postdischarge and follow up outpatient in the next 1 -2 weeks.
[2018-02-11 12:37] LABS: Glucose,Whole Blood 105 mg/dL (75-99)
--- NOTE | 2018-02-11 14:21 | P.DS ---
Providers Date of admission: 02/04/18 19:34 Attending physician: Nicolas Newman Consults: 02/04/18 19:22 Consult Physician Stat Consulting Provider: Uriel Raymundo Consult Reason/Comments: Chest wall abscess Do you want consulting provider notified?: Yes 02/04/18 21:50 Consult Physician Routine Consulting Provider: Aster Meade Consult Reason/Comments: abcess Do you want consulting provider notified?: Already Contacted 02/09/18 09:21 Consult Physician Routine Consulting Provider: Lynda Mayorga Consult Reason/Comments: Acute renal failure Do you want consulting provider notified?: Yes 02/09/18 10:28 Consult Physician Routine Consulting Provider: Gabriel Hayes Consult Reason/Comments: Shortness of breath Do you want consulting provider notified?: Yes Primary care physician: Shanthi Sloan Hospital Course: 47-year-old male patient with history of pyoderma gangrenosa admitted to the hospital for left chest wall abscess; patient is status post incision and drainage; wound culture currently showing staph aureus with final culture and sensitivity report is pending; patient remains on IV antibiotics; IDs following and Levitra recommendations on final choice and duration of antibiotics 02/09/2018 Patient is seen and evaluated in the room at bedside; he had episode of shortness of breath last night; chest x-ray was done which was unremarkable; patient does have history of asthma and bronchodilator nebulizer treatment was prescribed which didn't improve patient's symptoms; patient's vital signs are stable this morning with a blood pressure of 125/79 SpO2 of 93% on room air Labs were reviewed with patient showing continued upward trend in creatinine which is at 3.14 this morning; patient has been on IV vancomycin for anterior chest wall abscess; vancomycin is discontinued due to renal toxicity and patient is started on 2 g IV every 8 hours per ID recommendations Consult is placed for nephrology service to see patient for acute renal failure possibly secondary to vancomycin toxicity 02/10/2018 creatinine currently 3.33. Good diet intake, no nausea vomiting or diarrhea. Good urine output. Maintained on IV antibiotics for left chest wall abscess. Afebrile, normal WBC. Maintaining O2 sats in the 90s on room air. Denies chest pain, palpitations or increasing shortness of breath. Denies lightheadedness dizziness or focal deficits. 02/11/2018 Creatinine has come down to 3.02 which is expected to improve in next few days. Patient is otherwise clinically doing well be discharged on Keflex as recommended by infectious disease for MSSA. Metformin was discontinued patient is not requiring any medications for blood sugars and metformin is contraindicated with creatinine of 3 PHYSICAL EXAMINATION: GENERAL: The patient is alert and oriented x3, not in any acute distress. obese HEENT: Pupils are round and equally reacting to light. EOMI. No scleral icterus. No conjunctival pallor. Normocephalic, atraumatic. No pharyngeal erythema. No thyromegaly. CARDIOVASCULAR: S1 and S2 present. No murmurs, rubs, or gallops. PULMONARY: Chest is clear to auscultation, no wheezing or crackles. ABDOMEN: Soft, nontender, nondistended, normoactive bowel sounds. No palpable organomegaly. MUSCULOSKELETAL: No joint swelling or deformity. EXTREMITIES: No cyanosis, clubbing, or pedal edema. NEUROLOGICAL: Gross neurological examination did not reveal any focal deficits. SKIN: patient has a little left lateral chest abscess status post drainage surgically packed with some redness around the incision and drainage site area Assessment and Plan Assessment: 1. Acute renal failure secondary to ATN secondary to vancomycin toxicity .improving now 2. Left chest wall abscess: - Status post status post incision and drainage. MSSAbeing discharged on Keflex 3. Acute COPD exacerbation 4. Sleep apnea 5. Type 2 diabetes mellitus, 6. Gastroesophageal reflux disease 7. Chronic Ulcerative colitis with history of pyoderma gangrenosum Patient Condition at Discharge: Stable Plan - Discharge Summary New Discharge Prescriptions: New Cephalexin [Keflex] 500 mg PO Q8HR #21 cap Discontinued metFORMIN HCL [Glucophage] 500 mg PO AC-BID Sulfamethox-Tmp 800-160Mg [Bactrim DS 800-160 mg] 1 tab PO BID No Action Mesalamine [Delzicol] 800 mg PO TID hydrOXYzine HCL 25 mg PO BID Prochlorperazine [Compazine] 10 mg PO BID Ondansetron HCl [Zofran] 8 mg PO BID Milk Thistle 150 mg PO DAILY Dicyclomine [Bentyl] 20 mg PO QID Cholecalciferol [Vitamin D3] 5,000 unit PO DAILY Zolpidem [Ambien] 10 mg PO HS Adalimumab [Humira Pen] 40 mg SQ Q14D buPROPion SR [Wellbutrin SR] 150 mg PO BID HYDROcodone/APAP 7.5-325MG [[place] 7.5-325] 1 tab PO BID PRN PRN Reason: Pain INSULIN LISPRO (HumaLOG) [humaLOG] See Protocol SQ AC-BID Curcumin 500 mg PO BID Pantoprazole Sodium [Protonix] 40 mg PO DAILY Discharge Medication List Mesalamine [Delzicol] 800 mg PO TID 03/30/14 [History] Prochlorperazine [Compazine] 10 mg PO BID 03/30/14 [History] hydrOXYzine HCL 25 mg PO BID 03/30/14 [History] Cholecalciferol [Vitamin D3] 5,000 unit PO DAILY 10/24/16 [History] Dicyclomine [Bentyl] 20 mg PO QID 10/24/16 [History] Milk Thistle 150 mg PO DAILY 10/24/16 [History] Ondansetron HCl [Zofran] 8 mg PO BID 10/24/16 [History] Zolpidem [Ambien] 10 mg PO HS 10/26/16 [History] Adalimumab [Humira Pen] 40 mg SQ Q14D 03/17/17 [History] buPROPion SR [Wellbutrin SR] 150 mg PO BID 03/17/17 [History] HYDROcodone/APAP 7.5-325MG [[place] 7.5-325] 1 tab PO BID PRN 11/22/17 [History] INSULIN LISPRO (HumaLOG) [humaLOG] See Protocol SQ AC-BID 11/22/17 [History] Curcumin 500 mg PO BID 02/04/18 [History] Pantoprazole Sodium [Protonix] 40 mg PO DAILY 02/04/18 [History] Cephalexin [Keflex] 500 mg PO Q8HR #21 cap 02/11/18 [Rx] Follow up Appointment(s)/Referral(s): Uriel Raymundo MD [STAFF PHYSICIAN] - 02/19/18 10:30 am Gabriel Hayes MD [STAFF PHYSICIAN] - 1 Week (Office closed Wednesdays. Please call tomorrow for your follow-up appt.) Shanthi Sloan MD [Primary Care Provider] - 02/17/18 3:15 pm Jose Rizzo DO [STAFF PHYSICIAN] - 1 Week (Office closed) Aster Meade MD [STAFF PHYSICIAN] - 02/19/18 9:15 am Ambulatory/Diagnostic Orders: Basic Metabolic Panel [LAB.AMB] Time Frame: 3 Days, Location: None Selected Discharge Disposition: HOME SELF-CARE
--- NOTE | 2018-02-11 16:24 | PN ---
PROGRESS NOTE DATE OF SERVICE: 02/11/2018. REASON FOR FOLLOWUP: Left lower chest wall abscess and cellulitis. INTERVAL HISTORY: The patient is currently afebrile. He is breathing comfortably. Denies having any chest pain, shortness of breath or cough. No abdominal pain and no diarrhea. EXAMINATION: Blood pressure 104/60 with a pulse of 81, temperature 98.4. He is 93% on room air. General description is a middle-aged male up in the bed in no distress. Respiratory system unlabored breathing, clear to auscultation anteriorly. Heart S1, S2. Regular rate and rhythm. Abdomen soft, no tenderness. Extremities: No edema of the feet. LABS: BUN of 15, creatinine 3.05. DIAGNOSTIC IMPRESSION AND PLAN: Patient with left lower chest wall abscess status post drainage. Culture has been positive for MSSA. The patient is currently on cefazolin, that will be transitioned to oral Keflex to finish a course of therapy. Local wound care with Aquacel Silver packing. Continue supportive care. MMODL / IJN: [id number] /
--- NOTE | 2018-02-12 15:05 | P.PN ---
Subjective Progress Note Date: 02/11/18 Principal diagnosis: Chronic intermittent asthma, COPD, severe morbid obesity, obstructive sleep apnea, left axillary abscess, uncontrolled diabetes mellitus with complications , ulcerative colitis 02/11/2018, patient seen eval examined during the rounds clinically doing well breathing comfortably denies any chest pain no more episodes of breathing difficulty or chest tightness has been noted, patient has been tolerating antibiotics very well ID service following patient likely will be discharged later on today 02/10/2018, patient seen eval examined during rounds clinically patient has been doing relatively better no more episode of shortness of breath or chest tightness has been noted patient is breathing more comfortably denies any cough or sputum production he has been on as needed bronchodilator he does have a history of snoring and apneic events he would like to be evaluated for sleep- disordered breathing and sleep apnea to be consider outpatient setting, currently patient is receiving antibiotic therapy for MSSA left axillary abscess status post I&D 47 year-old male well-known to me with history of CVA or COPD, patient also has a history of lung lesions thought to be related to ulcerative colitis, as well as pneumonia for which she was getting long-term follow-up this patient has been admitted to hospital in due to left axillary thoracic wall abscess which was incised were yesterday patient had an episode in which he developed some chest tightness and shortness of breath desaturated transiently has some breathing issues however improved significantly today today denies any chest pain shortness of breath denies any cough or sputum production, patient responded well with bronchodilators as well as deep breathing exercise much chest x-ray otherwise unremarkable, on specific questioning he denies any loss of consciousness or hemiparesis denies any seizure-like activity, denies any ongoing history of cough or sputum production does have mild degree or shortness of breath does have a history of mild COPD which is being monitor observe an outpatient setting with a history of the dense pneumonia and lung masses likely related to ulcerative colitis inflammatory processes resolve over. Time, does have a history of ulcerative colitis currently appears to be in remission Objective - Vital Signs Vital signs: Vital Signs Temp 98.4 F 02/11/18 07:00 Pulse 81 02/11/18 07:00 Resp 12 02/11/18 07:00 BP 104/68 02/11/18 07:00 Pulse Ox 93 L 02/11/18 07:00 Intake & Output 02/11/18 02/12/18 02/12/18 18:59 06:59 18:59 Intake Total 400 Balance 400 Intake: IV 400 Sodium Chloride 0.9% 1, 400 000 ml @ 50 mls/hr IV . Q20H [facility] Rx#:[id number] Other: Voiding Method Toilet - Exam GENERAL: The patient is alert and oriented x3, not in any acute distress. Well developed, well nourished. HEENT: Pupils are round and equally reacting to light. EOMI. No scleral icterus. No conjunctival pallor. Normocephalic, atraumatic. No pharyngeal erythema. No thyromegaly. Neck, supple no lymph adenopathy no bruit and no jugular venous distention CARDIOVASCULAR: S1 and S2 present. No murmurs, rubs, or gallops. PULMONARY: Chest is clear to auscultation, no wheezing or crackles. ABDOMEN: Soft, nontender, nondistended, normoactive bowel sounds. No palpable organomegaly. MUSCULOSKELETAL: No joint swelling or deformity. EXTREMITIES: No cyanosis, clubbing, or pedal edema. NEUROLOGICAL: Gross neurological examination did not reveal any focal deficits. SKIN: Left the chest wall abscess is status post drainage and packed. Patient does have history of pyoderma gangrenosum lesions from the past - Labs CBC & Chem 7: 02/10/18 06:54 02/11/18 07:56 Assessment and Plan Assessment: COPD exacerbation Cough and shortness of breath likely related to mucous plug and above Sleep disorder breathing and sleep apnea Advanced ulcerative colitis Chronic intermittent mild asthma Uncontrolled diabetes mellitus and hyperglycemia Left thoracic wall MSSA related abscesses Plan: Bronchodilators Deep breathing exercise incentive spirometric Can be switched to narrow spectrum antibiotics for MSSA cellulitis and abscess of left thoracic wall DVT and peptic ulcer disease prophylaxis Polysomnogram as outpatient Hold on steroids anticipated breathing treatment as needed as ordered should be sufficient as patient is asymptomatic Further recommendations pending plan of care as per clinical response of the patient Time with Patient: Greater than 30
== END 2018-02-11 15:11 | disposition home or self-care (01) | DRG 579 ==
LOC: EC 16:03 → 3SUR 19:34
PROVIDERS: ADMIT Hospitalist; ATTEND Hospitalist
PROC: 0J960ZZ Drainage of Chest Subcutaneous Tissue and Fascia, Open Approach (ICD-10-PCS; principal; 2018-02-05)
DX: L02.213 Cutaneous abscess of chest wall (principal); N17.0 Acute kidney failure with tubular necrosis; K51.90 Ulcerative colitis, unspecified, without complications; J44.1 Chronic obstructive pulmonary disease with (acute) exacerbation; L02.412 Cutaneous abscess of left axilla; Z68.41 Body mass index [BMI] 40.0-44.9, adult; K21.9 Gastro-esophageal reflux disease without esophagitis; J45.20 Mild intermittent asthma, uncomplicated; E11.65 Type 2 diabetes mellitus with hyperglycemia; E66.01 Morbid (severe) obesity due to excess calories; F32.9 Major depressive disorder, single episode, unspecified; F41.9 Anxiety disorder, unspecified; G47.33 Obstructive sleep apnea (adult) (pediatric); L03.313 Cellulitis of chest wall; M79.7 Fibromyalgia; T17.990A Other foreign object in respiratory tract, part unspecified in causing asphyxiation, initial encounter; T36.8X5A Adverse effect of other systemic antibiotics, initial encounter; Z79.4 Long term (current) use of insulin; Z80.42 Family history of malignant neoplasm of prostate; Z83.3 Family history of diabetes mellitus; Z86.14 Personal history of Methicillin resistant Staphylococcus aureus infection; Z86.73 Personal history of transient ischemic attack (TIA), and cerebral infarction without residual deficits; Z87.01 Personal history of pneumonia (recurrent); Z87.891 Personal history of nicotine dependence; G47.30 Sleep apnea, unspecified; B95.61 Methicillin susceptible Staphylococcus aureus infection as the cause of diseases classified elsewhere; Z79.899 Other long term (current) drug therapy
CPT/HCPCS: 36415; 36569; 71045; 76770; 76937; 80048; 80053; 80202; 81003; 83036; 83605; 85025; 85027; 85610; 87040; 87070; 87075; 87077; 87186; 87205; 94640; 96365; 99284

== ENCOUNTER 2018-04-28 11:36 | Emergency (ER) | payer MEDICARE, OTHER ==
[2018-04-28 11:49] VITALS: RESP 18
--- NOTE | 2018-04-28 12:23 | ED ---
General Adult HPI - General Chief complaint: Skin/Abscess/Foreign Body Stated complaint: Abcess on leg Time Seen by Provider: 04/28/18 11:52 Source: patient, RN notes reviewed Mode of arrival: ambulatory Limitations: no limitations - History of Present Illness Initial comments: 47-year-old male with NIDDM type II, fibromyalgia, asthma, ulcerative colitis presents to the emergency department for chief complaint of abscess to the left lower leg. Patient states this has been there for about 6 weeks. He has been on clindamycin for the past 6 days. Patient states abscess seems to be enlarging. He states it was not drained when he was previously seen because it was wasn't soft enough to drain. He denies fevers or chills. Patient states he has had these before and has been admitted in the past for MRSA. He denies fevers or chills. Patient has no other complaints at this time including shortness of breath, chest pain, abdominal pain, nausea or vomiting, headache, or visual changes. - Related Data Home Medications Medication Instructions Recorded Confirmed Mesalamine [Delzicol] 800 mg PO TID 03/30/14 02/04/18 Prochlorperazine [Compazine] 10 mg PO BID 03/30/14 02/04/18 hydrOXYzine HCL 25 mg PO BID 03/30/14 02/04/18 Cholecalciferol [Vitamin D3] 5,000 unit PO DAILY 10/24/16 02/04/18 Dicyclomine [Bentyl] 20 mg PO QID 10/24/16 02/04/18 Milk Thistle 150 mg PO DAILY 10/24/16 02/04/18 Ondansetron HCl [Zofran] 8 mg PO BID 10/24/16 02/04/18 Zolpidem [Ambien] 10 mg PO HS 10/26/16 02/04/18 Adalimumab [Humira Pen] 40 mg SQ Q14D 03/17/17 02/04/18 buPROPion SR [Wellbutrin SR] 150 mg PO BID 03/17/17 02/04/18 HYDROcodone/APAP 7.5-325MG [[place] 1 tab PO BID PRN 11/22/17 02/04/18 7.5-325] INSULIN LISPRO (HumaLOG) [humaLOG] See Protocol SQ AC-BID 11/22/17 02/04/18 Curcumin 500 mg PO BID 02/04/18 02/04/18 Pantoprazole Sodium [Protonix] 40 mg PO DAILY 02/04/18 02/04/18 Previous Rx's Medication Instructions Recorded Cephalexin [Keflex] 500 mg PO Q8HR #21 cap 02/11/18 Cephalexin [Keflex] 500 mg PO Q6HR 3 Days cap 04/28/18 Clindamycin HCl [Cleocin] 450 mg PO Q8H 10 Days cap 04/28/18 Allergies Allergy/AdvReac Type Severity Reaction Status Date / Time No Known Allergies Allergy Verified 02/04/18 18:54 Review of Systems ROS Statement: Those systems with pertinent positive or pertinent negative responses have been documented in the HPI. ROS Other: All systems not noted in ROS Statement are negative. 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 History of Any Multi-Drug Resistant Organisms: MRSA Date of last positivie culture/infection: 05/19/2007 MDRO Source:: wound on torso Past Surgical History: Back Surgery, Heart Catheterization Additional Past Surgical History / Comment(s): Hx recent "clear heart cath", back surgery x2;multiple colonoscopies, EGD, deviated septum repair. Past Anesthesia/Blood Transfusion Reactions: No Reported Reaction Past Psychological History: Anxiety, Depression Smoking Status: Former smoker Past Alcohol Use History: None Reported Past Drug Use History: None Reported - Past Family History Mother Family Medical History: Diabetes Mellitus Additional Family Medical History / Comment(s): Mother is blind due to diabetic retinopathy. She is 78yrs old. Father Family Medical History: Cancer, CVA/TIA Additional Family Medical History / Comment(s): Father of prostate cancer with mets to liver at the age of 81 yrs. General Exam Limitations: no limitations General appearance: alert, in no apparent distress Head exam: Present: atraumatic, normocephalic, normal inspection Eye exam: Present: normal appearance, PERRL, EOMI. Absent: scleral icterus, conjunctival injection, periorbital swelling ENT exam: Present: normal exam, mucous membranes moist Neck exam: Present: normal inspection, full ROM. Absent: tenderness, meningismus, lymphadenopathy Respiratory exam: Present: normal lung sounds bilaterally. Absent: respiratory distress, wheezes, rales, rhonchi, stridor Cardiovascular Exam: Present: regular rate, normal rhythm, normal heart sounds. Absent: systolic murmur, diastolic murmur, rubs, gallop, clicks Extremities exam: Present: full ROM (Full range motion of the left lower extremity), normal capillary refill (Refill less than 2 seconds and DP pulse 2+ in the left lower extremity), other (there is a 3cm x 2 cm abscess on the left lower anterior tibfib with mild surrounding erythema of 6 cm x 6 cm. ) Neurological exam: Present: alert, oriented X3, CN II-XII intact Psychiatric exam: Present: normal affect, normal mood Course Vital Signs 04/28/18 11:44 Temperature 97.6 F Pulse Rate 102 H Respiratory 18 Rate Blood Pressure 121/72 O2 Sat by Pulse 97 Oximetry Procedures - Incision & Drainage Consent Obtained: verbal consent Site: lower extremity (Left anterior distal tib-fib) Size (cm): 3 Anesthetic Used: lidocaine 1% Amount (mLs): 3 I&D Cleaning Method: Betadine Sterile Field Used?: Yes Scalpel Used: #11 I&D Drainage Obtained: Pus (Significant purulent drainage, loculations broken with hemostat) Culture Obtained?: Yes Patient Tolerated Procedure: well, no complications Medical Decision Making - Medical Decision Making 47-year-old male presents to the emergency department for a chief complaint of abscess on the left distal tib-fib anterior aspect. This has been there for about 6 weeks. Patient has had 6 days of clindamycin without improvement. Abscess has not been drained previously. Patient is afebrile. He is well- appearing and does not appear toxic. On exam patient is a 3 x 2 cm abscess with mild surrounding erythema 6 cm x 6 cm. erythema is marked with a marker. This was incised and drained without difficulty. Culture was sent. X-ray was negative for osteomyelitis or free air. Dr. Walker also visualized the abscess. Patient was started on Keflex and will continue clindamycin. At this time as abscess drained without difficulty and significant amount of purulent material was expelled, outpatient trial of antibiotics is reasonable. Discussed with the patient to monitor for spreading redness or worsening symptoms and return if these occur. Patient agrees to do this and voices understanding. He will follow up with primary care in 1-2 days for wound recheck and return if necessary. Disposition Clinical Impression: Abscess Disposition: HOME SELF-CARE Condition: Good Instructions: Abscess (ED) Additional Instructions: Please take antibiotics as directed. Keep the area clean. Please monitor for spreading or streaking redness and return if this occurs. Follow-up with primary care for wound recheck in one to 2 days. Return to the emergency department if you have any worsening symptoms. Prescriptions: Cephalexin [Keflex] 500 mg PO Q6HR 3 Days cap Clindamycin HCl [Cleocin] 450 mg PO Q8H 10 Days cap Is patient prescribed a controlled substance at d/c from ED?: No Referrals: Shanthi Sloan MD [Primary Care Provider] - 1-2 days Time of Disposition: 13:20
--- NOTE | 2018-04-28 12:48 | XR ---
EXAMINATION TYPE: XR tibia fibula LT DATE OF EXAM: 04/28/2018 CLINICAL HISTORY: Pain per order. Abscess lower leg without improvement on antibiotics for 6 weeks TECHNIQUE: Two views of the left leg are obtained. COMPARISON: None. FINDINGS: There is no acute fracture or dislocation seen in the left tibia or fibula. Mild to modera te tricompartment joint space loss and spurring at level of knee is present. Ankle mortise symmetry i s preserved. There is mild to moderate diffuse subcutaneous edema over the medial aspect of the dista l tibia. No suspicious cortical destruction or periosteal reaction is noted. Small calcaneal spurs ar e present. IMPRESSION: There is no convincing radiographic evidence for acute osteomyelitis.
[2018-04-28] MEDS ORDERED: CEPHALEXIN 500MG STARTER PACK 4 CAP BTL PO STA (13:20)
[2018-04-28 13:39] VITALS: BP 149/96; PULSE 74; TEMP 98.7
== END 2018-04-28 13:38 | disposition home or self-care (01) ==
LOC: EC 11:36
DX: L02.416 Cutaneous abscess of left lower limb (principal); E11.9 Type 2 diabetes mellitus without complications; M79.7 Fibromyalgia; K21.9 Gastro-esophageal reflux disease without esophagitis; F32.9 Major depressive disorder, single episode, unspecified; F41.9 Anxiety disorder, unspecified; Z86.14 Personal history of Methicillin resistant Staphylococcus aureus infection; Z87.19 Personal history of other diseases of the digestive system; Z87.891 Personal history of nicotine dependence; Z79.4 Long term (current) use of insulin; Z79.899 Other long term (current) drug therapy
CPT/HCPCS: 10060; 87070; 87205; 99283

== ENCOUNTER 2018-07-12 02:22 | Emergency (ER) | payer MEDICARE ==
[2018-07-12] MEDS ORDERED: SODIUM CHLORIDE 0.9% 500 ML 500 ML IV STA (02:43)
[2018-07-12] MEDS ORDERED: HYDROmorphone 0.5 MG/0.5 ML SYRINGE IVP STA (02:43)
--- NOTE | 2018-07-12 02:46 | ED ---
General Adult HPI - General Chief complaint: GI Bleed Stated complaint: GI Bleed/Fever Time Seen by Provider: 07/12/18 02:38 Source: patient, RN notes reviewed, old records reviewed Mode of arrival: ambulatory Limitations: no limitations - History of Present Illness Initial comments: 47-year-old male presents for evaluation of abdominal pain, and rectal bleeding. Patient has history of ulcerative colitis. Follows with gastroenterology. He also has history of diverticulitis. States he's had worsening left lower quadrant abdominal pain for the past several days. This did become severe this evening. He had subjective fever and chills. No vomiting. Patient has had bowel movements with small amount of clotted blood. Denies chest pain or dyspnea. Denies significant diarrhea. - Related Data Home Medications Medication Instructions Recorded Confirmed Mesalamine [Delzicol] 800 mg PO TID 03/30/14 02/04/18 Prochlorperazine [Compazine] 10 mg PO BID 03/30/14 02/04/18 hydrOXYzine HCL 25 mg PO BID 03/30/14 02/04/18 Cholecalciferol [Vitamin D3] 5,000 unit PO DAILY 10/24/16 02/04/18 Dicyclomine [Bentyl] 20 mg PO QID 10/24/16 02/04/18 Milk Thistle 150 mg PO DAILY 10/24/16 02/04/18 Ondansetron HCl [Zofran] 8 mg PO BID 10/24/16 02/04/18 Zolpidem [Ambien] 10 mg PO HS 10/26/16 02/04/18 Adalimumab [Humira Pen] 40 mg SQ Q14D 03/17/17 02/04/18 buPROPion SR [Wellbutrin SR] 150 mg PO BID 03/17/17 02/04/18 HYDROcodone/APAP 7.5-325MG [[place] 1 tab PO BID PRN 11/22/17 02/04/18 7.5-325] INSULIN LISPRO (HumaLOG) [humaLOG] See Protocol SQ AC-BID 11/22/17 02/04/18 Curcumin 500 mg PO BID 02/04/18 02/04/18 Pantoprazole Sodium [Protonix] 40 mg PO DAILY 02/04/18 02/04/18 Previous Rx's Medication Instructions Recorded Cephalexin [Keflex] 500 mg PO Q8HR #21 cap 02/11/18 Cephalexin [Keflex] 500 mg PO Q6HR 3 Days cap 04/28/18 Clindamycin HCl [Cleocin] 450 mg PO Q8H 10 Days cap 04/28/18 predniSONE 40 mg PO DIRECTED #105 tab 07/12/18 Allergies Allergy/AdvReac Type Severity Reaction Status Date / Time No Known Allergies Allergy Verified 02/04/18 18:54 Review of Systems ROS Statement: Those systems with pertinent positive or pertinent negative responses have been documented in the HPI. ROS Other: All systems not noted in ROS Statement are negative. 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 History of Any Multi-Drug Resistant Organisms: MRSA Date of last positivie culture/infection: 05/19/2007 MDRO Source:: wound on torso Past Surgical History: Back Surgery, Heart Catheterization Additional Past Surgical History / Comment(s): Hx recent "clear heart cath", back surgery x2;multiple colonoscopies, EGD, deviated septum repair. Past Anesthesia/Blood Transfusion Reactions: No Reported Reaction Past Psychological History: Anxiety, Depression Smoking Status: Former smoker Past Alcohol Use History: None Reported Past Drug Use History: None Reported - Past Family History Mother Family Medical History: Diabetes Mellitus Additional Family Medical History / Comment(s): Mother is blind due to diabetic retinopathy. She is 78yrs old. Father Family Medical History: Cancer, CVA/TIA Additional Family Medical History / Comment(s): Father of prostate cancer with mets to liver at the age of 81 yrs. General Exam Limitations: no limitations General appearance: alert, in no apparent distress Head exam: Present: atraumatic, normocephalic Eye exam: Present: normal appearance, PERRL ENT exam: Present: normal exam Neck exam: Present: normal inspection. Absent: tenderness, meningismus Respiratory exam: Present: normal lung sounds bilaterally. Absent: respiratory distress, wheezes Cardiovascular Exam: Present: regular rate, normal rhythm GI/Abdominal exam: Present: soft, distended, tenderness (Left lower quadrant tenderness). Absent: guarding, rebound Extremities exam: Present: normal inspection, normal capillary refill. Absent: pedal edema Neurological exam: Present: alert, oriented X3, CN II-XII intact. Absent: motor sensory deficit Psychiatric exam: Present: normal affect, normal mood Skin exam: Present: warm, dry, intact. Absent: cyanosis, diaphoretic Course Vital Signs 07/12/18 07/12/18 07/12/18 02:28 03:18 04:45 Temperature 98.1 F 98.4 F Pulse Rate 90 80 74 Respiratory 20 18 18 Rate Blood Pressure 131/84 116/68 126/80 O2 Sat by Pulse 98 95 95 Oximetry Medical Decision Making - Medical Decision Making 47-year-old male history of ulcerative colitis presenting with left lower quadrant abdominal pain and rectal bleeding. Patient does have some point tenderness on exam. CT is obtained which shows nonspecific colitis. No drainable abscess, no diverticulitis. Patient given IV steroids in the emergency department. Laboratory studies reveal normal white blood cell count, stable hemoglobin, normal electrolytes. Patient feeling better on reevaluation. He is offered admission to hospital for IV steroids, and gastroenterology consultation. He declines. He prefers outpatient follow-up. Will be prescribed steroid taper.. Return with worsening or changing symptoms. - Lab Data Result diagrams: 07/12/18 03:19 07/12/18 03:19 Lab Results 07/12/18 07/12/18 07/12/18 Range/Units 03:19 03:19 03:19 WBC 9.1 (3.8-10.6) k/uL RBC 5.06 (4.30-5.90) m/uL Hgb 13.1 (13.0-17.5) gm/dL Hct 40.1 (39.0-53.0) % MCV 79.2 L (80.0-100.0) fL MCH 25.9 (25.0-35.0) pg MCHC 32.7 (31.0-37.0) g/dL RDW 16.0 H (11.5-15.5) % Plt Count 345 (150-450) k/uL Neutrophils % 89 % Lymphocytes % 6 % Monocytes % 3 % Eosinophils % 1 % Basophils % 0 % Neutrophils # 8.1 H (1.3-7.7) k/uL Lymphocytes # 0.6 L (1.0-4.8) k/uL Monocytes # 0.3 (0-1.0) k/uL Eosinophils # 0.1 (0-0.7) k/uL Basophils # 0.0 (0-0.2) k/uL Microcytosis Slight PT 10.6 (9.0-12.0) sec INR 1.0 (<1.2) APTT 25.0 (22.0-30.0) sec Sodium 137 (137-145) mmol/L Potassium 4.8 (3.5-5.1) mmol/L Chloride 105 (98-107) mmol/L Carbon Dioxide 22 (22-30) mmol/L Anion Gap 10 mmol/L BUN 19 (9-20) mg/dL Creatinine 1.02 (0.66-1.25) mg/dL Est GFR (CKD-EPI)AfAm >90 (>60 ml/min/1.73 sqM) Est GFR (CKD-EPI)NonAf 87 (>60 ml/min/1.73 sqM) Glucose 202 H (74-99) mg/dL Plasma Lactic Acid Tl (0.7-2.0) mmol/L Calcium 9.5 (8.4-10.2) mg/dL Total Bilirubin 0.4 (0.2-1.3) mg/dL AST 17 (17-59) U/L ALT 21 (21-72) U/L Alkaline Phosphatase 132 H (38-126) U/L Total Protein 7.2 (6.3-8.2) g/dL Albumin 4.0 (3.5-5.0) g/dL Amylase 46 (30-110) U/L Lipase 92 (23-300) U/L 07/12/18 Range/Units 03:55 WBC (3.8-10.6) k/uL RBC (4.30-5.90) m/uL Hgb (13.0-17.5) gm/dL Hct (39.0-53.0) % MCV (80.0-100.0) fL MCH (25.0-35.0) pg MCHC (31.0-37.0) g/dL RDW (11.5-15.5) % Plt Count (150-450) k/uL Neutrophils % % Lymphocytes % % Monocytes % % Eosinophils % % Basophils % % Neutrophils # (1.3-7.7) k/uL Lymphocytes # (1.0-4.8) k/uL Monocytes # (0-1.0) k/uL Eosinophils # (0-0.7) k/uL Basophils # (0-0.2) k/uL Microcytosis PT (9.0-12.0) sec INR (<1.2) APTT (22.0-30.0) sec Sodium (137-145) mmol/L Potassium (3.5-5.1) mmol/L Chloride (98-107) mmol/L Carbon Dioxide (22-30) mmol/L Anion Gap mmol/L BUN (9-20) mg/dL Creatinine (0.66-1.25) mg/dL Est GFR (CKD-EPI)AfAm (>60 ml/min/1.73 sqM) Est GFR (CKD-EPI)NonAf (>60 ml/min/1.73 sqM) Glucose (74-99) mg/dL Plasma Lactic Acid Tl 0.6 L (0.7-2.0) mmol/L Calcium (8.4-10.2) mg/dL Total Bilirubin (0.2-1.3) mg/dL AST (17-59) U/L ALT (21-72) U/L Alkaline Phosphatase (38-126) U/L Total Protein (6.3-8.2) g/dL Albumin (3.5-5.0) g/dL Amylase (30-110) U/L Lipase (23-300) U/L Disposition Clinical Impression: Exacerbation of ulcerative colitis with rectal bleeding, Ulcerative colitis Disposition: HOME SELF-CARE Condition: Fair Instructions (If sedation given, give patient instructions): Ulcerative Colitis (ED) Additional Instructions: Patient states steroids for the next 20 days as prescribed. Please follow up with gastroenterology within this timeframe for possibility of continued steroid dosing. Prescriptions: predniSONE 40 mg PO DIRECTED #105 tab Is patient prescribed a controlled substance at d/c from ED?: No Referrals: Shanthi Sloan MD [Primary Care Provider] - 1-2 days Primitivo Brandt MD [STAFF PHYSICIAN] - 1-2 days Time of Disposition: 04:57
[2018-07-12 03:18] VITALS: RESP 18
[2018-07-12 03:31] LABS: Basophils % (A) 0 %; Eosinophils # (A) 0.1 k/uL (0-0.7); Eosinophils % (A) 1 %; HCT 40.1 % (39.0-53.0); HGB 13.1 gm/dL (13.0-17.5); Lymphocytes # (A) 0.6 k/uL (1.0-4.8); Lymphocytes % (A) 6 %; MCH 25.9 pg (25.0-35.0); MCHC 32.7 g/dL (31.0-37.0); MCV 79.2 fL (80.0-100.0); Mean Platelet Volume 5.8; Microcytosis Slight; Monocytes # (A) 0.3 k/uL (0-1.0); Monocytes % (A) 3 %; Neutrophils # (A) 8.1 k/uL (1.3-7.7); Neutrophils % (A) 89 %; Platelet Count 345 k/uL (150-450); RBC 5.06 m/uL (4.30-5.90); WBC 9.1 k/uL (3.8-10.6)
[2018-07-12 03:40] LABS: Prothrombin Time 10.6 sec (9.0-12.0)
[2018-07-12 03:42] LABS: ALT 21 U/L (21-72); AST 17 U/L (17-59); Alkaline Phosphatase 132 U/L (38-126); Amylase 46 U/L (30-110); Anion Gap 10 mmol/L; Blood Urea Nitrogen 19 mg/dL (9-20); Calcium 9.5 mg/dL (8.4-10.2); Carbon Dioxide 22 mmol/L (22-30); Chloride 105 mmol/L (98-107); Glucose 202 mg/dL (74-99); Lipase 92 U/L (23-300); Potassium 4.8 mmol/L (3.5-5.1); Sodium 137 mmol/L (137-145); Total Bilirubin 0.4 mg/dL (0.2-1.3); Total Protein 7.2 g/dL (6.3-8.2)
[2018-07-12] MEDS ORDERED: methylPREDNISolone SOD SUCCI 125 MG/2 ML VIAL IV STA (04:20)
--- NOTE | 2018-07-12 04:33 | CT ---
EXAM: CT Abdomen and Pelvis With Intravenous Contrast CLINICAL HISTORY: Abdominal pain TECHNIQUE: Axial computed tomography images of the abdomen and pelvis with intravenous contrast. CTDI is 0.242, 0.242, 21.9, 19.6 mGy and DLP is 2269.6 mGy-cm. This CT exam was performed using one or more of the following dose reduction techniques: automated exposure control, adjustment of the mA and/or kV according to patient size, and/or use of iterative reconstruction technique. COMPARISON: CT abdomen and pelvis dated 12/31/2017 FINDINGS: Lung bases: Bibasilar atelectasis. Calcified pulmonary nodules within the left lower lobe. ABDOMEN: Liver: Unremarkable. Gallbladder and bile ducts: Unremarkable. Pancreas: Unremarkable. Spleen: Unremarkable. Adrenals: Unremarkable. Kidneys and ureters: Cysts within both kidneys. Stomach and bowel: Apparent wall thickening of the colon which may be secondary to under distention versus a nonspecific colitis. PELVIS: Appendix: Appendix is unremarkable. Bladder: Unremarkable. Reproductive: Unremarkable as visualized. ABDOMEN and PELVIS: Intraperitoneal space: Unremarkable. Bones/joints: No acute fracture. No dislocation. Soft tissues: Tiny fat-containing umbilical hernia. Vasculature: Unremarkable. No abdominal aortic aneurysm. Lymph nodes: Unremarkable. IMPRESSION: Apparent wall thickening of the colon which may be secondary to under distention versus a nonspecific colitis.
[2018-07-12 04:45] VITALS: BP 126/80; PULSE 74; TEMP 98.4
== END 2018-07-12 05:15 | disposition home or self-care (01) ==
LOC: EC 02:22
DX: K51.911 Ulcerative colitis, unspecified with rectal bleeding (principal); K21.9 Gastro-esophageal reflux disease without esophagitis; E11.9 Type 2 diabetes mellitus without complications; F32.9 Major depressive disorder, single episode, unspecified; F41.9 Anxiety disorder, unspecified; Z87.891 Personal history of nicotine dependence; Z79.4 Long term (current) use of insulin; Z79.899 Other long term (current) drug therapy; Z95.818 Presence of other cardiac implants and grafts
CPT/HCPCS: 36415; 80053; 82150; 83605; 83690; 85025; 85610; 85730; 74177; 99284; 96374; 96375; 96361; J2930; J1170; Q9967

== ENCOUNTER 2018-08-20 23:52 | Emergency (ER) | payer MEDICARE ==
[2018-08-21] MEDS ORDERED: HYDROmorphone 1 MG/ML 1 ML SYRINGE IVP STA ×2 (00:24→03:16)
[2018-08-21] MEDS ORDERED: ONDANSETRON ODT 8 MG TAB.RAPDIS PO STA (00:24)
[2018-08-21] MEDS ORDERED: SODIUM CHLORIDE 0.9% 1,000 ML IV STA (00:24)
[2018-08-21 01:27] LABS: Basophils # (A) 0.1 k/uL (0-0.2); Basophils % (A) 0 %; Eosinophils # (A) 0.2 k/uL (0-0.7); Eosinophils % (A) 2 %; HCT 40.5 % (39.0-53.0); Lymphocytes # (A) 0.8 k/uL (1.0-4.8); Lymphocytes % (A) 6 %; MCH 26.6 pg (25.0-35.0); MCHC 34.5 g/dL (31.0-37.0); MCV 77.1 fL (80.0-100.0); Mean Platelet Volume 6.4; Monocytes # (A) 0.5 k/uL (0-1.0); Monocytes % (A) 4 %; Neutrophils # (A) 11.5 k/uL (1.3-7.7); Neutrophils % (A) 88 %; Platelet Count 367 k/uL (150-450); RBC 5.25 m/uL (4.30-5.90); RDW 14.1 % (11.5-15.5); WBC 13.1 k/uL (3.8-10.6)
[2018-08-21 01:30] LABS: Appearance,Urine Clear (Clear); Bilirubin,Urine Negative (Negative); Blood,Urine Negative (Negative); Color,Urine Colorless; Glucose,Urine (UA) Negative (Negative); Ketones,Urine Negative (Negative); Leukocyte Esterase,Urine Negative (Negative); Nitrite,Urine Negative (Negative); Protein,Urine Negative (Negative); Specific Gravity,Urine 1.003 (1.001-1.035); Urobilinogen,Urine <2.0 mg/dL (<2.0)
[2018-08-21 01:43] LABS: ALT 22 U/L (21-72); AST 9 U/L (17-59); Albumin 4.1 g/dL (3.5-5.0); Alkaline Phosphatase 126 U/L (38-126); Amylase 47 U/L (30-110); Anion Gap 9 mmol/L; Blood Urea Nitrogen 17 mg/dL (9-20); Calcium 9.3 mg/dL (8.4-10.2); Carbon Dioxide 23 mmol/L (22-30); Chloride 104 mmol/L (98-107); Glucose 154 mg/dL (74-99); Lipase 94 U/L (23-300); Potassium 4.7 mmol/L (3.5-5.1); Sodium 136 mmol/L (137-145); Total Bilirubin 0.5 mg/dL (0.2-1.3); Total Protein 6.6 g/dL (6.3-8.2)
--- NOTE | 2018-08-21 02:03 | ED ---
Abdominal Pain HPI - General Chief Complaint: Abdominal Pain Stated Complaint: Abdominal Pain Time Seen by Provider: 08/21/18 00:16 Source: patient Mode of arrival: ambulatory Limitations: no limitations - History of Present Illness Initial Comments: 47-year-old male patient with past medical history significant for ulcerative colitis and diverticulitis presents to the emergency department today for evaluation of left lower quadrant abdominal pain. Patient states the pain started a couple of days ago, states it became more severe yesterday and then again today. Patient states he did develop a low-grade fevers today which concerned him so he presented here for further evaluation. Patient does take Humira for his ulcerative colitis. Patient states he has been nauseated on and off over the last couple days but denies any vomiting. States he has been able to eat and drink. States he is having loose bowel movements with occasional presence of bright red blood. Denies any hematuria, dysuria, urinary frequency, urinary urgency. Denies any chest pain or shortness of breath. Patient denies any recent rash, back pain, numbness, tingling, dizziness, weakness, headache, visual changes, or any other complaints. - Related Data Home Medications Medication Instructions Recorded Confirmed Mesalamine [Delzicol] 800 mg PO TID 03/30/14 02/04/18 Prochlorperazine [Compazine] 10 mg PO BID 03/30/14 02/04/18 hydrOXYzine HCL 25 mg PO BID 03/30/14 02/04/18 Cholecalciferol [Vitamin D3] 5,000 unit PO DAILY 10/24/16 02/04/18 Dicyclomine [Bentyl] 20 mg PO QID 10/24/16 02/04/18 Milk Thistle 150 mg PO DAILY 10/24/16 02/04/18 Ondansetron HCl [Zofran] 8 mg PO BID 10/24/16 02/04/18 Zolpidem [Ambien] 10 mg PO HS 10/26/16 02/04/18 Adalimumab [Humira Pen] 40 mg SQ Q14D 03/17/17 02/04/18 buPROPion SR [Wellbutrin SR] 150 mg PO BID 03/17/17 02/04/18 HYDROcodone/APAP 7.5-325MG [[place] 1 tab PO BID PRN 11/22/17 02/04/18 7.5-325] INSULIN LISPRO (HumaLOG) [humaLOG] See Protocol SQ AC-BID 11/22/17 02/04/18 Curcumin 500 mg PO BID 02/04/18 02/04/18 Pantoprazole Sodium [Protonix] 40 mg PO DAILY 02/04/18 02/04/18 Previous Rx's Medication Instructions Recorded Cephalexin [Keflex] 500 mg PO Q8HR #21 cap 02/11/18 Cephalexin [Keflex] 500 mg PO Q6HR 3 Days cap 04/28/18 Clindamycin HCl [Cleocin] 450 mg PO Q8H 10 Days cap 04/28/18 predniSONE 40 mg PO DIRECTED #105 tab 07/12/18 Ciprofloxacin HCl [Cipro] 500 mg PO Q12HR #14 tablet 08/21/18 metroNIDAZOLE [Flagyl] 500 mg PO QID #40 tab 08/21/18 Allergies Allergy/AdvReac Type Severity Reaction Status Date / Time No Known Allergies Allergy Verified 08/21/18 00:15 Review of Systems ROS Statement: Those systems with pertinent positive or pertinent negative responses have been documented in the HPI. ROS Other: All systems not noted in ROS Statement are negative. 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 History of Any Multi-Drug Resistant Organisms: MRSA Date of last positivie culture/infection: 05/19/2007 MDRO Source:: wound on torso Past Surgical History: Back Surgery, Heart Catheterization Additional Past Surgical History / Comment(s): Hx recent "clear heart cath", back surgery x2;multiple colonoscopies, EGD, deviated septum repair. Past Anesthesia/Blood Transfusion Reactions: No Reported Reaction Past Psychological History: Anxiety, Depression Smoking Status: Former smoker Past Alcohol Use History: None Reported Past Drug Use History: None Reported - Past Family History Mother Family Medical History: Diabetes Mellitus Additional Family Medical History / Comment(s): Mother is blind due to diabetic retinopathy. She is 78yrs old. Father Family Medical History: Cancer, CVA/TIA Additional Family Medical History / Comment(s): Father of prostate cancer with mets to liver at the age of 81 yrs. General Exam Limitations: no limitations General appearance: alert, in no apparent distress, other (Physical well- developed, well-nourished adult male patient in no acute distress. Vital signs upon presentation are temperature 98.3F, pulse 99, respirations 20, blood pressure 111/79, pulse ox 96% on room air.) Eye exam: Present: normal appearance, PERRL, EOMI. Absent: scleral icterus, conjunctival injection, periorbital swelling ENT exam: Present: normal exam, normal oropharynx, mucous membranes moist Respiratory exam: Present: normal lung sounds bilaterally. Absent: respiratory distress, wheezes, rales, rhonchi, stridor Cardiovascular Exam: Present: regular rate, normal rhythm, normal heart sounds. Absent: systolic murmur, diastolic murmur, rubs, gallop, clicks GI/Abdominal exam: Present: soft, tenderness (Generalized mild tenderness, left lower quadrant tenderness), normal bowel sounds. Absent: distended, guarding, rebound, rigid Neurological exam: Present: alert, oriented X3, CN II-XII intact Psychiatric exam: Present: normal affect, normal mood Skin exam: Present: warm, dry, intact, normal color. Absent: rash Course Vital Signs 08/21/18 08/21/18 08/21/18 00:12 02:54 03:55 Temperature 98.3 F 98.1 F Pulse Rate 99 81 87 Respiratory 20 19 19 Rate Blood Pressure 111/79 119/83 121/91 O2 Sat by Pulse 96 96 98 Oximetry Medical Decision Making - Medical Decision Making 47-year-old male patient presents to the emergency department today for evaluation of left-sided abdominal pain. Patient does have history of ulcerative colitis. Physical examination did reveal upper and left sided abdominal tenderness. White blood cell count was 13.1. Remainder of labs are unremarkable. CT abdomen and pelvis did reveal inflammation to the ascending colon. I did discuss findings and results with the patient. We did offer admission for pain management and IV antibiotics, patient declined stating he would rather attempt treatment at home. Vital signs are stable and pain is under control so we will discharge. We will start Cipro and Flagyl. He does have pain medication at home. He is instructed to follow-up with his GI specialist, he does have an appointment tomorrow. Return parameters were discussed in detail. He verbalizes understanding and agrees with this plan. - Lab Data Result diagrams: 08/21/18 01:00 08/21/18 01:00 Lab Results 08/21/18 08/21/18 08/21/18 Range/Units 00:45 01:00 01:00 WBC 13.1 H (3.8-10.6) k/uL RBC 5.25 (4.30-5.90) m/uL Hgb 14.0 (13.0-17.5) gm/dL Hct 40.5 (39.0-53.0) % MCV 77.1 L (80.0-100.0) fL MCH 26.6 (25.0-35.0) pg MCHC 34.5 (31.0-37.0) g/dL RDW 14.1 (11.5-15.5) % Plt Count 367 (150-450) k/uL Neutrophils % 88 % Lymphocytes % 6 % Monocytes % 4 % Eosinophils % 2 % Basophils % 0 % Neutrophils # 11.5 H (1.3-7.7) k/uL Lymphocytes # 0.8 L (1.0-4.8) k/uL Monocytes # 0.5 (0-1.0) k/uL Eosinophils # 0.2 (0-0.7) k/uL Basophils # 0.1 (0-0.2) k/uL Sodium 136 L (137-145) mmol/L Potassium 4.7 (3.5-5.1) mmol/L Chloride 104 (98-107) mmol/L Carbon Dioxide 23 (22-30) mmol/L Anion Gap 9 mmol/L BUN 17 (9-20) mg/dL Creatinine 0.96 (0.66-1.25) mg/dL Est GFR (CKD-EPI)AfAm >90 (>60 ml/min/1.73 sqM) Est GFR (CKD-EPI)NonAf >90 (>60 ml/min/1.73 sqM) Glucose 154 H (74-99) mg/dL Calcium 9.3 (8.4-10.2) mg/dL Total Bilirubin 0.5 (0.2-1.3) mg/dL AST 9 L (17-59) U/L ALT 22 (21-72) U/L Alkaline Phosphatase 126 (38-126) U/L Total Protein 6.6 (6.3-8.2) g/dL Albumin 4.1 (3.5-5.0) g/dL Amylase 47 (30-110) U/L Lipase 94 (23-300) U/L Urine Color Colorless Urine Appearance Clear (Clear) Urine pH 5.0 (5.0-8.0) Ur Specific [place] 1.003 (1.001-1.035) Urine Protein Negative (Negative) Urine Glucose (UA) Negative (Negative) Urine Ketones Negative (Negative) Urine Blood Negative (Negative) Urine Nitrite Negative (Negative) Urine Bilirubin Negative (Negative) Urine Urobilinogen <2.0 (<2.0) mg/dL Ur Leukocyte Esterase Negative (Negative) - Radiology Data Radiology results: report reviewed, image reviewed CT abdomen and pelvis with contrast was obtained. Report was reviewed in its entirety. Impression by Dr. Loyd shows similar to prior exam from 07/12/2018 does not thickening of the ascending colon, correlate with underdistention versus colitis. Hepatic splenomegaly Disposition Clinical Impression: Exacerbation of ulcerative colitis Disposition: HOME SELF-CARE Condition: Good Instructions (If sedation given, give patient instructions): Ulcerative Colitis (ED) Additional Instructions: Started clear liquid diet and advance as tolerated. Take home pain medications as directed. Complete antibiotic prescriptions in full. Follow-up with your GI specialist tomorrow as you have planned. Return to the emergency department immediately for any new, worsening, or concerning symptoms. Prescriptions: Ciprofloxacin HCl [Cipro] 500 mg PO Q12HR #14 tablet metroNIDAZOLE [Flagyl] 500 mg PO QID #40 tab Is patient prescribed a controlled substance at d/c from ED?: No Referrals: Shanthi Sloan MD [Primary Care Provider] - 1-2 days Time of Disposition: 03:17
--- NOTE | 2018-08-21 02:37 | CT ---
EXAM: CT Abdomen and Pelvis With Intravenous Contrast CLINICAL HISTORY: ITS.REASON CT Reason: abdominal pain TECHNIQUE: Axial computed tomography images of the abdomen and pelvis with intravenous contrast. CTDI is 41 mGy and DLP is 2288 mGy-cm. This CT exam was performed using one or more of the following dose reduction techniques: automated exposure control, adjustment of the mA and/or kV according to patient size, and/or use of iterative reconstruction technique. COMPARISON: 07/12/18 CT abdomen FINDINGS: Lung bases: No mass. No consolidation. ABDOMEN: Liver: Enlarged. Gallbladder and bile ducts: Unremarkable. Pancreas: Unremarkable. Spleen: Enlarged. Adrenals: Unremarkable. Kidneys and ureters: No hydronephrosis. Stomach and bowel: No bowel obstruction. Mildly thickened ascending colon. Fatty infiltration of the distal colonic and rectal wall, unchanged. PELVIS: Appendix: No evidence of appendicitis. Bladder: Unremarkable. Reproductive: Unremarkable. ABDOMEN and PELVIS: Intraperitoneal space: Unremarkable. Bones/joints: No acute fractures. Soft tissues: Unremarkable. Vasculature: No abdominal aortic aneurysm. Lymph nodes: No enlarged lymph nodes. IMPRESSION: 1. Similar to the prior exam from 07/12/18, there is mild thickening of the ascending colon, correlate with under distention versus colitis. 2. Hepatosplenomegaly.
[2018-08-21 02:56] VITALS: RESP 19
[2018-08-21] MEDS ORDERED: metroNIDAZOLE 500 MG TAB PO STA (03:16)
[2018-08-21] MEDS ORDERED: CIPROFLOXACIN HCL 250 MG TAB PO STA (03:16)
[2018-08-21 04:00] VITALS: BP 121/91; PULSE 87; TEMP 98.1
== END 2018-08-21 03:56 | disposition home or self-care (01) ==
LOC: EC 23:52
DX: K51.90 Ulcerative colitis, unspecified, without complications (principal); E11.9 Type 2 diabetes mellitus without complications; K21.9 Gastro-esophageal reflux disease without esophagitis; F32.9 Major depressive disorder, single episode, unspecified; F41.9 Anxiety disorder, unspecified; Z86.14 Personal history of Methicillin resistant Staphylococcus aureus infection; Z87.891 Personal history of nicotine dependence; Z79.4 Long term (current) use of insulin; Z79.899 Other long term (current) drug therapy; Z95.818 Presence of other cardiac implants and grafts
CPT/HCPCS: 36415; 80053; 82150; 83605; 83690; 85025; 81003; 87040; 74177; 99284; 96374; 96376; 96361 ×2; J1170; Q9967

== ENCOUNTER → 2018-11-12 | Outpatient (CLI) | payer MEDICARE, OTHER ==
--- NOTE | 2018-11-13 07:53 | XR ---
EXAMINATION TYPE: XR shoulder limited LT DATE OF EXAM: 11/12/2018 COMPARISON: NONE HISTORY: 47 year-old male left shoulder TECHNIQUE: 2 views FINDINGS: Mild degenerative spurring AC joint. Subacromial space is preserved. No acute fracture, sub luxation, or dislocation. IMPRESSION: Mild AC joint OA. No acute osseous abnormality seen.
== END | disposition home or self-care (01) ==
LOC: RADXRYALE 13:18
PROVIDERS: ATTEND Internal Medicine
DX: M19.012 Primary osteoarthritis, left shoulder (principal)

== ENCOUNTER → 2019-06-01 | Outpatient (CLI) | payer MEDICARE, OTHER ==
[2019-06-01 15:31] LABS: Basophils # (A) 0.1 k/uL (0-0.2); Basophils % (A) 1 %; Eosinophils # (A) 0.3 k/uL (0-0.7); Eosinophils % (A) 3 %; HCT 42.2 % (39.0-53.0); HGB 14.7 gm/dL (13.0-17.5); Lymphocytes # (A) 1.5 k/uL (1.0-4.8); Lymphocytes % (A) 18 %; MCH 29.5 pg (25.0-35.0); MCHC 34.9 g/dL (31.0-37.0); MCV 84.6 fL (80.0-100.0); Mean Platelet Volume 6.6; Monocytes # (A) 0.4 k/uL (0-1.0); Monocytes % (A) 4 %; Neutrophils # (A) 6.2 k/uL (1.3-7.7); Neutrophils % (A) 72 %; Platelet Count 353 k/uL (150-450); RBC 4.99 m/uL (4.30-5.90); RDW 13.2 % (11.5-15.5); WBC 8.6 k/uL (3.8-10.6)
[2019-06-01 19:09] LABS: Erythrocyte Sedimentation Rate 21 mm/hr (0-15)
[2019-06-01 19:30] LABS: African American GFR (CKD) 102.7 (60.0-200.0); Albumin 4.5 g/dL (3.80-4.90); Albumin/Globulin Ratio 1.8 (1.60-3.17); Anion Gap 11.1 mmol/L (4.00-12.00); Calcium 9.4 mg/dL (8.7-10.3); Carbon Dioxide 23.9 mmol/L (21.6-31.8); Globulin 2.5 g/dL (1.6-3.3); Non-African American GFR(CKD) 88.6 (60.0-200.0); Total Bilirubin 0.5 mg/dL (0.3-1.2)
[2019-06-01 20:54] LABS: Gliadin AB IgA, Deaminated NEGATIVE (NEGATIVE); Gliadin AB IgA, Unit <0.2 U/mL; Gliadin AB IgG, Deaminated NEGATIVE (NEGATIVE)
== END | disposition home or self-care (01) ==
LOC: LABWHC1 14:19
DX: K51.00 Ulcerative (chronic) pancolitis without complications (principal)
CPT/HCPCS: 36415; 80053; 83516; 85025; 85652; 86140

== ENCOUNTER 2020-07-25 14:42 | Emergency (ER) | payer MEDICARE, OTHER ==
[2020-07-25] MEDS ORDERED: MORPHINE SULFATE 4 MG/ML SYRINGE IV STA (15:25)
[2020-07-25] MEDS ORDERED: SODIUM CHLORIDE 0.9% 1,000 ML IV STA (15:25)
[2020-07-25] MEDS ORDERED: ONDANSETRON 4 MG/2 ML VIAL IVP STA (15:25)
[2020-07-25 15:54] LABS: Basophils # (A) 0.1 k/uL (0-0.2); Basophils % (A) 1 %; Eosinophils # (A) 0.4 k/uL (0-0.7); Eosinophils % (A) 5 %; HCT 46.8 % (39.0-53.0); HGB 16.1 gm/dL (13.0-17.5); Lymphocytes # (A) 1.8 k/uL (1.0-4.8); Lymphocytes % (A) 20 %; MCH 29.6 pg (25.0-35.0); MCHC 34.5 g/dL (31.0-37.0); MCV 85.6 fL (80.0-100.0); Mean Platelet Volume 6.6; Monocytes # (A) 0.6 k/uL (0-1.0); Monocytes % (A) 7 %; Neutrophils # (A) 5.9 k/uL (1.3-7.7); Neutrophils % (A) 66 %; Platelet Count 298 k/uL (150-450); RBC 5.46 m/uL (4.30-5.90); RDW 12.7 % (11.5-15.5); WBC 8.9 k/uL (3.8-10.6)
[2020-07-25 16:08] LABS: ALT 61 U/L (4-49); AST 46 U/L (17-59); African American GFR (CKD) >90 (>60 ml/min/1.73 sqM); Albumin 4.6 g/dL (3.5-5.0); Alkaline Phosphatase 140 U/L (38-126); Amylase 66 U/L (30-110); Anion Gap 11 mmol/L; Blood Urea Nitrogen 14 mg/dL (9-20); Calcium 9.5 mg/dL (8.4-10.2); Carbon Dioxide 22 mmol/L (22-30); Chloride 104 mmol/L (98-107); Glucose 181 mg/dL (74-99); Lipase 173 U/L (23-300); Non-African American GFR(CKD) >90 (>60 ml/min/1.73 sqM); Potassium 4.4 mmol/L (3.5-5.1); Sodium 137 mmol/L (137-145); Total Bilirubin 1.6 mg/dL (0.2-1.3); Total Protein 7.9 g/dL (6.3-8.2)
[2020-07-25 16:09] LABS: Prothrombin Time 10.7 sec (9.0-12.0)
--- NOTE | 2020-07-25 16:09 | ED ---
Abdominal Pain HPI - General Chief Complaint: Abdominal Pain Stated Complaint: Vomitin,Abdominal Pain Time Seen by Provider: 07/25/20 14:51 Source: patient Mode of arrival: ambulatory Limitations: no limitations - History of Present Illness Initial Comments: Patient is a 49-year-old male, with history of asthma, diabetes, ulcerative colitis, presenting to the emergency Department with complaints of abdominal pain and some increasing over the past 7 days. States he was seen at [facility] 5 days ago and was diagnosed pancreatitis over they did not have GI on staff still he recommended transferring or patient declined and went home instead. Patient states he's been trying to manage his pain at home but feels like his symptoms are worsening so he came here. He continues to be nauseous, vomiting as well as abdominal pain. He denies drinking alcohol. He has not had pink or tenderness in the past. Currently he states his pain is 8/10, in the right upper quadrant as well as epigastric area. He did speak with his doctor who recommended ordering an ultrasound of the gallbladder in a few weeks. If any fever or chills, no chest pain or shortness of breath. He has no further complaints at this time. Upon arrival to the ER, vital signs are stable. - Related Data Home Medications Medication Instructions Recorded Confirmed Mesalamine [Delzicol] 800 mg PO TID 03/30/14 07/25/20 Prochlorperazine [Compazine] 10 mg PO BID 03/30/14 07/25/20 hydrOXYzine HCL 25 mg PO BID 03/30/14 07/25/20 Cholecalciferol [Vitamin D3 (25 5,000 unit PO BID 10/24/16 07/25/20 Mcg = 1000 Iu)] Milk Thistle 150 mg PO HS 10/24/16 07/25/20 ondansetron HCL [Zofran] 8 mg PO DAILY PRN 10/24/16 07/25/20 ALPRAZolam [Xanax] 0.25 mg PO BID PRN 07/25/20 07/25/20 Adalimumab [Humira Pen] 40 mg SQ YATES 07/25/20 07/25/20 Albuterol Sulfate [Ventolin HFA] 2 puff INHALATION RT-QID PRN 07/25/20 07/25/20 Atorvastatin Calcium [Lipitor] 40 mg PO HS 07/25/20 07/25/20 Famotidine [Pepcid] 20 mg PO BID 07/25/20 07/25/20 HYDROcodone/APAP 5-325MG [[place] 1 tab PO BID 07/25/20 07/25/20 5-325] INSULIN ASPART (NovoLOG) [NovoLOG See Protocol SQ AC-TID PRN 07/25/20 07/25/20 (formulary)] Insulin Degludec [Tresiba 14 units SQ HS 07/25/20 07/25/20 Flextouch U-200] buPROPion HCL [Wellbutrin Sr] 200 mg PO DAILY 07/25/20 07/25/20 Previous Rx's Medication Instructions Recorded Ondansetron Odt [Zofran Odt] 4 mg PO Q8HR PRN #10 tab 07/25/20 Allergies Allergy/AdvReac Type Severity Reaction Status Date / Time No Known Allergies Allergy Verified 07/25/20 16:51 Review of Systems ROS Statement: Those systems with pertinent positive or pertinent negative responses have been documented in the HPI. ROS Other: All systems not noted in ROS Statement are negative. 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 pancreatitis, History of Any Multi-Drug Resistant Organisms: MRSA Date of last positivie culture/infection: 05/19/2007 MDRO Source:: wound on torso Past Surgical History: Back Surgery, Heart Catheterization Additional Past Surgical History / Comment(s): approx 2018 "clear heart cath", back surgery x2;multiple colonoscopies, EGD, deviated septum repair., Past Anesthesia/Blood Transfusion Reactions: No Reported Reaction Past Psychological History: Anxiety, Depression Smoking Status: Former smoker Past Alcohol Use History: None Reported Past Drug Use History: None Reported - Past Family History Mother Family Medical History: Diabetes Mellitus Additional Family Medical History / Comment(s): Mother is blind due to diabetic retinopathy. She is 78yrs old. Father Family Medical History: Cancer, CVA/TIA Additional Family Medical History / Comment(s): Father of prostate cancer with mets to liver at the age of 81 yrs. General Exam - General Exam Comments Initial Comments: GENERAL: Patient is well-developed and well-nourished. Patient is nontoxic and in mild distress. HEAD: Atraumatic, normocephalic. EYES: Pupils equal round and reactive to light, extraocular movements intact, sclera anicteric, conjunctiva are normal. Eyelids were unremarkable. ENT: TMs normal, nares patent, oropharynx clear without exudates. Moist mucous membranes. NECK: Normal range of motion, supple without lymphadenopathy or JVD. LUNGS: Unlabored respirations. Breath sounds clear to auscultation bilaterally and equal. No wheezes rales or rhonchi. HEART: Regular rate and rhythm without murmurs, rubs or gallops. ABDOMEN: Soft, tender epigastric and right upper quadrant, positive Bates's sign, normoactive bowel sounds. No masses appreciated. : Deferred MUSCULOSKELETAL: Normal extremities with adequate strength and normal range of motion, no pitting or edema. No clubbing or cyanosis. NEUROLOGICAL: Patient is alert and oriented x 3. Motor and sensory are also intact. Cranial nerves II through XII grossly intact. Symmetrical smile. Normal speech, normal gait. PSYCH: Normal mood, normal affect. SKIN: Warm, Dry, normal turgor, no rashes or lesions noted. Limitations: no limitations Course Vital Signs 07/25/20 07/25/20 14:43 15:35 Temperature 97.3 F L Pulse Rate 91 83 Respiratory 20 20 Rate Blood Pressure 125/85 133/86 O2 Sat by Pulse 96 95 Oximetry Medical Decision Making - Medical Decision Making Patient is a 49-year-old male here for epigastric to right upper quadrant pain that increasing the past 7 days. Patient was evaluated at [facility] 5 days ago, diagnosed with pancreatitis, Lipase then was 750, CT scan showed no acute process. Labs today are stable, glucose is slightly up at 180, lipase is normal at 170, bilirubin is 1.6. Urine shows known signs of infection, 2+ ketones. Ultrasound today reveals no mobile gallstones or ultrasound evidence for acute cholecystitis. Patient received some fluids, Zofran and pain control. He reports improvement in his symptoms. His vital signs remained stable. I discussed with patient that his pain could be coming from his gallbladder, recommended follow up with surgeon. I will give him referral. Patient is stable for discharge. Patient is in agreement with this plan of care. Return parameters were discussed with the patient and they verbalized understanding. Case discussed with Dr. Grace. - Lab Data Result diagrams: 07/25/20 15:32 07/25/20 15:32 Lab Results 07/25/20 07/25/20 07/25/20 Range/Units 15:32 15:32 15:32 WBC 8.9 (3.8-10.6) k/uL RBC 5.46 (4.30-5.90) m/uL Hgb 16.1 (13.0-17.5) gm/dL Hct 46.8 (39.0-53.0) % MCV 85.6 (80.0-100.0) fL MCH 29.6 (25.0-35.0) pg MCHC 34.5 (31.0-37.0) g/dL RDW 12.7 (11.5-15.5) % Plt Count 298 (150-450) k/uL MPV 6.6 Neutrophils % 66 % Lymphocytes % 20 % Monocytes % 7 % Eosinophils % 5 % Basophils % 1 % Neutrophils # 5.9 (1.3-7.7) k/uL Lymphocytes # 1.8 (1.0-4.8) k/uL Monocytes # 0.6 (0-1.0) k/uL Eosinophils # 0.4 (0-0.7) k/uL Basophils # 0.1 (0-0.2) k/uL PT 10.7 (9.0-12.0) sec INR 1.0 (<1.2) APTT 24.0 (22.0-30.0) sec Sodium (137-145) mmol/L Potassium (3.5-5.1) mmol/L Chloride (98-107) mmol/L Carbon Dioxide (22-30) mmol/L Anion Gap mmol/L BUN (9-20) mg/dL Creatinine (0.66-1.25) mg/dL Est GFR (CKD-EPI)AfAm (>60 ml/min/1.73 sqM) Est GFR (CKD-EPI)NonAf (>60 ml/min/1.73 sqM) Glucose (74-99) mg/dL Plasma Lactic Acid Tl (0.7-2.0) mmol/L Calcium (8.4-10.2) mg/dL Total Bilirubin (0.2-1.3) mg/dL AST (17-59) U/L ALT (4-49) U/L Alkaline Phosphatase (38-126) U/L Total Protein (6.3-8.2) g/dL Albumin (3.5-5.0) g/dL Amylase (30-110) U/L Lipase (23-300) U/L Urine Color Dark Yellow Urine Appearance Clear (Clear) Urine pH 6.0 (5.0-8.0) Ur Specific [place] 1.035 (1.001-1.035) Urine Protein 1+ H (Negative) Urine Glucose (UA) Trace H (Negative) Urine Ketones 2+ H (Negative) Urine Blood Negative (Negative) Urine Nitrite Negative (Negative) Urine Bilirubin 1+ H (Negative) Urine Urobilinogen 6.0 (<2.0) mg/dL Ur Leukocyte Esterase Negative (Negative) Urine RBC 1 (0-5) /hpf Urine WBC 3 (0-5) /hpf Ur Squamous Epith Cells <1 (0-4) /hpf Hyaline Casts 2 (0-2) /lpf Urine Mucus Many H (None) /hpf 07/25/20 07/25/20 Range/Units 15:32 15:32 WBC (3.8-10.6) k/uL RBC (4.30-5.90) m/uL Hgb (13.0-17.5) gm/dL Hct (39.0-53.0) % MCV (80.0-100.0) fL MCH (25.0-35.0) pg MCHC (31.0-37.0) g/dL RDW (11.5-15.5) % Plt Count (150-450) k/uL MPV Neutrophils % % Lymphocytes % % Monocytes % % Eosinophils % % Basophils % % Neutrophils # (1.3-7.7) k/uL Lymphocytes # (1.0-4.8) k/uL Monocytes # (0-1.0) k/uL Eosinophils # (0-0.7) k/uL Basophils # (0-0.2) k/uL PT (9.0-12.0) sec INR (<1.2) APTT (22.0-30.0) sec Sodium 137 (137-145) mmol/L Potassium 4.4 (3.5-5.1) mmol/L Chloride 104 (98-107) mmol/L Carbon Dioxide 22 (22-30) mmol/L Anion Gap 11 mmol/L BUN 14 (9-20) mg/dL Creatinine 0.90 (0.66-1.25) mg/dL Est GFR (CKD-EPI)AfAm >90 (>60 ml/min/1.73 sqM) Est GFR (CKD-EPI)NonAf >90 (>60 ml/min/1.73 sqM) Glucose 181 H (74-99) mg/dL Plasma Lactic Acid Tl 1.2 (0.7-2.0) mmol/L Calcium 9.5 (8.4-10.2) mg/dL Total Bilirubin 1.6 H (0.2-1.3) mg/dL AST 46 (17-59) U/L ALT 61 H (4-49) U/L Alkaline Phosphatase 140 H (38-126) U/L Total Protein 7.9 (6.3-8.2) g/dL Albumin 4.6 (3.5-5.0) g/dL Amylase 66 (30-110) U/L Lipase 173 (23-300) U/L Urine Color Urine Appearance (Clear) Urine pH (5.0-8.0) Ur Specific [place] (1.001-1.035) Urine Protein (Negative) Urine Glucose (UA) (Negative) Urine Ketones (Negative) Urine Blood (Negative) Urine Nitrite (Negative) Urine Bilirubin (Negative) Urine Urobilinogen (<2.0) mg/dL Ur Leukocyte Esterase (Negative) Urine RBC (0-5) /hpf Urine WBC (0-5) /hpf Ur Squamous Epith Cells (0-4) /hpf Hyaline Casts (0-2) /lpf Urine Mucus (None) /hpf Disposition Clinical Impression: Abdominal pain, Biliary colic Disposition: HOME SELF-CARE Condition: Stable Instructions (If sedation given, give patient instructions): Biliary Colic (ED) Additional Instructions: Please return to the Emergency Department if symptoms worsen or any other concerns. Limits ingestion of fatty foods. May take Zofran for any additional nausea. Recommend Tylenol or Motrin for any discomfort. Follow up with surgery as discussed. Prescriptions: Ondansetron Odt [Zofran Odt] 4 mg PO Q8HR PRN #10 tab PRN Reason: Nausea Is patient prescribed a controlled substance at d/c from ED?: No Referrals: Shanthi Sloan MD [Primary Care Provider] - 1-2 days Reji Rodrigues MD [STAFF PHYSICIAN] - 1-2 days
[2020-07-25 16:16] LABS: Appearance,Urine Clear (Clear); Bilirubin,Urine 1+ (Negative); Blood,Urine Negative (Negative); Color,Urine Dark Yellow; Glucose,Urine (UA) Trace (Negative); Hyaline Casts,Urine 2 /lpf (0-2); Ketones,Urine 2+ (Negative); Leukocyte Esterase,Urine Negative (Negative); Mucus,Urine Many /hpf; Nitrite,Urine Negative (Negative); Protein,Urine 1+ (Negative); RBC,Urine 1 /hpf (0-5); Specific Gravity,Urine 1.035 (1.001-1.035); Squamous Epithelial Cell,Urine <1 /hpf (0-4); WBC,Urine 3 /hpf (0-5)
--- NOTE | 2020-07-25 16:59 | US ---
EXAMINATION TYPE: US gallbladder DATE OF EXAM: 07/25/2020 COMPARISON: CT August 21, 2018 CLINICAL HISTORY: RUQ pain, elevated lipase. RUQ pain, patient not NPO, ate 2 hours prior to exam EXAM MEASUREMENTS: Liver Length: 17.1 cm Gallbladder Wall: 0.2 cm Right Kidney: 11.4 x 5.5 x 4.5 cm Technical limitations due to patient's body habitus and large amount of overlying bowel content Pancreas: Obscured by bowel gas Liver: limited evaluation, only seen intercostally Gallbladder: no evidence of stones as visualized Evidence for sonographic Bates's sign: no CBD: Obscured by overlying bowel gas Right Kidney: no evidence of hydronephrosis Suboptimal visualization of pancreas on initial images saved. Suboptimal visualization of the liver, visualized portion is heterogeneously hyperechoic. No surrounding ascites. No abnormal intrahepatic b iliary dilatation. No right-sided hydronephrosis. Gallbladder shows no shadowing mobile gallstones. IMPRESSION: Suboptimal study but no shadowing mobile gallstones or ultrasound evidence for acute chol ecystitis.
[2020-07-25 18:00] VITALS: BP 130/78; PULSE 81; RESP 16; TEMP 98
== END 2020-07-25 17:59 | disposition home or self-care (01) ==
LOC: EC 14:42
DX: K80.50 Calculus of bile duct without cholangitis or cholecystitis without obstruction (principal); E11.9 Type 2 diabetes mellitus without complications; J45.909 Unspecified asthma, uncomplicated; F41.9 Anxiety disorder, unspecified; F32.9 Major depressive disorder, single episode, unspecified; K21.9 Gastro-esophageal reflux disease without esophagitis; Z79.899 Other long term (current) drug therapy; Z79.4 Long term (current) use of insulin; Z87.891 Personal history of nicotine dependence
CPT/HCPCS: 36415; 80053; 82150; 83605; 83690; 85025; 85610; 85730; 81001; 76705; 99284; 96374; 96375; 96361; J2270; J2405

== ENCOUNTER 2022-04-02 08:21 | Day surgery (SDC) | payer MEDICARE, OTHER ==
[2022-03-28 15:06] VITALS: BMI 42.0
[~2022-04-02 08:21] MED LIST: LACTATED RINGERS 1,000 ML IV SCH
[2022-04-02 08:46] VITALS: RESP 16; TEMP 98
[2022-04-02 08:58] LABS: Glucose,Whole Blood 168 mg/dL (70-110)
[2022-04-02] MEDS ORDERED: LACTATED RINGERS 1,000 ML IV ONE (09:00)
[2022-04-02] MEDS ORDERED: PROPOFOL 10 MG/ML 20 ML VIAL IV ONE (09:43)
[2022-04-02] MEDS ORDERED: MIDAZOLAM 2 MG/2 ML VIAL ONE (09:43)
[2022-04-02] MEDS ORDERED: fentaNYL (PF) 50 MCG/ML 2 ML AMP ONE (09:43)
--- NOTE | 2022-04-02 09:59 | P.PCN ---
Date of Procedure: 04/02/22 Procedure(s) Performed: BRIEF HISTORY: Patient is a 51-year-old pleasant white male scheduled for an elective colonoscopy as a part of long-standing history of ulcerative colitis diagnosed in 2006. Presently been maintained on Humira injections every 2 weeks and in clinical remission. PROCEDURE PERFORMED: Colonoscopy with random biopsy. PREOPERATIVE DIAGNOSIS: Long-standing history of ulcerative colitis. IV sedation per Anesthesia. PROCEDURE: After informed consent was obtained, the patient, was brought into the endoscopy unit. IV sedation was administered by Anesthesia under continuous monitoring. Digital rectal examination was normal. Initially the Olympus CF-160 flexible video colonoscope was then inserted in the rectum, gradually advanced into the cecum without any difficulty. Careful examination was performed as the scope was gradually being withdrawn. Ileocecal valve and the appendiceal orifice were visualized and appeared normal. Prep was fair.. Mucosa of the cecum, ascending colon, transverse colon, descending colon, sigmoid colon, and rectum appeared normal. There were multiple scattered pseudopolyps noted throughout the entire colon and multiple biopsies and done from rectum to cecum at every 10 cm intervals to rule out dysplasia. Retroflexion was performed in the rectum and no lesions were seen. The patient tolerated the procedure well. IMPRESSION: Multiple scattered pseudopolyps noted throughout the entire colon but no evidence of active colitis or colorectal neoplasia RECOMMENDATIONS: Findings of this examination were discussed with the patient as his family. He was advised to follow with the biopsy results. If the biopsies do not show any evidence of dysplasia, he can have a repeat colonoscopy every 2 years..
[2022-04-02 10:03] VITALS: PULSE 83
[2022-04-02 10:21] VITALS: BP 141/83
[2022-04-02 10:29] LABS: Glucose,Whole Blood 159 mg/dL (70-110)
== END 2022-04-02 10:36 | disposition home or self-care (01) ==
LOC: ORWHC2ENDO 08:21
PROVIDERS: ATTEND Internal Medicine Gastroenterology
DX: K51.40 Inflammatory polyps of colon without complications (principal); Z87.19 Personal history of other diseases of the digestive system
CPT/HCPCS: 88305; 45380; J2250; J3010; J2704